=== PATIENT | female | born 1945 | race Caucasian/White ===

== ENCOUNTER 2017-12-08 17:22 | Emergency (ER) | payer MEDICARE, MEDICAID, SELFPAY ==
[2017-12-08 17:27] VITALS: BP 165/88; PULSE 98; RESP 20; TEMP 36.6; O2SAT 95; BMI 42.5
--- NOTE | 2017-12-08 18:08 | US_ITS ---
STUDY: VENOUS DOPPLER ULTRASOUND - RIGHT LOWER EXTREMITY REASON FOR EXAM: Female, 72 years old. Posterior calf pain TECHNIQUE: Ultrasound evaluation of the deep vein system to include ma-scale imaging and compression was performed. Ma-scale imaging and Doppler sonographic evaluation, including duplex spectral analysis and qualitative color flow sonography, was performed. COMPARISON: None. FINDINGS: Common Femoral Vein: Normal compression, spontaneity and augmentation. Normal color Doppler. Common Femoral Vein/Greater Saphenous Junction: Normal compression Deep Femoral Vein: Normal compression, spontaneity and augmentation. Normal color Doppler. Femoral Proximal: Normal compression. Normal color Doppler. Femoral Middle: Normal compression, spontaneity and augmentation. Normal color Doppler. Femoral Distal: Normal compression, spontaneity and augmentation. Normal color Doppler. Popliteal Vein: Normal compression, spontaneity and augmentation. Normal color Doppler. Posterior Tibial Vein: Normal compression. Peroneal Vein: Normal compression. US/Venous Duplex Imag/Limited/Uni IMPRESSION: There is no demonstrated deep venous thrombosis. Electronically Signed: aMry Samayoa MD at 18:47 EDT Tel , Service support ,
--- NOTE | 2017-12-08 19:55 | ED.VISSUMM ---
- ER Visit Summary Date of Service: 12/08/17 Chief Complaint: Leg pain right History of Present Illness: The patient is a 72 F with right leg pain on the right. No DVT risk factors. No chest pain or shortness of breath Physical Examination: Pain over the IT band region and posterior knee. Test Results: [] Emergency Department Course and Treatment: DVT study was ordered per protocol prior to me seeing the patient this was negative patient will be discharged with reassurance Disposition: Discharged stable condition Impression: IT band pain This note was generated with [employer] dictation software. It may contain incorrect words, spelling, and punctuation that were not noted in review of the chart prior to signing ED Disposition - Plan for ED Patient: Disposition: Home or Assisted Living Chief Complaint: Lower Extremity Injury Referrals: Maricruz Ace MD [Primary Care Provider] - 2 Days Additional Instructions: Follow-up with your doctor for physical therapy
--- NOTE | 2017-12-08 19:58 | ED.DCSUM_ITS ---
- ER Visit Summary Date of Service: 12/08/17 Chief Complaint: Leg pain right History of Present Illness: The patient is a 72 F with right leg pain on the right. No DVT risk factors. No chest pain or shortness of breath Physical Examination: Pain over the IT band region and posterior knee. Test Results: [] Emergency Department Course and Treatment: DVT study was ordered per protocol prior to me seeing the patient this was negative patient will be discharged with reassurance Disposition: Discharged stable condition Impression: IT band pain This note was generated with [employer] dictation software. It may contain incorrect words, spelling, and punctuation that were not noted in review of the chart prior to signing ED Disposition - Plan for ED Patient: Disposition: Home or Assisted Living Chief Complaint: Lower Extremity Injury Referrals: Maricruz Ace MD [Primary Care Provider] - 2 Days Additional Instructions: Follow-up with your doctor for physical therapy
== END 2017-12-08 20:02 | disposition home or self-care (01) ==
PROVIDERS: Emergency Provider Emergency Medicine; Family Provider Internal Medicine; PCP Internal Medicine
DX: M79.1 Myalgia (principal); Z72.0 Tobacco use; M79.7 Fibromyalgia
CPT/HCPCS: 93971; 99282

== ENCOUNTER 2018-07-24 21:54 | Emergency (ER) | payer MEDICARE, MEDICAID, SELFPAY ==
[2018-07-24 21:55] VITALS: BP 156/67; PULSE 107; RESP 18; TEMP 36.8; O2SAT 96; BMI 35.4
--- NOTE | 2018-07-24 22:17 | RAD_ITS ---
HISTORY: INCREASED SWELLING RT KNEE, BUMP BEHIND KNEE COMPARISON: None FINDINGS: # of images incl. paperwork: 4 XR Knee Complete 4 Views or More: Right. SOFT TISSUES: Unremarkable. No radiopaque foreign body. BONES: No acute fracture or subluxation. No sclerotic or destructive changes observed. JOINTS: Very mild for age degenerative changes. No apparent joint effusion. RAD/Knee 4 or More Views IMPRESSION: Mild for age degenerative changes. No acute fracture or dislocation. at 0024 Reported and signed by: Raleigh Guerrero MD Electronically Signed: Raleigh Guerrero, at 0:22 EST Tel , Service support ,
[2018-07-24 22:53] LABS: International Normalized Ratio 1.1; Prothrombin Time (Protime)PT. 13.9 SECONDS (11.7-14.9)
[2018-07-24 22:59] LABS: Anion Gap 9 (5-15); BUN 26 mg/dL (7-18); BUN/Creat Ratio 23.2 RATIO (10-20); Calcium,Total 9.1 mg/dL (8.5-10.1); Chloride 105 mmol/L (98-107); Creatinine, Serum 1.12 mg/dL (0.55-1.02); EST Glomerular Filtration Rate 51 mL/min (>60); Est Glom Filt Rate - Afr Amer 62 mL/min (>60); Estimated Creatinine Clearance 38.11 ml/min; Glucose 148 mg/dL (74-106); Potassium 3.9 mmol/L (3.5-5.1); Sodium Level 140 mmol/L (136-145)
[2018-07-24 23:05] LABS: D-Dimer Quantitative (DVT/PE) 2.34 FEU/ug/m (0.27-0.49)
--- NOTE | 2018-07-24 23:05 | ED.RN ---
DR WARD NOTIFIED OF DDIMER RESULTS
--- NOTE | 2018-07-24 23:07 | ED.VISSUMM ---
- ER Visit Summary Date of Service: 07/24/18 Chief Complaint: Right leg pain and swelling History of Present Illness: The patient is a 72 F who presents with right leg pain and swelling. She states she noticed a knot behind her right knee yesterday. She later developed pain extending down the calf and up into the distal thigh. She is able to ambulate. She complains of some paresthesias in her toes. No fall trauma or injury. No recent travel surgery or hospitalization. No history of DVT or pulmonary embolism. She also complains of right lower back pain for greater than a month which she is uncertain if it is related. No abdominal pain. She denies fevers chest pain shortness of breath. Physical Examination: Afebrile heart rate 107 vitals otherwise unremarkable Heart regular rhythm Lungs are clear to auscultation Abdomen soft nontender nondistended Patient has reproducible right paraspinal lumbar tenderness There is a fullness with some fluctuance behind the right knee suggestive of Chu's cyst Patient has bilateral lower extremity edema although this is worse on the right there is some mild erythema of the lower leg but it is not hot to the touch there is no lymphangitic streaking it does not appear cellulitic Easily palpable symmetric dorsalis pedis pulses with brisk capillary refill Normal sensation to light touch Test Results: D-dimer 2.34. INR normal at 1.1. BUN of 26 with a creatinine of 1.12. CBC notable for hemoglobin 9.0, hematocrit 30.1. Knee x-ray shows mild degenerative changes for age no acute fracture or dislocation. Emergency Department Course and Treatment: My clinical suspicion is that this is a ruptured Chu's cyst. However d-dimer did return elevated. Venous duplex is not available at this time. Patient was therefore empirically treated with a dose of subcutaneous Lovenox. She will return tomorrow for venous duplex. She understands to return for new or worsening symptoms. She is instructed on signs and symptoms to monitor for and was discharged home. Treatment Plan: [] Disposition: Discharge Impression: Right leg pain This note was generated with [employer] dictation software. It may contain incorrect words, spelling, and punctuation that were not noted in review of the chart prior to signing ED Disposition - Plan for ED Patient: Referrals: Maricruz Ace MD [Primary Care Provider] -
[2018-07-24 23:21] LABS: Absolute Lymphocyte Count 2.64 X10^3/ul (0.83-4.51); Basophil# 0.03 X10^3/uL; Basophil% 0.3 % (0-1); Eosinophil# 0.19 X10^3/uL; Eosinophils% 1.7 % (0-5); Hematocrit 30.1 % (37-47); Lymphocyte # 2.64 X10^3/ul (4.0); Mean Corp Hgb Conc 29.9 g/gl (32-36); Mean Corpuscular Hgb 22.1 pg (27.0-32.0); Mean Platelet Vol. 9.1 fl (6.2-12.0); Monocyte# 1.12 X10^3/uL; Monocyte% 10.2 % (0-10); Neutrophil # 6.99 X10^3/uL (2.7-7.7); Neutrophil % 63.6 % (47-70); Platelet Count 320 K/mm3 (150-450); RBC Distribution Width CV 18.8 % (11.6-14.6); RBC Distribution Width SD 50.4 fl (35.1-43.9); Red Blood Count 4.07 M/mm3 (4.2-5.4)
[2018-07-24 23:22] LABS: Differential Indicated SCAN CRITERIA MET; POSITIVE COUNT NO; POSITIVE DIFFERENTIAL NO; POSITIVE MORPHOLOGY YES
[2018-07-24 23:42] LABS: Anisocytosis 1+
[2018-07-24 23:43] LABS: Hypochromasia 3+; Microcytosis 3+; Schistocytes RARE
[2018-07-24 23:56] VITALS: PULSE 88; RESP 16; O2SAT 97
[2018-07-25] MEDS: Enoxaparin 100 MG/ML Syringe 90 MG SC (00:14)
--- NOTE | 2018-07-25 00:31 | ED.DEP ---
ED Disposition - Plan for ED Patient: Instructions: ED Cyst Chu Referrals: Maricruz Ace MD [Primary Care Provider] -
[2018-07-25 01:00] VITALS: RESP 18
[2018-07-25 01:07] VITALS: BP 121/61; PULSE 91; RESP 18; O2SAT 96
== END 2018-07-25 01:13 | disposition home or self-care (01) ==
LOC: ED 22:42
PROVIDERS: Emergency Provider Emergency Medicine; Family Provider Internal Medicine; PCP Internal Medicine
DX: M79.604 Pain in right leg (principal); R60.0 Localized edema; M54.9 Dorsalgia, unspecified; I10 Essential (primary) hypertension; I48.91 Unspecified atrial fibrillation; Z72.0 Tobacco use
CPT/HCPCS: 36415; 73564; 80048; 85025; 85379; 85610; 96372; 99282

== ENCOUNTER → 2018-07-27 13:18 | Outpatient (CLI) | payer MEDICARE, MEDICAID, SELFPAY ==
[2018-07-24 21:55] VITALS: BMI 35.4
--- NOTE | 2018-07-27 13:23 | VDLE_ITS ---
Reason For Study: RLE Pain RIGHT LEFT GSV is normal. CFV is compressible, spontaneous, phasic, CFV is compressible, spontaneous, phasic, competent, and demonstrates normal competent and demonstrates normal augmentation. augmentation. Acute deep vein thrombosis is noted in the right femoral vein. Acute deep vein thrombosis is noted in the right popliteal vein. RT PerV is compressible. Acute deep vein thrombosis is noted in the right posterior tibial vein. Acute deep vein thrombosis is noted in the right gastroc vein. Procedure Exam performed in department. A preliminary report was called and/or faxed to [facility]. Interpretation Summary Acute deep vein thrombosis is noted in the right femoral vein. Acute deep vein thrombosis is noted in the right popliteal vein. Acute deep vein thrombosis is noted in the right posterior tibial vein. Acute deep vein thrombosis is noted in the right gastrocnemius vein. The right common femoral vein and peroneal vein are patent and compressible. The right greater saphenous vein appears patent and compressible segmentally. Ordering Physician: Palmer Smith Referring Physician: Maricruz Ace Performed By: Mary Anne Fang RVT and Student
== END ==
PROVIDERS: Family Provider Internal Medicine; PCP Internal Medicine; Referring Provider Emergency Medicine; Visit Provider Emergency Medicine
DX: M79.604 Pain in right leg (principal); M79.89 Other specified soft tissue disorders
CPT/HCPCS: 93971

== ENCOUNTER → 2018-10-13 09:44 | Outpatient (CLI) | payer MEDICARE, MEDICAID, SELFPAY ==
[2018-10-13] VITALS (7 sets, daily range): BP systolic 129–154; BP diastolic 58–78; PULSE 65–91; RESP 16–18; TEMP 36.2–37.2; O2SAT 96–99; BMI 40.2
[2018-10-13] MEDS: DiphenhydrAMINE 25 MG Capsule 50 MG PO (10:12)
== END ==
LOC: MEDOUTP 09:44
PROVIDERS: Family Provider Internal Medicine; PCP Internal Medicine; Referring Provider Internal Medicine; Visit Provider Internal Medicine
DX: D64.9 Anemia, unspecified (principal)
CPT/HCPCS: 36430; 86850; 86900; 86920; 86922; J7040; P9016; A4216

== ENCOUNTER 2018-10-15 10:19 | Day surgery (SDC) | payer MEDICARE, SELFPAY ==
[2018-10-13 10:04] VITALS: BMI 40.2
[2018-10-15 10:49] VITALS: BP 143/73; PULSE 79; RESP 18; TEMP 37.1; O2SAT 94; BMI 40.5
--- NOTE | 2018-10-15 11:30 | EGD_PTH ---
PATIENT: BRIANNA DYSON LOC: [facility] U#:[id number] AGE/SX: 72/F ROOM: RE10/15/[address]: Dr. Sarah Webb MD : 1945 BED: DIS: 10/15/2018 SPEC #: [id number] RECD: 10/15/18 12:27 STATUS: MERNA RENaomi #: [id number] DOMI: 10/15/18 11:[address]: Sarah Webb DEPT: SURGICAL PATHOLOGY RECD BY: Yovanny Judge ENTERED: 10/15/18 13:32 SP TYPE: EGD BIOPSY OTHR DR: Dr. Maricruz Ace MD Tissues: Gastric mucous membrane Procedures: PAS Fungus (control) Special Stain Group I Surgery Specimen Level IV HEADER OPERATION[place] [place] DIAGNOSIS: Iron deficiency anemia TISSUE SUBMITTED: Antral biopsy for histo and H. pylori MICROSCOPIC DIAGNOSIS Antral biopsy: Mild gastritis. See microscopic description and comment. SJ:angie 10/18/18 COMMENT A few fragments of squamous epithelium mixed with fungal organisms (yeast and pseudohyphae) consistent with Abril species are also noted and these may represent contaminant from the mouth. The results of immunohistochemistry for Helicobacter pylori will be reported separately ([id number]). Correlation with clinical, endoscopic findings and appropriate follow up are necessary. MICROSCOPIC DESCRIPTION Slides are reviewed. The specimen shows fragments of gastric mucosa with chronic inflammatory cell infiltrates in the lamina propria consisting of lymphocytes and plasma cells, consistent with mild chronic gastritis. GROSS DESCRIPTION Received in fixative is one container labeled with the patient's name and designated antral biopsy. The specimen consists of two irregular fragments of light de leon soft tissue that in aggregate measure 0.4 x 0.3 x 0.1 cm. The specimen is totally submitted in one cassette. / ANNETTE:angie 10/15/18 TC:3 CPT: 19655, 30069
--- NOTE | 2018-10-15 11:30 | IMM_PTH ---
PATIENT: BRIANNA DYSON LOC: [facility] U#:[id number] AGE/SX: 72/F ROOM: RE10/15/[address]: Dr. Sarah Webb MD : 1945 BED: DIS: 10/15/2018 SPEC #: [id number] RECD: 10/15/18 14:59 STATUS: MERNA REQ #: [id number] DOMI: 10/15/18 11:[address]: Sarah Webb DEPT: IMMUNOHISTOCHEMISTRY RECD BY: Brittney Mcgraw ENTERED: 10/15/18 15:00 SP TYPE: IMMUNO OTHR DR: Dr. Maricruz Ace MD Tissues: Stomach, NOS Procedures: H Pylori (initial) PHYSICIAN & INSTITUTION [place] [id number] SPECIMEN INFORMATION: Tissue Source: Antral biopsy Clinical Info: Iron deficiency anemia Specimen Number: [id number] CPT code: 39639 METHODOLOGY: Deparaffinized sections of prefer/formalin-fixed tissue or PAP/DQ stained slides are incubated with monoclonal/polyclonal antibodies/oligonucleotide probes. Localization is made via biotin free immunoperoxidase method. Appropriate controls are performed and reacted as expected. Results on target cell population are indicated in the following table: RESULTS: ANTIBODY / CLONE RESULT H Pylori (polyclonal) negative These tests were developed and their performance characteristics determined by [facility]. They may not have been cleared or approved by the [place]. Food and Drug Administration. The FDA has determined that such clearance or approval is not necessary. INTERPRETATION: Antral biopsy: Negative for Helicobacter pylori organisms. SJ:angie 10/18/18
--- NOTE | 2018-10-15 11:44 | HP.PCM_ITS ---
History and Physical Date of Admission: 10/15/18 HISTORY AND PHYSICAL ? Lala Davila 1945 ? REFERRING PHYSICIAN: Maricruz Ace MD ? CHIEF COMPLAINT: Consult ? HPI: The patient is a 72 year old female referred for endoscopy. Lala notes iron deficiency on recent labs, was referred to gastroenterology and scheduled for appointment in October but rescheduled to be seen earlier with General Surgery. Patient notes progressive fatigue and weakness over the last couple of months. Notes she has had so little energy that she stayed home [place] and did not get together with her family. States she barely had enough energy to come to appointment today. ? Patient notes a few months ago she was having issues with chronic watery diarrh ea and that she had two weeks of visible blood with bowel movements associated with this. was seen by Dr. Haney and treated for spastic colon, records not currently available. Notes was briefly on medication for this which she has since stopped taking. was told bleeding was likely related to internal hemorrhoids. She states the stools normalized and she notes no further blood in stools. Denies black tarry stools or abdominal pain. Denies family history of colon cancer. ? The patient NOTES chronic generalized mid-abdominal pain that varies in severity, denies particular aggravating or alleviating factors. She is a current everyday smoker, approximately 1/2 pack per day. ? Lala has undergone prior upper and lower endoscopy in [address] Mclaughlin with findings of gastritis, esophagitis, angioectasia without bleeding in the cecum, benign colon hyperplastic polyp. Patient notes some recall from those procedures and would like to make she is out this time. Patient was recently evaluated by her PCP for her complaints including fatigue. She had the following laboratory studies performed which demonstrated iron deficiency anemia and heme positive stool. ? ? Component Latest Ref Rng & Units 09/24/2018 WBC 3.70 - 11.00 k/uL 8.17 RBC 3.90 - 5.20 m/uL 3.67 (L) Hemoglobin 11.5 - 15.5 g/dL 7.7 (L) Hematocrit 36.0 - 46.0 % 27.1 (L) MCV 80.0 - 100.0 fL 73.8 (L) MCH 26.0 - 34.0 pG 21.0 (L) MCHC 30.5 - 36.0 g/dL 28.4 (L) RDW-CV 11.5 - 15.0 % 19.2 (H) Platelet Count 150 - 400 k/uL 476 (H) MPV 9.0 - 12.7 fL 10.2 Neut% % 55.6 Abs Neut (ANC) 1.45 - 7.50 k/uL 4.55 Lymph% % 31.7 Abs Lymph 1.00 - 4.00 k/uL 2.59 Barren% % 10.8 Abs Barren <0.87 k/uL 0.88 (H) Eosin% % 1.5 Abs Eosin <0.46 k/uL 0.12 Baso% % 0.4 Abs Baso <0.11 k/uL 0.03 Nucleated Reds 0 /100 WBC 0.2 (H) Absolute nRBC <0.01 k/uL 0.02 (H) Diff Type ? Auto Diff ? Component Latest Ref Rng & Units 09/24/2018 Iron 41 - 186 ug/dL 12 (L) TIBC 232 - 386 ug/dL 432 (H) Transferrin Saturation 15 - 57 % 3 (L) ? Component Latest Ref Rng & Units 09/27/2018 Occult Blood, Stool Negative Positive (A) ? ? Patient's past medical history is significant for a recently diagnosed DVT (July 2018) for which she is being anticoagulated with Xarelto, aprtic stenosis, fibromyalgia, chronic pain, hyperlipidemia, pulmonary hypertension, diaphragmatic hernia, obstructive sleep apnea, osteoporosis. Patient follows with Dr. Ace for her chronic medical conditions as well as with Dr. Zuniga in cardiology, recent office visit notes reviewed. She has had a recent echocardiogram which showed mild aortic stenosis, and recent normal stress test, ? ? PAST?MEDICAL?HISTORY PAST MEDICAL HISTORY Diagnosis Date ? Arrhythmia ? ? Benign neoplasm of colon ? ? colon polyp ? Calculus of gallbladder with other cholecystitis, without mention of obstruction 12/09/2007 ? Depressive disorder, not elsewhere classified ? ? Diaphragmatic hernia without mention of obstruction or gangrene ? ? Diverticulosis of colon (without mention of hemorrhage) ? ? Esophageal reflux ? ? Esophagitis ? ? Myalgia and myositis, unspecified ? ? Obesity, unspecified ? ? Obstructive sleep apnea ? ? Osteoporosis, unspecified ? ? Other and unspecified hyperlipidemia ? ? Other malaise and fatigue ? ? Other nerve root and plexus disorders ? ? Restless leg syndrome ? ? Sleep disturbances ? ? narcolepsy ? Tuberculin test reaction ? ? neg chest x-ray ? Unspecified hemorrhoids without mention of complication ? ? Unspecified hypothyroidism ? ? Urinary incontinence ? ? Seeing Dr. Chung ? Vitamin D deficiency ? ? ? PAST?SURGICAL?HISTORY PAST SURGICAL HISTORY Procedure Laterality Date ? APPENDECTOMY ? ? ? COLONOS W/REM POLYP SNARE ? 10/03/2016 ? Hyperplastic polyp - 10 year ? COLONOSCOP W/ OR W/O BRSH SPEC ? 04/16 ? Colonoscopy w/ bx. ? COLONOSCOP W/ OR W/O BRSH SPEC ? 11/05/2012 ? Colonoscopy ? EGD ? 04/16 ? EGD W/O BRSH SPECIMEN W/BX ? 10/03/2016 ? Gastritis ? EGD W/O OR W/BRUSH/WASH ? 11/05/2012 ? EGD ? LAP CHOLECYSTECT/CHOLANGIOGRAPHY ? 01/03/08 ? PAST SURGICAL HISTORY OF ? 03/15/2010 ? ventral hernia repair Dr. Deluna ? PAST SURGICAL HISTORY OF ? 03/05/11 ? Rt nipple exploration with biopsy ? REPAIR INCIS HERNIA W MESH ? 03-15-10 ? REPAIR INCISIONAL HERNIA,REDUCIBLE ? 03-15-10 ? RESECT SMALL INTEST,SINGL RESEC/ANAS ? 1980 ? Resection, partial sm bowel tumor ? STRESS TEST,COMPLETE_*FL ? 08/2000 ? TOTAL ABDOM HYSTERECTOMY ? 1978 ? Hysterectomy, [facility]EDITH ? ? ? CURRENT?MEDICATIONS ? Current Outpatient Medications: cyanocobalamin (VITAMIN B-12) 1,000 mcg/mL soln Inject 1 mL intramuscularly once every month. 1 DOSE MONTHLY oxyCODONE-acetaminophen (PERCOCET) 5-325 mg tablet Take 1 tablet by mouth every 8 hours as needed for up to 30 days. FOR PAIN.Earliest Fill Date: 09/24/18 albuterol HFA (PROVENTIL HFA, VENTOLIN HFA) 90 mcg/actuation inhaler Inhale 2 Puffs as instructed every 4 hours as needed. rivaroxaban (XARELTO) 15 mg tablet Take 1 tablet by mouth twice daily. For 21 days that to be followed by xarelto 20 mgs daily tiZANidine (ZANAFLEX) 4 mg tablet Take 2 tablets by mouth daily at bedtime. pantoprazole DR (PROTONIX) 40 mg tablet take 1 tablet daily 1/2 hour before breakfast on an empty stomach rOPINIRole (REQUIP) 0.5 mg tablet TAKE 2 TABLETS AT BEDTIME or as directed FLUoxetine (PROZAC) 20 mg capsule Take 1 capsule by mouth once daily. triamterene-hydrochlorothiazide 37.5-25 mg per capsule TAKE 1 CAPSULE DAILY furosemide (LASIX) 40 mg tablet Take 1 tablet by mouth once daily. (Patient taking differently: Take 40 mg by mouth as needed.) albuterol 2.5 mg /3 mL (0.083 %) nebulizer solution Use 3 mL via nebulizer as directed for 1 day. ADMINISTER 1UNIT DOSE NOW. cholecalciferol, Vitamin D3, (VITAMIN D3) 50,000 unit cap capsule take 1 capsule twice a week for vitamin d deficiency levothyroxine (LEVOXYL) 175 mcg tablet Take 1 tablet by mouth once daily. Take on empty stomach. For thyroid. peg 3350-Electrolytes (GOLYTELY) 236-22.74-6.74 -5.86 gram suspension Take 4,000 mL by mouth one time only for 1 dose. rivaroxaban (XARELTO) 20 mg tablet Take 1 tablet by mouth daily with dinner. To cont with this once the first 21 days. (Patient not taking: Reported on 10/11/2018 ) oxybutynin XL (DITROPAN XL) 5 mg 24 hr tablet Take 1 tablet by mouth once daily. (Patient not taking: Reported on 10/11/2018 ) Betamethasone Dipropionate 0.05 % lotion Apply 1 application to affected area twice daily. (Patient not taking: Reported on 10/11/2018 ) ? Current Facility-Administered Medications: cyanocobalamin 1,000 mcg injection 1,000 mcg INTRAMUSCULAR q 1 MONTH ? ? ALLERGIES: Adhesive Tape (Rosins); Fosamax Plus D [Alendronate-Vitamin D3]; Ivp Dye [Iodine]; Nsaids (Non-Steroidal Anti-Inflammatory Drug) ? PERSONAL HISTORY: SOCIAL?HISTORY Social History Socioeconomic History Marital status: Single Spouse name: Not on file Number of children: 2 Years of education: Not on file Highest education level: Not on file Social Needs Financial resource strain: Not on file Food insecurity - worry: Not on file Food insecurity - inability: Not on file Transportation needs - medical: Not on file Transportation needs - non-medical: Not on file Occupational History Not on file Tobacco Use Smoking status: Current Every Day Smoker Packs/day: 0.50 Years: 40.00 Pack years: 20 Types: Cigarettes Smokeless tobacco: Never Used Tobacco comment: electronic cig Substance and Sexual Activity Alcohol use: No Drug use: No Sexual activity: Not on file Other Topics Concerns: Not on file Social History Narrative Not on file ? FAMILY HISTORY: FAMILY?HISTORY FAMILY HISTORY Problem Relation Age of Onset ? Cancer Mother ? ? throat/lung/stomach ? Heart Father ? ? other (lymphoma) Brother ? ? ? REVIEW OF SYMPTOMS: The review of systems data was entered by the nurse and reviewed by me ? Nursing Notes: Nathaniel Cleveland 10/11/2018 4:02 PM Signed REVIEW OF SYSTEMS: General: The patient NOTES fatigue, denies weight loss, denies weight gain, NOTES feeling hot, and denies feelings of cold. Eyes: The patient denies glaucoma, denies eye injury/surgery, wears glasses or contacts. Ear/Nose/Throat: The patient denies allergies, denies hayfever, NOTES ear infections, and denies bloody noses. Cardiovascular: The patient denies chest pain, denies heart disease, NOTES high blood pressure,denies cardiac stent, denies prior heart attack, NOTES irregular heart beat, denies high cholesterol, denies poor circulation, denies heart failure, other cardiac issues, denies claudication, NOTES cold feet, denies peripheral arterial stent. Respiratory: The patient denies tuberculosis, NOTES pneumonia, NOTES frequent cough, denies pulmonary embolism, NOTES shortness of breath, and denies coughing up blood. Gastrointestinal: The patient denies difficulty swallowing, NOTES acid reflux, denies ulcers, denies vomiting, denies jaundice/hepatitis, NOTES gallbladder problems, denies black or tarry stools, NOTES hemorrhoids, NOTES bleeding from rectum, NOTES diverticulitis, NOTES constipation, NOTES diarrhea, denies loss of stool control, and NOTES hernias. Kidney/Bladder: The patient denies kidney stones, denies urine infections, and denies bloody urine. Skin: The patient denies a history of skin cancer, denies bleeding/changing moles, and NOTES a history of skin rash. Neurologic: The patient denies a history of epilepsy/convulsions, denies headaches, denies head/spinal injuries, and denies stroke/TIA. Psychiatric: The patient denies psychiatric medications, NOTES depression, and denies voices, denies substance abuse. Endocrine: The patient NOTES thyroid disorders, denies diabetes, and denies hormonal problems. Hematologic: The patient denies a history of bruising, denies bleeding, and NOTES anemia, NOTES blood clots. Infections: The patient NOTES a history of measles and mumps, denies rheumatic fever, and denies sexually transmitted diseases. Musculoskeletal: The patient NOTES back pain/injury, NOTES back problems, denies sciatica, denies knee/foot trouble, NOTES arthritis, or denies gout. ? ? When was patient's last Mammogram screening? 03-16-18 ? Last Colonoscopy: 2016 ? Nathaniel Cleveland I have confirmed and edited as necessary, the PFSH and ROS obtained by others. ? PHYSICAL EXAMINATION: ? General: The patient is 72 year old female, appears tired and pale but in no acute distress. The patient is oriented to time, place, and person. ? VITALS: Blood pressure 150/68, pulse 94, temperature 37.4 ?C (99.3 ?F), temperature source Temporal Artery, height 158.8 cm (5' 2.5), weight 102.9 kg (226 lb 12.8 oz), SpO2 98 %. Body mass index is 40.82 kg/m?. ? HEENT: Normal cephalic, ataumatic, pupils are equally round, sclera are anicteric, mucous membranes are moist, oropharynx is clear. Neck has no masses, asymmetry or lymphadenopathy. ? Respiratory: Clear to auscultation and percussion. Normal respiratory excursion and pattern. ? Cardiac: Examination is regular rate and rhythm. Normal S1/S2 ? Abdominal exam: Soft, nontender, with no palpable masses. No hepatosplenomegaly. No palpable hernias. ? Extremities: no clubbing, cyanosis or edema. No adenopathy. ? LABORATORY VALUES: As Noted ? RADIOLOGIC STUDIES: As Noted ? ? Assessment IMPRESSION: iron deficiency anemia, fatigue and weakness, aortic stenosis. Recommend expedited upper and lower endoscopy to evaluate for GI bleeding source and recommend blood transfusion prior to endoscopy ? PLAN: I have reviewed my findings with the surgeon. Will plan for upper and lower endoscopy. We discussed the risks and benefits of the planned endoscopy. I have informed the patient that complications can occur including failure to complete the endoscopy and perforation. The patient had the opportunity to ask questions concerning the planned endoscopy. My staff has also explained the procedure to the patient in understandable terms and has given the patient printed material concerning the procedure. The patient freely consents to surgery. ? I plan to use Golytely bowel preparation. Reviewed importance of good hydration. ? Case reviewed with surgeon Dr. Mclaughlin, as well as with Dr. Zuniga in cardiology. We recommend that patient receive blood transfusion prior to endoscopy due to significant anemia with symptoms of fatigue and weakness, in addition to her history of aortic stenosis. This recommendation was relayed to patient's PCP Dr. Ace. ? We will plan for Monitored Anesthetic Care. due to cardiac history as well as anxiety and recall from prior colonoscopy performed under moderate sedation ? ? Diagnoses: (D50.9) Iron deficiency anemia, unspecified iron deficiency anemia type (primary encounter diagnosis) (Z79.01) On continuous oral anticoagulation (I35.2) Aortic valve stenosis with insufficiency, etiology of cardiac valve disease unspecified (I82.4Y1) Acute deep vein thrombosis (DVT) of proximal end of right lower extremity (HCC) (R53.1) Weakness (R53.81, R53.83) Malaise and fatigue ? ? Katie De Luna PA-C
[2018-10-15 12:15] VITALS: BP 143/71; BP 143/73; PULSE 75; RESP 18; TEMP 36.1; O2SAT 97
--- NOTE | 2018-10-15 12:18 | OP.ENDO_ITS ---
10/15/2018 Maricruz Ace [address] [id number] Re : Upper GI endoscopy procedure for Lala Davila Dear Dr. Ace This procedure was performed on Monday, October 15, 2018. My impressions and recommendations are as follows: Impressions : - Normal first portion of the duodenum and second portion of the duodenum. - Normal stomach. Biopsied. - Small hiatal hernia. Recommendations : - Discharge patient to home (ambulatory). - Resume previous diet. - Continue present medications. - Await pathology results. - My office will telephone with pathology results in 1-2 weeks My findings are described in the full procedure note, which is enclosed. If I can be of further assistance, please feel free to contact me at Doctor phone number(s): , Work: . Sincerely, MD Sarah Zarate MD 10/15/2018 12:17:52 PM This report has been signed electronically.
[2018-10-15 12:20] VITALS: BP 143/73; BP 149/81; PULSE 73; RESP 18; O2SAT 96
--- NOTE | 2018-10-15 12:21 | OP.ENDO_ITS ---
10/15/2018 Maricruz Ace [address] [id number] Re : Colonoscopy procedure for Lala Davila Dear Dr. Ace This procedure was performed on Monday, October 15, 2018. My impressions and recommendations are as follows: Impressions : - Non-bleeding internal hemorrhoids. - No specimens collected. Recommendations : - Repeat colonoscopy in 10 years for screening purposes. - Return to primary care physician PRN. - Continue present medications. My findings are described in the full procedure note, which is enclosed. If I can be of further assistance, please feel free to contact me at Doctor phone number(s): , Work: . Sincerely, MD Sarah Zarate MD 10/15/2018 12:20:54 PM This report has been signed electronically.
[2018-10-15 12:25] VITALS: BP 143/73; BP 149/80; PULSE 75; RESP 18; O2SAT 97
[2018-10-15 12:30] VITALS: BP 143/73; BP 149/76; PULSE 71; RESP 18; TEMP 36.4; O2SAT 97
[2018-10-15 12:34] VITALS: BP 143/73
== END 2018-10-15 13:11 | disposition home or self-care (01) ==
LOC: EN 10:20 → AC 10:23
PROVIDERS: Family Provider Internal Medicine; PCP Internal Medicine; Referring Provider Internal Medicine; Visit Provider Surgery
PROC: 0DJD8ZZ Inspection of Lower Intestinal Tract, Via Natural or Artificial Opening Endoscopic (ICD-10-PCS; CPT 45378; principal; 2018-10-15 11:25)
DX: K29.70 Gastritis, unspecified, without bleeding (principal); D50.9 Iron deficiency anemia, unspecified; I35.0 Nonrheumatic aortic (valve) stenosis; K44.9 Diaphragmatic hernia without obstruction or gangrene; K64.8 Other hemorrhoids; K62.5 Hemorrhage of anus and rectum; K21.9 Gastro-esophageal reflux disease without esophagitis; Z86.718 Personal history of other venous thrombosis and embolism; I48.91 Unspecified atrial fibrillation; I10 Essential (primary) hypertension; F17.200 Nicotine dependence, unspecified, uncomplicated
CPT/HCPCS: 43239; 45378; 88305; 88312; 88342; J7120

== ENCOUNTER → 2019-12-26 11:02 | Outpatient (CLI) | payer MEDICARE, MEDICAID, SELFPAY ==
[2019-12-26 12:07] LABS: Amphetamine Urine VISTA NEGATIVE (<1000 ng/mL); Barbiturate Urine VISTA NEGATIVE (< 200 ng/mL); Benzodiazepine Urine VISTA NEGATIVE (< 200 ng/mL); Cocaine Urine VISTA NEGATIVE (< 300 ng/mL); Ecstacy Urine VISTA NEGATIVE (< 500 ng/mL); Methadone Urine VISTA NEGATIVE (< 300 ng/mL); PCP Urine VISTA NEGATIVE (< 25 ng/mL); THC Urine VISTA NEGATIVE (< 50 ng/mL); Vista UDS pH Range 7
== END ==
PROVIDERS: PCP Internal Medicine; Referring Provider Anesthesiology Pain Medicine; Visit Provider Anesthesiology Pain Medicine
DX: F11.20 Opioid dependence, uncomplicated (principal)
CPT/HCPCS: 80307

== ENCOUNTER → 2020-01-03 17:04 | Outpatient (CLI) | payer MEDICARE, MEDICAID, SELFPAY ==
--- NOTE | 2020-01-03 17:30 | MRI_ITS ---
STUDY: MRI LUMBAR SPINE WITHOUT CONTRAST REASON FOR EXAM: Female, 74 years old. LBP, LEFT hip and leg pain x years TECHNIQUE: Standardized fat and water weighted pulse sequences were obtained in the sagittal and axial planes. COMPARISON: None FINDINGS: T12-L1: Normal endplates. Normal disc height, hydration and morphology. Normal bilateral facet joints. Normal central canal and bilateral lateral recesses. Normal bilateral intervertebral neural foramina. Normal lumbar lordosis. There is no substantial scoliosis. Normal conus medullaris that terminates at the L1 level. L1-2: Bulging annulus and bilateral facet hypertrophy without compressive sequelae. L2-3: Bulging annulus and broad central disc protrusion with bilateral facet hypertrophy and facet joint effusions. Mild central canal and right foraminal stenoses. L3-4: Bulging annulus and central annular fissure with bilateral facet and ligamentum flavum hypertrophy. Moderate right and mild left foraminal stenoses. L4-5: Disc space narrowing and desiccation with discogenic endplate changes and anterior osteophytes. Bulging annulus and broad central disc protrusion with bilateral facet and ligamentum flavum hypertrophy. Mild central canal and left lateral recess stenoses. Moderate right and mild left foraminal stenoses. L5-S1: Bulging annulus and bilateral facet hypertrophy with moderate to severe bilateral foraminal stenoses. Normal visualized sacral ala. Normal visualized paraspinous soft tissue structures. MRI/Spine Lumbar (Routine) IMPRESSION: Multilevel degenerative disease as described. Moderate to severe bilateral foraminal stenoses at the L5-S1 level. Electronically Signed: Claus Le MD at 20:22 EDT Tel , Service support ,
== END ==
PROVIDERS: PCP Internal Medicine; Referring Provider Anesthesiology Pain Medicine; Visit Provider Anesthesiology Pain Medicine
DX: M54.9 Dorsalgia, unspecified (principal); M79.606 Pain in leg, unspecified
CPT/HCPCS: 72148

== ENCOUNTER 2020-08-21 16:53 | Emergency (ER) | payer MEDICARE, MEDICAID, SELFPAY ==
[2020-08-21 16:54] VITALS: BP 184/75; PULSE 87; RESP 19; TEMP 37.2; O2SAT 97; BMI 44.7
--- NOTE | 2020-08-21 16:58 | CT_ITS ---
STUDY: CT CHEST WITHOUT CONTRAST REASON FOR EXAM: Female, 74 years old. Trauma -- Rib injury Suspect multiple rib fracture RADIATION DOSAGE (If Supplied By Facility): CTDIvol = ( 18.63 ) mGy, DLP = ( 735.70 ) mGycm TECHNIQUE: Transaxial imaging was performed without the administration of intravenous contrast material. Multiplanar coronal and sagittal images were reformatted. Individualized dose optimization techniques were used for this CT. COMPARISON: None. FINDINGS: There is no focal infiltrate. There are granulomatous calcifications. There is no demonstrated pleural abnormality. There are calcifications of the coronary arteries. Normal mediastinum. There are calcified hilar lymph nodes. Normal unenhanced pulmonary arteries. There is atherosclerotic calcification of the aortic arch with tortuosity and elongation of the aortic arch and descending thoracic aorta. There are multi-level degenerative changes of the thoracic spine. There are healed left rib fractures. There is a small hiatal hernia. CT/Chest without Contrast IMPRESSION: No acute fracture. Healed rib fractures. No focal infiltrate. No pneumothorax. Electronically Signed: Florentino Gomez MD at 18:01 EST , Service support ,
--- NOTE | 2020-08-21 17:02 | ED.VIS.GEN ---
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 She notes injury to the right shoulder, right ribs, right hip, and some soreness to her right elbow. She also notes that her neck and the right trapezius region is sore to move. She denied hitting her head. She denies any cough or shortness of breath. No abdominal pain. She was able to ambulate after the fall. Patient states that she believes she is just sore but wished to be checked out. Past Medical History - Allergies and Home Meds Allergies/Adverse Reactions: Allergies Iodinated Contrast Media [CONTRASTS] Allergy (Verified 10/15/18 10:47) Anaphylaxis NSAIDS (Non-Steroidal Anti-Inflamma Adverse Reaction (Verified 10/15/18 10:47) Upset Stomach TAPE Adverse Reaction (Uncoded 10/15/18 10:47) Rash Primary Care Physician: Maricruz Ace MD [Primary Care Provider] - Surgical History: noncontributory Smoking Status: Current every day smoker Drugs: None Review of Systems General: Denies: Chills, Fever, Sweats Eyes: Denies: Visual changes - bilaterally, Diplopia ENT: Denies: Rhinorrhea, Sore throat Cardiovascular: Reports: Chest pain. Denies: Palpitations Respiratory: Denies: Dyspnea, Cough, Dyspnea on exertion Gastrointestinal: Denies: Abdominal pain, Nausea, Vomiting, Diarrhea, Melena, Hematochezia Genitourinary: Denies: Dysuria, Hematuria, Frequency Musculoskeletal: Reports: Neck pain, Extremity Pain. Denies: Back pain Skin: Denies: Rash, Wounds Neurological: Denies: Headache, Weakness, Numbness Physical Exam Vital Signs/Narrative: Vital Signs Temp Pulse Resp BP Pulse Ox 08/21/20 16:54 99 F 87 19 H 184/75 H 97 Inital Vital Signs reviewed: Yes General: Well nourished, Well developed, Obese, No Acute Distress Head: Normocephalic, Atraumatic Eyes: Perrl, EOMI ENT: Moist mucous membranes, No rhinorrhea Neck: Supple, Nontender Cardiovascular: Regular rate, Regular rhythm, No murmurs Respiratory: No distress, CTA bilaterally, Chest tenderness - Tender palpation along the right middle and lower mid axillary ribs Abdomen: Soft, Nontender, Nondistended, Normal bowel sounds Back: Nontender, Normal Inspection Extremities: No edema, Tenderness - Tender to palpation over the right shoulder diffusely with no obvious deformity. Tender palpation right elbow. Tender to palpation right hip negative logroll. no shortening Skin: Normal color, No rash Neurological: Alert, Oriented x3, Cranial nerves II-XII grossly intact, Normal Strength, Normal Sensation Psychological: Normal affect, Normal Mood ED Disposition - Plan for ED Patient: Disposition: Home or Assisted Living Diagnosis: Contusion of right shoulder, Contusion of right hip, Cervical muscle strain, Chest wall contusion Instructions: ED Contusion, Upper Extremity, ED Chest Wall Contusion Referrals: Maricruz Ace MD [Primary Care Provider] - As Needed
--- NOTE | 2020-08-21 17:30 | RAD_ITS ---
STUDY: X-RAY - RIGHT ELBOW REASON FOR EXAM: Female, 74 years old. Pain. Fall. TECHNIQUE: 3 view(s) of the elbow. COMPARISON: None. FINDINGS: There is demineralization of the visualized humerus, radius and ulna. There is medial and lateral epicondylar spurring. Normal radiocapitellar and ulnotrochlear articulations. The soft tissue structures are unremarkable. There is no demonstrated fracture. RAD/Elbow min 3 Views IMPRESSION: Diffuse demineralization of the osseous structures. Electronically Signed: Florentino Gomez MD at 18:23 EST , Service support ,
--- NOTE | 2020-08-21 17:30 | RAD_ITS ---
STUDY: X-RAY - RIGHT SHOULDER REASON FOR EXAM: Female, 74 years old. Pain. Fall TECHNIQUE: 4 view(s) of the shoulder. COMPARISON: None. FINDINGS: There is mild degenerative arthrosis of the glenohumeral articulation. There is degenerative arthrosis of the acromioclavicular joint without inferior osseous spur formation. Normal acromion. There is demineralization of the humerus and visualized osseous structures. There is periarticular soft tissue calcification consistent with a calcific tendinitis. There is no demonstrated fracture. Normal visualized pulmonary apex. RAD/Shoulder min 2 Views IMPRESSION: Degenerative change with calcific tendinopathy. Electronically Signed: Florentino Gomez MD at 18:48 EST , Service support ,
--- NOTE | 2020-08-21 17:30 | RAD_ITS ---
STUDY: X-RAY - PELVIS AND RIGHT HIP REASON FOR EXAM: Female, 74 years old. Fall. Pain TECHNIQUE: 3 views of the pelvis and hip. COMPARISON: None. FINDINGS: There is a normal bowel gas pattern. There are multiple calcified phleboliths. There is diffuse demineralization of the osseous structures. There is degenerative change of the lower lumbar spine. Normal bilateral iliac wings, sacroiliac joints and visualized sacrum. Normal bilateral superior and inferior pubic rami. Normal pubic symphysis. Normal bilateral ischial tuberosities. Normal visualized femoral head. Normal acetabulum. Normal hip joint. There is enthesopathic spurring of the greater trochanter. There is no acute fracture. RAD/HIP, UNI W/ Pelvis 2-3 Views IMPRESSION: No acute fracture. Electronically Signed: Florentino Gomez MD at 18:47 EST , Service support ,
[2020-08-21 18:57] VITALS: BP 132/62; PULSE 69; RESP 16; O2SAT 98
== END 2020-08-21 19:24 | disposition home or self-care (01) ==
PROVIDERS: Emergency Provider Emergency Medicine; PCP Internal Medicine
DX: S16.1XXA Strain of muscle, fascia and tendon at neck level, initial encounter (principal); S40.011A Contusion of right shoulder, initial encounter; S70.01XA Contusion of right hip, initial encounter; S20.219A Contusion of unspecified front wall of thorax, initial encounter; F17.210 Nicotine dependence, cigarettes, uncomplicated; W17.89XA Other fall from one level to another, initial encounter
CPT/HCPCS: 71250; 73030; 73080; 73502; 99284

== ENCOUNTER → 2020-10-02 16:25 | Outpatient (CLI) | payer MEDICARE, MEDICAID, SELFPAY ==
[2020-10-02 17:37] LABS: Amphetamine Urine VISTA NEGATIVE (<1000 ng/mL); Barbiturate Urine VISTA NEGATIVE (< 200 ng/mL); Benzodiazepine Urine VISTA NEGATIVE (< 200 ng/mL); Cocaine Urine VISTA NEGATIVE (< 300 ng/mL); Ecstacy Urine VISTA NEGATIVE (< 500 ng/mL); Methadone Urine VISTA NEGATIVE (< 300 ng/mL); PCP Urine VISTA NEGATIVE (< 25 ng/mL); THC Urine VISTA NEGATIVE (< 50 ng/mL); Vista UDS pH Range 5
== END ==
PROVIDERS: PCP Internal Medicine; Referring Provider Anesthesiology Pain Medicine; Visit Provider Anesthesiology Pain Medicine
DX: F11.20 Opioid dependence, uncomplicated (principal)
CPT/HCPCS: 80307

== ENCOUNTER → 2021-05-16 16:42 | Outpatient (CLI) | payer MEDICARE, MEDICAID, SELFPAY ==
--- NOTE | 2021-05-16 16:50 | RAD_ITS ---
STUDY: X-RAY - THORACIC SPINE REASON FOR EXAM: Female, 75 years old. Other intervertebral disc degeneration, thoracic region, back pain TECHNIQUE: 3 view(s) of the thoracic spine were obtained. COMPARISON: None. FINDINGS: Normal kyphosis of the thoracic spine. There is no substantial scoliosis. There is demineralization of the thoracic spine with endplate spondylosis. There is multilevel disc space narrowing of the thoracic spine. Atherosclerosis of the thoracic aorta. RAD/Thoracic Spine 3 Views IMPRESSION: Multilevel degenerative changes. No compression fracture. Electronically Signed: Isidro Riggins MD (Brooks) at 15:21 EST , Service support ,
== END ==
PROVIDERS: PCP Internal Medicine; Referring Provider Anesthesiology Pain Medicine; Visit Provider Anesthesiology Pain Medicine
DX: M51.34 Other intervertebral disc degeneration, thoracic region (principal)
CPT/HCPCS: 72072

== ENCOUNTER → 2021-06-13 16:39 | Outpatient (CLI) | payer MEDICARE, MEDICAID, SELFPAY ==
[2021-06-13 17:25] LABS: Amphetamine Urine VISTA NEGATIVE (<1000 ng/mL); Barbiturate Urine VISTA NEGATIVE (< 200 ng/mL); Benzodiazepine Urine VISTA NEGATIVE (< 200 ng/mL); Cocaine Urine VISTA NEGATIVE (< 300 ng/mL); Ecstacy Urine VISTA NEGATIVE (< 500 ng/mL); Methadone Urine VISTA NEGATIVE (< 300 ng/mL); PCP Urine VISTA NEGATIVE (< 25 ng/mL); THC Urine VISTA NEGATIVE (< 50 ng/mL); Vista UDS pH Range 5
== END ==
PROVIDERS: PCP Internal Medicine; Visit Provider Anesthesiology Pain Medicine
DX: F11.20 Opioid dependence, uncomplicated (principal)
CPT/HCPCS: 80307

== ENCOUNTER 2021-11-14 16:08 | Emergency (ER) | payer MEDICARE, MEDICAID, SELFPAY ==
[2021-11-14] VITALS (9 sets, daily range): BP systolic 89–164; BP diastolic 45–96; PULSE 66–86; RESP 16–18; TEMP 35.8–36.9; O2SAT 95–99; BMI 41.1
--- NOTE | 2021-11-14 16:41 | EDS_ITS ---
HPI History of Present Illness Chief Complaint: Abn Labs Informant: patient Narrative Narrative: Patient sent into the ED after obtaining preop labs today up at [facility]. She was called back stating her hemoglobin was 7 and was told go emergency department for blood. She had plans for upcoming aortic valve repair. No history of coronary stents or CABG. History of anemia currently on iron supplements. She is followed by Dr. Rodgers hematology. Occasional weakness lightheaded symptoms. No exertional chest pains or tightness. She attribute it the symptoms to her aortic valve. She received iron infusions 4 months ago. She received blood transfusions last year x2. Denies any rectal bleeding. Patient denies any abdominal pain. Prior similar symptoms: Yes [facility] Medical History (Updated 11/14/21 @ 20:[address] Warren Chou DO) Fibromyalgia Hypertension Hypothyroidism Kidney disease Osteoporosis Home Medications fluoxetine 20 mg PO DAILY 03/26/13 [History Last Taken Unknown] levothyroxine 125 mcg PO DAILY 03/26/13 [History Last Taken 10/15/18 07:00] oxycodone-acetaminophen 1 tab PO BID PRN PRN 03/26/13 [History Last Taken Unknown] pantoprazole 40 mg PO DAILY 07/24/18 [History Last Taken 10/15/18 07:00] ropinirole [Requip] 1 mg PO QHS 07/24/18 [History Last Taken Unknown] tizanidine [Zanaflex] 8 mg PO QHS 07/24/18 [History Last Taken Unknown] triamterene-hydrochlorothiazid [Maxzide 37.5 mg-25 mg Tablet] 1 tab PO DAILY 07/24/18 [History Last Taken Unknown] ergocalciferol (vitamin D2) [Vitamin D] 50,000 unit PO Q7D 10/14/18 [History Last Taken Unknown] rivaroxaban [Xarelto] 20 mg PO DAILY 10/14/18 [History Last Taken Unknown] Allergy/AdvReac Type Severity Reaction Status Date / Time Iodinated Contrast Media Allergy Anaphylaxis Verified 11/14/21 16:10 [CONTRASTS] NSAIDS (Non-Steroidal AdvReac Upset Verified 11/14/21 16:10 Anti-Inflamma Stomach TAPE AdvReac Rash Uncoded 11/14/21 16:10 Social History Smoking Status: Current every day smoker tobacco type: cigarettes ROS ROS ED Constitutional Constitutional ED: Denies chills, fever(s) or sweats Eyes Eyes: Denies change in vision ENT ENT ED: Denies dysphagia or sore throat Cardiovascular Cardiovascular: Denies chest pain, leg edema, palpitations or racing heartbeat Respiratory/Chest Respiratory/Chest: Denies cough, dyspnea or dyspnea on exertion Gastrointestinal Gastrointestinal: Denies abdominal pain, diarrhea, nausea or vomiting Genitourinary Genitourinary ED: Denies dysuria, hematuria or urinary frequency Musculoskeletal Musculoskeletal: Denies back pain, extremity pain or neck pain Integumentary Denies rash or wounds Neurologic Neurologic: Reports weakness; Denies headache(s) or paresthesias EXAM Physical Exam Const Vital Signs: 11/14/21 16:10 11/14/21 16:51 11/14/21 18:50 Temperature 97.8 F Temperature Source Temporal Pulse Rate 86 81 Respiratory Rate 18 16 Respiratory Effort Normal Non-Labored Respiratory Pattern Normal Blood Pressure 164/61 H 135/60 H Blood Pressure Mean 95 85 Blood Pressure Source Blood Pressure Position Blood Pressure Location Pulse Ox 99 96 Oxygen Delivery Method Room Air Room Air 11/14/21 19:24 11/14/21 19:39 11/14/21 20:03 Temperature 98.5 F 97.9 F 96.5 F L Temperature Source Temporal Temporal Temporal Pulse Rate 77 68 77 Respiratory Rate 18 18 17 Respiratory Effort Respiratory Pattern Blood Pressure 125/45 H 113/49 L 115/96 H Blood Pressure Mean 71 70 102 Blood Pressure Source Monitor Monitor Monitor Blood Pressure Position Semi-Fowlers Semi-Fowlers Semi-Fowlers Blood Pressure Location Left Arm Right Arm Right Arm Pulse Ox 97 98 99 Oxygen Delivery Method Room Air Room Air Room Air 11/14/21 20:32 11/14/21 20:39 11/14/21 21:36 Temperature 97.5 F L 97.8 F 96.9 F L Temperature Source Temporal Temporal Temporal Pulse Rate 72 70 68 Respiratory Rate 17 16 17 Respiratory Effort Respiratory Pattern Blood Pressure 89/68 L 128/52 H 120/57 L Blood Pressure Mean 75 77 78 Blood Pressure Source Monitor Monitor Monitor Blood Pressure Position Semi-Fowlers Semi-Fowlers Semi-Fowlers Blood Pressure Location Right Arm Right Arm Right Arm Pulse Ox 95 97 98 Oxygen Delivery Method Room Air Room Air Room Air 11/14/21 21:56 Temperature Temperature Source Pulse Rate 66 Respiratory Rate 17 Respiratory Effort Respiratory Pattern Blood Pressure 121/54 H Blood Pressure Mean Blood Pressure Source Blood Pressure Position Blood Pressure Location Pulse Ox 98 Oxygen Delivery Method Positive well nourished and well developed General Appearance ED: well developed and NAD HEENT Reports moist mucous membranes normocephalic and atraumatic Eyes PERRL, EOMs intact bilaterally and conjunctivae normal Eyes Narrative: Slight pallor of conjunctiva. General Eye ED: Yes normal appearance of both eyes Neck no lymphadenopathy and supple General: Negative for tenderness Chest Wall Chest: Negative for tenderness Resp normal respiratory effort and normal air movement Effort and Inspection: symmetric chest movement; Negative for respiratory distress Cardio regular rate and regular rhythm Peripheral Pulses: pulses 2+ throughout GI normal to inspection, nondistended, normoactive bowel sounds and non-tender GI Narrative: Declines rectal exam. Palpation: Negative for guarding or rebound tenderness present Back/Spine no CVA tenderness and no thoracic nor lumbar tenderness Extremity normal to inspection General Extremety ED: Negative for edema or tenderness General Extremity: Negative for edema Neuro oriented x3 and no sensory deficits noted Sensorium / Orientation: awake and alert Skin no rashes or lesions noted and no wounds Skin Narrative: No skin pallor. MDM MDM MDM Narrative Medical decision making narrative: Patient declining a rectal exam for further evaluation with her anemia. She states this was done in the past has been negative. No abdominal pain. History of anemia. Recheck labs hemoglobin 7.2. Reported lightheaded symptoms. She states will need blood transfusion in order to have her aortic valve repair gotten the plans. She is able to walk around s he is nontoxic vital stable. Consented for blood to be given 1 unit of blood and discharged home with outpatient follow-up. Lab Data Attestation: I reviewed the patient's lab results. Labs: Laboratory Results - last 24 hr 11/14/21 11/14/21 11/14/21 16:42 16:42 16:42 WBC 8.2 RBC 2.31 L Hgb 7.2 L Hct 23.5 L MCV 101.7 H MCH 31.2 MCHC 30.6 L RDW Std Deviation 56.8 H RDW Coeff of Loren 15.9 H Plt Count 404 MPV 9.3 Immature Gran % (Auto) 0.700 Neut % (Auto) 64.1 Lymph % (Auto) 22.0 [place] % (Auto) 9.3 Eos % (Auto) 3.5 Baso % (Auto) 0.4 Absolute Neuts (auto) 5.3 Absolute Lymphs (auto) 1.81 Nucleated RBC % 0.4 PT 17.1 H INR 1.4 APTT 28.3 Sodium 138 Potassium 4.0 Chloride 107 Carbon Dioxide 24.0 Anion Gap 7 BUN 34 H Creatinine 1.36 H Estim Creat Clear Calc 28.27 Est GFR (MDRD) Af Amer 49 L Est GFR (MDRD) Non-Af 40 L BUN/Creatinine Ratio 25.0 H Glucose 109 H Calcium 9.2 Blood Type Antibody Screen Crossmatch 11/14/21 11/14/21 16:42 16:42 WBC RBC Hgb Hct MCV MCH MCHC RDW Std Deviation RDW Coeff of Loren Plt Count MPV Immature Gran % (Auto) Neut % (Auto) Lymph % (Auto) [place] % (Auto) Eos % (Auto) Baso % (Auto) Absolute Neuts (auto) Absolute Lymphs (auto) Nucleated RBC % PT INR APTT Sodium Potassium Chloride Carbon Dioxide Anion Gap BUN Creatinine Estim Creat Clear Calc Est GFR (MDRD) Af Amer Est GFR (MDRD) Non-Af BUN/Creatinine Ratio Glucose Calcium Blood Type A POSITIVE Antibody Screen NEGATIVE Crossmatch See Detail Discharge Plan Triage Chief Complaint: Abn Labs ED Provider: Warren Chou Dx/Rx/DC Orders Clinical Impression: Anemia, Blood transfusion during current hospitalisation Instructions: Anemia Prescriptions: No Action oxycodone-acetaminophen 1 TABLET tablet 1 tab PO BID PRN PRN (Reason: Pain) RF: 0 levothyroxine 125 MCG tablet 125 mcg PO DAILY RF: 0 fluoxetine 20 MG capsule 20 mg PO DAILY RF: 0 pantoprazole 40 MG tablet 40 mg PO DAILY RF: 0 ropinirole [Requip] 0.5 MG tablet 1 mg PO QHS RF: 0 triamterene-hydrochlorothiazid [Maxzide-25mg] 1 EACH tablet 1 tab PO DAILY RF: 0 tizanidine [Zanaflex] 4 MG capsule 8 mg PO QHS RF: 0 ergocalciferol (vitamin D2) [Vitamin D2] 50,000 UNIT capsule 50,000 unit PO Q7D RF: 0 rivaroxaban [Xarelto] 20 MG tablet 20 mg PO DAILY RF: 0 Primary Care Provider: Maricruz Ace Referrals: Maricruz Ace MD [Primary Care Provider] - Activity Restrictions/Additional Instructions: Hemoglobin 7.2. Status post 1 unit of red blood cells. Follow-up with your doctors for planned surgery as an outpatient. Disposition Disposition: Home, Self Care Discharge Date/Time: 11/14/21 22:00
[2021-11-14 17:12] LABS: Absolute Lymphocyte Count 1.81 X10^3/uL (0.83-4.51); Absolute Neutrophil Count 5.3 X10^3/uL (2.0-7.7); Basophil# 0.03 X10^3/uL; Basophil% 0.4 % (0-1); Eosinophil# 0.29 X10^3/uL; Eosinophils% 3.5 % (0-5); Hematocrit 23.5 % (37-47); Hemoglobin 7.2 g/dL (12.0-15.0); Lymphocyte # 1.81 X10^3/ul (0.83-4.51); Mean Corp Hgb Conc 30.6 g/dL (32-36); Mean Corpuscular Hgb 31.2 pg (27.0-32.0); Mean Corpuscular Volume 101.7 fL (81-99); Mean Platelet Vol. 9.3 fl (6.2-12.0); Monocyte# 0.77 X10^3/uL; Monocyte% 9.3 % (0-10); NRBC Flagged by Analyzer 0.4 % (0-5); Neutrophil # 5.28 X10^3/uL (2.7-7.7); Neutrophil % 64.1 % (47-70); Platelet Count 404 K/mm3 (150-450); RBC Distribution Width CV 15.9 % (11.6-14.6); RBC Distribution Width SD 56.8 fl (35.1-43.9); Red Blood Count 2.31 M/mm3 (4.2-5.4); White Blood Count 8.2 K/mm3 (4.4-11.0)
[2021-11-14 17:22] LABS: Anion Gap 7 (5-15); BUN 34 mg/dL (7-18); Calcium,Total 9.2 mg/dL (8.5-10.1); Chloride 107 mmol/L (98-107); Creatinine, Serum 1.36 mg/dL (0.55-1.02); EST Glomerular Filtration Rate 40 mL/min (>60); Est Glom Filt Rate - Afr Amer 49 mL/min (>60); Estimated Creatinine Clearance 28.27 ml/min; Glucose 109 mg/dL (74-106); Sodium Level 138 mmol/L (136-145)
[2021-11-14 18:10] LABS: International Normalized Ratio 1.4; Partial Thromboplast Time 28.3 Seconds (24.1-36.2); Prothrombin Time (Protime)PT. 17.1 SECONDS (11.7-14.9)
== END 2021-11-14 22:00 | disposition home or self-care (01) ==
PROVIDERS: Emergency Provider Emergency Medicine; PCP Internal Medicine; Visit Provider Emergency Medicine
DX: D64.9 Anemia, unspecified (principal); I10 Essential (primary) hypertension; F17.210 Nicotine dependence, cigarettes, uncomplicated; M79.7 Fibromyalgia; E03.9 Hypothyroidism, unspecified; Z79.899 Other long term (current) drug therapy; Z79.890 Hormone replacement therapy; Z79.01 Long term (current) use of anticoagulants
CPT/HCPCS: 36430; 80048; 85025; 85610; 85730; 86850; 86900; 86901; 86920; 99283; J7030; P9016; A4216

== ENCOUNTER → 2022-02-11 | Outpatient (CLI) | payer MEDICARE, MEDICAID, SELFPAY | END | disposition home or self-care (01) | LOC: MEDOUTP 17:11 | PROVIDERS: PCP Internal Medicine; Visit Provider Internal Medicine Hematology & Oncology | DX: N18.30 Chronic kidney disease, stage 3 unspecified (principal); D63.1 Anemia in chronic kidney disease | CPT/HCPCS: 86850; 86900; 86901; 86920; 86922 ==

== ENCOUNTER → 2022-02-12 | Outpatient (CLI) | payer MEDICARE, MEDICAID, SELFPAY ==
[2022-02-12 08:50] VITALS: BP 134/55; PULSE 80; RESP 16; TEMP 35.7; O2SAT 98; BMI 39.9
[2022-02-12] MEDS: 0.9% NaCl Peripheral Flush Adult/Peds IV ×2 (09:01→13:31)
[2022-02-12 09:36] VITALS: BP 132/44; PULSE 84; TEMP 36.6; O2SAT 98
[2022-02-12 10:37] VITALS: BP 124/53; PULSE 68; RESP 16; TEMP 36; O2SAT 98
[2022-02-12 11:28] VITALS: BP 126/52; PULSE 72; RESP 16; TEMP 36; O2SAT 98
[2022-02-12] MEDS: Furosemide 20 MG/2 ML VIAL IV (11:33)
[2022-02-12 12:05] VITALS: BP 137/52; PULSE 78; TEMP 36.5; O2SAT 98
[2022-02-12 13:15] VITALS: BP 122/56; PULSE 72; RESP 16; TEMP 35.6; O2SAT 98
== END | disposition home or self-care (01) ==
LOC: MEDOUTP 08:41
PROVIDERS: PCP Internal Medicine; Referring Provider Internal Medicine Hematology & Oncology; Visit Provider Internal Medicine Hematology & Oncology
DX: N18.30 Chronic kidney disease, stage 3 unspecified (principal); D63.1 Anemia in chronic kidney disease
CPT/HCPCS: 36430; 86850; 86900; 86901; 86920; 86922; J7040; P9016; A4216; J1940

== ENCOUNTER 2022-07-19 11:56 | Emergency (ER) | payer MEDICARE, MEDICAID, SELFPAY ==
[2022-07-19 11:58] VITALS: BP 142/88; PULSE 68; RESP 14; TEMP 36.1; O2SAT 100; BMI 40.2
--- NOTE | 2022-07-19 12:17 | EKG12_ITS ---
Test Reason : SOB/RECENT VALVE REPLACEMENT Blood Pressure : / mmHG Vent. Rate : 072 BPM Atrial Rate : 072 BPM P-R Int : 150 ms QRS Dur : 092 ms QT Int : 386 ms P-R-T Axes : 059 -41 026 degrees QTc Int : 422 ms Normal sinus rhythm Left axis deviation Minimal voltage criteria for LVH, may be normal variant ( R in aVL ) Abnormal ECG Confirmed by JUN PRINCE, BETTIE ([id number]), rewrite editor MARY SCHULZ ([id number]) on 07/21/2022 11:16:17 AM Referred By: Confirmed By:BETTIE BARAHONA MD
--- NOTE | 2022-07-19 12:17 | RAD_ITS ---
HISTORY: pain, swelling, injury. TECHNIQUE: XR Foot Min 3 Views. COMPARISON: None. FINDINGS: BONES : No acute fracture identified. Mineralization unremarkable. Small degenerative osteophytes noted. Mild calcaneal enthesopathy. JOINTS: No dislocation. Joint spaces maintained. SOFT TISSUES: Soft tissue swelling of the ankle and foot. RAD/Foot min 3 Views IMPRESSION: No acute fracture or dislocation identified in the left foot. Electronically Signed: Nancy Suazo MD at 12:52 EST ,
--- NOTE | 2022-07-19 12:17 | RAD_ITS ---
HISTORY: pain, swelling. TECHNIQUE: XR Ankle Min 3 Views. COMPARISON: None. FINDINGS: BONES : Small fragment lateral to the medial talus. Mineralization unremarkable. Mild calcaneal enthesopathy. JOINTS: No dislocation. Joint spaces maintained. SOFT TISSUES: Moderate soft tissue swelling and joint effusion. RAD/Ankle min 3 Views IMPRESSION: Possible small avulsion fracture fragment medial to the talus. Left ankle soft tissue swelling and joint effusion. Electronically Signed: Nancy Suazo MD at 12:51 EST ,
--- NOTE | 2022-07-19 13:22 | ED.VIS.LOWEX ---
HPI History of Present Illness Chief Complaint: Lower Extremity Injury Narrative Narrative: 76-year-old female past medical history of aortic valve replacement, states that she lost her balance yesterday while she was at home, and injured her left ankle and foot. While she fell, she may have lightly struck her head but denies any loss of consciousness. She currently does not take any blood thinners because they took her off of them for her surgery. Her chief complaint is that she has had a left ankle pain and left foot pain and swelling. She denies other injuries currently. She was told that yesterday, because she lost her balance and fell that she needed an EKG. However, she denies any chest pain or shortness of breath currently in the emergency department. She may have been having shortness of breath yesterday, but was told by her cardiology team at the [facility] that she needed an EKG, but that was yesterday. [facility] Medical History Fibromyalgia Hypertension Hypothyroidism Kidney disease Osteoporosis Home Medications fluoxetine 20 mg capsule 20 mg PO DAILY 03/26/13 [History Last Taken Unknown] levothyroxine 125 mcg tablet 125 mcg PO DAILY 03/26/13 [History Last Taken 10/15/18 07:00] oxycodone-acetaminophen 5 mg-325 mg tablet 1 tab PO BID PRN PRN Pain 03/26/13 [History Last Taken Unknown] pantoprazole 40 mg tablet,delayed release 40 mg PO DAILY 07/24/18 [History Last Taken 10/15/18 07:00] ropinirole 0.5 mg tablet (Requip) 1 mg PO QHS 07/24/18 [History Last Taken Unknown] tizanidine 4 mg capsule (Zanaflex) 8 mg PO QHS 07/24/18 [History Last Taken Unknown] triamterene 37.5 mg-hydrochlorothiazide 25 mg tablet (Maxzide-25mg) 1 tab PO DAILY 07/24/18 [History Last Taken Unknown] ergocalciferol (vitamin D2) 1,250 mcg (50,000 unit) capsule (Vitamin D2) 50,000 unit PO Q7D 10/14/18 [History Last Taken Unknown] rivaroxaban 20 mg tablet (Xarelto) 20 mg PO DAILY 10/14/18 [History Last Taken Unknown] aspirin 81 mg chewable tablet 81 mg PO DAILY 02/12/22 [History Last Taken Unknown] atorvastatin 40 mg tablet 40 mg PO DAILY 02/12/22 [History Last Taken Unknown] carvedilol 6.25 mg tablet 6.25 mg PO BID 02/12/22 [History Last Taken Unknown] folic acid 1 mg tablet 1 mg PO DAILY 02/12/22 [History Last Taken Unknown] psyllium 1 packet PO DAILY 02/12/22 [History Last Taken Unknown] spironolactone 50 mg tablet (Aldactone) 50 mg PO DAILY 02/12/22 [History Last Taken Unknown] Allergy/AdvReac Type Severity Reaction Status Date / Time Iodinated Contrast Media Allergy Anaphylaxis Verified 07/19/22 11:57 [CONTRASTS] adhesive tape AdvReac Rash Verified 07/19/22 11:57 NSAIDS (Non-Steroidal AdvReac Upset Verified 07/19/22 11:57 Anti-Inflamma Stomach Social History Smoking Status: Former smoker ROS ROS ED ROS Narrative Constitutional: No fever, no chills. HEENT: No sore throat. No neck pain. No loss of vision. No rhinorrhea. Cardiovascular: No chest pain. No palpitations. No pedal edema. Respiratory: No cough, yesterday had shortness of breath. Abdominal: No abdominal pain. No nausea. No vomiting. Genitourinary: No dysuria. No hematuria. Musculoskeletal: No myalgias. Left foot pain and swelling along with left ankle pain. Neurologic: No headaches. No dizziness. No lightheadedness. Skin: No rash. No change in color. Psychiatric: No depression. No anxiety. EXAM Physical Exam Narrative Exam Narrative: Afebrile. Vital signs noted. HEENT: Normocephalic. Atraumatic. PERRL, EOMI. Neck soft and supple. No point tenderness or step off. Cardiovascular: Regular rate and rhythm. No rubs, or gallops appreciated. Respiratory: No tachypnea. Lungs clear to auscultation bilaterally. Gastrointestinal: Abdomen soft, nontender, with normoactive bowel sounds. No rebound or guarding. Neurological: Awake. Alert. Nonfocal, nonlateralizing. Skin: No rash. Normal color. No pallor. Musculoskeletal: Positive left foot swelling without ecchymosis. Positive dorsalis pedis pulse. Good capillary refill. Diffuse tenderness to palpation left ankle. No tenderness to palpation proximal fibula. Able to flex and extend left knee. Const Vital Signs: 07/19/22 11:58 Temperature 97 F L Temperature Source Temporal Pulse Rate 68 Respiratory Rate 14 Blood Pressure 142/88 H Blood Pressure Mean 106 Pulse Ox 100 Oxygen Delivery Method Room Air MDM MDM MDM Narrative Medical decision making narrative: Patient requested an EKG because of her recent history of aortic valve replacement. I obtained an EKG and interpreted by myself. It demonstrates normal sinus rhythm at 72 bpm without ectopy or acute ST changes. No STEMI. More so regarding her left ankle and her left foot, x-rays were obtained and interpreted by myself. On my interpretation there is left ankle soft tissue swelling and joint effusion. Left foot x-ray shows no evidence of acute fracture on my interpretation. However, in review of the radiologist interpretation of the left ankle/radiology report there is a possible small avulsion fracture fragment medial to the talus. I discussed the patient with Dr. Mckee with podiatry who states that this small avulsion fracture can be treated with a walking boot and follow-up. She will continue ice and elevation at home and [id number] analgesics. She can be weightbearing and she states that she has a cane and a walker that she can use for ambulation assistance. At this point in time, I feel she be discharged safely home with follow-up. Return instructions to the emergency department were reviewed. Disposition is discharged home in stable condition. Radiography Diagnostic Testing: Clinical Impression(s) from Imaging Studies Ankle X-Ray 07/19/22 12:17 IMPRESSION: Possible small avulsion fracture fragment medial to the talus. Left ankle soft tissue swelling and joint effusion. Electronically Signed: Nancy Suazo MD at 12:51 EST , Foot X-Ray 07/19/22 12:17 IMPRESSION: No acute fracture or dislocation identified in the left foot. Electronically Signed: Nancy Suazo MD at 12:52 EST , Discharge Plan Triage Chief Complaint: Lower Extremity Injury ED Provider: Vladimir Nolen Dx/Rx/DC Orders Clinical Impression: Avulsion fracture of talus, History of aortic valve replacement Instructions: ED Fracture, Foot Prescriptions: No Action oxycodone-acetaminophen 1 TABLET tablet 1 tab PO BID PRN PRN (Reason: Pain) levothyroxine 125 MCG tablet 125 mcg PO DAILY fluoxetine 20 MG capsule 20 mg PO DAILY pantoprazole 40 MG tablet 40 mg PO DAILY ropinirole [Requip] 0.5 MG tablet 1 mg PO QHS triamterene-hydrochlorothiazid [Maxzide-25mg] 1 EACH tablet 1 tab PO DAILY tizanidine [Zanaflex] 4 MG capsule 8 mg PO QHS ergocalciferol (vitamin D2) [Vitamin D2] 50,000 UNIT capsule 50,000 unit PO Q7D Label Comments: TAKES TWICE A WEEK Xarelto 20 MG tablet 20 mg PO DAILY atorvastatin 40 mg tablet 40 mg PO DAILY Label Comments: Take 1 tablet by mouth once daily. carvedilol 6.25 mg tablet 6.25 mg PO BID Label Comments: TAKE 1 TABLET BY MOUTH TWICE DAILY Metamucil Packet 1 packet PO DAILY Rx Instructions: mix into at least 8 oz of water or juice before administering aspirin [Baby Aspirin] 81 mg Tablet,Chewable 81 mg PO DAILY folic acid 1 mg tablet 1 mg PO DAILY Label Comments: TAKE 1 TABLET BY MOUTH EVERY DAY spironolactone [Aldactone] 50 mg tablet 50 mg PO DAILY Label Comments: Take 1 tablet by mouth once daily. Primary Care Provider: Maricruz Ace Referrals: Maricruz Ace MD [Primary Care Provider] - Dewayne Mckee DPM [Med Staff - Active Staff] - 3-5 Days Activity Restrictions/Additional Instructions: Wear your boot while walking. You may put weight on your left foot, but please use a cane or walker for assistance. Continue elevation of your left foot when possible. Follow-up with Dr. Mckee with podiatry this coming week. Call the office on Thursday for an appointment. Disposition Disposition: Home, Self Care
[2022-07-19 13:33] VITALS: RESP 18
== END 2022-07-19 14:24 | disposition home or self-care (01) ==
PROVIDERS: Emergency Provider Emergency Medicine; PCP Internal Medicine; Visit Provider Emergency Medicine
DX: S92.152A Displaced avulsion fracture (chip fracture) of left talus, initial encounter for closed fracture (principal); I10 Essential (primary) hypertension; Z87.891 Personal history of nicotine dependence; Z95.2 Presence of prosthetic heart valve; E03.9 Hypothyroidism, unspecified; W19.XXXA Unspecified fall, initial encounter
CPT/HCPCS: 73610; 73630; 93005; 99283

== ENCOUNTER → 2022-07-22 | Outpatient (CLI) | payer MEDICARE, MEDICAID, SELFPAY ==
[2022-07-22] VITALS (7 sets, daily range): BP systolic 102–143; BP diastolic 37–59; PULSE 60–79; RESP 16–18; TEMP 36.7–37; O2SAT 97–99; BMI 40.2
[2022-07-22] MEDS: 0.9% NaCl Peripheral Flush Adult/Peds IV ×2 (09:10→14:09)
== END | disposition home or self-care (01) ==
PROVIDERS: PCP Internal Medicine; Referring Provider Internal Medicine Hematology & Oncology; Visit Provider Internal Medicine Hematology & Oncology
DX: N18.32 Chronic kidney disease, stage 3b (principal); D63.1 Anemia in chronic kidney disease
CPT/HCPCS: 36430; 86850; 86900; 86901; 86920; 86922; J7040; P9016; A4216

== ENCOUNTER → 2022-07-30 | Outpatient (CLI) | payer MEDICARE, MEDICAID, SELFPAY ==
[2022-07-30 14:01] LABS: Amphetamine Urine VISTA NEGATIVE (<1000 ng/mL); Barbiturate Urine VISTA NEGATIVE (< 200 ng/mL); Benzodiazepine Urine VISTA NEGATIVE (< 200 ng/mL); Cocaine Urine VISTA NEGATIVE (< 300 ng/mL); Ecstacy Urine VISTA POSITIVE (< 500 ng/mL); Methadone Urine VISTA NEGATIVE (< 300 ng/mL); PCP Urine VISTA NEGATIVE (< 25 ng/mL); THC Urine VISTA NEGATIVE (< 50 ng/mL); Vista UDS pH Range 5
== END | disposition home or self-care (01) ==
PROVIDERS: PCP Internal Medicine; Referring Provider Anesthesiology Pain Medicine; Visit Provider Anesthesiology Pain Medicine
DX: F11.20 Opioid dependence, uncomplicated (principal)
CPT/HCPCS: 80307

== ENCOUNTER → 2022-10-01 | Outpatient (CLI) | payer MEDICARE, MEDICAID, SELFPAY ==
--- NOTE | 2022-10-01 12:58 | PCM.CR.HP2 ---
CR - History & Physical - General Arrival date:: 10/01/22 Arrival time:: 12:58 Date of Referral:: 09/09/22 Date of CR Evaluation:: 10/01/22 Referring Physician: Dr. Melly Landaverde Primary Diagnosis: S/P TAVR - History of Present Cardiac Event Onset Date: Enter Onset Date of cardiac illnesses in Comment field below Heart valve replacement or repair:: Yes - 07/14/22 - Sleep Disorder Evaluation Hx of Sleep Apnea: Yes Do you snore loudly (louder than talking or can be heard through closed doors)?: Yes Do you often feel tired/ fatigued/ sleepy during daytime?: No Has anyone observed you stop breathing during sleep?: No History of Hypertension (for STOP score): Yes STOP Results: Positive - Medications Home Medications: Ambulatory Orders Medication Instructions Recorded fluoxetine 20 mg capsule 20 mg PO DAILY 03/26/13 levothyroxine 125 mcg tablet 125 mcg PO DAILY 03/26/13 oxycodone-acetaminophen 5 mg-325 1 tab PO BID PRN PRN Pain 03/26/13 mg tablet pantoprazole 40 mg tablet,delayed 40 mg PO DAILY 07/24/18 release ropinirole 0.5 mg tablet (Requip) 1 mg PO QHS 07/24/18 tizanidine 4 mg capsule (Zanaflex) 8 mg PO QHS 07/24/18 triamterene 37.5 1 tab PO DAILY 07/24/18 mg-hydrochlorothiazide 25 mg tablet (Maxzide-25mg) ergocalciferol (vitamin D2) 1,250 50,000 unit PO Q7D 10/14/18 mcg (50,000 unit) capsule (Vitamin D2) rivaroxaban 20 mg tablet (Xarelto) 20 mg PO DAILY 10/14/18 aspirin 81 mg chewable tablet 81 mg PO DAILY 02/12/22 atorvastatin 40 mg tablet 40 mg PO DAILY 02/12/22 carvedilol 6.25 mg tablet 6.25 mg PO BID 02/12/22 folic acid 1 mg tablet 1 mg PO DAILY 02/12/22 psyllium 1 packet PO DAILY 02/12/22 spironolactone 50 mg tablet 50 mg PO DAILY 02/12/22 (Aldactone) albuterol 90 mcg 10/01/22 - Allergies Allergies/Adverse Reactions: Allergies Iodinated Contrast Media [CONTRASTS] Allergy (Verified 07/19/22 11:57) Anaphylaxis adhesive tape Adverse Reaction (Verified 07/19/22 11:57) Rash NSAIDS (Non-Steroidal Anti-Inflamma Adverse Reaction (Verified 07/19/22 11:57) Upset Stomach Advanced Directives - Advanced Directives Power of Industrial Education Teacher: Yes Living Will: Yes Advance Directives Information Provided: Yes Advance Directives on File: No DNR Order?:: No - MOLST See MOLST form: No Past Medical History - Covid-19 Screening 65 years or older:: Yes Has a serious heart condition:: Yes Immunocompromised:: Yes Has chronic kidney disease undergoing dialysis:: Yes - Past Medical Illness Medical History: Past Medical History (Last Updated 10/01/22 @ 13:07 by CHINMAY Guzmán, RVT) COPD (chronic obstructive pulmonary disease) J44.9 Fibromyalgia M79.7 Hypertension I10 Hypothyroidism E03.9 Kidney disease N28.9 Osteoporosis M81.0 - Past Surgical History Surgical History: appendectomy, cholecystectomy, - - hernia repair Social History - Smoking History Smoking Status: Former smoker Years Smokin Packs Smoked per Day: 1 - stopped 6 months ago Hx Tobacco Use: Yes Hx Smoking Exposure: Yes - Alcohol Use Alcohol Usage: No - Substance Abuse Hx Substance Use: No - Occupation Occupation (List type of work in comments):: Retired - Hobbies, Recreation, Social Activities Hobbies: Other - cards, gardening, family Recreational Activities: I can hardly do any recreational activities Social Environment - Status Marital Status: - Current Living Arrangements Living Environment:: Alone - Children How many children do you have?: 2 Do any of your children live nearby?: Yes - Safety Do you feel safe in your surroundings?: Yes - Assistance Do you need any assistance at home?: pt has an aid that helps her Review of Systems - Review of Systems Hints: Right click = Denies (Slash). Left click = Reports ([place]) Review of Present Symptoms: Reports: Shortness of Breath with Exertion, Angina, Fatigue, Heart Arrhythmia/Irregularities, Appetite - Normal. Denies: Shortness of Breath at Rest, PVD, Operative Discomfort, Wound Healing, Dizziness/Lightheadedness, Appetite - Special Diet, Sleep - Normal, Sexual Changes - Pain Is Patient Pain Free?: No Pain Location: back, upper extremity, lower extremity Pain Level: 12/22 Risk Factor Assessment - Vital Signs Pulse Ox: 99 Blood Pressure: 104/64 - Pulse Pulse Rate: 71 - Hypertension How long have you been treated?: 5 years - Obesity Height: 5 ft 2 in Weight:: 102.512 kg Weight in Pounds: 226.0 lbs Body Mass Index (BMI): 41.3 Nutritional Referral for Obesity: Yes - Physical Inactivity Physical Inactivity: None - Risk Stratification Risk Guidelines: Moderate Risk: Risk Factor for Diabetes, Risk Factor for Depression, Highest Risk: Risk Factor for Smoking, Risk Factor for Dyslipidemia, Risk Factor for Obesity, Risk Factor for Hypertension, Risk Factor for Sedentary Lifestyle Motivation - Motivation to Participate On a scale of 1 to 10, how prepared are you to commit to attending program?: 10 What do you see as barriers to successfully being able to complete the program?: back What do you see as the benefits of succesfully completing the program? In other words, what do you hope to get out of participating in the program?: stamina, more energy, weight loss Are there issues you are dealing with that will interfere with completing the program?: no Do you have a spouse or signficant other, family or friends who will help support you to complete the program?: yes
[2022-10-01 13:54] VITALS: BP 104/64; PULSE 71; O2SAT 99; BMI 41.3
--- NOTE | 2022-10-01 13:56 | CR.ITP_ITS ---
Diagnosis - General Information Admitting Diagnosis: S/P TAVR Personal Learning Style:: Audio/Visual, Demonstration Gave educational material for:: Treating Heart Disease, Emotions & Heart Disease, Stress Management & Relaxation, Sleep Disorders & Heart Disease, How The Heart Works, What it means to have Heart Disease, How Coronary Artery Disease is Diagnosed, Heart Procedures, What Heart Medications Do, Risk Factors & Modifications, Living an Active Life, Nutrition - Education/Goals Cardiac Rehabilitation Goals: 1. Maintain the individual as the primary focus of care. 2. To improve the patient's quality of life. 3. Identification of cardiac risk factors and provide cardiac risk factor management. 4. Enhance the psychosocial status of the patient. 5. Reconditioning enough to allow the patient to resume customary activities. 6. Control symptoms of cardiac disease Personal Goals: Initial Assessment: Improve energy level, Participate in home exercise program, Improve muscle strength and endurance, Improve diet and eating habits (eat healthier), Control risk factors (learn risk factor modification) Scale for measuring improvement of personal goals: Enter appropriate number in Comments. 2 = Unchanged. 3 = Slightly Better. 4 = Moderate Improvement. 5 = Met my Goal - Diagnosis & Disease Process Outcomes/Goals: Pt IDs own risk factors & lifestyle modifications by Session 10, Verbalizes symptoms of angina & response by session 3., Pt independently manages, Other Additional Outcomes/Goals: Plan/Interventions: Assist Pt to ID & engage in lifestyle modification to reduce CVD risk, Instruct on individual risk factors, Review symptoms of angina & emergency actions, Review secondary diagnosis & identify educational needs., Other see comment 30 day Reassessments:: Not Met 30 day Reassessments:: Not Met 30 day Reassessments:: Not Met 30 day Reassessments:: Not Met Final Reassessments:: Not Met - Safety Referral to Physical Therapy: No Referral to [facility] Case Management: No Fall Risk Assessed:: Yes Assistive Devices:: Walker, Wheelchair - no treadmill Exercise - Initial Assessment - Visit Date of Eval: 10/01/22 - initial eval Mets: Pre-: >3 METS for 30 minutes by discharge, >5 METS for 30 minutes by discharge, >7 METS for 30 minutes by discharge, Unable to meet goal due to: (see comment below) - Physician Prescribed Exercise Modalities: Airdyne, NuStep, SciFit Frequency: 3x/week for 12 weeks [36 sessions] Intensity: 60-80% of age predicted maximum heart rate reserve Current METSs:: 3 Resting Blood Pressure: 104/64 EKG Type: NSR - Outcomes & Goals Goals:: Verbalizes understanding of THR, RPE & goal METS by session 6, Documents in home exercise log/reports 30 min aerobic 5 day/wk by DC, Demonstrates accurate pulse taking by DC, Other additional outcome/goals: see below - Intervention & Plan Exercise Program Goals: Instruct on personal THR & RPE, Instruct on MET level & personal MET goal, Show patient to take own pulse /validate performance until accurate, Instruct on home exercise, Other additional plan/int - Physical Activity Home Exercise Physical Activity - Home Exercise: Safe Exercise, Warm-up, Self-monitoring, Cool-Down, Home Exercise > 30 min Daily, Sitting Time <3 hours/daily - Outcomes & Goals Outcomes/Goals: Demonstrates correct Warm-up/exercise Cool-Down (S3) if = 2.5 METs, Verbalizes symptoms of exercise intolerance by Session 3 (S3), Demonstrate safe equipment use (S3) & follows exercise prescrition (6), Other: See below - Intervention & Plan Plan/Intervention: Instruct warm-up & cool-down if exercising at > 2 METs, Instruct on symptoms of exercise intolerance & actions to take, Instruct & monitor on saf, Assess intial functional capacity & safety risk, Other See below Nutrition - Initial Assessment - Program Goals Nutrition Program Goals: LDL <100 optimal. 100 - 129 Near optimal. 130 - 159 Borderline High. 160 - 189 High. Total Cholesterol <200 desirable. 200 - 239 Borderline High. >/= 240 High. HDL < 40 Low >/=60 High. Triglycerides <150 desirable. <199 optimal. VlDL 5 - 40. HgbA1C <7%. BMI <25 Patient has diagnosis of Hyperlipidemia (ICD E78)?: Yes - Visit Date of Assessment:: 10/01/22 - initial eval - Cholesterol/Lipids (Other Core Measures) Determine presence & major risk factors that modify LDL goal: Cigarette smoking, Hypertension or hypertensive medication, Low HDL cholesterol <40 mg/dL*, Family history of premature CHD in Male < 55 years: female <65 yearsFa, Age men > 45 years; women >/= 55 years Outcomes/Goals: Pt IDs own risk factors & lifestyle modifications by Session 10, Verbalizes symptoms of angina & response by session 3., Pt independently manages, Other Additional Outcomes/Goals: Intervention/Plan: Advocate for lipid panel cholesterol medication if applicable, Instruct on personal lipid levels & lipid goals/NCEP guidelines, Instruct on cholesterol, Other additional plan/int Referral to dietitian:: Yes - Diabetes (Other Core Measures) Diabetes Type: Not Applicable - Weight Mgt (Other Care) Height: 5 ft 2 in Weight:: 102.512 kg BMI: 41.3 Diagnosis Overweight/Obesity BMI> 30% ICD-10 E66: Yes Diagnosis High BMI/Morbid Obesity BMI> 35% ICD-10 Z68: Yes Outcomes/Goals: Pt sets, maintains & shows weight loss goal & trend during rehab, Other additional outcomes/goals Intervention/Plan: Instruct on ideal BMI & set weight loss goal w/patient, Assist pt to ID & incorporate diet changes for weight loss by S9, Refer to Structured Weight Loss program as appropriate, Encourage goal of using 250- 300dcal per session for weight loss, Other additional plan/interventions - Healthy Eating Habits Will attend diet classes:: Yes Outcomes/Goals:: Consume diet rich in vegs,fruits,whole grain/high fiber,fish,lean meat, Limit sat/trans fats,cholesterol & added salts & sugars, Other additional outcome/goals: Intervention/Plan:: Assess current eating habits, Other Additional plan/interventions - Education Gave educational materials for:: Signs & symptoms of hypoglycemia, Signs & symptoms of hyperglycemia, Relate diabetes to coronary artery disease, Healthy eating Nutrition - 30-Day Assessment Nutrition - 60-Day Assessment Nutrition - 90-Day Assessment Nutrition - Final Assessment Core - Initial Assessment - Visit Date of Eval: 10/01/22 - initial eval - Medication Compliance Preventative Medication(s):: Aspirin, Statin/lipid, Eliquis H/O mental health issues: depression, anxiety, or addiction?: No Doesn?t believe in the benefits of treatment?: No Believes medications are unnecessary or harmful?: No Has a concern about medication side effects?: No Expresses concern over the cost of medications?: No Outcomes/Goals: Verbalizes medications,desired effect & common side effects @ DC, Pt self-reports following medication regimen, Keeps card in wallet w/medications listed by DC, Other additional outcome/goals: Interventions/plans: Instruct on medication effects & side effects, Review medication list w/patient every two weeks, Instruct importance of taking meds as ordered & assist problem solving, Other additional - Tobacco Use Tobacco Use: Non-smoker - stopped 6 months ago Do you use smokeless tobacco?: No Outcomes/Goals: Smoking cessation achieved or maintained by discharge, Identify aids/strategies for achieving smoking cessation by session 6, Other additional outcome/goals Interventions/plan: Instruct on effects of smoking & provide smoking cessation resource, Assist pt to set quit date & provide encouragement, Assist pt to develop strategies to achieve/maintain quit date, Assist pt w/nicotine replacement & medication for cessation success, Other additional plan/interventions - Hypertension Hypertension Diagnosis:: Hypertension ICD-10 I10 Resting Blood Pressure:: 104/64 [employer] Hypertension Guidelines: [place] [employer] Hypertension Guidelines. Normal BP Less than 120/80. Elevated BP 120/80. Hypertension Stage 1: BP 130-139/80-89. Hypertesnion Stage 2: BP 140 or higher/90 or higher. Hypertension Crisis: BP higher than 180/120 Outcomes/Goals: Able to verbalize/achieve optimal blood pressure <130/80, Incorporates diet changes & exercise for blood pressure control by DC, Other additional outcomes/goals Interventions/plan: Instruct on optimal blood pressure, hypertension & medications, Instruct on effects of sodium, alcohol, stress, exercise &hypertension, Other additional plan/interventions Core - 30-Day Assessment Core - 60-Day Assessment Core - 90 Day Assessment Core - Final Assessment Psychosocial - Initial Assess - VIsit Date of Eval: 10/01/22 - initial eval History of previous Mental disease:: No - Outcomes/Goals: See list Psychosocial Outcomes/Goals:: ID's personal stressors & 2 strategies to manage stress by discharge, Other Additional outcome/goals: - Intervention/Plan: See List Interventions/Plan:: Assess stressors,coping strategies & signs of derpression on admission, Instruct/assist pt to develop coping & personal stress Mgt strategies, Refer to Behavioral Health if appropriate, Refer to Physician if appropriate, Instruct patient to recognize signs & symptoms of depression, Instruct patient to recog, Other additional plan/intervention Psychosocial - 30-Day Assess Psychosocial - 60-Day Assess Psychosocial - 90-Day Assess Psychosocial - Final Assessmen Patient Health Questionnaire Initial Assessment 1. Little interest or pleasure in doing things: Several days 2. Feeling down, depressed, or hopeless: Not at all 3. Trouble falling or staying asleep, or sleeping too much: More than half the days 4. Feeling tired or having little energy: Nearly every day 5. Poor appetite or overeating: More than half the days 6. Feeling bad about yourself -- or that you are a failure or have let yourself or your family down: Several days 7. Trouble concentrating on things, such as reading the newspaper or watching television: Several days 8. Moving or speaking so slowly that other people could have noticed. Or the opposite - being so fidgety or restless that you have been moving around a lot more than usual: More than half the days 9. Thoughts that you would be better off , or of hurting yourself in some way: Not at all How difficult have these problems made it for you to do your work, take care of things at home, or get along with other people?: Somewhat difficult Total Score: 12 ANISH-Q SV Test - Statements CAD is a disease of the arteries in the heart: False Examples of risk factors for heart disease: True Angina is chest pain or discomfort: True The benefits of resistance training include: True Eating more meat and dairy products: I Don't Know Anti-platelet medications such as aspirin are important: I Don't Know The only effective way to manage stress: False An exercise warm-up slowly increases heart rate: I Don't Know Prepared, processed foods usually have high sodium: True Depression is common after a heart attack: True The statin medications lower cholesterol: True To control blood pressure, lower the amount of sodium: True If someone gets chest discomfort during walking: False Transfats are partially hydrogenated vegetable oils: True Sleep apnea that is not treated increases the risk: False To control cholesterol, one should become a vegetarian: False Someone knows if he/she is exercising at the right level: True Diabetes cannot be prevented with exercise & health eating: True Stress is a large risk for heart attack: True A diet that can help lower blood pressure is rich in: True - Total Score Total Correct Responses: 16 Self-Efficacy Initial Assessment We would like to know how confident you are in doing certain activities. Please select your confidence level for:: Select your confidence level for the follow ing using the scale 1-10 where 1 is not at all confident and 10 is totally confident. Your score is the average of all 6 responses. Fatigue: How confident are you that you can keep the fatigue caused by your disease from interfering with the things you want to do? Select Number: 1 Physical Discomfort or Pain: How confident are you that you can keep the physical discomfort or pain of your disease from interfering with the things you want to do? Select Number: 1 Emotional Distress: How confident are you that you can keep the emotional distress caused by your disease from interfering with the things you want to do? Select Number: 1 Other Symptoms or Health Problems: How confident are you that you can keep other symptoms or health problems from interfering with the things you want to do? Select Number: 1 Different Tasks and Activities: How confident are you that you can do the different tasks and activities needed to manage your health condition so as to reduce your need to see a doctor? Select Number: 5 Medication: How confident are you that you can do things other than just taking medication to reduce how much your illness affects your everyday life? Select Number: 2 Total Score:: 1 Nutrition Survey - Nutrition Survey Initial Have you lost >10 lbs over the past 2 months without trying?: No Are you following a special diet at home for diabetes, low fat, or low salt?: No Are you interested in meeting with a dietitian for help understanding your diet?: Yes Do you eat less than 3 meals a day?: Yes Do you eat fatty meats (serrano, sausage, ribs, etc), fried foods, desserts, large amounts of salad dressings, margarine, butter, or cheese most days?: Yes Do you have food allergies? [Enter types in comment field]: No Do you eat in restaurants more than 3 times a week?: No Do you season food with salt, seasoning salt, or garlic salt?: Yes Do you used canned, boxed, frozen meals, or soups, seasoning packets?: No Total Score:: 4
[2022-10-01 14:07] VITALS: BP 104/64; BMI 41.3
== END | disposition home or self-care (01) ==
PROVIDERS: PCP Internal Medicine
DX: I35.1 Nonrheumatic aortic (valve) insufficiency (principal); I20.9 Angina pectoris, unspecified; R06.83 Snoring; I10 Essential (primary) hypertension; R06.02 Shortness of breath; R53.83 Other fatigue; I49.9 Cardiac arrhythmia, unspecified; M54.9 Dorsalgia, unspecified

== ENCOUNTER 2022-10-08 15:45 | Outpatient (RCR) | payer MEDICARE, MEDICAID, SELFPAY ==
[2022-10-01 14:07] VITALS: BMI 41.3
== END 2022-10-12 23:59 ==
LOC: CR 15:45
PROVIDERS: PCP Internal Medicine
DX: Z95.2 Presence of prosthetic heart valve (principal)
CPT/HCPCS: 93798

== ENCOUNTER 2022-10-13 12:08 | Outpatient (RCR) | payer MEDICARE, MEDICAID, SELFPAY ==
[2022-10-01 14:07] VITALS: BMI 41.3
--- NOTE | 2022-10-31 08:17 | PCM.CR.ITP ---
Diagnosis Exercise - 30-day Assessment - Visit Date of Eval: 10/31/22 Session #:: 3 Comments:: Lala has not been to rehab since 10/13/22 due to knee pain. - Physician Prescribed Exercise Modalities: NuStep, SciFit Frequency: 3x/week for 12 weeks [36 sessions] Intensity: 60-80% of age predicted maximum heart rate reserve Current METSs:: 3 Target Heart Rate:: 94-109 Current RPE:: 11-13 Maximum Excercise HR:: 84 Resting Blood Pressure: 146/82 Maximum Exercise Blood Pressure: 152/80 EKG Type: NSR with inverted Twave and occas PAC and PVC - Outcomes & Goals Goals:: Verbalizes understanding of THR, RPE & goal METS by session 6, Documents in home exercise log/reports 30 min aerobic 5 day/wk by DC, Demonstrates accurate pulse taking by DC, Other additional outcome/goals: see below - Intervention & Plan Exercise Program Goals: Instruct on personal THR & RPE, Instruct on MET level & personal MET goal, Show patient to take own pulse /validate performance until accurate, Instruct on home exercise, Other additional plan/int - 30-day Reassessments 30 day Reassessments:: Progressing - pulse taking demonstrated - Physical Activity Home Exercise Physical Activity - Home Exercise: Safe Exercise, Warm-up, Self-monitoring, Cool-Down, Home Exercise > 30 min Daily, Sitting Time <3 hours/daily - Outcomes & Goals Outcomes/Goals: Demonstrates correct Warm-up/exercise Cool-Down (S3) if = 2.5 METs, Verbalizes symptoms of exercise intolerance by Session 3 (S3), Demonstrate safe equipment use (S3) & follows exercise prescrition (6), Other: See below - Intervention & Plan Plan/Intervention: Instruct warm-up & cool-down if exercising at > 2 METs, Instruct on symptoms of exercise intolerance & actions to take, Instruct & monitor on saf, Assess intial functional capacity & safety risk, Other See below - 30-day Reassessments 30 day Reassessments:: Progressing - cool down encouraged Nutrition - Initial Assessment Nutrition - 30-Day Assessment - Program Goals Nutrition Program Goals: LDL <100 optimal. 100 - 129 Near optimal. 130 - 159 Borderline High. 160 - 189 High. Total Cholesterol <200 desirable. 200 - 239 Borderline High. >/= 240 High. HDL < 40 Low >/=60 High. Triglycerides <150 desirable. <199 optimal. VlDL 5 - 40. HgbA1C <7%. BMI <25 Patient has diagnosis of Hyperlipidemia (ICD E78)?: Yes - Visit Date of Assessment:: 10/31/22 Session #:: 3 - Cholesterol/Lipids (Other Core Measures) Determine presence & major risk factors that modify LDL goal: Cigarette smoking, Hypertension or hypertensive medication, Low HDL cholesterol <40 mg/dL*, Family history of premature CHD in Male < 55 years: female <65 yearsFa, Age men > 45 years; women >/= 55 years Outcomes/Goals: Pt IDs own risk factors & lifestyle modifications by Session 10, Verbalizes symptoms of angina & response by session 3., Pt independently manages, Other Additional Outcomes/Goals: Intervention/Plan: Advocate for lipid panel cholesterol medication if applicable, Instruct on personal lipid levels & lipid goals/NCEP guidelines, Instruct on cholesterol, Other additional plan/int Referral to dietitian:: No - pt has met with embedded software engineer 30-day Reassessments:: Progressing - risk factors reviewed - Diabetes (Other Core Measures) Diabetes Type: Not Applicable - Weight Mgt (Other Care) Height: 5 ft 2 in Weight:: 102.512 kg BMI: 41.3 Diagnosis Overweight/Obesity BMI> 30% ICD-10 E66: Yes Diagnosis High BMI/Morbid Obesity BMI> 35% ICD-10 Z68: Yes Outcomes/Goals: Pt sets, maintains & shows weight loss goal & trend during rehab, Other additional outcomes/goals Intervention/Plan: Instruct on ideal BMI & set weight loss goal w/patient, Assist pt to ID & incorporate diet changes for weight loss by S9, Refer to Structured Weight Loss program as appropriate, Encourage goal of using 250-300dcal per session for weight loss, Other additional plan/interventions 30 day Reassessments:: Progressing - pt has met with embedded software engineer - Healthy Eating Habits Will attend diet classes:: Yes Outcomes/Goals:: Consume diet rich in vegs,fruits,whole grain/high fiber,fish,lean meat, Limit sat/trans fats,cholesterol & added salts & sugars, Other additional outcome/goals: Intervention/Plan:: Assess current eating habits, Other Additional plan/interventions 30-day Reassessments:: Progressing - pt has met with embedded software engineer - Education Gave educational materials for:: Signs & symptoms of hypoglycemia, Signs & symptoms of hyperglycemia, Relate diabetes to coronary artery disease, Healthy eating Nutrition - 60-Day Assessment Nutrition - 90-Day Assessment Nutrition - Final Assessment Core - Initial Assessment Core - 30-Day Assessment - Visit Date of Eval: 10/31/22 Session #:: 3 - Medication Compliance Preventative Medication(s):: Aspirin, Statin/lipid, Eliquis H/O mental health issues: depression, anxiety, or addiction?: No Doesn?t believe in the benefits of treatment?: No Believes medications are unnecessary or harmful?: No Has a concern about medication side effects?: No Expresses concern over the cost of medications?: No Outcomes/Goals: Verbalizes medications,desired effect & common side effects @ DC, Pt self-reports following medication regimen, Keeps card in wallet w/medications listed by DC, Other additional outcome/goals: Interventions/plans: Instruct on medication effects & side effects, Review medication list w/patient every two weeks, Instruct importance of taking meds as ordered & assist problem solving, Other additional 30-day Reassessments:: Progressing - meds reviewed with pt - Tobacco Use Tobacco Use: Non-smoker - pt stopped smoking 6 months ago Do you use smokeless tobacco?: No 30-day Reassessments:: Met - pt stopped smoking - Hypertension Hypertension Diagnosis:: Hypertension ICD-10 I10 Resting Blood Pressure:: 146/82 [place] [employer] Hypertension Guidelines: [place] [employer] Hypertension Guidelines. Normal BP Less than 120/80. Elevated BP 120/80. Hypertension Stage 1: BP 130-139/80-89. Hypertesnion Stage 2: BP 140 or higher/90 or higher. Hypertension Crisis: BP higher than 180/120 Peak Exercise Blood Pressure:: 152/80 Outcomes/Goals: Able to verbalize/achieve optimal blood pressure <130/80, Incorporates diet changes & exercise for blood pressure control by DC, Other additional outcomes/goals Interventions/plan: Instruct on optimal blood pressure, hypertension & medications, Instruct on effects of sodium, alcohol, stress, exercise &hypertension, Other additional plan/interventions 30 day Reassessments:: Progressing - pt encouraged to take meds - Tobacco Cessation Referral Smoking Cessation Referral:: No Individual Education/Counseling:: No Education Schedule Given:: Yes Core - 60-Day Assessment Core - 90 Day Assessment Core - Final Assessment Psychosocial - Initial Assess Psychosocial - 30-Day Assess - VIsit Date of Eval: 10/31/22 Session #:: 3 History of previous Mental disease:: No - Outcomes/Goals: See list Psychosocial Outcomes/Goals:: ID's personal stressors & 2 strategies to manage stress by discharge, Other Additional outcome/goals: - Intervention/Plan: See List Interventions/Plan:: Assess stressors,coping strategies & signs of derpression on admission, Instruct/assist pt to develop coping & personal stress Mgt strategies, Refer to Behavioral Health if appropriate, Refer to Physician if appropriate, Instruct patient to recognize signs & symptoms of depression, Instruct patient to recog, Other additional plan/intervention Psychosocial - 60-Day Assess Psychosocial - 90-Day Assess Psychosocial - Final Assessmen Patient Health Questionnaire 30-Day Re-eval Assessment 1. Little interest or pleasure in doing things: Several days 2. Feeling down, depressed, or hopeless: Not at all 3. Trouble falling or staying asleep, or sleeping too much: More than half the days 4. Feeling tired or having little energy: Nearly every day 5. Poor appetite or overeating: More than half the days 6. Feeling bad about yourself -- or that you are a failure or have let yourself or your family down: Several days 7. Trouble concentrating on things, such as reading the newspaper or watching television: Several days 8. Moving or speaking so slowly that other people could have noticed. Or the opposite - being so fidgety or restless that you have been moving around a lot more than usual: More than half the days 9. Thoughts that you would be better off , or of hurting yourself in some way: Not at all How difficult have these problems made it for you to do your work, take care of things at home, or get along with other people?: Somewhat difficult Total Score: 12 Self-Efficacy 30-Day Re-eval Assessment We would like to know how confident you are in doing certain activities. Please select your confidence level for:: Select your confidence level for the following using the scale 1-10 where 1 is not at all confident and 10 is totally confident. Your score is the average of all 6 responses. Fatigue: How confident are you that you can keep the fatigue caused by your disease from interfering with the things you want to do? Select Number: 1 Physical Discomfort or Pain: How confident are you that you can keep the physical discomfort or pain of your disease from interfering with the things you want to do? Select Number: 1 Emotional Distress: How confident are you that you can keep the emotional distress caused by your disease from interfering with the things you want to do? Select Number: 1 Other Symptoms or Health Problems: How confident are you that you can keep other symptoms or health problems from interfering with the things you want to do? Select Number: 1 Different Tasks and Activities: How confident are you that you can do the different tasks and activities needed to manage your health condition so as to reduce your need to see a doctor? Select Number: 5 Medication: How confident are you that you can do things other than just taking medication to reduce how much your illness affects your everyday life? Select Number: 2 Total Score:: 1 Nutrition Survey
[2022-10-31 08:32] VITALS: BP 146/82; BP 152/80; BMI 41.3
== END 2022-11-12 23:59 ==
LOC: CR 12:08
PROVIDERS: PCP Internal Medicine
DX: Z95.2 Presence of prosthetic heart valve (principal)
CPT/HCPCS: 93798; 97802

== ENCOUNTER 2022-11-13 10:27 | Outpatient (CLI) | payer MEDICARE, MEDICAID, SELFPAY ==
[2022-11-13 10:48] VITALS: BP 160/72; PULSE 80; RESP 16; TEMP 36; O2SAT 97; BMI 38.4
[2022-11-13 11:17] VITALS: BP 131/67; PULSE 60; RESP 16; TEMP 36.8; O2SAT 94
[2022-11-13 12:20] VITALS: BP 140/61; PULSE 54; RESP 16; TEMP 35.4; O2SAT 97
[2022-11-13] MEDS: 0.9% NaCl Peripheral Flush Adult/Peds IV ×2 (12:35→14:58)
[2022-11-13 13:21] VITALS: BP 131/59; PULSE 67; RESP 16; TEMP 36.9; O2SAT 97
[2022-11-13 14:21] VITALS: BP 137/64; PULSE 63; RESP 16; O2SAT 96
== END 2022-11-13 10:28 | disposition home or self-care (01) ==
LOC: MEDOUTP 10:28
PROVIDERS: PCP Internal Medicine; Referring Provider Internal Medicine Hematology & Oncology; Visit Provider Internal Medicine Hematology & Oncology
DX: Z51.89 Encounter for other specified aftercare (principal); N18.32 Chronic kidney disease, stage 3b; D63.1 Anemia in chronic kidney disease
CPT/HCPCS: 36430; 86850; 86900; 86901; 86920; 86922; J7040; P9016; A4216

== ENCOUNTER 2022-11-14 07:19 | Outpatient (RCR) | payer MEDICARE, MEDICAID, SELFPAY ==
[2022-11-13 00:40] VITALS: BP 146/82; BP 152/80
== END 2022-12-12 23:59 ==
LOC: CR 07:19
PROVIDERS: PCP Internal Medicine
DX: Z95.2 Presence of prosthetic heart valve (principal)
CPT/HCPCS: 93798

== ENCOUNTER 2022-11-14 19:18 | Emergency (ER) | payer MEDICARE, MEDICAID, SELFPAY ==
[2022-11-14 19:19] VITALS: BP 173/86; PULSE 81; RESP 19; TEMP 36.6; O2SAT 100
--- NOTE | 2022-11-14 20:43 | EX.ED.DYSGE1 ---
HPI History of Present Illness Chief Complaint: Lower Extremity Injury [facility] Medical History COPD (chronic obstructive pulmonary disease) Fibromyalgia Hypertension Hypothyroidism Kidney disease Osteoporosis Home Medications fluoxetine 20 mg capsule 20 mg PO DAILY 03/26/13 [History Last Taken Unknown] levothyroxine 125 mcg tablet 125 mcg PO DAILY 03/26/13 [History Last Taken 10/15/18 07:00] oxycodone-acetaminophen 5 mg-325 mg tablet 1 tab PO BID PRN PRN Pain 03/26/13 [History Last Taken Unknown] pantoprazole 40 mg tablet,delayed release 40 mg PO DAILY 07/24/18 [History Last Taken 10/15/18 07:00] ropinirole 0.5 mg tablet (Requip) 1 mg PO QHS 07/24/18 [History Last Taken Unknown] tizanidine 4 mg capsule (Zanaflex) 8 mg PO QHS 07/24/18 [History Last Taken Unknown] triamterene 37.5 mg-hydrochlorothiazide 25 mg tablet (Maxzide-25mg) 1 tab PO DAILY 07/24/18 [History Last Taken Unknown] ergocalciferol (vitamin D2) 1,250 mcg (50,000 unit) capsule (Vitamin D2) 50,000 unit PO Q7D 10/14/18 [History Last Taken Unknown] rivaroxaban 20 mg tablet (Xarelto) 20 mg PO DAILY 10/14/18 [History Last Taken Unknown] aspirin 81 mg chewable tablet 81 mg PO DAILY 02/12/22 [History Last Taken Unknown] atorvastatin 40 mg tablet 40 mg PO DAILY 02/12/22 [History Last Taken Unknown] carvedilol 6.25 mg tablet 6.25 mg PO BID 02/12/22 [History Last Taken Unknown] folic acid 1 mg tablet 1 mg PO DAILY 02/12/22 [History Last Taken Unknown] psyllium 1 packet PO DAILY 02/12/22 [History Last Taken Unknown] spironolactone 50 mg tablet (Aldactone) 50 mg PO DAILY 02/12/22 [History Last Taken Unknown] albuterol 90 mcg OTHER DAILY PRN PRN Shortness Of Breath 10/01/22 [History Last Taken Unknown] hydromorphone 4 mg tablet (Dilaudid) 4 mg PO Q6H PRN pain 3 days #12 tabs 06/02/23 [Rx Last Taken Unknown] Allergy/AdvReac Type Severity Reaction Status Date / Time Iodinated Contrast Media Allergy Anaphylaxis Verified 11/14/22 19:22 [CONTRASTS] adhesive tape AdvReac Rash Verified 11/14/22 19:22 NSAIDS (Non-Steroidal AdvReac Upset Verified 11/14/22 19:22 Anti-Inflamma Stomach Social History Smoking Status: Former smoker EXAM Physical Exam Const Vital Signs: 11/14/22 19:19 11/14/22 21:37 Temperature 97.8 F Temperature Source Temporal Pulse Rate 81 81 Respiratory Rate 19 H 19 H Blood Pressure 173/86 H 173/86 H Blood Pressure Mean 115 Pulse Ox 100 100 Oxygen Delivery Method Room Air MDM MDM MDM Narrative Medical decision making narrative: HISTORY OF PRESENT ILLNESS: 77-year-old female here with knee pain. The patient states she had no falls. She notes 3 weeks of left anterior leg pain. She did not denies any knee twisting. Denies any fever. States has been compliant with Xarelto. Patient denies active cancer, being bedridden for greater than 3 days, denies unilateral leg swelling, denies any varicose veins, denies any calf tenderness, denies any edema. Denies major surgery within 12 weeks, recent paralysis. Denies any numbness or weakness or discoloration of the leg. REVIEW OF SYSTEMS: Pertinent positives: Leg pain Pertinent negatives: Numbness, weakness, discoloration PHYSICAL EXAM: Nursing triage notes reviewed, Vital signs reviewed Constitutional: please see mdm HENT: MMM Eyes: Pupils equal round and reactive to light, Extraocular muscles intact Neck: No stridor, no JVD, full neck ROM Lungs: Clear to auscultation, No wheezing or rales. No increased work of breathing, no conversational dyspnea, no accessory muscle use, no nasal flaring. No respiratory distress noted Heart: Regular rate and rhythm, No murmurs, No rubs and No gallops, 2+ distal pulses (radial, femoral, posterior tibial) in all extremities Abdomen: Soft, there is no tenderness, rigidity, rebound or guarding, no obvious peritoneal signs, no palpable pulsatile abdominal masses, no auscultated abdominal bruit : No CVAT Extremities: No edema, intact quadricep tendon complex, full range of motion in passive flexion extension, intact ligamentous structures. Compartments are soft. Neuro: Intact sensation L1-S1 dermatomal distributions. Intact 5/5 strength in hip flexion (T12-L3). Knee extension (L2-L4). Ankle dorsiflexion (L4-L5). Ankle plantar flexion (S1). Great toe extension (L5). 2+ patellar and Achilles DTRs. Skin: No rash or lesions noted MEDICAL DECISION MAKING: Chief Complaint: Knee pain External records reviewed: No recent advanced imaging of the left knee Factors affecting care:Hyperlipidemia, hypertension, COPD, prior myalgia Social determinants of health: Former smoker History obtained from others: none Consults: none ALL IMAGES HAVE BEEN PERSONALLY REVIEWED AND INTERPRETED BY MYSELF. MDM Narrative: I considered the following differential diagnosis: Tibial plateau fracture, arterial occlusion septic arthritis, DVT, contusion, exacerbation of underlying fibromyalgia X-ray shows no evidence of tibial plateau fracture. Have a low suspicion for DVT given lack of risk factors and the fact the patient is on Xarelto and compliant. Good pulses in involved extremity. I have a low suspicion for arterial occlusion. She had full knee range of motion with no obvious joint effusion, fever or pain on proportion to exam to suggest septic arthritis. No evidence of quadriceps tendon rupture. No clear etiology to be ascertained. There is no imaging or clinical evidence for limb-threatening etiology at this time. I suspect it is an exacerbation of underlying fibromyalgia. We will give oral pain medicine for home-going Total critical care time today provided was at least 0 minutes. This excludes separately billable procedures. There was a high probability of clinically significant/life threatening deterioration in the patient's condition which required my urgent intervention. Shared decision making: I will have a discussion with the patient and or visitors regarding risk/benefits of further testing or admission. They will be made aware of of the risk/benefits inherent in this decision they will be given the opportunity to voice understanding. Radiography Diagnostic Testing: Clinical Impression(s) from Imaging Studies Tibia/Fibula X-Ray 11/14/22 21:05 IMPRESSION: Soft tissue swelling without underlying osseous or articular abnormality. Electronically Signed: Tomasz Simmons DO at 21:24 EDT Reading Location ID and State: [address] [place] [address] Tel [phone], Service support , X-ray reviewed person by myself shows no evidence of acute fracture dislocation. Discharge Plan Triage Chief Complaint: Lower Extremity Injury ED Provider: Gigi Crisostomo Dx/Rx/DC Orders Clinical Impression: Acute leg pain Instructions: ED Contusion Lower Extr Ch Prescriptions: New hydromorphone [Dilaudid] 4 mg tablet 4 mg PO Q6H PRN (Reason: pain) 3 Days Qty: 12 0RF No Action oxycodone-acetaminophen 1 TABLET tablet 1 tab PO BID PRN PRN (Reason: Pain) levothyroxine 125 MCG tablet 125 mcg PO DAILY fluoxetine 20 MG capsule 20 mg PO DAILY pantoprazole 40 MG tablet 40 mg PO DAILY ropinirole [Requip] 0.5 MG tablet 1 mg PO QHS triamterene-hydrochlorothiazid [Maxzide-25mg] 1 EACH tablet 1 tab PO DAILY tizanidine [Zanaflex] 4 MG capsule 8 mg PO QHS ergocalciferol (vitamin D2) [Vitamin D2] 50,000 UNIT capsule 50,000 unit PO Q7D Label Comments: TAKES TWICE A WEEK Xarelto 20 MG tablet 20 mg PO DAILY atorvastatin 40 mg tablet 40 mg PO DAILY Label Comments: Take 1 tablet by mouth once daily. carvedilol 6.25 mg tablet 6.25 mg PO BID Label Comments: TAKE 1 TABLET BY MOUTH TWICE DAILY Metamucil Packet 1 packet PO DAILY Rx Instructions: mix into at least 8 oz of water or juice before administering aspirin [Baby Aspirin] 81 mg Tablet,Chewable 81 mg PO DAILY folic acid 1 mg tablet 1 mg PO DAILY Label Comments: TAKE 1 TABLET BY MOUTH EVERY DAY spironolactone [Aldactone] 50 mg tablet 50 mg PO DAILY Label Comments: Take 1 tablet by mouth once daily. albuterol 90 mcg 90 mcg OTHER DAILY PRN PRN (Reason: Shortness Of Breath) Primary Care Provider: Maricruz Ace Referrals: Maricruz Ace MD [Primary Care Provider] - Activity Restrictions/Additional Instructions: Thank you for trusting us with your care today! Please take Tylenol (2 pills, 650 mg), ibuprofen (2 pills, 400 mg) every 6 hours as needed for pain and fever control. If this does not control your pain please take oral Dilaudid every 6 hours as prescribed. Please return to the emergency department if your symptoms change or worsen. Specifically if develop discoloration of your left lower extremity, numbness, tingling, fever, if you are unable to take medicine by mouth Please follow with your primary care physician for further outpatient evaluation and management. Disposition Disposition: Home, Self Care Discharge Date/Time: 11/14/22 22:07
--- NOTE | 2022-11-14 21:05 | RAD_ITS ---
STUDY: X-RAY - LEFT TIBIA AND FIBULA REASON FOR EXAM: Female, 77 years old. Pain in the left lower leg. Swelling of the left foot. TECHNIQUE: AP and lateral view(s) of the tibia and fibula were obtained. COMPARISON: None. FINDINGS: Normal visualized tibia. Normal visualized fibula. The knee and ankle are intact. There is no visualized fracture, dislocation or destructive osseous pathology Mild edema of the soft tissues of the calf and lower leg. RAD/Tibia & Fibula 2 Views IMPRESSION: Soft tissue swelling without underlying osseous or articular abnormality. Electronically Signed: Tomasz Simmons DO at 21:24 EDT ,
[2022-11-14 21:13] VITALS: BMI 43.2
[2022-11-14] MEDS: Ketorolac 30 MG/ML Syringe IM (21:15)
[2022-11-14] MEDS: oxyCODONE 5 MG Tablet 10 MG PO (21:15)
[2022-11-14] MEDS: Acetaminophen 325 MG Tablet 1000 MG PO (21:22)
[2022-11-14 21:37] VITALS: BP 173/86; PULSE 81; RESP 19; O2SAT 100
== END 2022-11-14 22:07 | disposition home or self-care (01) ==
PROVIDERS: Emergency Provider Emergency Medicine; PCP Internal Medicine; Visit Provider Emergency Medicine
DX: M79.605 Pain in left leg (principal); J44.9 Chronic obstructive pulmonary disease, unspecified; E78.5 Hyperlipidemia, unspecified; I10 Essential (primary) hypertension; Z87.891 Personal history of nicotine dependence; E03.9 Hypothyroidism, unspecified; Z79.899 Other long term (current) drug therapy; Z79.01 Long term (current) use of anticoagulants; Z79.82 Long term (current) use of aspirin
CPT/HCPCS: 73590; 96372; 99285

== ENCOUNTER 2023-07-09 23:45 | Emergency (ER) | payer MEDICARE, MEDICAID, SELFPAY ==
[2023-07-09 23:45] VITALS: BP 175/77; PULSE 72; RESP 18; TEMP 36.2; O2SAT 98; BMI 37.8
--- NOTE | 2023-07-10 | RAD_ITS ---
EXAM: XR Clavicle Unilateral INDICATION: Female, 77 years old. Posttraumatic right shoulder pain TECHNIQUE: AP and lateral views COMPARISON: None FINDINGS: DEVICES: Right internal jugular portacatheter in place. BONES: No acute fracture. No lytic or blastic lesion. Multilevel degenerative change of the spine. Visualized right upper ribs are normal. JOINTS: Joints are in normal alignment. There is moderate degenerative change of the acromioclavicular joint. There is mild degenerative change of the glenohumeral joint. There is calcific deposition at the rotator cuff insertion.. SOFT TISSUES: No soft tissue abnormality. Visualized right upper lung is normal. There is consultation the aortic arch. RAD/Clavicle IMPRESSION: No acute abnormality of the right clavicle Electronically Signed: Jordan Vences MD at 0:26 EST ,
--- NOTE | 2023-07-10 | RAD_ITS ---
EXAM: XR Forearm 2 Views INDICATION: Female, 77 years old. Posttraumatic forearm pain TECHNIQUE: AP and lateral views COMPARISON: None FINDINGS: BONES: There is a comminuted, impacted fracture deformity of the distal radial metaphysis with intra-articular extension into the radial scaphoid joint. There is mild dorsal angulation of the distal fracture fragment.. No lytic or blastic lesion. Mild enthesopathic change off the lateral left condyle JOINTS: Joints are in normal alignment. There is mild degenerative change of the first carpometacarpal, triscaphe the radial scaphoid joints. Mild degenerative change of the ulnotrochlear joint and radiocapitellar joints.. SOFT TISSUES: No soft tissue abnormality. RAD/Forearm 2 Views IMPRESSION: Comminuted, impacted, intra-articular fracture deformity of the distal radial metaphysis Electronically Signed: Jordan Vences MD at 0:24 EST ,
--- NOTE | 2023-07-10 00:06 | EDS_ITS ---
HPI HPI - Fall History of Present Illness Chief Complaint: Fall Informant: patient Narrative Narrative: 77-year-old female slipped while walking in her kitchen tonight, falling to her right side injuring her right forearm and she has some pain up in her shoulder area. She denies pain or injury anywhere else. She did not hit her head or her back. She has no rib cage or chest discomfort or trouble breathing. She has been able to move her legs and walk without any pain or difficulty in her hips. No prodromal symptoms. [facility] Medical History Anemia in stage 3b chronic kidney disease Anxiety and depression Arrhythmia Avulsion fracture of [place] Chest pain Chronic diastolic CHF (congestive heart failure) Chronic fatigue COPD (chronic obstructive pulmonary disease) Coronary artery disease involving [place] coronary artery of [place] heart without angina pectoris Depressive disorder Diverticulosis of colon (without mention of hemorrhage) DVT (deep venous thrombosis) Dyspnea, unspecified Esophageal reflux Essential hypertension Fibromyalgia Hypertensive kidney disease with chronic kidney disease stage III Hypothyroidism Kidney disease LBBB (left bundle branch block) Nonrheumatic aortic (valve) stenosis Obesity Obstructive sleep apnea Osteoporosis Palpitations Pulmonary hypertension Restless leg syndrome Stage 3b chronic kidney disease Home Medications fluoxetine 20 mg capsule 20 mg PO DAILY 03/26/13 [History Last Taken Unknown] pantoprazole 40 mg tablet,delayed release 40 mg PO DAILY 07/24/18 [History Last Taken 10/15/18 07:00] ropinirole 0.5 mg tablet (Requip) 1 mg PO QHS 07/24/18 [History Last Taken Unknown] tizanidine 4 mg capsule (Zanaflex) 8 mg PO QHS 07/24/18 [History Last Taken Unknown] carvedilol 6.25 mg tablet 6.25 mg PO BID 02/12/22 [History Last Taken Unknown] folic acid 1 mg tablet 1 mg PO DAILY 02/12/22 [History Last Taken Unknown] spironolactone 50 mg tablet (Aldactone) 50 mg PO DAILY 02/12/22 [History Last Taken Unknown] albuterol sulfate 90 mcg/actuation aerosol inhaler 2 puff inhalation Q4H PRN shortness of breath or wheezing 12/19/22 [History Last Taken Unknown] aspirin 81 mg tablet,delayed release 81 mg PO DAILY 12/19/22 [History Last Taken Unknown] calcium carbonate 600 mg-vitamin D3 12.5 mcg (500 unit) capsule 1 cap PO DAILY 12/19/22 [History Last Taken Unknown] cyanocobalamin (vitamin B-12) 1,000 mcg/mL injection kit 1,000 mcg IM QMONTH 12/19/22 [History Last Taken Unknown] ferrous sulfate 325 mg (65 mg iron) tablet 325 mg PO DAILY 12/19/22 [History Last Taken Unknown] fluticasone propionate 50 mcg/actuation nasal spray,suspension 1 spray intranasal DAILY 12/19/22 [History Last Taken Unknown] oxycodone-acetaminophen 5 mg-325 mg tablet 1 tab PO Q8H PRN Pain 12/19/22 [History Last Taken Unknown] rivaroxaban 10 mg tablet (Xarelto) 10 mg PO DAILY 12/19/22 [History Last Taken Unknown] tiotropium 2.5 mcg-olodaterol 2.5 mcg/actuation mist for inhalation (Stiolto Respimat) 2 puff inhalation DAILY 12/19/22 [History Last Taken Unknown] amlodipine 2.5 mg tablet 2.5 mg PO DAILY 07/10/23 [History Last Taken Unknown] levothyroxine 200 mcg tablet 200 mcg PO .COMPLEX 07/10/23 [History Last Taken Unknown] tizanidine 4 mg tablet 4 mg PO QHS 07/10/23 [History Last Taken Unknown] Allergy/AdvReac Type Severity Reaction Status Date / Time Iodinated Contrast Media Allergy Anaphylaxis Verified 12/24/22 10:56 [CONTRASTS] alendronate sodium AdvReac Intermediate Other Verified 12/24/22 10:56 [From Fosamax Plus D] cholecalciferol (vitamin D3) AdvReac Intermediate Other Verified 12/24/22 10:56 [From Fosamax Plus D] adhesive tape AdvReac Rash Verified 12/24/22 10:56 NSAIDS (Non-Steroidal AdvReac Upset Verified 12/24/22 10:56 Anti-Inflamma Stomach Family History Mother Heart disease Cancer throat/lung/stomach Father Heart disease Sister Asthma Brother Lymphoma Grandfather Colon cancer Aunt Colon cancer Uncle Colon cancer Surgical History History of lumpectomy of right breast History of resection of small bowel Hx laparoscopic cholecystectomy Hx of appendectomy Hx of total hysterectomy with removal of both tubes and ovaries Hx of ventral hernia repair S/P TAVR (transcatheter aortic valve replacement) (~07/14/22) Social History Smoking Status: Former smoker Electronic Cigarette Use: with nicotine alcohol intake: never substance use type: does not use caffeine: Yes Type: coffee Number of servings: 5 ROS ROS ED Constitutional Constitutional ED: Denies chills or fever(s) Musculoskeletal Musculoskeletal: Reports extremity pain; Denies neck pain Integumentary Denies Abrasions, rash or wounds Neurologic Neurologic: Denies paresthesias or weakness EXAM Physical Exam Const Vital Signs: 07/09/23 23:45 07/10/23 00:07 Temperature 97.2 F L Temperature Source Temporal Pulse Rate 72 Respiratory Rate 18 Respiratory Effort Normal Respiratory Depth Normal Respiratory Pattern Normal Blood Pressure 175/77 H Blood Pressure Mean 109 Pulse Ox 98 Oxygen Delivery Method Room Air Positive well nourished, well developed and obese General Appearance ED: well developed and NAD Nutritional Appearance: obese Neck full ROM and supple Back/Spine normal ROM and normal to inspection Extremity Extremity Narrative: Limited range of motion of the elbow and the wrist on the right due to pain. There are some mild tenderness in the proximal radius and ulna but not necessarily at the elbow proper, there is some bruising and ecchymosis in the mid forearm at the ulnar aspect, she has tenderness here and all the way to the wrist, including the distal radius. Limited pronation and supination due to pain at the wrist and the elbow. Full range of motion of the shoulder without difficulty except she does have pain and tenderness right mid clavicle but no tenderness at the acromion or proximal humerus. No deformities anywhere. The other 3 extremities move without any difficulty or limitation. Neuro oriented x3, no focal motor deficits, no sensory deficits noted and gait normal Sensorium / Orientation: alert Psych mental status grossly normal and thought process normal Skin no wounds Rashes: no rashes MDM MDM MDM Narrative Medical decision making narrative: Obtain 2 view screening x-ray of the right forearm given the diffuse nature of her pain and tenderness, it shows on my interpretation fracture at the distal radius, therefore three-view x-ray series of the wrist dedicated was obtained, confirming in impacted mildly dorsally angulated distal radius fracture. 2 view x-ray series of the right clavicle shows no acute fracture on my interpretation. Patient was splinted see the procedure note, she feels comfortable going home with this and following up with orthopedics she is offered pain medication as well. Radiography Diagnostic Testing: Clinical Impression(s) from Imaging Studies Clavicle X-Ray 07/10/23 00:00 IMPRESSION: No acute abnormality of the right clavicle Electronically Signed: Jordan Vences MD at 0:26 EST , Forearm X-Ray 07/10/23 00:00 IMPRESSION: Comminuted, impacted, intra-articular fracture deformity of the distal radial metaphysis Electronically Signed: Jordan Vences MD at 0:24 EST , Wrist X-Ray 07/10/23 00:07 IMPRESSION: Comminuted, impacted, intra-articular fracture deformity of the distal radial metaphysis Electronically Signed: Jordan Vences MD at 0:25 EST , Procedures Upper Extremity Splints Upper Extremity Splint: Orthoglass (AP short arm, NVID after placement) Splint Fabrication: Fabricated Location: Right Discharge Plan Triage Chief Complaint: Fall ED Provider: Florentino Shannon Dx/Rx/DC Orders Clinical Impression: Fall from slipping on wet surface, Closed fracture of right distal radius Instructions: Distal Radius Fx, ED Splint Care, Fiberglass Prescriptions: No Action Xarelto 10 mg tablet 10 mg PO DAILY Patient Comments: TAKE 1 TABLET BY MOUTH ONCE DAILY Stiolto Respimat 2.5-2.5 mcg/actuation mist 2 puff inhalation DAILY Patient Comments: Inhale 2 (TWO) Puffs BY MOUTH once daily. fluticasone propionate 50 mcg/actuation spray,suspension 1 spray intranasal DAILY Patient Comments: Use 1 Bend in each nostril once daily. albuterol sulfate 90 mcg/actuation HFA aerosol inhaler 2 puff inhalation Q4H PRN (Reason: shortness of breath or wheezing) Patient Comments: Inhale 2 Puffs as instructed every 4 hours as needed. cyanocobalamin (vitamin B-12) 1,000 mcg/mL kit 1,000 mcg IM QMONTH aspirin 81 mg tablet,delayed release (DR/EC) 81 mg PO DAILY calcium carbonate-vitamin D3 600 mg-12.5 mcg (500 unit) capsule 1 cap PO DAILY ferrous sulfate 325 mg (65 mg iron) tablet 325 mg PO DAILY fluoxetine 20 MG capsule 20 mg PO DAILY oxycodone-acetaminophen 5-325 mg tablet 1 tab PO Q8H PRN (Reason: Pain) pantoprazole 40 MG tablet 40 mg PO DAILY ropinirole [Requip] 0.5 MG tablet 1 mg PO QHS tizanidine [Zanaflex] 4 MG capsule 8 mg PO QHS carvedilol 6.25 mg tablet 6.25 mg PO BID Patient Comments: TAKE 1 TABLET BY MOUTH TWICE DAILY folic acid 1 mg tablet 1 mg PO DAILY Patient Comments: TAKE 1 TABLET BY MOUTH EVERY DAY spironolactone [Aldactone] 50 mg tablet 50 mg PO DAILY Patient Comments: Take 1 tablet by mouth once daily. amlodipine 2.5 mg tablet 2.5 mg PO DAILY Patient Comments: Take 1 tablet by mouth once daily. tizanidine 4 mg tablet 4 mg PO QHS Patient Comments: TAKE 2 TABLETS BY MOUTH EVERY NIGHT AT BEDTIME levothyroxine 200 mcg tablet 200 mcg PO .COMPLEX Patient Comments: Take 1 tablet by mouth once daily. Except on Thursday take 1 and a half tablet. Rx Instructions: 200 mcg orally; Take 1 tablet by mouth once daily. Except on Thursday take 1 and a half tablet. Primary Care Provider: Maricruz Ace Referrals: Maricruz Ace MD [Primary Care Provider] - Jorge Shaw MD [Med Staff - Active Staff] - As soon as possible (call for appt) Disposition Disposition: Home, Self Care
--- NOTE | 2023-07-10 00:07 | RAD_ITS ---
EXAM: XR Wrist Min 3 Views INDICATION: Female, 77 years old. Posttraumatic wrist pain TECHNIQUE: AP and lateral views COMPARISON: None FINDINGS: BONES: There is a comminuted, impacted fracture deformity of the distal radial metaphysis with intra-articular extension into the radial scaphoid joint and the distal radial ulnar joint. There is mild dorsal angulation of the distal fracture fragment.. No lytic or blastic lesion. Mild enthesopathic change off the lateral left condyle JOINTS: Joints are in normal alignment. There is mild degenerative change of the first carpometacarpal, triscaphe the radial scaphoid joints. Mild degenerative change of the ulnotrochlear joint and radiocapitellar joints.. SOFT TISSUES: Soft tissue swelling surrounds the wrist. RAD/Wrist min 3 Views IMPRESSION: Comminuted, impacted, intra-articular fracture deformity of the distal radial metaphysis Electronically Signed: Jordan Vences MD at 0:25 EST ,
[2023-07-10] MEDS: HYDROcodone Bitartrate/Apap 5/325 Tablet PO (00:43)
== END 2023-07-10 00:47 | disposition home or self-care (01) ==
PROVIDERS: Emergency Provider Emergency Medicine; PCP Internal Medicine; Visit Provider Emergency Medicine
DX: S52.571A Other intraarticular fracture of lower end of right radius, initial encounter for closed fracture (principal); J44.9 Chronic obstructive pulmonary disease, unspecified; I13.0 Hypertensive heart and chronic kidney disease with heart failure and stage 1 through stage 4 chronic kidney disease, or unspecified chronic kidney disease; I50.32 Chronic diastolic (congestive) heart failure; N18.32 Chronic kidney disease, stage 3b; Z87.891 Personal history of nicotine dependence; W01.0XXA Fall on same level from slipping, tripping and stumbling without subsequent striking against object, initial encounter; E03.9 Hypothyroidism, unspecified; G47.33 Obstructive sleep apnea (adult) (pediatric); K21.9 Gastro-esophageal reflux disease without esophagitis; I25.10 Atherosclerotic heart disease of native coronary artery without angina pectoris
CPT/HCPCS: 29126; 73000; 73090; 73110; 99283

== ENCOUNTER 2023-07-28 07:58 | Outpatient (CLI) | payer MEDICARE, MEDICAID, SELFPAY ==
[2023-07-28 08:23] VITALS: BP 138/81; PULSE 84; RESP 16; TEMP 37.2; O2SAT 96; BMI 36.6
[2023-07-28 08:47] VITALS: BP 131/62; PULSE 74; RESP 16; TEMP 36.8; O2SAT 95
[2023-07-28 09:47] VITALS: BP 155/67; PULSE 77; RESP 18; TEMP 37.1; O2SAT 96
[2023-07-28 11:02] VITALS: BP 146/69; PULSE 66; RESP 16; TEMP 36.8; O2SAT 96
[2023-07-28 12:02] VITALS: BP 148/69; PULSE 73; RESP 16; TEMP 36.7; O2SAT 94
[2023-07-28 12:49] VITALS: BP 130/63; PULSE 73; RESP 16; TEMP 37; O2SAT 95
== END 2023-07-28 07:59 | disposition home or self-care (01) ==
LOC: MEDOUTP 08:00
PROVIDERS: PCP Internal Medicine; Referring Provider Internal Medicine Hematology & Oncology; Visit Provider Internal Medicine Hematology & Oncology
DX: N18.32 Chronic kidney disease, stage 3b (principal); D63.1 Anemia in chronic kidney disease
CPT/HCPCS: 36430; 86850; 86900; 86901; 86920; 86922; J7040; P9016; A4216

== ENCOUNTER 2023-09-15 10:35 | Outpatient (CLI) | payer MEDICARE, MEDICAID, SELFPAY ==
[2023-09-15 12:06] VITALS: BP 131/56; PULSE 66; RESP 16; TEMP 36.7; O2SAT 96; BMI 36.6
[2023-09-15 12:28] VITALS: BP 135/57; PULSE 59; RESP 16; TEMP 36.9; O2SAT 95
[2023-09-15 13:28] VITALS: BP 135/65; PULSE 68; RESP 16; TEMP 36.5
[2023-09-15 14:05] VITALS: BP 134/65; PULSE 69; RESP 16; TEMP 36.8; O2SAT 97
== END 2023-09-15 10:36 | disposition home or self-care (01) ==
PROVIDERS: PCP Internal Medicine; Referring Provider Internal Medicine Hematology & Oncology; Visit Provider Internal Medicine Hematology & Oncology
DX: K92.2 Gastrointestinal hemorrhage, unspecified (principal); D63.8 Anemia in other chronic diseases classified elsewhere
CPT/HCPCS: 36430; 86850; 86900; 86901; 86920; 86922; J7040; P9016; A4216

== ENCOUNTER → 2023-09-29 | Outpatient (CLI) | payer MEDICARE, MEDICAID, SELFPAY ==
--- NOTE | 2023-09-29 11:13 | NEURO ---
NCS and/or EMG Patient Report Ordering Doctor: Jorge Shaw DATE OF SERVICE: 09/29/23 Clinical Summary: 77 year old female with symptoms of pain and numbness in the lateral digits of the right hand. Nerve Conduction Studies Summary: The right median-D2 SNAP was absent. The right median-rubio amplitude was reduced. The right ulnar-D5 SNAP distal latency was mildly prolonged. The right median-APB CMAP amplitude was reduced at the wrist and absent at the elbow. Needle Examination Summary: Needle examination demonstrated increased insertional activity and spontaneous activity (positive sharp waves and fibrillation potentials) in the right abductor pollicis brevis muscle. No motor units were observed in the right abductor pollicis brevis muscle. Impression: There is electrodiagnostic evidence of the following - 1) Severe, right median mononeuropathy at the wrist, with motor axonal loss and active denervation. Multi Select Codes Neurology Neurology Interp Codes: 89448-38 Musc test done w/n test comp (interp) (1) and 59190-50 Nrv cndj test 7-8 studies (interp)
== END | disposition home or self-care (01) ==
LOC: PSN 09:48
PROVIDERS: PCP Internal Medicine; Referring Provider Orthopaedic Surgery Sports Medicine; Visit Provider Orthopaedic Surgery Sports Medicine
DX: G56.01 Carpal tunnel syndrome, right upper limb (principal)
CPT/HCPCS: 95886; 95910

== ENCOUNTER → 2023-10-05 | Outpatient (CLI) | payer MEDICARE, MEDICAID, SELFPAY ==
--- NOTE | 2023-10-05 14:00 | MRI_ITS ---
EXAM: MR LEFT LOWER EXTREMITY WITHOUT INTRAVENOUS CONTRAST, KNEE CLINICAL INDICATION: PAIN, INSTABILITY TECHNIQUE: Multiplanar and multisequence MR images of the left knee without intravenous contrast. COMPARISON: No relevant prior studies available. FINDINGS: BONES/JOINTS: Subchondral marrow signal alteration/cystic change at the mid aspect of the medial tibial plateau reflects overlying high-grade to full-thickness chondral loss. No other concerning marrow signal alterations. Small subchondral cysts at the median ridge of the patella and lateral patellar facet likely reflect overlying full-thickness chondral loss/fissuring. Similarly subchondral cysts reflecting overlying chondral loss are seen at the anterior aspect of the medial femoral condyle. Findings related to moderate degenerative changes at the medial femorotibial compartment include joint space narrowing/chondral loss and peripheral margin osteophytes. EXTENSOR MECHANISM: Unremarkable. MEDIAL MENISCUS: Longitudinal oblique of the posterior horn of the medial meniscus with tear contacting the inferior meniscal surface. There is somewhat attenuated appearance of the posterior root ligament, concerning for a partial-thickness tear of at least low to moderate grade. There is potentially related peripheral extrusion of the body segment and the medial meniscus by 4 mm. LATERAL MENISCUS: Unremarkable. MEDIAL CAPSULE/SUPPORTING STRUCTURES: There is bulging of the midportion of the MCL, although the fibers of this ligament appear to be intact. LATERAL CAPSULE/SUPPORTING STRUCTURES: Unremarkable. Lateral collateral ligamentous complex, inclusive of the popliteal tendon, are intact. ANTERIOR CRUCIATE LIGAMENT: Unremarkable. Intact. POSTERIOR CRUCIATE LIGAMENT: Unremarkable. Intact. MUSCLES: Unremarkable. CARTILAGE: : Subchondral marrow signal alteration/cystic change at the mid aspect of the medial tibial plateau reflects overlying high-grade to full-thickness chondral loss. No other concerning marrow signal alterations. Small subchondral cysts at the median ridge of the patella and lateral patellar facet likely reflect overlying full-thickness chondral loss/fissuring. Similarly subchondral cysts reflecting overlying chondral loss are seen at the anterior aspect of the medial femoral condyle. FLUID: Unremarkable. No joint effusion. MRI/Lower Ext Joint Only (Routine) IMPRESSION: 1. Longitudinal oblique of the posterior horn of the medial meniscus with tear contacting the inferior meniscal surface. There is somewhat attenuated appearance of the posterior root ligament, concerning for a partial-thickness tear of at least low to moderate grade. 2. Subchondral marrow signal alteration/cystic change at the mid aspect of the medial tibial plateau reflects overlying high-grade to full-thickness chondral loss. 3. Subchondral marrow signal alteration/cystic change reflects overlying high-grade to full-thickness chondral loss. Electronically Signed: Satish Santamaria MD at 19:09 EDT ,
== END | disposition home or self-care (01) ==
LOC: MRI 13:00
PROVIDERS: PCP Internal Medicine
DX: S83.242A Other tear of medial meniscus, current injury, left knee, initial encounter (principal)
CPT/HCPCS: 73721

== ENCOUNTER 2023-11-04 05:49 | Day surgery (SDC) | payer MEDICARE, MEDICAID, SELFPAY ==
[2023-11-04 06:39] VITALS: BP 115/55; PULSE 69; RESP 16; TEMP 36.9; O2SAT 94; BMI 37.8
[2023-11-04] MEDS: Lactated Ringers 1,000 ML 15 ML IV (06:50)
--- NOTE | 2023-11-04 07:08 | PCM.HP.STD ---
HPI - General HPI Narrative BRIANNA DYSON, is a 77 F who presents for right endoscopic carpal tunnel release. no change to h and p. right wrist marked, confirmed by patient. rab and post op course and FU discussed. no further questions or concerns. will proceed. MR#: [id number] Acct: [id number] Name: BRIANNA DYSON Rep #: [id number] : 1945 Provider: Dr. Jorge Shaw MD Age/Sex: 77/F Location: [facility] [place] Status: Signed Intake Vital Signs 09/15/2411:06 Height 5 ft 2 in Intake Visit Reasons: RIGHT RADIUS Accompanied by: Self Is patient in pain?: Yes Pain scale (1-10): 5 Allergies Iodinated Contrast Media [CONTRASTS] Allergy (Verified 10/06/23 14:55) Anaphylaxisalendronate sodium [From Fosamax Plus D] Adverse Reaction (Intermediate, Verified 10/06/23 14:55) Othercholecalciferol (vitamin D3) [From Fosamax Plus D] Adverse Reaction (Intermediate, Verified 10/06/23 14:55) Otheradhesive tape Adverse Reaction (Verified 10/06/23 14:55) RashNSAIDS (Non-Steroidal Anti-Inflamma Adverse Reaction (Verified 10/06/23 14:55) Upset Stomach Medications pantoprazole 40 mg tablet,delayed release 40 mg PO DAILY 07/24/18 [History Confirmed 10/06/23] ropinirole 0.5 mg tablet (Requip) 1 mg PO QHS 07/24/18 [History Confirmed 10/06/23] carvedilol 6.25 mg tablet 6.25 mg PO BID 02/12/22 [History Confirmed 10/06/23] folic acid 1 mg tablet 1 mg PO DAILY 02/12/22 [History Confirmed 10/06/23] spironolactone 50 mg tablet (Aldactone) 50 mg PO DAILY 02/12/22 [History Confirmed 10/06/23] albuterol sulfate 90 mcg/actuation aerosol inhaler 2 puff inhalation Q4H PRN shortness of breath or wheezing 12/19/22 [History Confirmed 10/06/23] calcium carbonate 600 mg-vitamin D3 12.5 mcg (500 unit) capsule 1 cap PO DAILY 12/19/22 [History Confirmed 10/06/23] cyanocobalamin (vitamin B-12) 1,000 mcg/mL injection kit 1,000 mcg IM QMONTH 12/19/22 [History Confirmed 10/06/23] ferrous sulfate 325 mg (65 mg iron) tablet 325 mg PO DAILY 12/19/22 [History Confirmed 10/06/23] fluticasone propionate 50 mcg/actuation nasal spray,suspension 1 spray intranasal DAILY 12/19/22 [History Confirmed 10/06/23] oxycodone-acetaminophen 5 mg-325 mg tablet 1 tab PO Q8H PRN Pain 12/19/22 [History Confirmed 10/06/23] tiotropium 2.5 mcg-olodaterol 2.5 mcg/actuation mist for inhalation (Stiolto Respimat) 2 puff inhalation DAILY 12/19/22 [History Confirmed 10/06/23] levothyroxine 200 mcg tablet 200 mcg PO .COMPLEX 07/10/23 [History Confirmed 10/06/23] tizanidine 4 mg tablet 4 mg PO QHS 07/10/23 [History Confirmed 10/06/23] PFSH Medical History Anemia in stage 3b chronic kidney disease Anxiety and depression Arrhythmia Avulsion fracture of talus Chest pain Chronic diastolic CHF (congestive heart failure) Chronic fatigue COPD (chronic obstructive pulmonary disease) Coronary artery disease involving [place] coronary artery of [place] heart without angina pectoris Depressive disorder Diverticulosis of colon (without mention of hemorrhage) DVT (deep venous thrombosis) Dyspnea, unspecified Esophageal reflux Essential hypertension Fibromyalgia Hypertensive kidney disease with chronic kidney disease stage III Hypothyroidism Kidney disease LBBB (left bundle branch block) Nonrheumatic aortic (valve) stenosis Obesity Obstructive sleep apnea Osteoporosis Palpitations Pulmonary hypertension Restless leg syndrome Right carpal tunnel syndrome Stage 3b chronic kidney disease Trigger finger, right middle finger Surgical History History of lumpectomy of right breast History of resection of small bowel History of surgical removal of meniscus of knee Hx laparoscopic cholecystectomy Hx of appendectomy Hx of total hysterectomy with removal of both tubes and ovaries Hx of ventral hernia repair S/P TAVR (transcatheter aortic valve replacement) (~07/14/22) Family History Mother Heart disease Cancer throat/lung/stomachFather Heart diseaseSister AsthmaBrother LymphomaGrandfather Colon cancerAunt Colon cancerUncle Colon cancer Social History Smoking Status: Former smoker Electronic Cigarette Use: with nicotine alcohol intake: never substance use type: does not use caffeine: Yes Type: coffee Number of servings: 5 HPI RIGHT RADIUS Details: This documentation accurately reflects the service provided and the decisions made by me, Dr. Jorge Shaw MD 10/06/23 1863. Part of today?s visit was documented by [ ], acting as scribe. BRIANNA DYSON is a 77 year old F here today for FU NCS for right side carpal tunnel symptoms. Still having quite a bit of symptoms in the thumb index and middle finger. Seems to be getting worse over time. Ortho Exam General General: Yes no acute distress Neurologic: Yes alert and Yes oriented x3 Psychologic: Yes reasonable and appropriate Right Wrist/Hand Skin/Wound: Yes CDI, No Swelling, No Ecchymosis, Yes nail intact and Yes capillary refill normal A1 tracie trigger: Yes (middle) Right Wrist: Yes Tinel's and Phalen's; No TTP Fracture site Motor: EPL: 5, FDP-2: 5, 1st Dorsal Interosseous: 5 and APB: 5 Sensation: Radial: I, Ulnar: I and Median: D Left Wrist/Hand Skin/Wound: No Swelling and No Ecchymosis Supplemental Info [facility] Pulmonary Services/Neurology [address] [place] [address] MR#: [id number] Acct: [id number] Name: BRIANNA DYSON Rep #: [id number] : 1945 77 From: Darius Cole MD Referring Dr: Jorge Shaw MD Status: REG CLI Location: PSN Date: 09/29/23 Sex: F C NCS and/or EMG Patient Report Ordering Doctor: Jorge Shaw DATE OF SERVICE: 09/29/23 Clinical Summary: 77 year old female with symptoms of pain and numbness in the lateral digits of the right hand. Nerve Conduction Studies Summary: The right median-D2 SNAP was absent. The right median-rubio amplitude was reduced. The right ulnar-D5 SNAP distal latency was mildly prolonged. The right median-APB CMAP amplitude was reduced at the wrist and absent at the elbow. Needle Examination Summary: Needle examination demonstrated increased insertional activity and spontaneous activity (positive sharp waves and fibrillation potentials) in the right abductor pollicis brevis muscle. No motor units were observed in the right abductor pollicis brevis muscle. Impression: There is electrodiagnostic evidence of the following - 1) Severe, right median mononeuropathy at the wrist, with motor axonal loss and active denervation. Multi Select Codes Neurology Neurology Interp Codes: 59690-72 Musc test done w/n test comp (interp) (1) and 80249-03 Nrv cndj test 7-8 studies (interp) Coding Level of Care Code Off vis,est,level 3 Diagnoses Right carpal tunnel syndrome G56.01 Assessment and Plan Assessment and Plan (1) Right carpal tunnel syndrome: Status: Acute Plan: 77 yr F with severe right median neuropathy / CTS. patient discussed diagnosis prognosis different treatment options available to the patient including but not limited to rest ice anti-inflammatories active modifications nighttime splinting or bracing as well as cortisone injections and open versus endoscopic surgery. Discussed the risks with each of these. This certainly with severe problem this is more unpredictable or less likely to recover after surgery but I think this is the patient's best chance to have a meaningful recovery associated with this problem and to prevent further problems with the median nerve. They understand wish to go ahead with a right endoscopic carpal tunnel release. Patient does use a vape device they quit smoking about a year ago but that still will increase her surgical risks. Pros and cons risks and benefits were discussed with the patient including but not limited to infection, pain, stiffness, bleeding, damage to surrounding structures, neurovascular injury, recurrence or retear, failure or wear of hardware or fixation, instability, fracture, deep vein thrombosis and pulmonary embolism, anesthetic risks, , patient dissatisfaction, need for further surgery and other risks. Patient understood and wished to proceed with surgery, and signed the informed consent documentation. [facility] Medical History (Updated 10/29/23 @ 12:18 by Renetta Bell) Wears dentures Walker as ambulation aid Arthritis Bladder disease Fatty liver Easy bruising Back pain History of hiatal hernia Gastric reflux Former smoker CPAP (continuous positive airway pressure) dependence COPD (chronic obstructive pulmonary disease) Shortness of breath on exertion Leg cramps History of pain when walking History of edema History of echocardiogram Cardiology follow-up encounter History of CHF (congestive heart failure) Trigger finger, right middle finger Right carpal tunnel syndrome LBBB (left bundle branch block) Pulmonary hypertension Chronic fatigue Coronary artery disease involving [place] coronary artery of [place] heart without angina pectoris Chronic diastolic CHF (congestive heart failure) Stage 3b chronic kidney disease Restless leg syndrome Essential hypertension Obesity DVT (deep venous thrombosis) Diverticulosis of colon (without mention of hemorrhage) Arrhythmia Nonrheumatic aortic (valve) stenosis Anemia in stage 3b chronic kidney disease Avulsion fracture of talus Fibromyalgia Hypothyroidism Osteoporosis Home Medications ?Medication ?Instructions ?Recorded ?Last Taken ?Type pantoprazole 40 mg tablet,delayed 40 mg PO DAILY 07/24/18 11/03/23 History release ropinirole 0.5 mg tablet (Requip) 1 mg PO QHS 07/24/18 11/03/23 History carvedilol 6.25 mg tablet 6.25 mg PO BID 02/12/22 11/04/23 History folic acid 1 mg tablet 1 mg PO DAILY 02/12/22 11/03/23 History spironolactone 50 mg tablet 50 mg PO DAILY 02/12/22 11/04/23 History (Aldactone) albuterol sulfate 90 mcg/actuation 2 puff inhalation Q4H PRN 12/19/22 11/04/23 History aerosol inhaler shortness of breath or wheezing calcium carbonate 600 mg-vitamin 1 cap PO DAILY 12/19/22 11/03/23 History D3 12.5 mcg (500 unit) capsule cyanocobalamin (vitamin B-12) 1,000 mcg IM QMONTH 12/19/22 Unknown History 1,000 mcg/mL injection kit ferrous sulfate 325 mg (65 mg 325 mg PO DAILY 12/19/22 11/03/23 History iron) tablet fluticasone propionate 50 1 spray intranasal DAILY 12/19/22 Unknown History mcg/actuation nasal spray,suspension oxycodone-acetaminophen 5 mg-325 1 tab PO TID Pain 12/19/22 11/03/23 History mg tablet tiotropium 2.5 mcg-olodaterol 2.5 2 puff inhalation DAILY 12/19/22 11/03/23 History mcg/actuation mist for inhalation (Stiolto Respimat) levothyroxine 200 mcg tablet 200 mcg PO MOTUWETHFRSA 07/10/23 11/03/23 History tizanidine 4 mg tablet 8 mg PO QHS 07/10/23 11/03/23 History amlodipine 2.5 mg tablet 2.5 mg PO DAILY 10/29/23 11/04/23 History fluticasone fur. 100 mcg-umeclid 1 ea inhalation DAILY 10/29/23 11/03/23 History 62.5 mcg-vilant 25 mcg inhalat.powder (Trelegy Ellipta) gabapentin 100 mg capsule 100 mg PO QHS 10/29/23 11/02/23 History levothyroxine 200 mcg capsule 300 mcg PO ADAMES 10/29/23 11/01/23 History Allergy/AdvReac Type Severity Reaction Status Date / Time Iodinated Contrast Media Allergy Anaphylaxis Verified 10/29/23 11:55 (CONTRASTS) alendronate sodium (From AdvReac Intermediate Other Verified 10/29/23 11:55 Fosamax Plus D) cholecalciferol (vitamin D3) AdvReac Intermediate Other Verified 10/29/23 11:55 (From Fosamax Plus D) adhesive tape AdvReac Rash Verified 10/29/23 11:55 NSAIDS (Non-Steroidal AdvReac Upset Verified 10/29/23 11:55 Anti-Inflamma Stomach Family History Mother Heart disease Cancer throat/lung/stomach Father Heart disease Sister Asthma Brother Lymphoma Grandfather Colon cancer Aunt Colon cancer Uncle Colon cancer Surgical History (Updated 10/29/23 @ 12:18 by Renetta Bell) History of cardiac catheterization History of esophagogastroduodenoscopy (EGD) History of surgical removal of meniscus of knee S/P TAVR (transcatheter aortic valve replacement) (~07/14/22) Hx of total hysterectomy with removal of both tubes and ovaries Hx of ventral hernia repair Hx laparoscopic cholecystectomy History of resection of small bowel History of lumpectomy of right breast Hx of appendectomy Social History Smoking Status: Former smoker Electronic Cigarette Use: with nicotine alcohol intake: never substance use type: does not use caffeine: Yes Type: coffee Number of servings: 5 Vital Signs Vital Signs Vital Signs: 11/04/23 06:39 11/04/23 06:42 Temperature 98.4 F Temperature Source Temporal Pulse Rate 69 Respiratory Rate 16 Respiratory Pattern Normal Blood Pressure 115/55 L Blood Pressure Mean 75 Blood Pressure Source Monitor Blood Pressure Position Semi-Fowlers Blood Pressure Location Right Arm Pulse Ox 94 Oxygen Delivery Method Room Air Weight Weight: 197 lb 1.492 oz Body Mass Index (BMI) 37.8
[2023-11-04] MEDS: Cefazolin 2 GM in 0.9% Normal Saline (100mL Bag) 100 ML IV (07:23)
[2023-11-04] MEDS: Bupivacaine 0.25% 30 ML Vial (07:39)
--- NOTE | 2023-11-04 07:56 | PCM.OPRPT ---
Problems Associated Problem List Diagnoses (1) Right carpal tunnel syndrome: Report of Operation Date of Procedure: 11/04/23 Pre-Operative Diagnosis: right carpal tunnel syndrome Post-Operative Diagnosis: same Surgery/Procedure Performed:: right endoscopic carpal tunnel syndrome Surgeon: Jorge Shaw Type of Anesthesia: Local MAC and Local Anesthesiologist: Fidencio Espitia Estimated Blood Loss (mL): 5 Description of Procedure: Patient was brought to the operating room theater.? The patient was administered 2g iv ancef prior to the start of the procedure.? Placed supine on the operating room table.? Anesthesia induced.? SCDs on the legs.? Tourniquet applied to right upper operative extremity, appropriately padded. Arm table used. Operative extremity prepped and draped in the usual sterile fashion with chlorhexidine-based prep solution allowing over 3 minutes drying time prior to draping.? Preoperative timeout performed to confirm the site patient and the surgery. I used the [facility] endoscopic carpal tunnel kit / technique. 3 cc 0.25% bupivicaine at incision site. ? Tourniquet up at 250mmg. I made a transverse 2 cm incision in line with the? transverse wrist crease.? This was in line with the fourth digit.? I carried the dissection down through skin and subcutaneous tissue achieved meticulous hemostasis. Just ulnar to palmaris tendon.? I incised the antebrachial fascia.? I passed sequential dilators into the carpal tunnel along the radial border of the Guyon's canal aiming for the fourth digit with the hand in extension. I used a synovial elevator to identify the transverse fibers of the transverse carpal tunnel ligament.? Passed the scope into the carpal tunnel. Once I had identified the full proximal and distal extent of the ligament I fully released the ligament under direct visualization by deploying the blade and slowly withdrawing the scope made sequential passes until I no longer felt tension as well as the entire extent of the ligament was released under direct visualization.? Sounded the tunnel with chavez tenotomy scissors, complete release, no bands. Pictures taken and saved before and after release. Slight proximal release of fascia. Tourniquet let down. Wound thoroughly irrigated.?Meticulous hemostasis achieved.? Incisions closed with 3-0 ethilon for the skin.?Skin was cleaned and dried. adaptic and 4x4 gauze and emma wrap. Patient woken up,? transferred off the operating room table and taken to postanesthetic care unit in stable condition. All sponge needle instrument counts were correct no complications.? Plan for the patient to be discharged home according to day surgery criteria when they are comfortable. Follow-up in the office in 2 days time. Gentle ROM hand and elbow no heavy lifting. cpt 71558 Complications none Admit VTE Documentation VTE Present on Admission: No VTE Mechan Device Prophylaxis: SCD's VTE Pharm Prophylaxis ordered?: No Reason prophylaxis not ordered:: Treatment Not Indicated Procedures Musculoskeletal [id number]-29xxx: Other Procedure See Report
[2023-11-04 07:58] VITALS: BP 115/55; BP 117/54; PULSE 66; RESP 16; TEMP 36.2; O2SAT 94
--- NOTE | 2023-11-04 07:58 | DCINST_ITS ---
Discharge Instructions Diet Discharge Diet: No restrictions Activity Discharge Activity: Return to Normal Activity Ice area for (Minutes): 10 Lifting Restrictions: no heavy gripping or lifting Keep extremity elevated above heart level: Operative Extremity Dressing / Incision Call your doctor if your incision/area has: Continuous Slow Oozing, Sudden Incre ased Bleeding, Increased Pain/ Swelling, Increased Redness, Foul Smelling Discharge and Swelling at the incision site Remove Dressing in: leave in place till F/U Cleanse incision/area with: Do not get Incision Wet Follow Up Care Please Follow Up With: Jorge Shaw MD When: 2 days Test Results: Test results from this visit will be discussed in further detail at your follow- up appointment, if applicable. Discharge Plan Admission Attending Provider: Jorge Shaw Primary Care Provider: Maricruz Ace Instructions Print Language: Surinamese Discharge Orders/Prescriptions Prescriptions: No Action Stiolto Respimat 2.5-2.5 mcg/actuation mist 2 puff inhalation DAILY Patient Comments: Inhale 2 (TWO) Puffs BY MOUTH once daily. fluticasone propionate 50 mcg/actuation spray,suspension 1 spray intranasal DAILY Patient Comments: Use 1 [place] in each nostril once daily. albuterol sulfate 90 mcg/actuation HFA aerosol inhaler 2 puff inhalation Q4H PRN (Reason: shortness of breath or wheezing) Patient Comments: Inhale 2 Puffs as instructed every 4 hours as needed. cyanocobalamin (vitamin B-12) 1,000 mcg/mL kit 1,000 mcg IM QMONTH calcium carbonate-vitamin D3 600 mg-12.5 mcg (500 unit) capsule 1 cap PO DAILY ferrous sulfate 325 mg (65 mg iron) tablet 325 mg PO DAILY oxycodone-acetaminophen 5-325 mg tablet 1 tab PO TID pantoprazole 40 MG tablet 40 mg PO DAILY ropinirole [Requip] 0.5 MG tablet 1 mg PO QHS carvedilol 6.25 mg tablet 6.25 mg PO BID Patient Comments: TAKE 1 TABLET BY MOUTH TWICE DAILY folic acid 1 mg tablet 1 mg PO DAILY Patient Comments: TAKE 1 TABLET BY MOUTH EVERY DAY spironolactone [Aldactone] 50 mg tablet 50 mg PO DAILY Patient Comments: Take 1 tablet by mouth once daily. tizanidine 4 mg tablet 8 mg PO QHS Patient Comments: TAKE 2 TABLETS BY MOUTH EVERY NIGHT AT BEDTIME levothyroxine 200 mcg tablet 200 mcg PO MOTUWETHFRSA Patient Comments: Take 1 tablet by mouth once daily. Except on Thursday take 1 and a half tablet. Rx Instructions: 200 mcg orally; Take 1 tablet by mouth once daily. Except on Thursday take 1 and a half tablet. levothyroxine 200 mcg capsule 300 mcg PO ADAMES amlodipine 2.5 mg tablet 2.5 mg PO DAILY Trelegy Ellipta 100-62.5-25 mcg blister with device 1 ea inhalation DAILY gabapentin 100 mg capsule 100 mg PO QHS Referrals / Follow Up: Maricruz Ace MD [Primary Care Provider] - Jorge Shaw MD [Med Staff - Active Staff] - Disposition Disposition (needs filled in before D/C Order can be placed): Home, Self Care
[2023-11-04 08:00] VITALS: BP 110/63; BP 115/55; PULSE 62; RESP 16; O2SAT 93
[2023-11-04 08:05] VITALS: BP 103/52; BP 115/55; PULSE 62; RESP 16; O2SAT 94
[2023-11-04 08:10] VITALS: BP 106/52; BP 115/55; PULSE 93; RESP 16; TEMP 36.7; O2SAT 93
[2023-11-04] MEDS: Oxycodone/Apap 5/325 Tablet PO (08:28)
[2023-11-04] MEDS: 0.9 % NaCl (Sterile) Posiflush 10 mL IV (08:44)
[2023-11-04 08:55] VITALS: BP 115/55
== END 2023-11-04 09:00 | disposition home or self-care (01) ==
LOC: SDC 05:51 → AC 05:51
PROVIDERS: PCP Internal Medicine; Referring Provider Orthopaedic Surgery Sports Medicine; Visit Provider Orthopaedic Surgery Sports Medicine
PROC: (CPT 29848; principal; 2023-11-04 07:15)
DX: G56.01 Carpal tunnel syndrome, right upper limb (principal); I13.0 Hypertensive heart and chronic kidney disease with heart failure and stage 1 through stage 4 chronic kidney disease, or unspecified chronic kidney disease; I50.32 Chronic diastolic (congestive) heart failure; J44.9 Chronic obstructive pulmonary disease, unspecified; N18.32 Chronic kidney disease, stage 3b; Z87.891 Personal history of nicotine dependence; I35.0 Nonrheumatic aortic (valve) stenosis; I25.10 Atherosclerotic heart disease of native coronary artery without angina pectoris; Z86.718 Personal history of other venous thrombosis and embolism; E03.9 Hypothyroidism, unspecified; M79.7 Fibromyalgia; Z95.2 Presence of prosthetic heart valve; D63.1 Anemia in chronic kidney disease; Z90.49 Acquired absence of other specified parts of digestive tract; Z87.19 Personal history of other diseases of the digestive system; Z90.79 Acquired absence of other genital organ(s)
CPT/HCPCS: 29848; 01810; J7120; A4216; J2405

== ENCOUNTER → 2023-12-23 | Outpatient (CLI) | payer MEDICARE, MEDICAID, SELFPAY ==
[2023-11-04 10:45] VITALS: BMI 41.3
--- NOTE | 2023-12-23 13:24 | ECHOD_ITS ---
Reason For Study: VALVE REPLACEMENT Procedure This was a 2D Doppler, Color Flow transthoracic echocardiogram. The study was technically difficult. Exam performed in department. Left Ventricle Normal LV size. Mild concentric left ventricular hypertrophy. The left ventricular ejection fraction is 65 %. Normal diastology for age. Right Ventricle Normal right ventricle. Atria The left atrium is mildly enlarged. Normal right atrium. Mitral Valve Mild mitral annular calcification. Focal calcification of papillary muscle. Trivial mitral valve insufficiency. Tricuspid Valve Trivial tricuspid valve insufficiency. Unable to estimate RV systolic pressure due to insufficient tricuspid regurgitant envelope. Aortic Valve Bioprosthetic aortic valve appears to be functioning normally. Mean peak gradient 13 mmHg. Pulmonic Valve The pulmonic valve is not well visualized. Great Vessels Normal sized aortic root. Pericardium/Pleural No pericardial effusion. MMode/2D Measurements & Calculations LVIDd: 4.5 cm IVSd: 1.3 cm LVOT diam: 1.7 cm LVIDs: 3.1 cm LVPWd: 1.2 cm LVOT area: 2.2 cm2 RVDd: 3.8 cm FS: 31.6 % Ao root diam: 2.5 cm LAV(MOD-bp): 39.4 ml LVAd ap4: 19.3 cm2 LAV(MOD-bp) Indexed: 21.3 ml/m2 LVLd ap4: 7.1 cm LAV(MOD-sp2): 46.3 ml EDV(MOD-sp4): 42.6 ml LAV(MOD-sp4): 32.9 ml EDV(sp4-el): 44.1 ml LVAs ap4: 8.5 cm2 LVLs ap4: 5.4 cm ESV(MOD-sp4): 11.6 ml ESV(sp4-el): 11.4 ml EF(MOD-sp4): 72.8 % EF(sp4-el): 74.3 % LVAd ap2: 20.1 cm2 SV(MOD-sp4): 31.0 ml SV(MOD-sp2): 35.4 ml LVLd ap2: 7.0 cm EDV(MOD-sp2): 47.0 ml EDV(sp2-el): 49.1 ml LVAs ap2: 8.3 cm2 LVLs ap2: 4.8 cm ESV(MOD-sp2): 11.6 ml ESV(sp2-el): 12.0 ml EF(MOD-sp2): 75.3 % SV(sp4-el): 32.8 ml LA dimension(2D): 4.2 cm LA A4 area: 14.9 cm2 RA A4 area: 9.0 cm2 TAPSE: 1.7 cm Time Measurements MV dec time: 0.21 sec Doppler Measurements & Calculations MV E max lazaro: 111.9 cm/sec Lat Peak E' Lazaro: 12.2 cm/sec Med Peak E' Lazaro: 8.6 cm/sec MV A max lazaro: 133.5 cm/sec E/E' lat: 9.2 E/E' med: 13.0 MV E/A: 0.84 Ao V2 max: 236.7 cm/sec LV V1 max: 180.9 cm/sec MV dec slope: 535.8 cm/sec2 Ao max P.4 mmHg LV V1 max P.1 mmHg Ao V2 mean: 174.1 cm/sec LV V1 mean P.1 mmHg Ao mean P.3 mmHg LV V1 mean: 137.5 cm/sec Ao V2 VTI: 46.0 cm LV V1 VTI: 35.3 cm AV (velocity ratio): 0.77 NISH(I,D): 1.7 cm2 NISH(V,D): 1.7 cm2 SV(LVOT): 76.8 ml PA V2 max: 133.4 cm/sec PA max PG (full): 4.0 mmHg ECHO/Echo Complete Interpretation Summary Mild concentric left ventricular hypertrophy. The left ventricular ejection fraction is 65 %. The left atrium is mildly enlarged. Mild mitral annular calcification. Focal calcification of papillary muscle. Bioprosthetic aortic valve appears to be functioning normally. Mean peak gradie nt 13 mmHg. Ordering Physician: Lauren Morales Referring Physician: Lauren Morales Performed By: Debi Martinez RDCS
== END | disposition home or self-care (01) ==
LOC: CVS 13:19
PROVIDERS: PCP Internal Medicine; Referring Provider Nurse Practitioner Gerontology; Visit Provider Nurse Practitioner Gerontology
DX: Z95.2 Presence of prosthetic heart valve (principal)
CPT/HCPCS: 93306

== ENCOUNTER → 2024-02-10 | Outpatient (CLI) | payer MEDICARE, MEDICAID, SELFPAY ==
[2023-11-04 10:45] VITALS: BMI 41.3
--- NOTE | 2024-02-10 13:35 | RAD_ITS ---
STUDY: X-RAY - CERVICAL SPINE REASON FOR EXAM: Female, 78 years old. Radiating neck pain TECHNIQUE: 3 view(s) of the cervical spine were obtained. COMPARISON: None FINDINGS: Normal anterior atlantoaxial articulation. Normal odontoid process. There is straightening of the normal cervical lordosis, likely positional or due to pain. There is diffuse demineralization of the cervical spine. There is multi-level degenerative disc disease with multilevel disc space narrowing. The soft tissue structures are unremarkable. RAD/Cerv Spine 2 or 3 Views IMPRESSION: Age consistent degenerative changes, no acute findings Electronically Signed: Liam Romano MD at 13:47 EDT ,
== END | disposition home or self-care (01) ==
PROVIDERS: PCP Internal Medicine; Referring Provider Anesthesiology Pain Medicine; Visit Provider Anesthesiology Pain Medicine
DX: M54.12 Radiculopathy, cervical region (principal)
CPT/HCPCS: 72040

== ENCOUNTER 2024-02-19 03:37 | Observation (INO) | payer MEDICARE, MEDICAID, SELFPAY ==
[2023-11-04 10:45] VITALS: BMI 41.3
[2024-02-19] VITALS (17 sets, daily range): BP systolic 90–157; BP diastolic 36–87; PULSE 51–82; RESP 14–18; TEMP 36.2–37.1; O2SAT 84–98; BMI 38.5; BMI 36.5
--- NOTE | 2024-02-19 03:52 | CT_ITS ---
STUDY: CT CERVICAL SPINE WITHOUT CONTRAST REASON FOR EXAM: Female, 78 years old patient with cervical radiculopathy RADIATION DOSAGE (If Supplied By Facility): CTDIvol = ( 29.52 ) mGy, DLP = ( 573.13 ) mGycm TECHNIQUE: High resolution transaxial imaging was performed without contrast material. Sagittal and coronal images were reconstructed. Individualized dose optimization techniques were used for this CT. COMPARISON: Prior comparison studies are not available for review at this time. FINDINGS: Normal craniovertebral junction. There are degenerative changes of the anterior atlantoaxial articulation. Normal odontoid process. Normal cervical lordosis. Normal vertebral bodies and posterior osseous elements. C2-3: Normal endplates. Normal disc height and morphology. Normal central canal and intervertebral neuroforamina. C3-4: Normal endplates. Normal disc height and morphology. Normal central canal and intervertebral neuroforamina. C4-5: Normal endplates. Normal disc height and morphology. Normal central canal and intervertebral neuroforamina. C5-6: Normal endplates. Normal disc height and morphology. Normal central canal and intervertebral neuroforamina. C6-7: Normal endplates. Normal disc height and morphology. Normal central canal and intervertebral neuroforamina. C7-T1: Normal endplates. Normal disc height and morphology. Normal central canal and intervertebral neuroforamina. Normal visualized soft tissue structures. There is moderate atherosclerotic calcification of the carotid bulbs. CT/Spine Cervical without Contras IMPRESSION: No CT evidence of acute compression or displaced fracture. Electronically Signed: Uma Cleveland MD at 5:23 EDT ,
[2024-02-19] MEDS: HYDROmorphone 1 MG/ML Syringe IV ×2 (04:12→05:50)
[2024-02-19] MEDS: Ondansetron 4 MG/2 ML Vial IV (04:12)
[2024-02-19] MEDS: DiphenhydrAMINE 50 MG/ML Syringe 25 MG IV (04:13)
[2024-02-19] MEDS: dexAMETHasone 4 MG/ML Vial IV (04:13)
[2024-02-19] MEDS: diazePAM 5 MG Tablet PO (05:50)
[2024-02-19] MEDS: Orphenadrine 60 MG/2 ML Ampul IV (05:50)
--- NOTE | 2024-02-19 05:54 | EX.ED.UPPERE ---
HPI History of Present Illness Chief Complaint: Upper Extremity Injury Informant: patient and EMS Narrative Narrative: Patient is a 78-year-old female with past medical history of hypertension fibromyalgia and hypothyroidism. She is in pain management and takes Percocet 3 times a day as well as gabapentin. She recently had arthroscopic surgery on her knee roughly 3 weeks ago. She states that since that time she has been having increasing pain in her neck that radiates into both arms. She denies any fevers or chills or trauma. She denies any difficulty breathing or swallowing. She states that despite taking her chronic pain medication there is no improvement to her neck pain/arm pain. She states this evening the pain was so severe that she could not get up out of bed and therefore the worsening symptoms called EMS and she was brought in for evaluation [facility] Medical History Wears dentures Walker as ambulation aid Arthritis Bladder disease Fatty liver Easy bruising Back pain History of hiatal hernia Gastric reflux Former smoker CPAP (continuous positive airway pressure) dependence COPD (chronic obstructive pulmonary disease) Shortness of breath on exertion Leg cramps History of pain when walking History of edema History of echocardiogram Cardiology follow-up encounter History of CHF (congestive heart failure) Trigger finger, right middle finger Right carpal tunnel syndrome LBBB (left bundle branch block) Pulmonary hypertension Chronic fatigue Coronary artery disease involving [place] coronary artery of [place] heart without angina pectoris Chronic diastolic CHF (congestive heart failure) Stage 3b chronic kidney disease Restless leg syndrome Essential hypertension Obesity DVT (deep venous thrombosis) Diverticulosis of colon (without mention of hemorrhage) Arrhythmia Nonrheumatic aortic (valve) stenosis Anemia in stage 3b chronic kidney disease Avulsion fracture of talus Fibromyalgia Hypothyroidism Osteoporosis Home Medications ?Medication ?Instructions ?Recorded ?Last Taken ?Type pantoprazole 40 mg tablet,delayed 40 mg PO DAILY 07/24/18 11/03/23 History release ropinirole 0.5 mg tablet (Requip) 1 mg PO QHS 07/24/18 11/03/23 History carvedilol 6.25 mg tablet 6.25 mg PO BID 02/12/22 11/04/23 History folic acid 1 mg tablet 1 mg PO DAILY 02/12/22 11/03/23 History spironolactone 50 mg tablet 50 mg PO DAILY 02/12/22 11/04/23 History (Aldactone) albuterol sulfate 90 mcg/actuation 2 puff inhalation Q4H PRN 12/19/22 11/04/23 History aerosol inhaler shortness of breath or wheezing calcium carbonate 600 mg-vitamin 1 cap PO DAILY 12/19/22 11/03/23 History D3 12.5 mcg (500 unit) capsule cyanocobalamin (vitamin B-12) 1,000 mcg IM QMONTH 12/19/22 Unknown History 1,000 mcg/mL injection kit ferrous sulfate 325 mg (65 mg 325 mg PO DAILY 12/19/22 11/03/23 History iron) tablet fluticasone propionate 50 1 spray intranasal DAILY 12/19/22 Unknown History mcg/actuation nasal spray,suspension oxycodone-acetaminophen 5 mg-325 1 tab PO TID Pain 12/19/22 11/03/23 History mg tablet tiotropium 2.5 mcg-olodaterol 2.5 2 puff inhalation DAILY 12/19/22 11/03/23 History mcg/actuation mist for inhalation (Stiolto Respimat) levothyroxine 200 mcg tablet 200 mcg PO MOTUWETHFRSA 07/10/23 11/03/23 History tizanidine 4 mg tablet 8 mg PO QHS 07/10/23 11/03/23 History amlodipine 2.5 mg tablet 2.5 mg PO DAILY 10/29/23 11/04/23 History fluticasone fur. 100 mcg-umeclid 1 ea inhalation DAILY 10/29/23 11/03/23 History 62.5 mcg-vilant 25 mcg inhalat.powder (Trelegy Ellipta) gabapentin 100 mg capsule 100 mg PO QHS 10/29/23 11/02/23 History levothyroxine 200 mcg capsule 300 mcg PO ADAMES 10/29/23 11/01/23 History Allergy/AdvReac Type Severity Reaction Status Date / Time Iodinated Contrast Media Allergy Anaphylaxis Verified 02/19/24 03:42 (CONTRASTS) alendronate sodium (From AdvReac Intermediate Other Verified 02/19/24 03:42 Fosamax Plus D) cholecalciferol (vitamin D3) AdvReac Intermediate Other Verified 02/19/24 03:42 (From Fosamax Plus D) adhesive tape AdvReac Rash Verified 02/19/24 03:42 NSAIDS (Non-Steroidal AdvReac Upset Verified 02/19/24 03:42 Anti-Inflamma Stomach Family History Mother Heart disease Cancer throat/lung/stomach Father Heart disease Sister Asthma Brother Lymphoma Grandfather Colon cancer Aunt Colon cancer Uncle Colon cancer Surgical History History of cardiac catheterization History of esophagogastroduodenoscopy (EGD) History of surgical removal of meniscus of knee S/P TAVR (transcatheter aortic valve replacement) (~07/14/22) Hx of total hysterectomy with removal of both tubes and ovaries Hx of ventral hernia repair Hx laparoscopic cholecystectomy History of resection of small bowel History of lumpectomy of right breast Hx of appendectomy Social History Smoking Status: Former smoker Electronic Cigarette Use: with nicotine alcohol intake: never substance use type: does not use caffeine: Yes Type: coffee Number of servings: 5 ROS ROS ED Constitutional Constitutional ED: Denies chills or fever(s) Eyes Eyes: Denies blurry vision or change in vision ENT ENT ED: Denies sore throat Cardiovascular Cardiovascular: Denies chest pain Respiratory/Chest Respiratory/Chest: Denies cough or dyspnea Gastrointestinal Gastrointestinal: Denies abdominal pain, diarrhea, nausea or vomiting Genitourinary Genitourinary ED: Denies dysuria Musculoskeletal Musculoskeletal: Reports neck pain Integumentary Denies rash Neurologic Neurologic: Reports weakness; Denies headache(s) or paresthesias Hematologic/Lymphatic Hematologic/Lymphatic: Denies easy bleeding or easy bruising EXAM Physical Exam Const Vital Signs: 02/19/24 03:38 02/19/24 05:37 Temperature 98.7 F Temperature Source Oral Pulse Rate 82 66 Respiratory Rate 16 18 Blood Pressure 157/87 H 121/55 H Blood Pressure Mean 110 77 Pulse Ox 95 92 Oxygen Delivery Method Room Air Room Air Positive well nourished, well developed and obese General Appearance ED: well developed Nutritional Appearance: obese HEENT HEENT Narrative: Normocephalic atraumatic No tongue or lip swelling no oral lesions no airway edema or compromise No secondary findings in the posterior pharynx to suggest infection Eyes PERRL and EOMs intact bilaterally Eyes Narrative: No scleral icterus noted Neck Neck Narrative: No obvious bony deformity or step-off of the cervical spine There is diffuse pain with palpation of the neck No crepitance palpated Resp normal respiratory effort and clear to auscultation bilaterally Cardio regular rate and regular rhythm Cardio Narrative: Heart is regular rate and rhythm Radial and carotid pulses are equal and symmetric GI non-tender, non-distended and no masses Auscultation: hypoactive bowel sounds Palpation: soft Extremity normal to inspection Extremity Narrative: Bilateral upper extremities are neurovascularly intact; AIN/PIN are intact and normal. Active range of motion is decreased secondary to pain. There is no obvious bony deformity or joint effusion. No asymmetric edema. Compartments are soft and compressible going against compartment syndrome. Neuro oriented x3, CN's II-XII intact bilaterally and no sensory deficits noted Sensorium / Orientation: alert Sensory Exam: No sensory level loss detected Motor Exam: general weakness Psych mental status grossly normal Mood & Affect: anxious and tearful Skin no rashes or lesions noted Lesions: no lesions Rashes: no rashes MDM MDM MDM Narrative Medical decision making narrative: Patient arrived to the ER hypertensive but otherwise with stable vital. She reported increasing pain from her neck into the bilateral arms with no trauma. Differential diagnosis is for cervical radiculopathy versus fibromyalgia versus compression fracture versus metastatic mass. The patient is neurovascularly intact indicating no compression of nervous or vascular flow. Compartments are soft and compressible going against compartment syndrome. There is no asymmetric edema to suggest upper extremity DVT. No overlying soft tissue changes to suggest a secondary infection. As patient reported the pain was bilaterally there was concern this is from a spinal stenosis or pinched nerve within the neck. Secondary to this a CT scan was obtained which revealed no acute findings. Despite the fact she takes Percocet and gabapentin at home her pain has been intractable. Therefore she was treated with IV Dilaudid Decadron Benadryl and Zofran. This only improved her pain slightly so another dose of Dilaudid with Norflex and oral Valium was given. Her blood pressure has improved with treatment of the pain and she remains neurovascularly intact. However at this time because of the persistent pain there is concern that patient does have a nerve impingement that is not being displayed on the CT scan. Therefore as the patient is unable to care for herself secondary to her intractable pain despite taking opioids and neuromodulators at home the hospitalist was contacted. The patient will be admitted for continued pain control and potential MRI to further assess the cause of her recurrent neck pain. Of note the patient does state that if she has to go to the senior living in order to have his activities of daily living performed then she is willing to do that if needed. History & Record Review Discussion w/independent historian: EMS personnel and Patient Radiography Diagnostic Testing: Clinical Impression(s) from Imaging Studies Cervical Spine CT 02/19/24 03:52 IMPRESSION: No CT evidence of acute compression or displaced fracture. Electronically Signed: Uma Cleveland MD at 5:23 EDT , Discharge Plan Dx/Rx/DC Orders Clinical Impression: Essential hypertension, Fibromyalgia, Intractable pain, Hypothyroidism Disposition Disposition: Acute Care [facility]
--- NOTE | 2024-02-19 05:59 | HP.PCM.HOS_ITS ---
HPI - General General Date of Admission: 02/19/24 Date of Service: 02/19/24 Chief Complaint: Intractable neck pain, BL UE radiculopathy. HPI Narrative The patient is a 78 y/o F w/ PMHx: Obesity, TANA on CPAP, Chronic COPD, Former tobacco use, GERD, HFpEF, HTN, HLD, CKD stage IIIb, Hx VTE (DVT), Chronic anemia/AOCD, Hypothyroidism, Fibromyalgia, Chronic back pain, Valvular Heart Disease s/p TAVR, Nonobstructive CAD who presents to the [facility] ED on 02/19/24 with history of bilateral upper extremity radiculopathy with recent rescheduled MRI because of ongoing symptoms however she has been more debilitated and is having difficulty even getting out of bed because of her recent knee surgery 3 weeks prior to current presentation prompting eventual ED evaluation be cautious. She denies any neurological deficits otherwise. She notes pain primarily upper extremity discomfort with movement. Upon ED arrival she rates her discomfort as 8 out of 10 in severity with discomfort to bilateral upper extremities as well as her neck but also includes recent knee following recent surgical intervention. Following pain medication she notes that her pain is improved currently 8 out of 10 in severity upon evaluation. Workup in the ED include T98.7, heart rate 82, BP 157/87, respiratory rate 16, 95% room air, CT lumbar spine without contrast with no evidence of any acute compression or displaced fracture. In the ED patient ministered Norflex 60 mg IV x 1, Zofran 4 mg IV x 1, Dilaudid 1 mg IV x 2, Benadryl 25 mg IV x 1, Valium 5 mg p.o. x 1, Decadron 4 mg IV x 1. [facility] Medical History Wears dentures Walker as ambulation aid Arthritis Bladder disease Fatty liver Easy bruising Back pain History of hiatal hernia Gastric reflux Former smoker CPAP (continuous positive airway pressure) dependence COPD (chronic obstructive pulmonary disease) Shortness of breath on exertion Leg cramps History of pain when walking History of edema History of echocardiogram Cardiology follow-up encounter History of CHF (congestive heart failure) Trigger finger, right middle finger Right carpal tunnel syndrome LBBB (left bundle branch block) Pulmonary hypertension Chronic fatigue Coronary artery disease involving [place] coronary artery of [place] heart without angina pectoris Chronic diastolic CHF (congestive heart failure) Stage 3b chronic kidney disease Restless leg syndrome Essential hypertension Obesity DVT (deep venous thrombosis) Diverticulosis of colon (without mention of hemorrhage) Arrhythmia Nonrheumatic aortic (valve) stenosis Anemia in stage 3b chronic kidney disease Avulsion fracture of [place] Fibromyalgia Hypothyroidism Osteoporosis Home Medications ?Medication ?Instructions ?Recorded ?Last Taken ?Type pantoprazole 40 mg tablet,delayed 40 mg PO DAILY 07/24/18 11/03/23 History release ropinirole 0.5 mg tablet (Requip) 1 mg PO QHS 07/24/18 11/03/23 History carvedilol 6.25 mg tablet 6.25 mg PO BID 02/12/22 11/04/23 History folic acid 1 mg tablet 1 mg PO DAILY 02/12/22 11/03/23 History spironolactone 50 mg tablet 50 mg PO DAILY 02/12/22 11/04/23 History (Aldactone) albuterol sulfate 90 mcg/actuation 2 puff inhalation Q4H PRN 12/19/22 11/04/23 History aerosol inhaler shortness of breath or wheezing calcium carbonate 600 mg-vitamin 1 cap PO DAILY 12/19/22 11/03/23 History D3 12.5 mcg (500 unit) capsule cyanocobalamin (vitamin B-12) 1,000 mcg IM QMONTH 12/19/22 Unknown History 1,000 mcg/mL injection kit ferrous sulfate 325 mg (65 mg 325 mg PO DAILY 12/19/22 11/03/23 History iron) tablet fluticasone propionate 50 1 spray intranasal DAILY 12/19/22 Unknown History mcg/actuation nasal spray,suspension oxycodone-acetaminophen 5 mg-325 1 tab PO TID Pain 12/19/22 11/03/23 History mg tablet tiotropium 2.5 mcg-olodaterol 2.5 2 puff inhalation DAILY 12/19/22 11/03/23 History mcg/actuation mist for inhalation (Stiolto Respimat) levothyroxine 200 mcg tablet 200 mcg PO MOTUWETHFRSA 07/10/23 11/03/23 History tizanidine 4 mg tablet 8 mg PO QHS 07/10/23 11/03/23 History amlodipine 2.5 mg tablet 2.5 mg PO DAILY 10/29/23 11/04/23 History fluticasone fur. 100 mcg-umeclid 1 ea inhalation DAILY 10/29/23 11/03/23 History 62.5 mcg-vilant 25 mcg inhalat.powder (Trelegy Ellipta) gabapentin 100 mg capsule 100 mg PO QHS 10/29/23 11/02/23 History levothyroxine 200 mcg capsule 300 mcg PO ADAMES 10/29/23 11/01/23 History Allergy/AdvReac Type Severity Reaction Status Date / Time Iodinated Contrast Media Allergy Anaphylaxis Verified 02/19/24 03:42 (CONTRASTS) alendronate sodium (From AdvReac Intermediate Other Verified 02/19/24 03:42 Fosamax Plus D) cholecalciferol (vitamin D3) AdvReac Intermediate Other Verified 02/19/24 03:42 (From Fosamax Plus D) adhesive tape AdvReac Rash Verified 02/19/24 03:42 NSAIDS (Non-Steroidal AdvReac Upset Verified 02/19/24 03:42 Anti-Inflamma Stomach Family History Mother Heart disease Cancer throat/lung/stomach Father Heart disease Sister Asthma Brother Lymphoma Grandfather Colon cancer Aunt Colon cancer Uncle Colon cancer Surgical History History of cardiac catheterization History of esophagogastroduodenoscopy (EGD) History of surgical removal of meniscus of knee S/P TAVR (transcatheter aortic valve replacement) (~07/14/22) Hx of total hysterectomy with removal of both tubes and ovaries Hx of ventral hernia repair Hx laparoscopic cholecystectomy History of resection of small bowel History of lumpectomy of right breast Hx of appendectomy Social History Smoking Status: Former smoker Electronic Cigarette Use: with nicotine alcohol intake: never substance use type: does not use caffeine: Yes Type: coffee Number of servings: 5 ROS ROS Narrative Admission Review of Systems: CONSTITUTIONAL: No weight loss, fever, chills, + weakness or fatigue. HEENT: Eyes: No visual loss, blurred vision, double vision or yellow sclerae. Ears, Nose, Throat: No hearing loss, sneezing, congestion, runny nose or sore throat. SKIN: No rash or itching, lesions, wounds. CARDIOVASCULAR: + Chronic distal edema. No chest pain, chest pressure or chest discomfort, palpitations, orthopnea, syncopal events. RESPIRATORY: No shortness of breath, cough or sputum, wheezing, hemoptysis. GASTROINTESTINAL: No anorexia, nausea, vomiting or diarrhea, abdominal pain, melena, BRBPR. GENITOURINARY: No dysuria, frequency, urgency or retention. NEUROLOGICAL: + Neck discomfort with bilateral upper extremity paresthesias. No headache, dizziness, syncope, paralysis, ataxia, numbness or tingling in the extremities, focal weakness, change in bowel or bladder control, seizure. MUSCULOSKELETAL: + muscle, back pain, joint pain or stiffness. HEMATOLOGIC: + Chronic anemia, easy bleeding/bruising LYMPHATICS: No enlarged nodes. No history of splenectomy. PSYCHIATRIC: No history of depression or anxiety. ENDOCRINOLOGIC: No reports of sweating, cold or heat intolerance. No polyuria or polydipsia. ALLERGIES: + History of allergic rhinitis, history of anaphylaxis. Vital Signs Vital Signs Vital Signs: 02/19/24 03:38 02/19/24 05:37 Temperature 98.7 F Temperature Source Oral Pulse Rate 82 66 Respiratory Rate 16 18 Blood Pressure 157/87 H 121/55 H Blood Pressure Mean 110 77 Pulse Ox 95 92 Oxygen Delivery Method Room Air Room Air Weight Weight: 200 lb 6.403 oz Body Mass Index (BMI) 38.5 Physical Exam Narrative Physical Examination: General: Awake, alert, oriented x 3 and cooperative, laying in the ED bed, notes pain is slowly improving but still present despite recent significant regimen in the ED. Skin: Normal color, normal turgor, no icterus, no cyanosis except occasional stage ecchymoses, abrasion. HEENT: AT/NC, EOMI, PERRLA, MMM, no carotid bruits or JVD noted. Lungs: Mildly diminished, greater bases, appropriate effort, no rales, ronchi or wheezing. Heart: Regular rate and rhythm; no gallop, rub audible, + SM. Abdomen: Soft, obese, NTTP, ND, distant normal BS, no appreciated HSM. Extremities: No cyanosis, no clubbing, mild peripheral ankle not markedly pitting edema. Neurological: Patient awake, alert, oriented as noted, cognitive function intact; pupils equally reactive to light and accommodation, cranial nerves gross normal, moving all 4 extremities although pain elicited with upper extremity movement, sensation upper extremities intact, no specific focal deficits but difficult evaluation is limited by pain, strength accordingly severely globally decreased. Psychiatric: Affect appears fatigued, uncomfortable no acute evidence of depressive or anxiety feelings. Results Imaging Radiology Impression Cervical Spine CT 02/19/24 03:52 IMPRESSION: No CT evidence of acute compression or displaced fracture. Electronically Signed: Uma Cleveland MD at 5:23 EDT Reading Location ID and State: [facility] / [place] , Service support , Assessment & Plan Assessment/Plan (1) Intractable pain: PLAN: Plan The patient is a 78 y/o F w/ PMHx: Obesity, TANA on CPAP, Chronic COPD, Former tobacco use, GERD, HFpEF, HTN, HLD, CKD stage IIIb, Hx VTE (DVT), Chronic anemia/AOCD, Hypothyroidism, Fibromyalgia, Chronic back pain, Valvular Heart Disease s/p TAVR, Nonobstructive CAD who presents to the [facility] ED on 02/19/24 with history of bilateral upper extremity radiculopathy with recent rescheduled MRI because of ongoing symptoms however she has been more debilitated and is having difficulty even getting out of bed because of her recent knee surgery 3 weeks prior to current presentation prompting eventual ED evaluation be cautious. #1. Acute Intractable Neck Pain with associated upper extremity bilateral radiculopathy: Will admit to [facility], maintain on fall precautions, frequent positioning, initiate topical pain compound, continue home q HS scheduled tizanidine with PRN also, po/IV narcotic pain regimen, increase patient gabapentin regimen, anti-emetics, bowel regimen. Given patient already administered steroids in the ED will continue with Medrol Dosepak. CPK requested. ESR and CRP requested. Will obtain MRI of the cervical and thoracic spine. Will consult PT and OT for evaluation as well as Case management for discharge planning. #2. Recent knee surgery: s/p recent L knee arthroscopic partial medial meniscectomy, ~ 3 weeks prior to current presentation, will continue routine local arthroscopic insertion sites incision care, maintain on fall precaution, PT/OT/CM consulted for discharge planning. #3. Valvular heart disease: 12/23/2023 echocardiogram with mild concentric LVH, LVEF 65%, mildly enlarged LA, mild mitral annular calcification, bioprosthetic AVR functioning normally with a mean peak gradient 13 mmHg. #4. Chronic anemia/iron deficiency anemia/anemia of chronic disease: Admission CBC requested, most recent hemoglobin noted remotely 11/14/21 hemoglobin 7.2 at that time with MCV 101.7, unclear baseline given remoteness of labs, will trend CBC following this. #5. HFpEF: Most recent echocardiogram as noted with mild concentric LVH, LVEF 65%, will continue home aspirin, Coreg as well as spironolactone regimen, not on KAYLYN inhibitor/ARB nor statin therapy. #6. Hypertension: Continue home regimen including Coreg, spironolactone, PRN hydralazine. #7. Hyperlipidemia: Not on statin therapy, defer to outpatient. #8. Chronic Kidney Disease Stage III B: Admission BUN/Cr have been requested, previous remote baseline renal function noted 1.36 with GFR 40 at that time, given remoteness of labs unclear exact staging currently, will continue to trend CMP following. #9. Chronic COPD: Will temporarily hold home inhaler in the interim transition to ATC budesonide therapy, PRN albuterol, HOB, IS parameters. 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 Restless leg syndrome: We will continue patient on Requip regimen. #12. Hypothyroidism: We will continue patient on levothyroxine regimen. #13. GERD: Continue patient on PPI. #14. Obesity: Weight loss and lifestyle changes encouraged. #15. History of VTE: Patient with previous history DVT, not chronic anticoagulation per current list, SCDs ordered as noted, add chemoprophylaxis if no operative intervention intention. #16. Former tobacco use: Encourage continued tobacco cessation. #17. TANA: CPAP nightly. #18. DVT prophylaxis: Lovenox. #19. CODE status: Patient CARY is her daughter and living will if she believes in place. Discussed CODE status at length including difference between FULL code, DNR-CCA and DNR-CC status. Following discussions about the differences in these status, requested Full Code status. Advanced Care Planning Face to Face Time: 16 minutes. Charges/Coding Visit Charges Inpatient E&M: 78085 Init Hosp L2 Procedures Hospitalists Procedures: 68941 Advncd Care Plan 30 Min
--- NOTE | 2024-02-19 06:46 | NURSING ---
MED SURG INTRACTABLE NECK PAIN OBS WHITE
[2024-02-19 06:54] LABS: Erythrocyte Sedimentation Rate 74 mm/hr (0-30)
--- NOTE | 2024-02-19 07:22 | MRI_ITS ---
STUDY: MRI THORACIC SPINE WITHOUT CONTRAST REASON FOR EXAM: Female, 78 years old. Pain, radiculopathy, paresthesias TECHNIQUE: Standardized fat and water weighted pulse sequences were obtained in the sagittal and axial planes. COMPARISON: Thoracic spine radiograph May 16, 2021. FINDINGS: Normal kyphosis of the thoracic spine. There is no substantial scoliosis. T1-2, T2-3, T3-4, T4-5, T5-6, T6-7, T7-8, T8-9, T9-10, T11-12: Normal endplates. Normal disc hydration, heights and morphology of the corresponding intervertebral discs. Normal central canal and intervertebral neural foramina at the corresponding levels. Moderate left paracentral disc marginal osteophyte impinging/deforming the ventral cord and causing moderate narrowing of the neural foramen on the left side and possible nerve root impingement at T10-11. Normal visualized thoracic cord. Normal conus medullaris that terminates at the lumbar level. The soft tissue structures are unremarkable. MRI/Spine Thoracic (Routine) IMPRESSION: Moderate disc marginal osteophyte at T10-11 on the left Electronically Signed: Gerber Spangler MD at 18:06 EDT ,
--- NOTE | 2024-02-19 07:22 | MRI_ITS ---
STUDY: MRI CERVICAL SPINE WITHOUT CONTRAST REASON FOR EXAM: Female, 78 years old. Pain, radiculopathy, paresthesias TECHNIQUE: Standardized fat and water weighted pulse sequences were obtained in the sagittal and axial planes. COMPARISON: CT cervical spine February 19, 2024. FINDINGS: Normal foramen magnum and brainstem-cervical cord junction. Normal craniovertebral junction. Normal anterior atlantoaxial articulation. Normal odontoid process. Normal cervical lordosis. Normal vertebral bodies and posterior osseous elements. C2-3: Normal endplates. Normal disc height, signal and morphology. Normal central canal and intervertebral neural foramina. C3-4: Moderate left paracentral disc marginal osteophyte deforming the left ventral cord. Moderate narrowing of the neural foramina bilaterally. C4-5: Normal endplates. Normal disc height, signal and morphology. Normal central canal and narrowed bilateral intervertebral neural foramina. C5-6: Normal endplates. Normal disc height, signal and morphology. Normal central canal and moderate narrowing left intervertebral neural foramina. C6-7: Moderate left paracentral disc marginal osteophyte impinging the ventral cord. Moderate narrowing of the neural foramina bilaterally. C7-T1: Normal endplates. Normal disc height, signal and morphology. Normal central canal and intervertebral neural foramina. Normal cervical cord. Normal visualized soft tissue structures. MRI/Spine Cervical (Routine) IMPRESSION: Disc marginal osteophytes as noted above especially at C3-4 with cord deformity. Electronically Signed: Gerber Spangler MD at 17:00 EDT ,
[2024-02-19] MEDS: 0.9% Normal Saline (1000mL) 1,000 ML 100 ML IV (07:37)
[2024-02-19] MEDS: Gabapentin 100 MG Capsule PO ×3 (07:41→22:56)
[2024-02-19] MEDS: Acetaminophen 325 MG Tablet 650 MG PO ×3 (07:41→17:15)
[2024-02-19] MEDS: Ferrous Sulfate 325 MG Tablet PO (07:42)
[2024-02-19 07:54] LABS: CPK Total, Creatine Kinase 90 U/L (26-192)
[2024-02-19 08:41] LABS: Basophil# 0.01 X10^3/uL; Basophil% 0.2 % (0-1); Eosinophil# 0.01 X10^3/uL; Eosinophils% 0.2 % (0-5); Hematocrit 33.3 % (37-47); Hemoglobin 10.5 g/dL (12.0-15.0); Lymphocyte % 13.5 % (19-41); Mean Corp Hgb Conc 31.5 g/dL (32-36); Mean Corpuscular Hgb 30.2 pg (27.0-32.0); Mean Corpuscular Volume 95.7 fL (81-99); Mean Platelet Vol. 9.4 fl (6.2-12.0); Monocyte# 0.13 X10^3/uL; Monocyte% 2.2 % (0-10); NRBC Flagged by Analyzer 0 % (0-5); Neutrophil # 4.96 X10^3/uL (2.7-7.7); Neutrophil % 83.6 % (47-70); Platelet Count 325 K/mm3 (150-450); RBC Distribution Width CV 13.4 % (11.6-14.6); RBC Distribution Width SD 47.3 fl (35.1-43.9); Red Blood Count 3.48 M/mm3 (4.2-5.4); White Blood Count 5.9 K/mm3 (4.4-11.0)
[2024-02-19 09:13] LABS: ALB/GLOB Ratio 0.6 RATIO (0.9-2.4); AST(SGOT) 24 U/L (15-37); Alanine Aminotransfer ALT/SGPT 22 U/L (13-56); Albumin, Serum 2.8 g/dL (3.2-5.0); Alkaline Phosphatase 174 U/L (45-117); Anion Gap 7 (5-15); BUN 15 mg/dL (7-18); BUN/Creat Ratio 15.9 RATIO (10-20); Chloride 106 mmol/L (98-107); Creatinine, Serum 0.94 mg/dL (0.55-1.02); EST Glomerular Filtration Rate 61 mL/min (>60); Est Glom Filt Rate - Afr Amer 74 mL/min (>60); Estimated Creatinine Clearance 50.42 ml/min; Globulin 4.5 g/dL (2.2-4.2); Glucose 156 mg/dL (74-106); Potassium 4.4 mmol/L (3.5-5.1); Protein, Total 7.3 g/dL (6.4-8.2); Sodium Level 136 mmol/L (136-145)
[2024-02-19] MEDS: MethylPREDNISolone DosePak 4 MG BOX PO ×4 (09:40→22:59)
[2024-02-19] MEDS: Spironolactone 50 MG Tablet PO (09:41)
[2024-02-19] MEDS: Arthritis Pain Compound 60 CLICK TUBE TOPICAL ×2 (09:41→22:58)
[2024-02-19] MEDS: Pantoprazole Sodium 40 MG Tablet PO (09:42)
[2024-02-19] MEDS: Carvedilol 6.25 MG Tablet PO ×2 (09:42→22:57)
[2024-02-19] MEDS: Folic Acid 1 MG Tablet PO (09:42)
[2024-02-19] MEDS: HYDROmorphone 0.5 MG/0.5 ML SYRINGE IV ×2 (09:43→14:06)
--- NOTE | 2024-02-19 10:14 | PCM.HOSP.N ---
Hospitalist Note Patient was admitted with bilateral upper extremity pain right more than left. She has neck pain to but right upper extremity pain is much bothering. She has ongoing pain for for some time even before her left knee arthroscopic surgery which was done about 3 weeks ago. Left knee arthroscopic surgery was encouraged to clear by Dr. Francisco. She had the right knee arthroscopic surgery about 18-1/[address] C-spine shows no evidence of acute compression or displaced fracture. Patient denies any color change on movement of upper extremity, no prior history of vascular disease or ischemia. No nail changes. Does not have a history of peripheral arterial disease or major aortic branches. History of DVT but not on current anticoagulation probably completed later. Labs reviewed. H&H 10.5/33.3%. Platelet count 325,000. ESR and CRP elevated. CPK 90. Alkaline phosphatase elevated probably bony origin. MRI is pending On Medrol Dosepak. Tizanidine and oxycodone, and Mirapex. Laboratory Results 02/19/24 06:44: ESR 74 H, Total Creatine Kinase 90, C-React Prot Ext Range 70.30 H 02/19/24 08:30: WBC 5.9, RBC 3.48 L, Hgb 10.5 L, Hct 33.3 L, MCV 95.7, MCH 30.2, MCHC 31.5 L, RDW Std Deviation 47.3 H, RDW Coeff of Loren 13.4, Plt Count 325, MPV 9.4, Immature Gran % (Auto) 0.300, Neut % (Auto) 83.6 H, Lymph % (Auto) 13.5 L, [place] % (Auto) 2.2, Eos % (Auto) 0.2, Baso % (Auto) 0.2, Absolute Neuts (auto) 5.0, Absolute Lymphs (auto) 0.80 L, Nucleated RBC % 0, Sodium 136, Potassium 4.4, Chloride 106, Carbon Dioxide 23.0, Anion Gap 7, BUN 15, Creatinine 0.94, Estim Creat Clear Calc 50.42, Est GFR (MDRD) Af Amer 74, Est GFR (MDRD) Non-Af 61, BUN/Creatinine Ratio 15.9, Glucose 156 H, Calcium 10.0, Total Bilirubin 0.40, AST 24, ALT 22, Alkaline Phosphatase 174 H, Total Protein 7.3, Albumin 2.8 L, Globulin 4.5 H, Albumin/Globulin Ratio 0.6 L Clinical Impression(s) from Imaging Studies Cervical Spine CT 02/19/24 03:52 IMPRESSION: No CT evidence of acute compression or displaced fracture.
[2024-02-19] MEDS: Menthol/Lanolin/Calamine/Znox 113 GM Tube 1 APPLIC TOPICAL ×3 (10:41→22:58)
[2024-02-19] MEDS: Enoxaparin 40 MG/0.4 ML Syringe SC (10:42)
--- NOTE | 2024-02-19 12:00 | CASEMGMT ---
ANDIE CM into pt room, pt lying in bed in no distress. Pt states she lives in a single story home with no steps to enter. Pt reports prior to this hospitalization she was I in ADLs. Pt drives short distances. Pt has a rollator, cane, CHC and shower chair at home. She has a [employer] twice a week that assists with shopping and laundry. Pt goal is to go home. She hopes to get this issue fixed. Pt to have MRI this date. CM to follow for dc plan.
[2024-02-19] MEDS: tiZANidine HCl 2 MG Tablet PO (12:07)
[2024-02-19] MEDS: oxyCODONE 5 MG Tablet PO ×4 (12:08→22:57)
[2024-02-19] MEDS: LORazepam 2 MG/ML Syringe IV (14:06)
--- NOTE | 2024-02-19 16:47 | CASEMGMT ---
ANDIE PAUL NOTE: Intro role of CM to patient and DENTON form explained re: Observation status for treatment of intractable pain.? Explained hospitalization will be paid per?her insurance policy for Outpatient billing?and condition will continue to be evaluated for Inpt necessity. Also let pt know that [facility] sends paper in the billing packet with their phone number if questions arise. Pt verbalizes understanding and does not have further questions. ?Form signed, copy made and placed in chart, and original given to pt. Zaira MARVIN RN CM
[2024-02-19] MEDS: tiZANidine HCl 2 MG Tablet 8 MG PO (22:57)
[2024-02-19] MEDS: Pramipexole Di-HCl 0.5 MG Tablet PO (22:57)
--- NOTE | 2024-02-20 02:48 | CPS ---
patient refuses pap
[2024-02-20 05:10] VITALS: BP 122/65; PULSE 51; RESP 16; TEMP 36.4; O2SAT 95
[2024-02-20] MEDS: Gabapentin 100 MG Capsule PO ×3 (05:11→21:10)
[2024-02-20] MEDS: oxyCODONE 5 MG Tablet PO ×3 (05:12→21:10)
[2024-02-20] MEDS: Levothyroxine 100 MCG Tablet 200 MCG PO (05:12)
[2024-02-20 07:27] LABS: Absolute Lymphocyte Count 0.92 X10^3/uL (0.83-4.51); Absolute Neutrophil Count 5.4 X10^3/uL (2.0-7.7); Basophil# 0.01 X10^3/uL; Basophil% 0.1 % (0-1); Hematocrit 30.2 % (37-47); Hemoglobin 9.6 g/dL (12.0-15.0); Lymphocyte # 0.92 X10^3/ul (0.83-4.51); Lymphocyte % 13.4 % (19-41); Mean Corp Hgb Conc 31.8 g/dL (32-36); Mean Corpuscular Hgb 30.2 pg (27.0-32.0); Monocyte# 0.49 X10^3/uL; Monocyte% 7.1 % (0-10); NRBC Flagged by Analyzer 0 % (0-5); Neutrophil # 5.44 X10^3/uL (2.7-7.7); Platelet Count 309 K/mm3 (150-450); RBC Distribution Width CV 13.3 % (11.6-14.6); RBC Distribution Width SD 47.1 fl (35.1-43.9); Red Blood Count 3.18 M/mm3 (4.2-5.4); White Blood Count 6.9 K/mm3 (4.4-11.0)
[2024-02-20 07:51] LABS: ALB/GLOB Ratio 0.7 RATIO (0.9-2.4); AST(SGOT) 15 U/L (15-37); Alanine Aminotransfer ALT/SGPT 21 U/L (13-56); Albumin, Serum 2.7 g/dL (3.2-5.0); Alkaline Phosphatase 144 U/L (45-117); Anion Gap 5 (5-15); BUN 26 mg/dL (7-18); BUN/Creat Ratio 23.9 RATIO (10-20); Calcium,Total 9.8 mg/dL (8.5-10.1); Chloride 108 mmol/L (98-107); Creatinine, Serum 1.09 mg/dL (0.55-1.02); EST Glomerular Filtration Rate 52 mL/min (>60); Est Glom Filt Rate - Afr Amer 63 mL/min (>60); Estimated Creatinine Clearance 43.48 ml/min; Glucose 177 mg/dL (74-106); Potassium 4.5 mmol/L (3.5-5.1); Protein, Total 6.7 g/dL (6.4-8.2); Sodium Level 138 mmol/L (136-145)
[2024-02-20 07:54] VITALS: BP 132/64; PULSE 95; RESP 18; TEMP 36.3; O2SAT 96
[2024-02-20 08:51] VITALS: O2SAT 94
[2024-02-20] MEDS: Ferrous Sulfate 325 MG Tablet PO (09:16)
[2024-02-20] MEDS: Pantoprazole Sodium 40 MG Tablet PO (09:16)
[2024-02-20] MEDS: Folic Acid 1 MG Tablet PO (09:16)
[2024-02-20] MEDS: Spironolactone 50 MG Tablet PO (09:16)
[2024-02-20] MEDS: Carvedilol 6.25 MG Tablet PO ×2 (09:17→21:10)
[2024-02-20] MEDS: MethylPREDNISolone DosePak 4 MG BOX PO ×4 (09:17→21:11)
[2024-02-20] MEDS: Arthritis Pain Compound 60 CLICK TUBE TOPICAL ×2 (09:18→21:12)
[2024-02-20] MEDS: Enoxaparin 40 MG/0.4 ML Syringe SC (09:21)
--- NOTE | 2024-02-20 11:43 | PCM.PN.HOSP ---
Reason for Visit Reason for Visit: Diagnoses Pain, unspecified (02/19/24) Objective Data Objective Data Vital Signs: Vital Signs Temp Pulse Resp BP Pulse Ox O2 Del Method O2 Flow Rate 97.4 F L 95 18 132/64 H 94 Room Air 2 02/20/24 07:54 02/20/24 07:54 02/20/24 07:54 02/20/24 07:54 02/20/24 08:51 02/20/24 08:51 02/19/24 15:45 Oxygen Flow Rate (L/min) 2 Oxygen Delivery Method Room Air Weight: 193 lb 1.999 oz Body Mass Index (BMI) 36.5 Intake & Output: Intake and Output for Last 24 Hours 02/18/24 02/19/24 02/20/24 23:59 23:59 23:59 Intake Total 1273.33 / 1473.33 400 / 400 Balance 1273.33 / 1473.33 400 / 400 Lab / Micro Data 02/20/24 07:00 02/20/24 07:00 Labs: Laboratory Results - last 24 hr 02/20/24 07:00: WBC 6.9, RBC 3.18 L, Hgb 9.6 L, Hct 30.2 L, MCV 95.0, MCH 30.2, MCHC 31.8 L, RDW Std Deviation 47.1 H, RDW Coeff of Loren 13.3, Plt Count 309, MPV 10.0, Immature Gran % (Auto) 0.400, Neut % (Auto) 79.0 H, Lymph % (Auto) 13.4 L, [place] % (Auto) 7.1, Eos % (Auto) 0.0, Baso % (Auto) 0.1, Absolute Neuts (auto) 5.4, Absolute Lymphs (auto) 0.92, Nucleated RBC % 0 Sodium 138, Potassium 4.5, Chloride 108 H, Carbon Dioxide 25.0, Anion Gap 5, BUN 26 H, Creatinine 1.09 H, Estim Creat Clear Calc 43.48, Est GFR (MDRD) Af Amer 63, Est GFR (MDRD) Non-Af 52 L, BUN/Creatinine Ratio 23.9 H, Glucose 177 H, Calcium 9.8, Total Bilirubin 0.20, AST 15, ALT 21, Alkaline Phosphatase 144 H, Total Protein 6.7, Albumin 2.7 L, Globulin 4.0, Albumin/Globulin Ratio 0.7 L Radiography Diagnostic Testing: Radiology Impression Cervical Spine MRI 02/19/24 07:22 IMPRESSION: Disc marginal osteophytes as noted above especially at C3-4 with cord deformity. Electronically Signed: Gerber Spangler MD at 17:00 EDT Reading Location ID and State: [address] [place] [address] Tel , Service support , Thoracic Spine MRI 02/19/24 07:22 IMPRESSION: Moderate disc marginal osteophyte at T10-11 on the left Electronically Signed: Gerber Spangler MD at 18:06 EDT Reading Location ID and State: [facility] / [place] Tel , Service support , Physical Exam Narrative Seen and examined. Her pain is better especially the right arm. She is more relieved. She has also numbness on the left median 2 fingers side. She can move her arm but is still not as strong probably due to pain. Denies lumbar or lower thoracic pain. Physical exam General: Alert, Oriented x3, Cooperative HEENT: Atraumatic, PERRLA, EOMI, Normocephalic Oral: Oral mucosa moist. No Gingival or Mucosal Lesions/ Ulcerations Neck: Supple, No JVD, Negative Carotid Bruits Chest wall/Lungs: Air entry diminished in bilateral lung bases. No crepitation/rhonchi Cardiovascular: Regular rate, Regular Rhythm, Normal S1, Normal S2, No M/G/R Abdomen: Bowel Sounds Present, Soft, Non Tender, Non-Distended : No dysuria. No renal angle tenderness. No suprapubic tenderness. Extremities: No edema, Capillary Refill Less than 3 Seconds Skin: No rashes, No breakdown Spine: No point tenderness over C-spine. Mild cervical paraspinal muscle tenderness Musculoskeletal: Muscle strength 4/5 of right and left upper extremity, could not be evaluated precisely because of pain. No obvious atrophy of muscles Neurological: Cranial nerves II-XII grossly intact, DTR 2+/4. Numbness/tingling on the left medial 2 fingers Psych/Mental Status: Normal Affect, Appropriate. Assessment & Plan Assessment/Plan (1) Intractable pain: PLAN: Plan Patient was admitted with bilateral upper extremity pain right more than left. Chronic pain for for some time even before her left knee arthroscopic surgery which was done about 3 weeks ago. Left knee arthroscopic surgery was encouraged to clear by Dr. Francisco, [facility]. She had the right knee arthroscopic surgery about 18-1/2 months ago. 1. Cervical neuropathy mainly at C3-C4: Patient had CT C-spine which was normal evidence of acute compression or displaced fracture. MRI C-spine was done and reported moderate left paracentral disc marginal osteophyte deforming the left ventral cord with moderate narrowing of neural foramina bilaterally. Thoracic spine MRI shows moderate disc marginal osteophyte at T10-11 on the left impinging the ventral cord with moderate left foraminal narrowing. Orthopedic surgeon Dr. Joel Hernandez consulted and discussed with him. His opinion was to consult pain management and patient already follows Dr. Schneider and therefore discussed with him. He said he will do pain injection on Thursday and if patient is stays inpatient then hold Lovenox on Thursday. If she gets discharged earlier than she can come directly on Thursday morning for pain injection as an outpatient. Patient on Medrol Dosepak. Patient denies any color change on movement of upper extremity, no prior history of vascular disease or ischemia. No nail changes. Does not have a history of peripheral arterial disease or major aortic branches. 2. Recent left knee arthroscopic partial medial meniscectomy about 3 weeks ago: PT and OT ordered. 3. Chronic anemia/iron deficiency anemia/anemia of chronic disease: H&H 10.5/33.3%. In the past, 11/14/21 hemoglobin 7.2 at that time with MCV 101.7. Monitor CBC. B12 and folic acid ordered. #5. Chronic HFpEF: Most recent echocardiogram as noted with mild concentric LVH, LVEF 65%, will continue home aspirin, Coreg as well as spironolactone regimen, not on KAYLYN inhibitor/ARB nor statin therapy. #6. Hypertension: Continue home regimen including Coreg, spironolactone #7. Hyperlipidemia: Not on statin therapy,. Lipid profile ordered. #8. Chronic Kidney Disease Stage III B: BUNs/creatinine 15/0.94 and increased to 26/1.09, estimated creatinine clearance 43 mL/min. In November 2021 1.36 with GFR 40 at that time. IV fluid Ringer lactate started #9. COPD: No acute issues. Bronchodilator as needed 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 Restless leg syndrome: continue patient on Requip regimen. #12. Hypothyroidism: continue patient on levothyroxine regimen. #13. GERD: Continue patient on PPI. #14. Obesity: Weight loss and lifestyle changes encouraged. #15. DVT prophylaxis: Lovenox. History of DVT but not on current anticoagulation probably completed later. #16. TANA: CPAP nightly. DVT prophylaxis on Lovenox 40 mill subcu daily. Hold on Thursday morning if she stays till then for procedure on Thursday. Clinical Impression(s) from Imaging Studies Cervical Spine CT 02/19/24 03:52 IMPRESSION: No CT evidence of acute compression or displaced fracture. Cervical Spine MRI 02/19/24 07:22 IMPRESSION: Disc marginal osteophytes as noted above especially at C3-4 with cord deformity. Electronically Signed: Gerber Spangler MD at 17:00 EDT , Thoracic Spine MRI 02/19/24 07:22 IMPRESSION: Moderate disc marginal osteophyte at T10-11 on the left Electronically Signed: Gerber Spangler MD at 18:06 EDT , #1. Acute Intractable Neck Pain with associated upper extremity bilateral radiculopathy: Will admit to [facility], maintain on fall precautions, frequent positioning, initiate topical pain compound, continue home q HS scheduled tizanidine with PRN also, po/IV narcotic pain regimen, increase patient gabapentin regimen, anti-emetics, bowel regimen. Given patient already administered steroids in the ED will continue with Medrol Dosepak. CPK requested. ESR and CRP requested. Will obtain MRI of the cervical and thoracic spine. Will consult PT and OT for evaluation as well as Case management for discharge planning. #2. Recent knee surgery: s/p recent L knee arthroscopic partial medial meniscectomy, ~ 3 weeks prior to current presentation, will continue routine local arthroscopic insertion sites incision care, maintain on fall precaution, PT/OT/CM consulted for discharge planning. #3. Valvular heart disease: 12/23/2023 echocardiogram with mild concentric LVH, LVEF 65%, mildly enlarged LA, mild mitral annular calcification, bioprosthetic AVR functioning normally with a mean peak gradient 13 mmHg. #4. Chronic anemia/iron deficiency anemia/anemia of chronic disease: Admission CBC requested, most recent hemoglobin noted remotely 11/14/21 hemoglobin 7.2 at that time with MCV 101.7, unclear baseline given remoteness of labs, will trend CBC following this. #5. HFpEF: Most recent echocardiogram as noted with mild concentric LVH, LVEF 65%, will continue home aspirin, Coreg as well as spironolactone regimen, not on KAYLYN inhibitor/ARB nor statin therapy. #6. Hypertension: Continue home regimen including Coreg, spironolactone, PRN hydralazine. #7. Hyperlipidemia: Not on statin therapy, defer to outpatient. #8. Chronic Kidney Disease Stage III B: Admission BUN/Cr have been requested, previous remote baseline renal function noted 1.36 with GFR 40 at that time, given remoteness of labs unclear exact staging currently, will continue to trend CMP following. #9. Chronic COPD: Will temporarily hold home inhaler in the interim transition to ATC budesonide therapy, PRN albuterol, HOB, IS parameters. 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 Restless leg syndrome: We will continue patient on Requip regimen. #12. Hypothyroidism: We will continue patient on levothyroxine regimen. #13. GERD: Continue patient on PPI. #14. Obesity: Weight loss and lifestyle changes encouraged. #15. History of VTE: Patient with previous history DVT, not chronic anticoagulation per current list, SCDs ordered as noted, add chemoprophylaxis if no operative intervention intention. #16. Former tobacco use: Encourage continued tobacco cessation. #17. TANA: CPAP nightly. #18. DVT prophylaxis: Lovenox. #19. CODE status: Patient HCPOA is her daughter and living will if she believes in place. Discussed CODE status at length including difference between FULL code, DNR-CCA and DNR-CC status. Following discussions about the differences in these status, requested Full Code status. Advanced Care Planning Face to Face Time: 16 minutes. Charges/Coding Visit Charges Inpatient E&M: 60299 Subs Hosp L2
[2024-02-20] MEDS: Lactated Ringers 1,000 ML 75 ML IV (12:17)
[2024-02-20 14:22] VITALS: BP 122/50; PULSE 52; RESP 16; TEMP 36.4; O2SAT 96
--- NOTE | 2024-02-20 16:07 | CASEMGMT ---
Social Work Pt may be ready for discharge tomorrow. SW spoke w/pt about discharge plan, pt does feel that as long as her pain is under control she will be able to return home at discharge. She states she does have aides a couple of days per week through [employer] who help her, Joselomaggiejp Diogo is her rn case mgr. Pt is open to home health care. Pt declined a list of [facility] agencies, she does not have a preference for a home health care provider. MONICA let CM know about that pt would like home health care. MONICA also left a message for Akhil at [facility], letting her know pt is here and likely going home tomorrow. No further needs anticipated at this time. LUIGI Baldwin
[2024-02-20 21:09] VITALS: BP 153/65; PULSE 60; RESP 16; TEMP 36.6; O2SAT 95
[2024-02-20] MEDS: Pramipexole Di-HCl 0.5 MG Tablet PO (21:10)
[2024-02-20] MEDS: tiZANidine HCl 2 MG Tablet 8 MG PO (21:10)
[2024-02-20 21:16] VITALS: PULSE 59
[2024-02-21] MEDS: Lactated Ringers 1,000 ML 75 ML IV (00:49)
[2024-02-21 03:32] VITALS: BP 113/63; PULSE 49; RESP 16; TEMP 36.6; O2SAT 94
[2024-02-21 04:51] VITALS: BMI 37.5
[2024-02-21] MEDS: Gabapentin 100 MG Capsule PO ×3 (05:02→21:56)
[2024-02-21] MEDS: Levothyroxine 100 MCG Tablet 300 MCG PO (05:03)
[2024-02-21] MEDS: oxyCODONE 5 MG Tablet PO ×3 (05:03→21:56)
[2024-02-21 07:26] LABS: Absolute Lymphocyte Count 0.86 X10^3/uL (0.83-4.51); Absolute Neutrophil Count 5.9 X10^3/uL (2.0-7.7); Hemoglobin 9.6 g/dL (12.0-15.0); Lymphocyte # 0.86 X10^3/ul (0.83-4.51); Lymphocyte % 11.9 % (19-41); Mean Corpuscular Hgb 30.2 pg (27.0-32.0); Mean Corpuscular Volume 97.5 fL (81-99); Mean Platelet Vol. 10.1 fl (6.2-12.0); Monocyte# 0.43 X10^3/uL; Monocyte% 5.9 % (0-10); NRBC Flagged by Analyzer 0 % (0-5); Neutrophil # 5.89 X10^3/uL (2.7-7.7); Neutrophil % 81.5 % (47-70); Platelet Count 347 K/mm3 (150-450); RBC Distribution Width CV 13.7 % (11.6-14.6); RBC Distribution Width SD 49.1 fl (35.1-43.9); Red Blood Count 3.18 M/mm3 (4.2-5.4); White Blood Count 7.2 K/mm3 (4.4-11.0)
[2024-02-21 07:57] VITALS: BP 135/62; PULSE 57; RESP 18; TEMP 36.4; O2SAT 96
[2024-02-21 08:02] VITALS: O2SAT 93
[2024-02-21] MEDS: Senna/Docusate Sodium 1 Tablet 2 TABLET PO (08:11)
[2024-02-21] MEDS: Carvedilol 6.25 MG Tablet PO ×2 (08:12→21:59)
[2024-02-21] MEDS: Pantoprazole Sodium 40 MG Tablet PO (08:12)
[2024-02-21] MEDS: Folic Acid 1 MG Tablet PO (08:12)
[2024-02-21] MEDS: Ferrous Sulfate 325 MG Tablet PO (08:13)
[2024-02-21] MEDS: Enoxaparin 40 MG/0.4 ML Syringe SC (08:14)
[2024-02-21] MEDS: Spironolactone 50 MG Tablet PO (08:14)
[2024-02-21] MEDS: MethylPREDNISolone DosePak 4 MG BOX PO ×4 (08:15→21:59)
[2024-02-21] MEDS: Arthritis Pain Compound 60 CLICK TUBE TOPICAL ×2 (08:16→22:00)
[2024-02-21 08:47] LABS: ALB/GLOB Ratio 0.6 RATIO (0.9-2.4); AST(SGOT) 16 U/L (15-37); Alanine Aminotransfer ALT/SGPT 20 U/L (13-56); Albumin, Serum 2.6 g/dL (3.2-5.0); Alkaline Phosphatase 140 U/L (45-117); Anion Gap 4 (5-15); BUN 23 mg/dL (7-18); BUN/Creat Ratio 25.1 RATIO (10-20); Calcium,Total 9.6 mg/dL (8.5-10.1); Chloride 107 mmol/L (98-107); Cholesterol 171 mg/dL (200); Creatinine, Serum 0.92 mg/dL (0.55-1.02); EST Glomerular Filtration Rate 63 mL/min (>60); Est Glom Filt Rate - Afr Amer 77 mL/min (>60); Estimated Creatinine Clearance 52.39 ml/min; Globulin 4.1 g/dL (2.2-4.2); Glucose 173 mg/dL (74-106); High Density Lipoprotein 62 mg/dL; Potassium 4.6 mmol/L (3.5-5.1); Protein, Total 6.7 g/dL (6.4-8.2); Sodium Level 138 mmol/L (136-145); Triglycerides 80 mg/dL; Very Low Density Lipoprotein 16 mg/dL (5-40)
--- NOTE | 2024-02-21 13:51 | PCM.PN.HOSP ---
Reason for Visit Reason for Visit: Diagnoses Pain, unspecified (02/19/24) Objective Data Objective Data Vital Signs: Vital Signs Temp Pulse Resp BP Pulse Ox O2 Del Method O2 Flow Rate 97.5 F L 57 L 18 135/62 H 93 Room Air 2 02/21/24 07:57 02/21/24 07:57 02/21/24 07:57 02/21/24 07:57 02/21/24 08:02 02/21/24 08:02 02/19/24 15:45 Oxygen Flow Rate (L/min) 2 Oxygen Delivery Method Room Air Weight: 199 lb 1.239 oz Body Mass Index (BMI) 37.5 Intake & Output: Intake and Output for Last 24 Hours 02/19/24 02/20/24 02/21/24 23:59 23:59 23:59 Intake Total 1273.33 / 1473.33 800 / 1100 1440 / 1440 Balance 1273.33 / 1473.33 800 / 1100 1440 / 1440 Lab / Micro Data 02/21/24 06:45 02/21/24 06:45 Labs: Laboratory Results - last 24 hr 02/21/24 06:45: WBC 7.2, RBC 3.18 L, Hgb 9.6 L, Hct 31.0 L, MCV 97.5, MCH 30.2, MCHC 31.0 L, RDW Std Deviation 49.1 H, RDW Coeff of Loren 13.7, Plt Count 347, MPV 10.1, Immature Gran % (Auto) 0.700, Neut % (Auto) 81.5 H, Lymph % (Auto) 11.9 L, [place] % (Auto) 5.9, Eos % (Auto) 0.0, Baso % (Auto) 0.0, Absolute Neuts (auto) 5.9, Absolute Lymphs (auto) 0.86, Nucleated RBC % 0, Sodium 138, Potassium 4.6, Chloride 107, Carbon Dioxide 27.0, Anion Gap 4 L, BUN 23 H, Creatinine 0.92, Estim Creat Clear Calc 52.39, Est GFR (MDRD) Af Amer 77, Est GFR (MDRD) Non-Af 63, BUN/Creatinine Ratio 25.1 H, Glucose 173 H, Calcium 9.6, Total Bilirubin 0.20, AST 16, ALT 20, Alkaline Phosphatase 140 H, Total Protein 6.7, Albumin 2.6 L, Globulin 4.1, Albumin/Globulin Ratio 0.6 L, Triglycerides 80, Cholesterol 171, LDL Cholesterol 93, VLDL Cholesterol 16, HDL Cholesterol 62, Folate 26.50 Physical Exam Narrative Seen and examined. Patient still complain of shooting/radiating pain over right arm mainly on lateral aspect of right lower extremity. She wants to stay in in the hospital till Thursday to get cervical neck injection on Thursday. Physical exam General: Alert, Oriented x3, Cooperative HEENT: Atraumatic, PERRLA, EOMI, Normocephalic Oral: Oral mucosa moist. No Gingival or Mucosal Lesions/ Ulcerations Neck: Supple, No JVD, Negative Carotid Bruits Chest wall/Lungs: Air entry diminished in bilateral lung bases. No crepitation/rhonchi Cardiovascular: Regular rate, Regular Rhythm, Normal S1, Normal S2, No M/G/R Abdomen: Bowel Sounds Present, Soft, Non Tender, Non-Distended : No dysuria. No renal angle tenderness. No suprapubic tenderness. Extremities: No edema, Capillary Refill Less than 3 Seconds Skin: No rashes, No breakdown Spine: No point tenderness over C-spine. Mild cervical paraspinal muscle tenderness Musculoskeletal: Muscle strength 4+/5 of right and left upper extremity, mainly because of pain. No obvious atrophy of muscles Neurological: Cranial nerves II-XII grossly intact, DTR 2+/4. Numbness/tingling on the left medial 2 fingers Psych/Mental Status: Flat affect. Assessment & Plan Assessment/Plan (1) Intractable pain: PLAN: Plan Patient was admitted with bilateral upper extremity pain right more than left. Chronic pain for for some time even before her left knee arthroscopic surgery which was done about 3 weeks ago. Left knee arthroscopic surgery was encouraged to clear by Dr. Francisco, [facility]. She had the right knee arthroscopic surgery about 18-1/2 months ago. 1. Cervical neuropathy mainly at C3-C4: Patient had CT C-spine which was normal evidence of acute compression or displaced fracture. MRI C-spine was done and reported moderate left paracentral disc marginal osteophyte deforming the left ventral cord with moderate narrowing of neural foramina bilaterally. Thoracic spine MRI shows moderate disc marginal osteophyte at T10-11 on the left impinging the ventral cord with moderate left foraminal narrowing. Orthopedic surgeon Dr. Joel Hernandez consulted and discussed with him. His opinion was to consult pain management and patient already follows Dr. Schneider and therefore discussed with him. He said he will do pain injection on Thursday and if patient is stays inpatient then hold Lovenox on Thursday. If she gets discharged earlier than she can come directly on Thursday for pain injection as an outpatient. Patient on Medrol Dosepak. Patient denies any color change on movement of upper extremity, no prior history of vascular disease or ischemia. No nail changes. Does not have a history of peripheral arterial disease or major aortic branches. 02/20: Patient wants to stay inpatient as she is still painful with radiating pain on the right upper extremity. She is concerned that it will get worse if she goes home. Dr. Walter was updated that she will restain patient to get cervical neck injection on Thursday. Last Lovenox dose on Thursday morning. 2. Recent left knee arthroscopic partial medial meniscectomy about 3 weeks ago: PT and OT ordered. 3. Chronic anemia/iron deficiency anemia/anemia of chronic disease: H&H 10.5/33.3%. In the past, 11/14/21 hemoglobin 7.2 at that time with MCV 101.7. Monitor CBC. B12 and folic acid ordered. #5. Chronic HFpEF: Most recent echocardiogram as noted with mild concentric LVH, LVEF 65%, will continue home aspirin, Coreg as well as spironolactone regimen, not on KAYLYN inhibitor/ARB nor statin therapy. #6. Hypertension: Continue home regimen including Coreg, spironolactone #7. Hyperlipidemia: Not on statin therapy,. Lipid profile ordered. #8. Chronic Kidney Disease Stage III B: BUNs/creatinine 15/0.94 and increased to 26/1.09, estimated creatinine clearance 43 mL/min. In November 2021 1.36 with GFR 40 at that time. IV fluid Ringer lactate started #9. COPD: No acute issues. Bronchodilator as needed 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 Restless leg syndrome: continue patient on Requip regimen. #12. Hypothyroidism: continue patient on levothyroxine regimen. #13. GERD: Continue patient on PPI. #14. Obesity: Weight loss and lifestyle changes encouraged. #15. DVT prophylaxis: Lovenox. History of DVT but not on current anticoagulation probably completed later. #16. TANA: CPAP nightly. DVT prophylaxis on Lovenox 40 mill subcu daily. Hold on Thursday morning if she stays till then for procedure on Thursday. Clinical Impression(s) from Imaging Studies Cervical Spine CT 02/19/24 03:52 IMPRESSION: No CT evidence of acute compression or displaced fracture. Cervical Spine MRI 02/19/24 07:22 IMPRESSION: Disc marginal osteophytes as noted above especially at C3-4 with cord deformity. Electronically Signed: Gerber Spangler MD at 17:00 EDT , Thoracic Spine MRI 02/19/24 07:22 IMPRESSION: Moderate disc marginal osteophyte at T10-11 on the left Electronically Signed: Gerber Spangler MD at 18:06 EDT , #1. Acute Intractable Neck Pain with associated upper extremity bilateral radiculopathy: Will admit to [facility], maintain on fall precautions, frequent positioning, initiate topical pain compound, continue home q HS scheduled tizanidine with PRN also, po/IV narcotic pain regimen, increase patient gabapentin regimen, anti-emetics, bowel regimen. Given patient already administered steroids in the ED will continue with Medrol Dosepak. CPK requested. ESR and CRP requested. Will obtain MRI of the cervical and thoracic spine. Will consult PT and OT for evaluation as well as Case management for discharge planning. #2. Recent knee surgery: s/p recent L knee arthroscopic partial medial meniscectomy, ~ 3 weeks prior to current presentation, will continue routine local arthroscopic insertion sites incision care, maintain on fall precaution, PT/OT/CM consulted for discharge planning. #3. Valvular heart disease: 12/23/2023 echocardiogram with mild concentric LVH, LVEF 65%, mildly enlarged LA, mild mitral annular calcification, bioprosthetic AVR functioning normally with a mean peak gradient 13 mmHg. #4. Chronic anemia/iron deficiency anemia/anemia of chronic disease: Admission CBC requested, most recent hemoglobin noted remotely 11/14/21 hemoglobin 7.2 at that time with MCV 101.7, unclear baseline given remoteness of labs, will trend CBC following this. #5. HFpEF: Most recent echocardiogram as noted with mild concentric LVH, LVEF 65%, will continue home aspirin, Coreg as well as spironolactone regimen, not on KAYLYN inhibitor/ARB nor statin therapy. #6. Hypertension: Continue home regimen including Coreg, spironolactone, PRN hydralazine. #7. Hyperlipidemia: Not on statin therapy, defer to outpatient. #8. Chronic Kidney Disease Stage III B: Admission BUN/Cr have been requested, previous remote baseline renal function noted 1.36 with GFR 40 at that time, given remoteness of labs unclear exact staging currently, will continue to trend CMP following. #9. Chronic COPD: Will temporarily hold home inhaler in the interim transition to ATC budesonide therapy, PRN albuterol, HOB, IS parameters. 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 Restless leg syndrome: We will continue patient on Requip regimen. #12. Hypothyroidism: We will continue patient on levothyroxine regimen. #13. GERD: Continue patient on PPI. #14. Obesity: Weight loss and lifestyle changes encouraged. #15. History of VTE: Patient with previous history DVT, not chronic anticoagulation per current list, SCDs ordered as noted, add chemoprophylaxis if no operative intervention intention. #16. Former tobacco use: Encourage continued tobacco cessation. #17. TANA: CPAP nightly. #18. DVT prophylaxis: Lovenox. #19. CODE status: Patient CARY is her daughter and living will if she believes in place. Discussed CODE status at length including difference between FULL code, DNR-CCA and DNR-CC status. Following discussions about the differences in these status, requested Full Code status. Advanced Care Planning Face to Face Time: 16 minutes. Charges/Coding Visit Charges Inpatient E&M: 48889 Subs Hosp L2
[2024-02-21 15:36] VITALS: BP 124/79; PULSE 64; RESP 18; TEMP 36.6; O2SAT 96
[2024-02-21 17:10] LABS: Bacteria 0 SEEN /hpf (None Seen); Mucous, Urine 0 SEEN /hpf (<or=2+); Red Blood Cells-Urine 0 SEEN /hpf (0-5); Squamous Epithelial Cells - UA 0 SEEN /hpf (5-10); White Blood Cells 0 SEEN /hpf (0-5)
[2024-02-21 17:29] LABS: Color, Urine Yellow (Yellow); Glucose, Dipstick Normal (Normal); Ketone-Dipstick Negative (Negative); Leukocyte Esterase-Dipstick Negative /ul (Negative); Nitrite-Dipstick Negative (Negative); Occult Blood-Urine Negative /ul (Negative); Protein-Dipstick Negative (Negative); Urine Bilirubin Dipstick Negative (Negative); Urine Clarity Clear (Clear); Urine Urobilinogen Normal (Normal); Urine pH 6.5 (5.0 - 8.0)
[2024-02-21 21:46] VITALS: BP 155/56; PULSE 62; RESP 15; TEMP 36.7; O2SAT 94
[2024-02-21] MEDS: tiZANidine HCl 2 MG Tablet 8 MG PO (21:57)
[2024-02-21] MEDS: Pramipexole Di-HCl 0.5 MG Tablet PO (21:59)
[2024-02-22] VITALS (7 sets, daily range): BP systolic 141–159; BP diastolic 62–73; PULSE 57–70; RESP 15–18; TEMP 36.4–36.8; O2SAT 92–95; BMI 36.9
[2024-02-22] MEDS: Levothyroxine 100 MCG Tablet 200 MCG PO (06:10)
[2024-02-22] MEDS: oxyCODONE 5 MG Tablet PO ×4 (06:10→22:53)
[2024-02-22] MEDS: Gabapentin 100 MG Capsule PO ×3 (06:10→20:03)
[2024-02-22 07:05] LABS: Absolute Lymphocyte Count 1.35 X10^3/uL (0.83-4.51); Absolute Neutrophil Count 4.9 X10^3/uL (2.0-7.7); Basophil# 0.01 X10^3/uL; Basophil% 0.1 % (0-1); Hematocrit 30.9 % (37-47); Hemoglobin 9.5 g/dL (12.0-15.0); Lymphocyte # 1.35 X10^3/ul (0.83-4.51); Lymphocyte % 19.3 % (19-41); Mean Corp Hgb Conc 30.7 g/dL (32-36); Mean Corpuscular Hgb 29.7 pg (27.0-32.0); Mean Corpuscular Volume 96.6 fL (81-99); Mean Platelet Vol. 9.7 fl (6.2-12.0); Monocyte# 0.65 X10^3/uL; Monocyte% 9.3 % (0-10); NRBC Flagged by Analyzer 0 % (0-5); Neutrophil # 4.92 X10^3/uL (2.7-7.7); Neutrophil % 70.3 % (47-70); Platelet Count 353 K/mm3 (150-450); RBC Distribution Width CV 13.7 % (11.6-14.6); RBC Distribution Width SD 48.5 fl (35.1-43.9)
[2024-02-22 07:40] LABS: Anion Gap 8 (5-15); BUN 20 mg/dL (7-18); Calcium,Total 9.5 mg/dL (8.5-10.1); Chloride 108 mmol/L (98-107); Creatinine, Serum 0.84 mg/dL (0.55-1.02); EST Glomerular Filtration Rate 70 mL/min (>60); Est Glom Filt Rate - Afr Amer 85 mL/min (>60); Estimated Creatinine Clearance 56.81 ml/min; Glucose 108 mg/dL (74-106); Potassium 4.2 mmol/L (3.5-5.1); Sodium Level 143 mmol/L (136-145)
--- NOTE | 2024-02-22 07:46 | CONS.ORTHO ---
HPI Consult Data Date of Consult: 02/22/24 HPI Narrative HPI Narrative: The patient is a 78-year-old female with complaints of axial neck pain with pain and paresthesias radiating to the bilateral upper extremities which has been worsening over the past few months. Onset was insidious. She denies any history of neck surgeries. She does see Dr. Schneider for pain management and has had injections in the back but denies any history of neck injections. She describes minimal neck pain at this time. She is lying in bed resting comfortably. She states her symptoms have improved somewhat since admission. She describes mostly pain paresthesias in the bilateral lateral upper arms, dorsal forearms, and fingers of the hands, right greater than left. She does have a history of right carpal tunnel syndrome and has had a right carpal tunnel decompression but did not get any relief with this surgery. She denies any other acute numbness tingling weakness or changes in bowel or bladder function [facility] Medical History Wears dentures Walker as ambulation aid Arthritis Bladder disease Fatty liver Easy bruising Back pain History of hiatal hernia Gastric reflux Former smoker CPAP (continuous positive airway pressure) dependence COPD (chronic obstructive pulmonary disease) Shortness of breath on exertion Leg cramps History of pain when walking History of edema History of echocardiogram Cardiology follow-up encounter History of CHF (congestive heart failure) Trigger finger, right middle finger Right carpal tunnel syndrome LBBB (left bundle branch block) Pulmonary hypertension Chronic fatigue Coronary artery disease involving [place] coronary artery of [place] heart without angina pectoris Chronic diastolic CHF (congestive heart failure) Stage 3b chronic kidney disease Restless leg syndrome Essential hypertension Obesity DVT (deep venous thrombosis) Diverticulosis of colon (without mention of hemorrhage) Arrhythmia Nonrheumatic aortic (valve) stenosis Anemia in stage 3b chronic kidney disease Avulsion fracture of talus Fibromyalgia Hypothyroidism Osteoporosis Home Medications ?Medication ?Instructions ?Recorded ?Last Taken ?Type pantoprazole 40 mg tablet,delayed 40 mg PO DAILY stomach 07/24/18 11/03/23 History release ropinirole 0.5 mg tablet (Requip) 1 mg PO QHS restless legs 07/24/18 11/03/23 History carvedilol 6.25 mg tablet 6.25 mg PO BID heart 02/12/22 11/04/23 History folic acid 1 mg tablet 1 mg PO DAILY 02/12/22 11/03/23 History spironolactone 50 mg tablet 50 mg PO DAILY water pill 02/12/22 11/04/23 History (Aldactone) albuterol sulfate 90 mcg/actuation 2 puff inhalation Q4H PRN 12/19/22 11/04/23 History aerosol inhaler shortness of breath or wheezing calcium carbonate 600 mg-vitamin 1 cap PO DAILY supplement 12/19/22 11/03/23 History D3 12.5 mcg (500 unit) capsule cyanocobalamin (vitamin B-12) 1,000 mcg IM QMONTH supplement 12/19/22 Unknown History 1,000 mcg/mL injection kit ferrous sulfate 325 mg (65 mg 325 mg PO DAILY iron 12/19/22 11/03/23 History iron) tablet fluticasone propionate 50 1 spray intranasal DAILY allergies 12/19/22 Unknown History mcg/actuation nasal spray,suspension oxycodone-acetaminophen 5 mg-325 1 tab PO TID Pain 12/19/22 11/03/23 History mg tablet tiotropium 2.5 mcg-olodaterol 2.5 2 puff inhalation DAILY 12/19/22 11/03/23 History mcg/actuation mist for inhalation (Stiolto Respimat) levothyroxine 200 mcg tablet 200 mcg PO MOTUWETHFRSA 07/10/23 11/03/23 History tizanidine 4 mg tablet 8 mg PO QHS muscle spasm 07/10/23 11/03/23 History amlodipine 2.5 mg tablet 2.5 mg PO DAILY 10/29/23 11/04/23 History fluticasone fur. 100 mcg-umeclid 1 ea inhalation DAILY breathing 10/29/23 11/03/23 History 62.5 mcg-vilant 25 mcg inhalat.powder (Trelegy Ellipta) gabapentin 100 mg capsule 100 mg PO QHS pain 10/29/23 11/02/23 History levothyroxine 200 mcg capsule 300 mcg PO ADAMES thyroid 10/29/23 11/01/23 History Allergy/AdvReac Type Severity Reaction Status Date / Time Iodinated Contrast Media Allergy Anaphylaxis Verified 02/19/24 03:42 (CONTRASTS) alendronate sodium (From AdvReac Intermediate Other Verified 02/19/24 03:42 Fosamax Plus D) cholecalciferol (vitamin D3) AdvReac Intermediate Other Verified 02/19/24 03:42 (From Fosamax Plus D) adhesive tape AdvReac Rash Verified 02/19/24 03:42 NSAIDS (Non-Steroidal AdvReac Upset Verified 02/19/24 03:42 Anti-Inflamma Stomach Family History Mother Heart disease Cancer throat/lung/stomach Father Heart disease Sister Asthma Brother Lymphoma Grandfather Colon cancer Aunt Colon cancer Uncle Colon cancer Surgical History History of cardiac catheterization History of esophagogastroduodenoscopy (EGD) History of surgical removal of meniscus of knee S/P TAVR (transcatheter aortic valve replacement) (~07/14/22) Hx of total hysterectomy with removal of both tubes and ovaries Hx of ventral hernia repair Hx laparoscopic cholecystectomy History of resection of small bowel History of lumpectomy of right breast Hx of appendectomy Social History Smoking Status: Former smoker Electronic Cigarette Use: with nicotine alcohol intake: never substance use type: does not use caffeine: Yes Type: coffee Number of servings: 5 Vital Signs Vital Signs Vital Signs: 02/21/24 07:57 02/21/24 08:02 02/21/24 10:58 Temperature 97.5 F L Temperature Source Temporal Pulse Rate 57 L Pulse Strength Normal (2+) Respiratory Rate 18 Respiratory Effort Respiratory Depth Respiratory Pattern Blood Pressure 135/62 H Blood Pressure Mean 86 Blood Pressure Source Monitor Blood Pressure Position Semi-Fowlers Blood Pressure Location Left Forearm Pulse Ox 96 93 Oxygen Delivery Method Room Air Room Air 02/21/24 15:36 02/21/24 21:00 02/21/24 21:46 Temperature 97.9 F 98.0 F Temperature Source Temporal Oral Pulse Rate 64 62 Pulse Strength Respiratory Rate 18 15 Respiratory Effort Normal Non-Labored Respiratory Depth Normal Respiratory Pattern Normal Blood Pressure 124/79 H 155/56 H Blood Pressure Mean 94 89 Blood Pressure Source Monitor Monitor Blood Pressure Position Semi-Fowlers Semi-Fowlers Blood Pressure Location Left Arm Left Forearm Pulse Ox 96 94 Oxygen Delivery Method Room Air Room Air Room Air 02/21/24 22:00 02/22/24 03:00 02/22/24 04:00 Temperature 97.5 F L Temperature Source Temporal Pulse Rate 57 L Pulse Strength Normal (2+) Respiratory Rate 15 Respiratory Effort Normal Non-Labored Respiratory Depth Normal Respiratory Pattern Normal Blood Pressure 141/63 H Blood Pressure Mean 89 Blood Pressure Source Monitor Blood Pressure Position Semi-Fowlers Blood Pressure Location Left Forearm Pulse Ox 95 Oxygen Delivery Method Room Air Room Air Weight Weight: 195 lb 8.8 oz Body Mass Index (BMI) 36.9 Physical Exam Const alert, oriented x3 and no apparent distress General Appearance: cooperative, comfortable and well kempt Neck full ROM General: normal visual inspection Resp normal respiratory effort and normal air movement Effort and Inspection: able to speak in complete sentences Cardio regular rate, regular rhythm and peripheral pulses 2+ throughout GI soft to palpation, non-tender and non-distended Back/Spine no CVA tenderness Cervical Spine: cervical ROM normal Thoracic Spine / Upper Back: normal to inspection Lumbar Spine / Lower Back: normal to inspection Extremity normal to inspection, full ROM, normal capillary refill, no clubbing, cyanosis or edema and no calf tenderness Extremity Narrative: 4+ out of 5 strength in bilateral shoulders. Positive impingement sign and bilateral shoulder Neuro oriented x3, CN's II-XII intact bilaterally, moves all extremities, no focal motor deficits, no sensory deficits noted and deep tendon reflexes 2+ bilaterally Neuro Narrative: Strength is 5- out of 5 throughout the bilateral upper extremities. 5 out of 5 in the bilateral lower extremities. No upper motor neuron signs Motor Exam: muscle tone normal throughout Lab / Micro Data 02/22/24 06:49 02/22/24 06:49 Labs: Laboratory Results - last 24 hr 02/21/24 06:45: Sodium 138, Potassium 4.6, Chloride 107, Carbon Dioxide 27.0, Anion Gap 4 L, BUN 23 H, Creatinine 0.92, Estim Creat Clear Calc 52.39, Est GFR (MDRD) Af Amer 77, Est GFR (MDRD) Non-Af 63, BUN/Creatinine Ratio 25.1 H, Glucose 173 H, Calcium 9.6, Total Bilirubin 0.20, AST 16, ALT 20, Alkaline Phosphatase 140 H, Total Protein 6.7, Albumin 2.6 L, Globulin 4.1, Albumin/Globulin Ratio 0.6 L, Triglycerides 80, Cholesterol 171, LDL Cholesterol 93, VLDL Cholesterol 16, HDL Cholesterol 62, Folate 26.50 02/21/24 17:00: Urine Color Yellow, Urine Clarity Clear, Urine pH 6.5, Ur Specific Garvin 1.010, Urine Protein Negative, Urine Glucose (UA) Normal, Urine Ketones Negative, Urine Occult Blood Negative, Urine Nitrite Negative, Urine Bilirubin Negative, Urine Urobilinogen Normal, Ur Leukocyte Esterase Negative, Urine RBC 0 SEEN, Urine WBC 0 SEEN, Ur Squamous Epith Cells 0 SEEN, Urine Bacteria 0 SEEN, Urine Mucus 0 SEEN 02/22/24 06:49: WBC 7.0, RBC 3.20 L, Hgb 9.5 L, Hct 30.9 L, MCV 96.6, MCH 29.7, MCHC 30.7 L, RDW Std Deviation 48.5 H, RDW Coeff of Loren 13.7, Plt Count 353, MPV 9.7, Immature Gran % (Auto) 1.000 H, Neut % (Auto) 70.3 H, Lymph % (Auto) 19.3, [place] % (Auto) 9.3, Eos % (Auto) 0.0, Baso % (Auto) 0.1, Absolute Neuts (auto) 4.9, Absolute Lymphs (auto) 1.35, Nucleated RBC % 0, Sodium 143, Potassium 4.2, Chloride 108 H, Carbon Dioxide 27.0, Anion Gap 8, BUN 20 H, Creatinine 0.84, Estim Creat Clear Calc 56.81, Est GFR (MDRD) Af Amer 85, Est GFR (MDRD) Non-Af 70, BUN/Creatinine Ratio 24.0 H, Glucose 108 H, Calcium 9.5 Assessment & Plan Assessment/Plan (1) Cervical spondylosis: PLAN: I had a lengthy discussion with the patient. I reviewed her imaging with her. Cervical MRI dated 02/19/2024 shows degenerative changes at multiple levels of the cervical spine with associated stenosis as well as a left paracentral disc herniation at C6-7 which I feel is contributing to her complaints. She is scheduled to have a cervical epidural steroid injection. In the meantime I recommend pain control and mobilization as tolerated. The patient to follow-up with me in clinic after discharge for reevaluation. She understands and agrees with the treatment plan (2) Cervical radiculopathy:
[2024-02-22 08:24] LABS: Vitamin B12 1869 pg/mL (211-911)
--- NOTE | 2024-02-22 08:33 | EKG12_ITS ---
Test Reason : CP Blood Pressure : / mmHG Vent. Rate : 055 BPM Atrial Rate : 055 BPM P-R Int : 142 ms QRS Dur : 084 ms QT Int : 418 ms P-R-T Axes : 046 -41 004 degrees QTc Int : 399 ms Sinus bradycardia Left axis deviation Inferior infarct , age undetermined Abnormal ECG When compared with ECG of 19-JUL-2022 12:30, No significant change was found Confirmed by JUN PRINCE, BETTIE ([id number]), editor sound MARY SCHULZ ([id number]) on 02/22/2024 12:51:50 PM Referred By: SRIDHAR Confirmed By:BETTIE BARAHONA MD
--- NOTE | 2024-02-22 09:12 | PCM.PN.HOSP ---
Reason for Visit Reason for Visit: Diagnoses Spondylosis without myelopathy or radiculopathy, cervical region (02/19/24) Radiculopathy, cervical region (02/19/24) Pain, unspecified (02/19/24) Subjective Subjective Had chest pain today. Objective Data Objective Data Vital Signs: Vital Signs Temp Pulse Resp BP Pulse Ox O2 Del Method O2 Flow Rate 36.8 C 57 L 18 159/62 H 93 Room Air 2 02/22/24 08:40 02/22/24 08:40 02/22/24 08:40 02/22/24 08:40 02/22/24 08:40 02/22/24 08:40 02/19/24 15:45 Oxygen Flow Rate (L/min) 2 Oxygen Delivery Method Room Air Weight: 88.7 kg Body Mass Index (BMI) 36.9 Intake & Output: Intake and Output for Last 24 Hours 02/20/24 02/21/24 02/22/24 23:59 23:59 23:59 Intake Total 800 / 1100 2840 / 2990 150 / 150 Balance 800 / 1100 2840 / 2990 150 / 150 Lab / Micro Data 02/22/24 06:49 02/22/24 06:49 Labs: Laboratory Results - last 24 hr 02/21/24 06:45: Vitamin B12 1869 H 02/21/24 17:00: Urine Color Yellow, Urine Clarity Clear, Urine pH 6.5, Ur Specific [place] 1.010, Urine Protein Negative, Urine Glucose (UA) Normal, Urine Ketones Negative, Urine Occult Blood Negative, Urine Nitrite Negative, Urine Bilirubin Negative, Urine Urobilinogen Normal, Ur Leukocyte Esterase Negative, Urine RBC 0 SEEN, Urine WBC 0 SEEN, Ur Squamous Epith Cells 0 SEEN, Urine Bacteria 0 SEEN, Urine Mucus 0 SEEN 02/22/24 06:49: WBC 7.0, RBC 3.20 L, Hgb 9.5 L, Hct 30.9 L, MCV 96.6, MCH 29.7, MCHC 30.7 L, RDW Std Deviation 48.5 H, RDW Coeff of Loren 13.7, Plt Count 353, MPV 9.7, Immature Gran % (Auto) 1.000 H, Neut % (Auto) 70.3 H, Lymph % (Auto) 19.3, [place] % (Auto) 9.3, Eos % (Auto) 0.0, Baso % (Auto) 0.1, Absolute Neuts (auto) 4.9, Absolute Lymphs (auto) 1.35, Nucleated RBC % 0, Sodium 143, Potassium 4.2, Chloride 108 H, Carbon Dioxide 27.0, Anion Gap 8, BUN 20 H, Creatinine 0.84, Estim Creat Clear Calc 56.81, Est GFR (MDRD) Af Amer 85, Est GFR (MDRD) Non-Af 70, BUN/Creatinine Ratio 24.0 H, Glucose 108 H, Calcium 9.5 Physical Exam Const alert and no apparent distress HEENT head/scalp atraumatic and moist oral mucous membranes Resp normal respiratory effort, no retractions, no use of accessory muscles and clear to auscultation bilaterally Cardio regular rate, regular rhythm, S1 normal heart sound and S2 normal heart sound Cardio Narrative: reproducible anterior chest wall tenderness. GI normal to inspection, nondistended, normoactive bowel sounds, soft to palpation, non-tender and non-distended Neuro Sensorium / Orientation: awake and alert Psych affect normal Assessment & Plan Assessment/Plan (1) Intractable pain: PLAN: Plan Cervical radiculopathy CT of cervical spine shows marginal osteophytes notably above the level of C3-4 with cord deformity. And more notably impingement of the ventral cord at C6-7. Seen by spine surgery who recommends conservative management with epidural injection. Patient to be seen by pain management and tentative plan for injection on the . Chest pain Secondary to likely costochondritis. It is reproducible. EKG performed and showed sinus bradycardia. Troponin series are negative Patient had heart cath on at [facility] October 28, 2021: Patient was noted to have mild diffuse disease. Negative workup. No additional cardiac workup necessary. Chronic conditions Recent left knee arthroscopic partial medial meniscectomy about 3 weeks ago: PT and OT ordered. Chronic anemia/iron deficiency anemia/anemia of chronic disease: H&H 10.5/33.3%. In the past, 11/14/21 hemoglobin 7.2 at that time with MCV 101.7. Monitor CBC. B12 and folic acid ordered. Chronic HFpEF: Most recent echocardiogram as noted with mild concentric LVH, LVEF 65%, will continue home aspirin, Coreg as well as spironolactone regimen, not on KAYLYN inhibitor/ARB nor statin therapy. Hypertension: Continue home regimen including Coreg, spironolactone Hyperlipidemia: Not on statin therapy,. Lipid profile ordered. Chronic Kidney Disease Stage III B: BUNs/creatinine 15/0.94 and increased to 26/1.09, estimated creatinine clearance 43 mL/min. In November 2021 1.36 with GFR 40 at that time. IV fluid Ringer lactate started COPD: No acute issues. Bronchodilator as needed CAD, nonobstructive: Most recent cardiac catheterization per cardiology note 11/25/2023 with mild nonobstructive CAD Restless leg syndrome: continue patient on Requip regimen. Hypothyroidism: continue patient on levothyroxine regimen. GERD: Continue patient on PPI. Obesity class II: Complicates care and recovery TANA: On CPAP. VTE prophylaxis: Enoxaparin. Charges/Coding Visit Charges Inpatient E&M: 80203 Subs Hosp L2
[2024-02-22 09:27] LABS: Troponin-I HS 9 pg/mL (3.0-54.0)
[2024-02-22] MEDS: Ondansetron 4 MG/2 ML Vial IV (09:34)
[2024-02-22] MEDS: 0.9% Saline Lock 10 ML Syringe IV (09:34)
[2024-02-22] MEDS: MethylPREDNISolone DosePak 4 MG BOX PO ×3 (10:28→20:05)
[2024-02-22] MEDS: Polyethylene Glycol 3350 17 GM PACKET PO (10:28)
[2024-02-22] MEDS: Arthritis Pain Compound 60 CLICK TUBE TOPICAL ×2 (10:28→20:03)
[2024-02-22] MEDS: Carvedilol 6.25 MG Tablet PO ×2 (10:29→20:05)
[2024-02-22] MEDS: Ferrous Sulfate 325 MG Tablet PO (10:29)
[2024-02-22] MEDS: Folic Acid 1 MG Tablet PO (10:29)
[2024-02-22] MEDS: tiZANidine HCl 2 MG Tablet PO (10:29)
[2024-02-22] MEDS: Pantoprazole Sodium 40 MG Tablet PO (10:29)
[2024-02-22] MEDS: Acetaminophen 325 MG Tablet 650 MG PO ×2 (10:29→14:46)
[2024-02-22] MEDS: Spironolactone 50 MG Tablet PO (10:30)
[2024-02-22 10:57] LABS: Troponin-I HS 10 pg/mL (3.0-54.0)
--- NOTE | 2024-02-22 13:08 | CASEMGMT ---
TC to [facility] director case management and left vm updated on dc plan. .
[2024-02-22 15:11] LABS: Troponin-I HS 9 pg/mL (3.0-54.0)
[2024-02-22] MEDS: Pramipexole Di-HCl 0.5 MG Tablet PO (20:05)
[2024-02-22] MEDS: tiZANidine HCl 2 MG Tablet 8 MG PO (22:53)
[2024-02-23] VITALS (11 sets, daily range): BP systolic 133–160; BP diastolic 67–79; PULSE 54–70; RESP 14–18; TEMP 36.3–37.1; O2SAT 93–97; BMI 36.7
[2024-02-23] MEDS: Gabapentin 100 MG Capsule PO (05:13)
[2024-02-23] MEDS: oxyCODONE 5 MG Tablet PO ×2 (05:13→13:27)
[2024-02-23] MEDS: Levothyroxine 100 MCG Tablet 200 MCG PO (05:13)
--- NOTE | 2024-02-23 08:25 | PN.HOSP_ITS ---
Reason for Visit Reason for Visit: Diagnoses Spondylosis without myelopathy or radiculopathy, cervical region (02/19/24) Radiculopathy, cervical region (02/19/24) Pain, unspecified (02/19/24) Subjective Subjective Right arm pain improved post injection. Objective Data Objective Data Vital Signs: Vital Signs Temp Pulse Resp BP Pulse Ox O2 Del Method O2 Flow Rate 36.7 C 54 L 18 153/76 H 94 Room Air 2 02/23/24 08:11 02/23/24 08:11 02/23/24 08:11 02/23/24 08:11 02/23/24 08:11 02/23/24 08:11 02/19/24 15:45 Oxygen Flow Rate (L/min) 2 Oxygen Delivery Method Room Air Weight: 88.224 kg Body Mass Index (BMI) 36.7 Intake & Output: Intake and Output for Last 24 Hours 02/21/24 02/22/24 02/23/24 23:59 23:59 23:59 Intake Total 2840 / 2990 150 / 150 0 / 0 Balance 2840 / 2990 150 / 150 0 / 0 Lab / Micro Data 02/22/24 06:49 02/22/24 06:49 Labs: Laboratory Results - last 24 hr 02/22/24 08:47: Troponin I High Sens 9 02/22/24 10:28: Troponin I High Sens 10 02/22/24 14:36: Troponin I High Sens 9 Physical Exam Const alert and no apparent distress HEENT head/scalp atraumatic and moist oral mucous membranes Resp normal respiratory effort, no retractions, no use of accessory muscles and clear to auscultation bilaterally Cardio regular rate, regular rhythm, S1 normal heart sound and S2 normal heart sound GI normal to inspection, nondistended, normoactive bowel sounds, soft to palpation, non-tender and non-distended Neuro Sensorium / Orientation: awake and alert Assessment & Plan Assessment/Plan (1) Intractable pain: PLAN: Plan Cervical radiculopathy * CT of cervical spine shows marginal osteophytes notably above the level of C3- 4 with cord deformity. And more notably impingement of the ventral cord at C6-7. * Seen by spine surgery who recommends conservative management with epidural injection. * Patient underwent epidural injection on the . Chest pain * Secondary to likely costochondritis. It is reproducible. EKG performed and showed sinus bradycardia. Troponin series are negative * Patient had heart cath on at [facility] October 28, 2021: Patient was noted to have mild diffuse disease. * Negative workup. No additional cardiac workup necessary. Chronic conditions * Recent left knee arthroscopic partial medial meniscectomy about 3 weeks ago: PT and OT ordered. * Chronic anemia/iron deficiency anemia/anemia of chronic disease: H&H 10.5/33.3%. In the past, 11/14/21 hemoglobin 7.2 at that time with MCV 101.7. Monitor CBC. B12 and folic acid ordered. * Chronic HFpEF: Most recent echocardiogram as noted with mild concentric LVH, LVEF 65%, will continue home aspirin, Coreg as well as spironolactone regimen, not on KAYLYN inhibitor/ARB nor statin therapy. * Hypertension: Continue home regimen including Coreg, spironolactone * Hyperlipidemia: Not on statin therapy,. Lipid profile ordered. * Chronic Kidney Disease Stage III B: BUNs/creatinine 15/0.94 and increased to 26/1.09, estimated creatinine clearance 43 mL/min. In November 2021 1.36 with GFR 40 at that time. IV fluid Ringer lactate started * COPD: No acute issues. Bronchodilator as needed * CAD, nonobstructive: Most recent cardiac catheterization per cardiology note 11/25/2023 with mild nonobstructive CAD * Restless leg syndrome: continue patient on Requip regimen. * Hypothyroidism: continue patient on levothyroxine regimen. * GERD: Continue patient on PPI. * Obesity class II: Complicates care and recovery * TANA: On CPAP. VTE prophylaxis: Enoxaparin. MS home with [facility] with [facility].
--- NOTE | 2024-02-23 08:41 | PRE.ANES_ITS ---
ASA Classification* ASA Classification ASA Classification: 3 Assessment & Plan Anesthesia* Anesthesia Assessment Anesthesia Assessment: Discussed sedation and/or anesthesia options, risks, benefits, and alternatives with patient/parents/legal guardian/POA. Questions invited. The patient/parents/legal guardian/POA seems to understand and agrees to proceed with anesthesia plan. Reviewed the physical assessment, medical history, allergy history and patient home medications list prior to surgery/procedure/anesthetic and documented any changes. Performed airway and anesthesia risk assessments. Anesthesia Type Anesthesia Type: MAC (see written pre anesthesia record for full assessment) Anesthesia Focused Assessment* Temperature: 98.1 F Pulse Rate: 54 Blood Pressure: 153/76 Respiratory Rate: 18 Pulse Ox: 94 Airway Assessment Mouth opens: >3 cm Mallampati Score: II Focused Labs Anesthesia Preop lab: CBC WBC 7.0 K/mm3 (4.4-11.0) 02/22/24 06:49 RBC 3.20 M/mm3 (4.2-5.4) L 02/22/24 06:49 Hgb 9.5 g/dL (12.0-15.0) L 02/22/24 06:49 Hct 30.9 % (37-47) L 02/22/24 06:49 Plt Count 353 K/mm3 (150-450) 02/22/24 06:49 CHEMISTRY Potassium 4.2 mmol/L (3.5-5.1) 02/22/24 06:49 Sodium 143 mmol/L (136-145) 02/22/24 06:49 BUN 20 mg/dL (7-18) H 02/22/24 06:49 Creatinine 0.84 mg/dL (0.55-1.02) 02/22/24 06:49 Glucose 108 mg/dL (74-106) H 02/22/24 06:49 TSH 4.56 uIU/mL (0.358-3.74) H 08/29/16 19:00 COAG PT 17.1 SECONDS (11.7-14.9) H 11/14/21 16:42 Pre-Assessment Diagnosis/Proposed Procedure Planned Operative Procedure(s): cx bruce Anesthesia History 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 When Was Last Pacemaker Check QUESTION #4 FULL TEXT: You/Your Family Experience fever (hyperthermia) with Anesthesia Last Oral Intake Last Oral intake: Last Oral Intake NPO since 12:00 02/23/24 08:11 Meds taken in AM with sips of No 02/23/24 08:11 water? 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 Has anyone observed you stop breathing during sleep? STOP Results Positive 02/19/24 07:29 QUESTION #5 FULL TEXT : Do you snore loudly (louder than talking or can be heard through closed doors)? 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 Specify any problems Hx of Preganancy in last 3 No 02/19/24 07:29 Months Nurse Filling Out Transfusion DREDICK 02/19/24 07:29 & Questions: Date: 02/19/24 02/19/24 07:29 Time: 07:30 02/19/24 07:29 Patient unable to answer at this time (ie. confused, unrespo /Reproduction History /Reproductive History - last remodeler repairer: /Reproductive Hx- last remodeler repairer Hx Now No 02/22/24 22:53 Gestational Age (in weeks): EDC: Hx Hx Para Hx Section SAB No 02/22/24 22:53 Active Medications Active Medications: Current Medications Generic Name Dose Route Start Last Admin Trade Name Freq PRN Reason Stop Dose Admin Acetaminophen 650 mg 02/19/24 07:22 02/22/24 14:46 Acetaminophen 325 Mg Tablet PO 650 mg Q4H PRN PRN Administration Fever, pain 1-10 Albuterol Sulfate 2.5 mg 02/19/24 07:22 Albuterol 2.5 Mg/3 Ml Vial.Neb. INHALATION Q2H PRN PRN Dyspnea, wheezing Calamine/Phenol 1 applic 02/19/24 10:00 02/22/24 20:04 Menthol/Lanolin/Calamine/Znox 113 Gm Tube TOPICAL Not Given 4X/DAY [facility] Protocol Carvedilol 6.25 mg 02/19/24 10:00 02/22/24 20:05 Carvedilol 6.25 Mg Tablet PO 6.25 mg BID RUBEN Administration Protocol Compound Med 0 click 02/19/24 07:22 02/22/24 20:03 Arthritis Pain Compound 60 Click Tube TOPICAL 1 click BID RUBEN Administration Protocol Ferrous Sulfate 325 mg 02/19/24 08:00 02/22/24 10:29 Ferrous Sulfate 325 Mg Tablet PO 325 mg DAILYCM RUBEN Administration Fluticasone Propionate 1 spray 02/19/24 10:00 02/22/24 10:30 Fluticasone 0.05% 1 Bertram Nasal.Sry NASAL Not Given DAILY RUBEN Folic Acid 1 mg 02/19/24 10:00 02/22/24 10:29 Folic Acid 1 Mg Tablet PO 1 mg DAILYCM RUBEN Administration Gabapentin 100 mg 02/19/24 07:22 02/23/24 05:13 Gabapentin 100 Mg Capsule PO 100 mg TID RUBEN Administration Hydralazine HCl 10 mg 02/19/24 07:22 Hydralazine 20 Mg/Ml Vial IV Q4H PRN PRN SBP > 160 Protocol Hydromorphone HCl 0.5 mg 02/19/24 07:22 02/19/24 14:06 Hydromorphone 0.5 Mg/0.5 Ml Syringe IV 0.5 mg Q3H PRN PRN Administration Pain Score 6-10 Levothyroxine Sodium 300 mcg 02/21/24 06:00 02/21/24 05:03 Levothyroxine 100 Mcg Tablet PO 300 mcg Smart@0600 RUBEN Administration Levothyroxine Sodium 200 mcg 02/20/24 06:00 02/23/24 05:13 Levothyroxine 100 Mcg Tablet PO 200 mcg [id number]@0600 RUBEN Administration Lorazepam 0.5 - 1 mg 02/19/24 07:22 02/19/24 14:06 Lorazepam 2 Mg/Ml Syringe IV 0.5 mg PRN PRN Administration Anxiety with MRI Melatonin 3 mg 02/19/24 07:22 Melatonin 3 Mg Tablet PO QHS PRN PRN INSOMNIA Methylprednisolone 4 mg 02/19/24 08:00 02/22/24 20:05 Methylprednisolone Dosepak 4 Mg Box PO 02/24/24 08:59 4 mg 0800,2200 RUBEN Administration Taper Ondansetron HCl 4 mg 02/19/24 07:22 02/22/24 09:34 Ondansetron 4 Mg/2 Ml Vial IV 4 mg Q8H PRN PRN Administration NAUSEA/VOMITING Oxycodone HCl 5 mg 02/19/24 14:00 02/23/24 05:13 Oxycodone 5 Mg Tablet PO 5 mg TID RUBEN Administration Oxycodone HCl 5 mg 02/19/24 07:22 02/22/24 17:36 Oxycodone 5 Mg Tablet PO 5 mg Q4H PRN PRN Administration Pain Score 4-10 Pantoprazole Sodium 40 mg 02/19/24 10:00 02/22/24 10:29 Pantoprazole Sodium 40 Mg Tablet PO 40 mg DAILY RUBEN Administration Polyethylene Glycol 17 gm 02/22/24 14:00 02/22/24 10:28 Polyethylene Glycol 3350 17 Gm Packet PO 17 gm DAILY RUBEN Administration Pramipexole Dihydrochloride 0.5 mg 02/19/24 22:00 02/22/24 20:05 Pramipexole Di-Hcl 0.5 Mg Tablet PO 0.5 mg QHS RUBEN Administration Senna/Docusate Sodium 2 tablet 02/19/24 07:22 02/21/24 08:11 Senna/Docusate Sodium 1 Tablet PO 2 tablet BID PRN PRN Administration Constipation Sodium Chloride 10 - 40 ml 02/19/24 07:23 0.9 % Nacl (Sterile) Posiflush 10 Ml IV UD PRN Port access or dressing change Sodium Chloride 10 - 40 ml 02/19/24 07:23 02/22/24 09:34 0.9% Saline Lock 10 Ml Syringe IV 10 ml UD PRN Administration Midline Flush Sodium Chloride 10 - 40 ml 02/19/24 07:23 0.9% Saline Lock 10 Ml Syringe IV UD PRN SALINE FLUSH Spironolactone 50 mg 02/19/24 10:00 02/22/24 10:30 Spironolactone 50 Mg Tablet PO 50 mg DAILY RUBEN Administration Protocol Tizanidine HCl 8 mg 02/19/24 22:00 02/22/24 22:53 Tizanidine Hcl 2 Mg Tablet PO 8 mg QHS RUBEN Administration Tizanidine HCl 2 mg 02/19/24 07:22 02/22/24 10:29 Tizanidine Hcl 2 Mg Tablet PO 2 mg Q8H PRN PRN Administration muscle spasms/strain [facility] Medical History Wears dentures Walker as ambulation aid Arthritis Bladder disease Fatty liver Easy bruising Back pain History of hiatal hernia Gastric reflux Former smoker CPAP (continuous positive airway pressure) dependence COPD (chronic obstructive pulmonary disease) Shortness of breath on exertion Leg cramps History of pain when walking History of edema History of echocardiogram Cardiology follow-up encounter History of CHF (congestive heart failure) Trigger finger, right middle finger Right carpal tunnel syndrome LBBB (left bundle branch block) Pulmonary hypertension Chronic fatigue Coronary artery disease involving [place] coronary artery of [place] heart without angina pectoris Chronic diastolic CHF (congestive heart failure) Stage 3b chronic kidney disease Restless leg syndrome Essential hypertension Obesity DVT (deep venous thrombosis) Diverticulosis of colon (without mention of hemorrhage) Arrhythmia Nonrheumatic aortic (valve) stenosis Anemia in stage 3b chronic kidney disease Avulsion fracture of talus Fibromyalgia Hypothyroidism Osteoporosis Home Medications ?Medication ?Instructions ?Recorded ?Last Taken ?Type pantoprazole 40 mg tablet,delayed 40 mg PO DAILY stomach 07/24/18 11/03/23 History release ropinirole 0.5 mg tablet (Requip) 1 mg PO QHS restless legs 07/24/18 11/03/23 History carvedilol 6.25 mg tablet 6.25 mg PO BID heart 02/12/22 11/04/23 History folic acid 1 mg tablet 1 mg PO DAILY 02/12/22 11/03/23 History spironolactone 50 mg tablet 50 mg PO DAILY water pill 02/12/22 11/04/23 History (Aldactone) albuterol sulfate 90 mcg/actuation 2 puff inhalation Q4H PRN 12/19/22 11/04/23 History aerosol inhaler shortness of breath or wheezing calcium carbonate 600 mg-vitamin 1 cap PO DAILY supplement 12/19/22 11/03/23 History D3 12.5 mcg (500 unit) capsule cyanocobalamin (vitamin B-12) 1,000 mcg IM QMONTH supplement 12/19/22 Unknown History 1,000 mcg/mL injection kit ferrous sulfate 325 mg (65 mg 325 mg PO DAILY iron 12/19/22 11/03/23 History iron) tablet fluticasone propionate 50 1 spray intranasal DAILY allergies 12/19/22 Unknown History mcg/actuation nasal spray,suspension oxycodone-acetaminophen 5 mg-325 1 tab PO TID Pain 12/19/22 11/03/23 History mg tablet tiotropium 2.5 mcg-olodaterol 2.5 2 puff inhalation DAILY 12/19/22 11/03/23 History mcg/actuation mist for inhalation (Stiolto Respimat) levothyroxine 200 mcg tablet 200 mcg PO MOTUWETHFRSA 07/10/23 11/03/23 History tizanidine 4 mg tablet 8 mg PO QHS muscle spasm 07/10/23 11/03/23 History amlodipine 2.5 mg tablet 2.5 mg PO DAILY 10/29/23 11/04/23 History fluticasone fur. 100 mcg-umeclid 1 ea inhalation DAILY breathing 10/29/23 11/03/23 History 62.5 mcg-vilant 25 mcg inhalat.powder (Trelegy Ellipta) gabapentin 100 mg capsule 100 mg PO QHS pain 10/29/23 11/02/23 History levothyroxine 200 mcg capsule 300 mcg PO SMART thyroid 10/29/23 11/01/23 History Allergy/AdvReac Type Severity Reaction Status Date / Time Iodinated Contrast Media Allergy Anaphylaxis Verified 02/19/24 03:42 (CONTRASTS) alendronate sodium (From AdvReac Intermediate Other Verified 02/19/24 03:42 Fosamax Plus D) cholecalciferol (vitamin D3) AdvReac Intermediate Other Verified 02/19/24 03:42 (From Fosamax Plus D) adhesive tape AdvReac Rash Verified 02/19/24 03:42 NSAIDS (Non-Steroidal AdvReac Upset Verified 02/19/24 03:42 Anti-Inflamma Stomach Family History Mother Heart disease Cancer throat/lung/stomach Father Heart disease Sister Asthma Brother Lymphoma Grandfather Colon cancer Aunt Colon cancer Uncle Colon cancer Surgical History History of cardiac catheterization History of esophagogastroduodenoscopy (EGD) History of surgical removal of meniscus of knee S/P TAVR (transcatheter aortic valve replacement) (~07/14/22) Hx of total hysterectomy with removal of both tubes and ovaries Hx of ventral hernia repair Hx laparoscopic cholecystectomy History of resection of small bowel History of lumpectomy of right breast Hx of appendectomy Social History Smoking Status: Former smoker Electronic Cigarette Use: with nicotine alcohol intake: never substance use type: does not use caffeine: Yes Type: coffee Number of servings: 5 Review of Systems (Anesthesia) ROS Narrative System reviewed and no additional complaints, except as documented.
[2024-02-23] MEDS: Lactated Ringers 1,000 ML 15 ML IV (08:45)
--- NOTE | 2024-02-23 08:51 | CASEMGMT ---
Addendum entered by Shahnaz Zuniga 02/23/24 15:45: DC summary sent to [facility] via [facility] at this time. Addendum entered by Shahnaz Zuniga 02/23/24 14:49: RN BEVERLY into pt room, pt is aware of accepting agency and agrees to have them come to her home. Pt denies any further homegoing needs at this time. Plan for dc today. Addendum entered by Shahnaz Zuniga 02/23/24 13:21: Pt was accepted for HHC from [facility]. Pt was declined for services by [facility] and [facility]. Addendum entered by Shahnaz Zuniga 02/23/24 10:37: [facility] declined pt. [facility] and [facility] at this time. Original Note: Received vm from pt insurance BEVERLY Carmona. She stated that she did not see past HHC for pt but states pt uses [facility] often.[facility] to [facility] via [facility] at this time. Requested DC undertaker assistant to send.
--- NOTE | 2024-02-23 09:27 | CASEMGMT ---
Addendum entered by Danitza Hewitt 02/23/24 09:39: [facility] declined referral. Dnaitza Hewitt DC Planning Asst. Original Note: Discharge Planning HH [facility]. Danitza Hewitt DC Planning Asst.
--- NOTE | 2024-02-23 09:49 | RAD_ITS ---
STUDY: X-RAY - CERVICAL SPINE REASON FOR EXAM: Female, 78 years old. C6-7 EPIDURAL BLOCK, 4 seconds, 0.79 -- mgy 1 spot TECHNIQUE: 1 view(s) of the cervical spine were obtained. COMPARISON: X-ray of the cervical spine dated February 10, 2024 FINDINGS: A single frontal fluoroscopic view of the cervical spine was acquired which shows a spinal needle at the C6-C7 interlaminar space, advanced into the right epidural space with contrast seen outlining the epidural space and some of the vertebral neuroforamina and surrounding nerve roots. RAD/Spine 1 View Any Level IMPRESSION: 1. Radiologic interpretation of the C6-7 EPIDURAL BLOCK performed by on-site physician ( Alexia Schneider MD) Electronically Signed: Shaquille Simms MD at 16:00 EDT ,
[2024-02-23] MEDS: 0.9% Normal Saline (Pres. free 10 ML Vial (09:50)
[2024-02-23] MEDS: Triamcinolone Acetonide 40 MG/ML Vial (09:50)
[2024-02-23] MEDS: Lidocaine 0.5% (50 ml) 50 ML Vial (09:50)
--- NOTE | 2024-02-23 10:08 | PCM.POST.ANE ---
Anesthesia: Postop Eval I Current Vital Signs Temperature: 97.4 F Pulse Rate: 60 Blood Pressure: 150/67 Respiratory Rate: 16 Pulse Ox: 97 Oxygen Delivery Method: Room Air Assessment Airway patent: Yes Spontaneous unlabored respirations: Yes Mental status: Awake and Calm nausea: No Vomiting: No Anesthesia Complication: No Fluid Hydration Crystalloid volume administer (ml): 300 Total IV fluid infused: 300 Progress Note Anesthesia document: Postop Eval 1 completed: Yes
--- NOTE | 2024-02-23 12:14 | PCM.POSTANE2 ---
Anesthesia Postop Eval I Sum Postop Eval Completion status Anesthesia document: Postop Eval 1 completed: Yes Anesthesia Postop Eval I Summary Anesthesia Postop Eval I Summary: Anesthesia Postop Eval I: Assessment Summary Airway patent Yes 02/23/24 10:08 [email or web address] Spontaneous unlabored Yes 02/23/24 10:08 [email or web address] respirations Mental status Awake,Calm 02/23/24 10:08 [email or web address] nausea No 02/23/24 10:08 [email or web address] Vomiting No 02/23/24 10:08 [email or web address] Anesthesia Postop Eval I: Fluid Summary Crystalloid volume administer 300 02/23/24 10:08 [email or web address] (ml) Colloids volume administered ( ml) Blood Product volume administered (ml) Total IV fluid infused 300 02/23/24 10:08 [email or web address] Anesthesia Postop Eval I: Summary Notes Anesthesia Complication No 02/23/24 10:08 [email or web address] Anesthesia Complication Comment: Post-operative progress note Anesthesia: Postop Eval II Evaluation Mental status: Awake and Calm Pain Level: 1 nausea: No Vomiting: No Complications Anesthesia Complication: No
[2024-02-23] MEDS: Folic Acid 1 MG Tablet PO (13:08)
[2024-02-23] MEDS: MethylPREDNISolone DosePak 4 MG BOX PO (13:25)
[2024-02-23] MEDS: Ferrous Sulfate 325 MG Tablet PO (13:25)
[2024-02-23] MEDS: Spironolactone 50 MG Tablet PO (13:26)
[2024-02-23] MEDS: Pantoprazole Sodium 40 MG Tablet PO (13:28)
[2024-02-23] MEDS: Polyethylene Glycol 3350 17 GM PACKET PO (13:28)
[2024-02-23] MEDS: Carvedilol 6.25 MG Tablet PO (13:29)
--- NOTE | 2024-02-23 15:21 | DS.PCM_ITS ---
Providers Date of Admission: 02/19/24 Primary Care Physician: Dr. Maricruz Ace MD Consultations 02/20/24 07:52 Consult: Orthopedics Routine Consulting Provider: Joel Hernandez Reason for Consult: radiating R>L arm pain, cervial C3-4 ADN [id number] EMERGENT Consult: No Notified: Yes Date Notified: 02/20/24 Time Notified: 11:26 Method of Notification: Verbal 02/20/24 11:42 Consult: Pain Management Routine Consulting Provider: Alexia Schneider Reason for Consult: cervial neuropathy EMERGENT Consult: No Notified: Yes Date Notified: 02/20/24 Time Notified: 11:42 Method of Notification: Verbal Reason For Visit: intractable neck pain w/radiculopathy Diagnosis Discharge Diagnosis (1) Intractable pain: Status: Acute Code(s): R52 - Pain, unspecified Plan Cervical radiculopathy * CT of cervical spine shows marginal osteophytes notably above the level of C3- 4 with cord deformity. And more notably impingement of the ventral cord at C6-7. * Seen by spine surgery who recommends conservative management with epidural injection. * Patient underwent epidural injection on the . * complete Medrol taper. Chest pain * Secondary to likely costochondritis. It is reproducible. EKG performed and showed sinus bradycardia. Troponin series are negative * Patient had heart cath on at F October 28, 2021: Patient was noted to have mild diffuse disease. * Negative workup. No additional cardiac workup necessary. Chronic conditions * Recent left knee arthroscopic partial medial meniscectomy about 3 weeks ago: PT and OT ordered. * Chronic anemia/iron deficiency anemia/anemia of chronic disease: H&H 10.5/33.3%. In the past, 11/14/21 hemoglobin 7.2 at that time with MCV 101.7. Monitor CBC. B12 and folic acid ordered. * Chronic HFpEF: Most recent echocardiogram as noted with mild concentric LVH, LVEF 65%, will continue home aspirin, Coreg as well as spironolactone regimen, not on KAYLYN inhibitor/ARB nor statin therapy. * Hypertension: Continue home regimen including Coreg, spironolactone * Hyperlipidemia: Not on statin therapy,. Lipid profile ordered. * Chronic Kidney Disease Stage III B: BUNs/creatinine 15/0.94 and increased to 26/1.09, estimated creatinine clearance 43 mL/min. In November 2021 1.36 with GFR 40 at that time. IV fluid Ringer lactate started * COPD: No acute issues. Bronchodilator as needed * CAD, nonobstructive: Most recent cardiac catheterization per cardiology note 11/25/2023 with mild nonobstructive CAD * Restless leg syndrome: continue patient on Requip regimen. * Hypothyroidism: continue patient on levothyroxine regimen. * GERD: Continue patient on PPI. * Obesity class II: Complicates care and recovery * TANA: On CPAP. VTE prophylaxis: Enoxaparin. [place] home with [facility] with [facility]. Medications at Discharge Home Medications pantoprazole 40 mg tablet,delayed release 40 mg PO DAILY stomach 07/24/18 ropinirole 0.5 mg tablet (Requip) 1 mg PO QHS restless legs 07/24/18 carvedilol 6.25 mg tablet 6.25 mg PO BID heart 02/12/22 folic acid 1 mg tablet 1 mg PO DAILY 02/12/22 spironolactone 50 mg tablet (Aldactone) 50 mg PO DAILY water pill 02/12/22 albuterol sulfate 90 mcg/actuation aerosol inhaler 2 puff inhalation Q4H PRN shortness of breath or wheezing 12/19/22 calcium carbonate 600 mg-vitamin D3 12.5 mcg (500 unit) capsule 1 cap PO DAILY supplement 12/19/22 cyanocobalamin (vitamin B-12) 1,000 mcg/mL injection kit 1,000 mcg IM QMONTH supplement 12/19/22 ferrous sulfate 325 mg (65 mg iron) tablet 325 mg PO DAILY iron 12/19/22 fluticasone propionate 50 mcg/actuation nasal spray,suspension 1 spray intranasal DAILY allergies 12/19/22 oxycodone-acetaminophen 5 mg-325 mg tablet 1 tab PO TID Pain 12/19/22 tiotropium 2.5 mcg-olodaterol 2.5 mcg/actuation mist for inhalation (Stiolto Respimat) 2 puff inhalation DAILY 12/19/22 levothyroxine 200 mcg tablet 200 mcg PO MOTUWETHFRSA 07/10/23 tizanidine 4 mg tablet 8 mg PO QHS muscle spasm 07/10/23 amlodipine 2.5 mg tablet 2.5 mg PO DAILY 10/29/23 fluticasone fur. 100 mcg-umeclid 62.5 mcg-vilant 25 mcg inhalat.powder (Trelegy Ellipta) 1 ea inhalation DAILY breathing 10/29/23 gabapentin 100 mg capsule 100 mg PO QHS pain 10/29/23 levothyroxine 200 mcg capsule 300 mcg PO ADAMES thyroid 10/29/23 acetaminophen 325 mg tablet 1,000 mg (3.0769 x 325 mg) PO Q8H PRN PRN Fever, pain 1-1010 #0 tabs 02/23/24 methylprednisolone 4 mg tablet 4 mg PO 0800,2200 2 days #4 tabs 02/23/24 Hospital Course Operations None Procedures None Weight / BMI Weight Weight: 88.224 kg Body Mass Index (BMI) 36.7 ABG / Lab / Microbiology Data 02/22/24 06:49 02/22/24 06:49 D/C Instructions Discharge Diet: No restrictions Meaningful Use Info Meaningful Use Meaningful Use Diagnoses (Choose all that apply): None applicable Ischemic Stroke Statin Dosing Therapy Reference: STATIN DOSE THERAPY REFERENCE: * Patients > 75 years receive moderate or high dose statin therapy. * Patients 75 years or YOUNGER should receive HIGH intensity statin dose unless contraindicated. You will be required to document reason for non-treatment if statin daily dose does not meet guidelines. HIGH DOSE STATIN THERAPY DAILY Atorvastatin > than or = to 40 mg Rosuvastatin > than or = to 20 mg Amlodipine + Atorvastatin > than or = to 2.5/40 mg Ezetimibe + Simvastatin 10/80 mg Simvastatin 80mg Discharge Plan Admission Admit Date/Time: 02/19/24 06:01 Primary Reason for Your Visit: cervical radiculopathy Attending Provider: Roman Jarquin Primary Care Provider: Maricruz Ace Consulting Providers: Tiarra Estrada; Joel Hernandez; Alexia Schneider; Tyler Gallagher Discharge Orders/Prescriptions Prescriptions: New acetaminophen 325 mg Tablet 1,000 mg PO Q8H PRN PRN (Reason: Fever, pain 1-10/10) Qty: 0 0RF methylprednisolone 4 mg tablet 4 mg PO 0800,2200 Qty: 4 0RF Continued Stiolto Respimat 2.5-2.5 mcg/actuation mist 2 puff inhalation DAILY Patient Comments: Inhale 2 (TWO) Puffs BY MOUTH once daily. fluticasone propionate 50 mcg/actuation spray,suspension 1 spray intranasal DAILY Patient Comments: Use 1 [place] in each nostril once daily. albuterol sulfate 90 mcg/actuation HFA aerosol inhaler 2 puff inhalation Q4H PRN (Reason: shortness of breath or wheezing) Patient Comments: Inhale 2 Puffs as instructed every 4 hours as needed. cyanocobalamin (vitamin B-12) 1,000 mcg/mL kit 1,000 mcg IM QMONTH calcium carbonate-vitamin D3 600 mg-12.5 mcg (500 unit) capsule 1 cap PO DAILY ferrous sulfate 325 mg (65 mg iron) tablet 325 mg PO DAILY oxycodone-acetaminophen 5-325 mg tablet 1 tab PO TID pantoprazole 40 MG tablet 40 mg PO DAILY ropinirole [Requip] 0.5 MG tablet 1 mg PO QHS carvedilol 6.25 mg tablet 6.25 mg PO BID Patient Comments: TAKE 1 TABLET BY MOUTH TWICE DAILY folic acid 1 mg tablet 1 mg PO DAILY Patient Comments: TAKE 1 TABLET BY MOUTH EVERY DAY spironolactone [Aldactone] 50 mg tablet 50 mg PO DAILY Patient Comments: Take 1 tablet by mouth once daily. tizanidine 4 mg tablet 8 mg PO QHS Patient Comments: TAKE 2 TABLETS BY MOUTH EVERY NIGHT AT BEDTIME levothyroxine 200 mcg tablet 200 mcg PO MOTUWETHFRSA Patient Comments: Take 1 tablet by mouth once daily. Except on Thursday take 1 and a half tablet. Rx Instructions: 200 mcg orally; Take 1 tablet by mouth once daily. Except on Thursday take 1 and a half tablet. levothyroxine 200 mcg capsule 300 mcg PO ADAMES amlodipine 2.5 mg tablet 2.5 mg PO DAILY Trelegy Ellipta 100-62.5-25 mcg blister with device 1 ea inhalation DAILY gabapentin 100 mg capsule 100 mg PO QHS Referrals / Follow Up: Alexia Schneider MD [Med Staff - Active Staff] - Within 2 Weeks Maricruz Ace MD [Primary Care Provider] - Within 2 Weeks Disposition Disposition (needs filled in before D/C Order can be placed): Home Health Service Charges/Coding Visit Charges Inpatient E&M: 86241 Disch Hosp
--- NOTE | 2024-02-23 16:01 | CASEMGMT ---
Social Work- called [facility] and left a message that pt is d/c today with [facility] PT, OT, and nursing. WALKER Tristan
== END 2024-02-23 19:32 | disposition home health service (06) ==
LOC: ED 06:28 → MS3 06:51
PROVIDERS: Anesthesiology Pain Medicine; Internal Medicine; Admitting Provider Family Medicine; Emergency Provider Emergency Medicine; PCP Internal Medicine
PROC: 3E0S3BZ Introduction of Anesthetic Agent into Epidural Space, Percutaneous Approach (ICD-10-PCS; CPT 62320; principal; 2024-02-23 09:25)
DX: M47.22 Other spondylosis with radiculopathy, cervical region (principal); M06.9 Rheumatoid arthritis, unspecified; I13.0 Hypertensive heart and chronic kidney disease with heart failure and stage 1 through stage 4 chronic kidney disease, or unspecified chronic kidney disease; I50.32 Chronic diastolic (congestive) heart failure; J44.9 Chronic obstructive pulmonary disease, unspecified; N18.32 Chronic kidney disease, stage 3b; M25.551 Pain in right hip; E03.9 Hypothyroidism, unspecified; E78.5 Hyperlipidemia, unspecified; Z79.51 Long term (current) use of inhaled steroids; Z87.891 Personal history of nicotine dependence; D63.1 Anemia in chronic kidney disease; Z86.718 Personal history of other venous thrombosis and embolism; I25.10 Atherosclerotic heart disease of native coronary artery without angina pectoris; Z79.890 Hormone replacement therapy; K21.9 Gastro-esophageal reflux disease without esophagitis; Z79.891 Long term (current) use of opiate analgesic; Z95.2 Presence of prosthetic heart valve; M79.7 Fibromyalgia; Z79.899 Other long term (current) drug therapy; I45.10 Unspecified right bundle-branch block; E87.6 Hypokalemia; M25.552 Pain in left hip; M25.511 Pain in right shoulder; R30.0 Dysuria; M17.0 Bilateral primary osteoarthritis of knee; R53.1 Weakness; E66.9 Obesity, unspecified; Z68.36 Body mass index [BMI] 36.0-36.9, adult
CPT/HCPCS: 62321; 36415; 36591; 64490; 72020; 72125; 72141; 72146; 80048; 80053; 80061; 81001; 82550; 82607; 82746; 84484; 85025; 85652; 86140; 93005; 94668; 96361; 96372; 96374; 96375; 96376; 97110; 97162; 97166; 97530; 97535; 99221; 99285; J7030; J7120; A4216; G0378; J2405; J3490

== ENCOUNTER 2024-03-02 13:21 | Inpatient (IN) | payer MEDICARE, MEDICAID, SELFPAY ==
[2023-11-04 10:45] VITALS: BMI 41.3
[2024-03-02 13:22] VITALS: BP 152/84; PULSE 95; RESP 16; TEMP 36.6; O2SAT 96
--- NOTE | 2024-03-02 15:00 | RAD_ITS ---
STUDY: X-RAY - PELVIS AND RIGHT HIP REASON FOR EXAM: Female, 78 years old. Right hip pain TECHNIQUE: 3 views of the pelvis and hip. COMPARISON: None. FINDINGS: There is a non-specific bowel gas pattern. There are multiple calcified phleboliths. Normal bilateral iliac wings, sacroiliac joints and visualized sacrum. Normal bilateral superior and inferior pubic rami. Normal pubic symphysis. Normal bilateral ischial tuberosities. Normal visualized femoral head. Normal acetabulum. There is mild articular joint space narrowing of the hip. RAD/HIP, UNI W/ Pelvis 2-3 Views IMPRESSION: Mild degree of joint space narrowing. No fracture is seen. Electronically Signed: Patricio Lozoya MD at 15:27 EDT ,
--- NOTE | 2024-03-02 15:00 | RAD_ITS ---
STUDY: X-RAY - RIGHT KNEE REASON FOR EXAM: Female, 78 years old. Pain TECHNIQUE: 2 view(s) of the knee. COMPARISON: None. FINDINGS: Normal visualized distal femur. Normal visualized proximal tibia and fibula. Normal proximal tibiofibular articulation. There is mild degenerative arthrosis of the medial femorotibial compartment. Normal lateral femorotibial compartment. There is moderate degenerative arthrosis of the patellofemoral articulation. The soft tissue structures are unremarkable. RAD/Knee 1 or 2 Views IMPRESSION: Degenerative arthrosis. Electronically Signed: Patricio Lozoya MD at 15:29 EDT ,
--- NOTE | 2024-03-02 15:00 | RAD_ITS ---
STUDY: X-RAY - LEFT KNEE REASON FOR EXAM: Female, 78 years old. PAIN TECHNIQUE: 2 view(s) of the knee. COMPARISON: None. FINDINGS: Normal visualized distal femur. Normal visualized proximal tibia and fibula. Normal proximal tibiofibular articulation. There is moderate degenerative arthrosis of the medial femorotibial compartment with moderate joint space narrowing. Normal lateral femorotibial compartment. Normal patellofemoral articulation. Small joint effusion. RAD/Knee 1 or 2 Views IMPRESSION: Degenerative arthrosis. Small joint effusion. Electronically Signed: Patricio Lozoya MD at 15:29 EDT ,
--- NOTE | 2024-03-02 15:00 | RAD_ITS ---
STUDY: X-RAY - RIGHT SHOULDER REASON FOR EXAM: Female, 78 years old. Pain TECHNIQUE: 2 view(s) of the shoulder. COMPARISON: Comparison is made with prior study dated August 21, 2020. FINDINGS: There is moderate degenerative arthrosis of the glenohumeral articulation. Normal acromioclavicular joint. Normal acromion. Normal humeral head and visualized proximal humerus. There is periarticular soft tissue calcification consistent with a calcific tendinitis. Normal visualized pulmonary apex. A right-sided portacatheter is seen. RAD/Shoulder min 2 Views IMPRESSION: Calcific tendinitis. Degenerative changes. Electronically Signed: Patricio Lozoya MD at 15:30 EDT ,
--- NOTE | 2024-03-02 15:03 | EDS_ITS ---
HPI History of Present Illness Chief Complaint: Lower Extremity Injury Narrative Narrative: Patient is a 78-year-old female past medical history of hypothyroidism, fibromyalgia, COPD, pulmonary hypertension who presents to the emergency department with chief complaint of right hip pain, bilateral knee pain and right shoulder pain. Patient states that she did not have any injuries to the area but states that she had increasing pain and states that when she went got up this morning to the bathroom she has significant difficulty getting off the toilet. States that the home health aide had to help her. She states that the pain was significant prompting her to come here for further evaluation management. [facility] Medical History Hypothyroidism Fibromyalgia Wears dentures Walker as ambulation aid Arthritis Bladder disease Fatty liver Easy bruising Back pain History of hiatal hernia Gastric reflux Former smoker CPAP (continuous positive airway pressure) dependence COPD (chronic obstructive pulmonary disease) Shortness of breath on exertion Leg cramps History of pain when walking History of edema History of echocardiogram Cardiology follow-up encounter History of CHF (congestive heart failure) Trigger finger, right middle finger Right carpal tunnel syndrome LBBB (left bundle branch block) Pulmonary hypertension Chronic fatigue Coronary artery disease involving [place] coronary artery of [place] heart without angina pectoris Chronic diastolic CHF (congestive heart failure) Stage 3b chronic kidney disease Restless leg syndrome Essential hypertension Obesity DVT (deep venous thrombosis) Diverticulosis of colon (without mention of hemorrhage) Arrhythmia Nonrheumatic aortic (valve) stenosis Anemia in stage 3b chronic kidney disease Avulsion fracture of [place]us Fibromyalgia Hypothyroidism Osteoporosis Home Medications ?Medication ?Instructions ?Recorded ?Last Taken ?Type pantoprazole 40 mg tablet,delayed 40 mg PO DAILY stomach 07/24/18 11/03/23 History release ropinirole 0.5 mg tablet (Requip) 1 mg PO QHS restless legs 07/24/18 11/03/23 History carvedilol 6.25 mg tablet 6.25 mg PO BID heart 02/12/22 11/04/23 History folic acid 1 mg tablet 1 mg PO DAILY 02/12/22 11/03/23 History spironolactone 50 mg tablet 50 mg PO DAILY water pill 02/12/22 11/04/23 History (Aldactone) albuterol sulfate 90 mcg/actuation 2 puff inhalation Q4H PRN 12/19/22 11/04/23 History aerosol inhaler shortness of breath or wheezing calcium 600 mg (as 1 cap PO DAILY supplement 12/19/22 11/03/23 History carbonate)-vitamin D3 12.5 mcg (500 unit) capsule cyanocobalamin (vitamin B-12) 1,000 mcg IM QMONTH supplement 12/19/22 Unknown History 1,000 mcg/mL injection kit ferrous sulfate 325 mg (65 mg 325 mg PO DAILY iron 12/19/22 11/03/23 History iron) tablet fluticasone propionate 50 1 spray intranasal DAILY allergies 12/19/22 Unknown History mcg/actuation nasal spray,suspension oxycodone-acetaminophen 5 mg-325 1 tab PO TID Pain 12/19/22 11/03/23 History mg tablet tiotropium 2.5 mcg-olodaterol 2.5 2 puff inhalation DAILY 12/19/22 11/03/23 History mcg/actuation mist for inhalation (Stiolto Respimat) levothyroxine 200 mcg tablet 200 mcg PO MOTUWETHFRSA 07/10/23 11/03/23 History tizanidine 4 mg tablet 8 mg PO QHS muscle spasm 07/10/23 11/03/23 History amlodipine 2.5 mg tablet 2.5 mg PO DAILY 10/29/23 11/04/23 History fluticasone fur. 100 mcg-umeclid 1 ea inhalation DAILY breathing 10/29/23 11/03/23 History 62.5 mcg-vilant 25 mcg inhalat.powder (Trelegy Ellipta) gabapentin 100 mg capsule 100 mg PO QHS pain 10/29/23 11/02/23 History levothyroxine 200 mcg capsule 300 mcg PO ADAMES thyroid 10/29/23 11/01/23 History acetaminophen 325 mg tablet 1,000 mg (3.0769 x 325 mg) PO Q8H 02/23/24 Unknown Rx PRN PRN Fever, pain 1-03/24 #0 tabs methylprednisolone 4 mg tablet 4 mg PO 0800,2200 2 days #4 tabs 02/23/24 Unknown Rx Allergy/AdvReac Type Severity Reaction Status Date / Time Iodinated Contrast Media Allergy Anaphylaxis Verified 03/02/24 13:23 (CONTRASTS) alendronate sodium (From AdvReac Intermediate Other Verified 03/02/24 13:23 Fosamax Plus D) cholecalciferol (vitamin D3) AdvReac Intermediate Other Verified 03/02/24 13:23 (From Fosamax Plus D) adhesive tape AdvReac Rash Verified 03/02/24 13:23 NSAIDS (Non-Steroidal AdvReac Upset Verified 03/02/24 13:23 Anti-Inflamma Stomach Family History Mother Heart disease Cancer throat/lung/stomach Father Heart disease Sister Asthma Brother Lymphoma Grandfather Colon cancer Aunt Colon cancer Uncle Colon cancer Surgical History History of cardiac catheterization History of esophagogastroduodenoscopy (EGD) History of surgical removal of meniscus of knee S/P TAVR (transcatheter aortic valve replacement) (~07/14/22) Hx of total hysterectomy with removal of both tubes and ovaries Hx of ventral hernia repair Hx laparoscopic cholecystectomy History of resection of small bowel History of lumpectomy of right breast Hx of appendectomy Social History Smoking Status: Former smoker Electronic Cigarette Use: with nicotine alcohol intake: never substance use type: does not use caffeine: Yes Type: coffee Number of servings: 5 ROS ROS ED ROS Narrative Constitutional: Denies fevers, chills, headaches, lightheadedness, dizziness Cardiovascular: Denies chest pain or palpitations Respiratory: Denies coughing wheezing shortness of breath Abdomen: Denies abdominal pain nausea vomit diarrhea : Denies any urinary symptoms Neurological: Denies any numbness, tingling complains of generalized weakness Musculoskeletal: Complains of right hip pain, bilateral knee pain and right shoulder pain as noted above Skin: Denies rashes or lesions EXAM Physical Exam Narrative Exam Narrative: General: Patient lying in bed rest comfortably did not appear to be in acute distress Head: Atraumatic, normocephalic Eyes: PERRL bilaterally, EOMI bilateral, no conjunctival injection noted Neck: Soft and supple, trachea midline Cardiovascular: Regular rate and rhythm no murmurs gallops rubs noted Respiratory: Clear to auscultation bilaterally no rales rhonchi or wheezes noted Abdomen: Soft, nondistended, no tenderness palpation, bowel sounds present x 4 Musculoskeletal: Patient has pain with attempted logroll in her right hip tenderness to palpation over bilateral knees and pain with attempted range of motion of her right shoulder Extremities: +4/5 strength noted in the bilateral upper and lower extremities, no pedal edema no exam, DP pulses +2/4 in the bilateral lower extremities Neurological: Patient following commands knew that she was at [facility] year is 2023 Skin: Warm, dry, intact Const Vital Signs: 03/02/24 13:22 03/02/24 14:11 03/02/24 15:21 Temperature 98 F Temperature Source Temporal Pulse Rate 95 81 Respiratory Rate 16 16 Respiratory Effort Normal Respiratory Pattern Normal Blood Pressure 152/84 H 144/72 H Blood Pressure Mean 106 96 Pulse Ox 96 98 Oxygen Delivery Method Room Air MDM MDM MDM Narrative Medical decision making narrative: Patient is a 78-year-old female who presented to the emergency department with chief complaint of right hip pain, bilateral knee pain and right shoulder pain after no injuries noted. Patient will have workup performed here on the differential diagnose includes but not limited to pathologic hip fracture, right shoulder fracture. Once workup is obtained reviewed she will be reevaluated. Patient's x-ray of her right shoulder reviewed and showed calcific tendinitis degenerative changes. Patient's x-ray of her knee showed degenerative arthrosis small joint effusion. Patient's x-ray of her right knee showed degenerative arthritis, pelvis and hip x-ray showed mild degree of joint space narrowing no fracture seen. Reevaluation the patient she states that she cannot get up she still has significant pain in her right hip and feels that she cannot go home safely. She does feel that she may require placement for rehab. Patient case will be discussed with hospitalist. Blood work was added on as well as CT abdomen pelvis without IV contrast to ensure there is no hip fracture. Patient CBC with significant leukocytosis of 15,000, hemoglobin 10.7, platelet count normal at 231. Patient sodium normal 141, potassium was low at 3.2 indicating hypokalemia she was given 40 mill equivalents of potassium suppleme ntation here in the emergency department, creatinine normal at 0.91. Patient's urinalysis pending. Patient's CT abdomen pelvis reviewed and showed postoperative changes status post cholecystectomy and hysterectomy. Minor diverticular changes of the colon without evidence of acute diverticulitis. No evidence for small bowel obstruction or other acute abnormality. At this point time did discuss case with Dr. Wagoner who accept patient for admission. Patient was notified with all question concerns answered. There is no identifiable source infection at this point time therefore no indication for antibiotics. Lab Data Labs: Laboratory Results - last 24 hr 03/02/24 16:02 WBC 15.0 H RBC 3.48 L Hgb 10.7 L Hct 32.8 L MCV 94.3 MCH 30.7 MCHC 32.6 RDW Std Deviation 50.7 H RDW Coeff of Loren 14.8 H Plt Count 231 MPV 9.6 Immature Gran % (Auto) 0.700 Neut % (Auto) 74.6 H Lymph % (Auto) 12.2 L Curry % (Auto) 11.5 H Eos % (Auto) 0.8 Baso % (Auto) 0.2 Absolute Neuts (auto) 11.2 H Absolute Lymphs (auto) 1.82 Nucleated RBC % 0 Differential Comment SCANNED Diff Path Review October foll Sodium 141 Potassium 3.2 L Chloride 114 H Carbon Dioxide 21.0 Anion Gap 6 BUN 22 H Creatinine 0.91 Est GFR (MDRD) Af Amer 77 Est GFR (MDRD) Non-Af 64 BUN/Creatinine Ratio 24.3 H Glucose 113 H Calcium 7.5 L Total Bilirubin 0.60 AST 19 ALT 27 Alkaline Phosphatase 97 Total Protein 5.3 L Albumin 2.3 L Globulin 3.0 Albumin/Globulin Ratio 0.8 L Radiography Diagnostic Testing: Clinical Impression(s) from Imaging Studies Hip/Pelvis X-Ray 03/02/24 15:00 IMPRESSION: Mild degree of joint space narrowing. No fracture is seen. Electronically Signed: Patricio Lozoya MD at 15:27 EDT , Knee X-Ray 03/02/24 15:00 IMPRESSION: Degenerative arthrosis. Electronically Signed: Patricio Lozoya MD at 15:29 EDT , Knee X-Ray 03/02/24 15:00 IMPRESSION: Degenerative arthrosis. Small joint effusion. Electronically Signed: Patricio Lozoya MD at 15:29 EDT , Shoulder X-Ray 03/02/24 15:00 IMPRESSION: Calcific tendinitis. Degenerative changes. Electronically Signed: Patricio Lozoya MD at 15:30 EDT , Abdomen/Pelvis CT 03/02/24 15:37 IMPRESSION: Postop changes status post cholecystectomy and hysterectomy. Minor diverticular changes of the colon without evidence for acute diverticulitis No evidence for small bowel obstruction or other acute abnormality Electronically Signed: Joel Guerrero MD at 16:56 EDT , Discharge Plan Triage Chief Complaint: Lower Extremity Injury Other Complaint: Weakness ED Provider: Asher Vale Dx/Rx/DC Orders Clinical Impression: Generalized weakness, Hip pain, right, Acute hypokalemia Prescriptions: No Action Stiolto Respimat 2.5-2.5 mcg/actuation mist 2 puff inhalation DAILY Patient Comments: Inhale 2 (TWO) Puffs BY MOUTH once daily. fluticasone propionate 50 mcg/actuation spray,suspension 1 spray intranasal DAILY Patient Comments: Use 1 [place] in each nostril once daily. albuterol sulfate 90 mcg/actuation HFA aerosol inhaler 2 puff inhalation Q4H PRN (Reason: shortness of breath or wheezing) Patient Comments: Inhale 2 Puffs as instructed every 4 hours as needed. cyanocobalamin (vitamin B-12) 1,000 mcg/mL kit 1,000 mcg IM QMONTH calcium carbonate-vitamin D3 600 mg-12.5 mcg (500 unit) capsule 1 cap PO DAILY ferrous sulfate 325 mg (65 mg iron) tablet 325 mg PO DAILY oxycodone-acetaminophen 5-325 mg tablet 1 tab PO TID pantoprazole 40 MG tablet 40 mg PO DAILY ropinirole [Requip] 0.5 MG tablet 1 mg PO QHS carvedilol 6.25 mg tablet 6.25 mg PO BID Patient Comments: TAKE 1 TABLET BY MOUTH TWICE DAILY folic acid 1 mg tablet 1 mg PO DAILY Patient Comments: TAKE 1 TABLET BY MOUTH EVERY DAY spironolactone [Aldactone] 50 mg tablet 50 mg PO DAILY Patient Comments: Take 1 tablet by mouth once daily. tizanidine 4 mg tablet 8 mg PO QHS Patient Comments: TAKE 2 TABLETS BY MOUTH EVERY NIGHT AT BEDTIME levothyroxine 200 mcg tablet 200 mcg PO MOTUWETHFR Patient Comments: Take 1 tablet by mouth once daily. Except on Thursday take 1 and a half tablet. Rx Instructions: 200 mcg orally; Take 1 tablet by mouth once daily. Except on Thursday take 1 and a half tablet. levothyroxine 200 mcg capsule 300 mcg PO ADAMES amlodipine 2.5 mg tablet 2.5 mg PO DAILY Trelegy Ellipta 100-62.5-25 mcg blister with device 1 ea inhalation DAILY gabapentin 100 mg capsule 100 mg PO QHS acetaminophen 325 mg Tablet 1,000 mg PO Q8H PRN PRN (Reason: Fever, pain 1-03/24) Qty: 0 0RF methylprednisolone 4 mg tablet 4 mg PO 0800,2200 Qty: 4 0RF Primary Care Provider: Maricruz Ace Referrals: Maricruz Ace MD [Primary Care Provider] - Print Language: French
[2024-03-02 15:21] VITALS: BP 144/72; PULSE 81; RESP 16; O2SAT 98
--- NOTE | 2024-03-02 15:37 | CT_ITS ---
STUDY: CT ABDOMEN AND PELVIS WITHOUT CONTRAST REASON FOR EXAM: Female, 78 years old. R hip pain RADIATION DOSAGE (If Supplied By Facility): CTDIvol = ( 15.17 ) mGy, DLP = ( 761.66 ) mGycm TECHNIQUE: Transaxial images were obtained from the dome of the diaphragm to the symphysis pubis without oral contrast, and without intravenous contrast. Sagittal and coronal images were reconstructed. Individualized dose optimization techniques were used for this CT. COMPARISON: None. FINDINGS: The visualized lung bases are unremarkable. The visualized portions of the heart are within normal limits. Small hiatal hernia is noted Normal liver. Gallbladder not visualized status post cholecystectomy. Normal spleen. Normal pancreas. Normal bilateral adrenal glands. Normal right kidney. Normal left kidney. Normal visualized stomach. Normal small intestine. Minor diverticular disease of the colon without evidence for acute diverticulitis. No evidence for acute appendicitis Atherosclerotic change of the aorta without evidence for aneurysm. Normal inferior vena cava. Normal retroperitoneum. Normal urinary bladder. Uterus not visualized status post hysterectomy Tiny fat-containing umbilical hernia Lumbar spine demonstrates degenerative change. There are degenerative changes of both hips. No acute fracture or dislocation observed CT/Abdomen/Pelvis without Cont IMPRESSION: Postop changes status post cholecystectomy and hysterectomy. Minor diverticular changes of the colon without evidence for acute diverticulitis No evidence for small bowel obstruction or other acute abnormality Electronically Signed: Joel Guerrero MD at 16:56 EDT ,
[2024-03-02 16:16] LABS: Absolute Lymphocyte Count 1.82 X10^3/uL (0.83-4.51); Absolute Neutrophil Count 11.2 X10^3/uL (2.0-7.7); Basophil# 0.03 X10^3/uL; Basophil% 0.2 % (0-1); Eosinophil# 0.12 X10^3/uL; Eosinophils% 0.8 % (0-5); Hematocrit 32.8 % (37-47); Hemoglobin 10.7 g/dL (12.0-15.0); Lymphocyte # 1.82 X10^3/ul (0.83-4.51); Lymphocyte % 12.2 % (19-41); Mean Corp Hgb Conc 32.6 g/dL (32-36); Mean Corpuscular Hgb 30.7 pg (27.0-32.0); Mean Corpuscular Volume 94.3 fL (81-99); Mean Platelet Vol. 9.6 fl (6.2-12.0); Monocyte# 1.72 X10^3/uL; Monocyte% 11.5 % (0-10); NRBC Flagged by Analyzer 0 % (0-5); Neutrophil # 11.17 X10^3/uL (2.7-7.7); Neutrophil % 74.6 % (47-70); POSITIVE DIFFERENTIAL YES; Platelet Count 231 K/mm3 (150-450); RBC Distribution Width CV 14.8 % (11.6-14.6); RBC Distribution Width SD 50.7 fl (35.1-43.9); Red Blood Count 3.48 M/mm3 (4.2-5.4)
[2024-03-02 16:22] LABS: Differential Indicated SCAN CRITERIA MET
[2024-03-02 16:29] LABS: ALB/GLOB Ratio 0.8 RATIO (0.9-2.4); AST(SGOT) 19 U/L (15-37); Alanine Aminotransfer ALT/SGPT 27 U/L (13-56); Albumin, Serum 2.3 g/dL (3.2-5.0); Alkaline Phosphatase 97 U/L (45-117); Anion Gap 6 (5-15); BUN 22 mg/dL (7-18); BUN/Creat Ratio 24.3 RATIO (10-20); Calcium,Total 7.5 mg/dL (8.5-10.1); Chloride 114 mmol/L (98-107); Creatinine, Serum 0.91 mg/dL (0.55-1.02); EST Glomerular Filtration Rate 64 mL/min (>60); Est Glom Filt Rate - Afr Amer 77 mL/min (>60); Glucose 113 mg/dL (74-106); Potassium 3.2 mmol/L (3.5-5.1); Protein, Total 5.3 g/dL (6.4-8.2); Sodium Level 141 mmol/L (136-145)
[2024-03-02 16:50] LABS: Differential Comment SCANNED
--- NOTE | 2024-03-02 16:53 | PCM.HP.STD ---
HPI - General General Date of Admission: 03/02/24 Date of Service: 03/02/24 Chief Complaint: Bilateral hip pain right greater than left/inability ambulate HPI Narrative BRIANNA DYSON, is a 78 F who presented to the emergency department at [facility] on 03/02/2020 for complaining of bilateral hip pain the right being dramatically worse than the left as well as right shoulder pain. She complains that her pain in her hip was so severe and was associated with weakness that she was unable to get up off the toilet and sat there for 2 hours. She has chronic issues with regards to pain but this was an acute change and worse in the last 24 hours. She had a recent hospitalization here for bilateral upper extremity pain and tingling/numbness at which time she was found to have a paracentral disc bulge and was injected with steroids. She was sent home with a Medrol Dosepak which has been tapering since that point in time. She stated yesterday she was a little bit tired but this morning when she woke up is when she really noted that her pain was dramatic. She has never had anything like this previously. She also complains of bilateral knee pain that is chronic and not really much worse than typical. On exam she has significant pain with palpation of bilateral hips right greater than left and mildly to the left shoulder but markedly on the right shoulder and pain with movement. She denies any fever or chills and has not had any systemic symptoms. She also did complain of some dysuria and states she does get frequent urinary tract infections. Vital signs of presentation showed temperature of 98, heart rate 95, respiratory 16, blood pressure was 152/84 and pulse ox was 96% on room air. CBC showed mild leukocytosis with a white count of 15.0 and a left shift however the patient's been on steroids and got a steroid injection. Chronic stable anemia. I obtained an ESR that was 45 and a CRP that was 81.5 which is surprising given her steroid use at home. Chemistry panel showed mild hypokalemia with a potassium of 3.2. Renal function was normal and at baseline. Liver functions were unremarkable. Hip and pelvic x-ray showed only a mild degree of joint space narrowing bilaterally. Bilateral knee x-ray showed mild to moderate degenerative arthrosis in the left knee had a small effusion however the patient had recent surgery on this. Shoulder x-ray showed calcific tendinitis with degenerative changes and CT of the abdomen pelvis showed postop changes status post cholecystectomy and hysterectomy with minor diverticular changes of the colon without evidence of acute diverticulitis and no evidence of bowel obstruction or other acute abnormality. Given her markedly elevated sed rate and CRP I am concerned that this could be polymyalgia rheumatica given her symptoms on presentation. She was given 60 mg of IV steroids in emergency department and will start 40 mg daily tomorrow and reevaluate pain and function. [facility] Medical History Rheumatoid arthritis Kidney disease GERD (gastroesophageal reflux disease) Congestive heart failure (CHF) Hypertension Bilateral hip pain Hypothyroidism Fibromyalgia Wears dentures Walker as ambulation aid Arthritis Bladder disease Fatty liver Easy bruising Back pain History of hiatal hernia Gastric reflux Former smoker CPAP (continuous positive airway pressure) dependence COPD (chronic obstructive pulmonary disease) Shortness of breath on exertion Leg cramps History of pain when walking History of edema History of echocardiogram Cardiology follow-up encounter History of CHF (congestive heart failure) Trigger finger, right middle finger Right carpal tunnel syndrome LBBB (left bundle branch block) Pulmonary hypertension Chronic fatigue Coronary artery disease involving [place] coronary artery of [place] heart without angina pectoris Chronic diastolic CHF (congestive heart failure) Stage 3b chronic kidney disease Restless leg syndrome Essential hypertension Obesity DVT (deep venous thrombosis) Diverticulosis of colon (without mention of hemorrhage) Arrhythmia Nonrheumatic aortic (valve) stenosis Anemia in stage 3b chronic kidney disease Avulsion fracture of talus Fibromyalgia Hypothyroidism Osteoporosis Home Medications ?Medication ?Instructions ?Recorded ?Last Taken ?Type pantoprazole 40 mg tablet,delayed 40 mg PO DAILY stomach 07/24/18 11/03/23 History release ropinirole 0.5 mg tablet (Requip) 1 mg PO QHS restless legs 07/24/18 11/03/23 History carvedilol 6.25 mg tablet 6.25 mg PO BID heart 02/12/22 11/04/23 History folic acid 1 mg tablet 1 mg PO DAILY 02/12/22 11/03/23 History spironolactone 50 mg tablet 50 mg PO DAILY water pill 02/12/22 11/04/23 History (Aldactone) albuterol sulfate 90 mcg/actuation 2 puff inhalation Q4H PRN 12/19/22 11/04/23 History aerosol inhaler shortness of breath or wheezing calcium 600 mg (as 1 cap PO DAILY supplement 12/19/22 11/03/23 History carbonate)-vitamin D3 12.5 mcg (500 unit) capsule cyanocobalamin (vitamin B-12) 1,000 mcg IM QMONTH supplement 12/19/22 Unknown History 1,000 mcg/mL injection kit ferrous sulfate 325 mg (65 mg 325 mg PO DAILY iron 12/19/22 11/03/23 History iron) tablet fluticasone propionate 50 1 spray intranasal DAILY allergies 12/19/22 Unknown History mcg/actuation nasal spray,suspension oxycodone-acetaminophen 5 mg-325 1 tab PO TID Pain 12/19/22 11/03/23 History mg tablet levothyroxine 200 mcg tablet 200 mcg PO MOTUWETHFRSA 07/10/23 11/03/23 History tizanidine 4 mg tablet 8 mg PO QHS muscle spasm 07/10/23 11/03/23 History fluticasone fur. 100 mcg-umeclid 1 ea inhalation DAILY breathing 10/29/23 11/03/23 History 62.5 mcg-vilant 25 mcg inhalat.powder (Trelegy Ellipta) gabapentin 100 mg capsule 100 mg PO QHS pain 10/29/23 11/02/23 History levothyroxine 200 mcg capsule 300 mcg PO ADAMES thyroid 10/29/23 11/01/23 History methylprednisolone 4 mg tablet 4 mg PO 0800,2200 2 days #4 tabs 02/23/24 Unknown Rx Allergy/AdvReac Type Severity Reaction Status Date / Time Iodinated Contrast Media Allergy Anaphylaxis Verified 03/02/24 13:23 (CONTRASTS) alendronate sodium (From AdvReac Intermediate Other Verified 03/02/24 13:23 Fosamax Plus D) cholecalciferol (vitamin D3) AdvReac Intermediate Other Verified 03/02/24 13:23 (From Fosamax Plus D) adhesive tape AdvReac Rash Verified 03/02/24 13:23 NSAIDS (Non-Steroidal AdvReac Upset Verified 03/02/24 13:23 Anti-Inflamma Stomach Family History Mother Heart disease Cancer throat/lung/stomach Father Heart disease Sister Asthma Brother Lymphoma Grandfather Colon cancer Aunt Colon cancer Uncle Colon cancer Surgical History History of cholecystectomy Hx of CABG History of cardiac catheterization History of esophagogastroduodenoscopy (EGD) History of surgical removal of meniscus of knee S/P TAVR (transcatheter aortic valve replacement) (~07/14/22) Hx of total hysterectomy with removal of both tubes and ovaries Hx of ventral hernia repair Hx laparoscopic cholecystectomy History of resection of small bowel History of lumpectomy of right breast Hx of appendectomy Social History Smoking Status: Former smoker Electronic Cigarette Use: with nicotine alcohol intake: never substance use type: does not use caffeine: Yes Type: coffee Number of servings: 5 ROS Constitutional Constitutional: Reports weakness; Denies anorexia, change in weight, chills, fatigue, fever(s), malaise, night sweats or other Eyes Eyes: Denies blurry vision, change in eye color, change in vision, discharge from eye(s), double vision, erythema, eye pain, loss of vision or other ENT HEENT: Denies abnormal hearing, dysphagia, ear pain, epistaxis, headache(s), hearing loss, nasal congestion, nasal discharge, post nasal drip, sinus pressure, sore throat or other Cardiovascular Cardiovascular: Denies chest pain, claudication, dyspnea on exertion, edema, lightheadedness, orthopnea, palpitations, paroxysmal nocturnal dyspnea, rapid heart rate, syncope or other Respiratory/Chest Respiratory/Chest: Denies cough, dyspnea, excessive phlegm production, hemoptysis, productive cough, shortness of breath at rest, shortness of breath with exertion, wheezing or other Gastrointestinal Gastrointestinal: Denies abdominal pain, coffee ground emesis, constipation, diarrhea, dyspepsia, hematemesis, hematochezia, loose stools, melena, nausea, vomiting or other Genitourinary Genitourinary: Reports burning urination and dysuria; Denies difficulty urinating, hematuria, nocturia, urinary frequency, urinary hesitancy, urinary incontinence, urinary urgency or other Musculoskeletal Musculoskeletal: Reports arthralgias and joint pain Neurologic Neurologic: Reports abnormal gait; Denies abnormal speech, confusion, disequilibrium, dizziness, focal weakness, headache(s), numbness, paresthesias, seizure-like activity, seizures, syncope, tingling, tremor(s) or other Psychiatric Psychiatric: Denies anxiety, depression, homicidal ideation, suicidal ideation or other Endocrine Endocrinology: Denies change in body appearance, cold intolerance, excessive sweating, heat intolerance, polydipsia, polyuria or other Hematologic/Lymphatic Hematologic/Lymphatic: Denies anemia, easy bleeding, easy bruising, lymphadenopathy or other Allergic/Immunologic Allergic/Immunologic: Denies rhinitis, hives, eczemia, asthma or other Vital Signs Vital Signs Vital Signs: 03/02/24 13:22 03/02/24 14:11 03/02/24 15:21 Temperature 98 F Temperature Source Temporal Pulse Rate 95 81 Respiratory Rate 16 16 Respiratory Effort Normal Respiratory Pattern Normal Blood Pressure 152/84 H 144/72 H Blood Pressure Mean 106 96 Pulse Ox 96 98 Oxygen Delivery Method Room Air Physical Exam Const alert, oriented x3, no apparent distress and well nourished; Negative for average body habitus Constitutional Narrative: Obese, elderly, white female, sitting up in bed, currently appears comfortable at rest, friend at bedside, does not appear toxic General Appearance: cooperative HEENT normocephalic, head/scalp atraumatic, hearing grossly normal bilaterally and moist oral mucous membranes HEENT Narrative: Dentures in place, Mallampati 3, no thrush Eyes PERRL, EOMs intact bilaterally and conjunctivae normal Neck no lymphadenopathy and supple Neck Narrative: Neck is short and thick, trachea midline, no thyroid enlargement Resp normal respiratory effort, no retractions, no use of accessory muscles and clear to auscultation bilaterally Auscultation: Negative for rales, rhonchi or wheezes Cardio regular rate, regular rhythm, S1 normal heart sound, S2 normal heart sound, no murmurs, no rub, no gallops and no clicks GI normal to inspection, nondistended, normoactive bowel sounds, soft to palpation and non-tender Extremity no clubbing, cyanosis or edema Extremity Narrative: Significant pain with active movement of right upper extremity and right lower extremity, mild pain with movement actively of left lower extremity and very minimal pain with movement of left upper extremity, significant pain with palpation of bilateral hips and right shoulder minimal pain with palpation of left shoulder Skin skin turgor normal, no jaundice, no petechiae and no mottling Neuro oriented x3 Neuro Narrative: Decreased ability to move right lower extremity and right upper extremity due to pain but no focal deficits noted Speech: speech normal Psych affect normal Psych Narrative: Very pleasant, interacts appropriately Results Lab / Micro Data 03/02/24 16:02 03/02/24 16:02 Labs: Laboratory Results - last 24 hr 03/02/24 16:02: WBC 15.0 H, RBC 3.48 L, Hgb 10.7 L, Hct 32.8 L, MCV 94.3, MCH 30.7, MCHC 32.6, RDW Std Deviation 50.7 H, RDW Coeff of Loren 14.8 H, Plt Count 231, MPV 9.6, Immature Gran % (Auto) 0.700, Neut % (Auto) 74.6 H, Lymph % (Auto) 12.2 L, [place] % (Auto) 11.5 H, Eos % (Auto) 0.8, Baso % (Auto) 0.2, Absolute Neuts (auto) 11.2 H, Absolute Lymphs (auto) 1.82, Nucleated RBC % 0, Differential Comment SCANNED, Diff Path Review October, Sodium 141, Potassium 3.2 L, Chloride 114 H, Carbon Dioxide 21.0, Anion Gap 6, BUN 22 H, Creatinine 0.91, Est GFR (MDRD) Af Amer 77, Est GFR (MDRD) Non-Af 64, BUN/Creatinine Ratio 24.3 H, Glucose 113 H, Calcium 7.5 L, Total Bilirubin 0.60, AST 19, ALT 27, Alkaline Phosphatase 97, Total Protein 5.3 L, Albumin 2.3 L, Globulin 3.0, Albumin/Globulin Ratio 0.8 L Imaging Radiology Impression Hip/Pelvis X-Ray 03/02/24 15:00 IMPRESSION: Mild degree of joint space narrowing. No fracture is seen. Electronically Signed: Patricio Lozoya MD at 15:27 EDT , Knee X-Ray 03/02/24 15:00 IMPRESSION: Degenerative arthrosis. Electronically Signed: Patricio Lozoya MD at 15:29 EDT , Knee X-Ray 03/02/24 15:00 IMPRESSION: Degenerative arthrosis. Small joint effusion. Electronically Signed: Patricio Lozoya MD at 15:29 EDT , Shoulder X-Ray 03/02/24 15:00 IMPRESSION: Calcific tendinitis. Degenerative changes. Electronically Signed: Patricio Lozoya MD at 15:30 EDT , Assessment & Plan Assessment/Plan (1) Weakness: (2) Bilateral knee pain: (3) Right shoulder pain: (4) Bilateral hip pain: (5) Inability to ambulate due to ankle or foot: (6) Acute hypokalemia: (7) Leukocytosis: (8) Dysuria: PLAN: Plan Bilateral hip and shoulder pain-right greater than left -? Polymyalgia rheumatica -Patient with significantly elevated ESR and CRP and pain and the weakness she is experiencing would be explained by this -Will trial steroids with 60 mill equivalents given the emergency department and 40 mill colons daily on the floor -Patient had been on a tapering Medrol Dosepak for her cervical spine after most recent discharge -If does not clinically improve with steroids may need to consider further workup -Check CPK -Scheduled Tylenol -As needed narcotics -As needed bowel regimen -PT/OT consultation Generalized weakness/inability ambulate -Will have to see what she does with steroids -PT/OT consultation -CM/SW consultation for assistance with discharge planning -Patient may need placement depending on progress Dysuria -UA is still pending however will treat empirically as patient is symptomatic and she reports frequent UTIs -Urine culture sent -Ceftriaxone 1 g daily Acute hypokalemia -P.o. potassium replacement -Recheck in a.m. Bilateral knee pain second osteoarthritis -This sounds like it is chronic and not acutely any different than her baseline -Treatment as noted above for pain -Patient already is following up as an outpatient and had recent surgical intervention on her left knee Cervical radiculopathy -Patient states she is much improved from her recent hospitalization with regards to this -Has outpatient follow-up with Dr. Hernandez COPD -Continue as needed albuterol -Continue home Trelegy inhaler -No signs of acute exacerbation Seasonal allergies -Continue home nasal spray Restless leg syndrome -Continue home Requip Fibromyalgia -Continue home nightly tizanidine -Continue home gabapentin GERD -Continue home PPI Hypothyroidism -Continue home levothyroxine Hepatosteatosis -Ongoing outpatient follow-up -No acute issues or signs of decompensation History of tobacco abuse -Remote -Remains in remission Obesity -Complicates treatment, prognosis, outcomes -BMI 36.9 -Recommend weight loss DVT prophylaxis -Subcu Lovenox CODE STATUS -Full code Charges/Coding Visit Charges Inpatient E&M: 92583 Init Hosp L3
[2024-03-02 17:00] VITALS: BP 151/72; PULSE 88; RESP 16; O2SAT 99
[2024-03-02] MEDS: Potassium Chloride Oral Tablet 20 MEQ 40 MEQ PO (17:05)
[2024-03-02 17:24] LABS: Erythrocyte Sedimentation Rate 45 mm/hr (0-30)
[2024-03-02] MEDS: MethylPREDNISolone 125 MG/2 ML Vial 60 MG IV (18:16)
[2024-03-02 19:16] VITALS: BMI 38.9
[2024-03-02 19:24] VITALS: BP 126/54; PULSE 70; RESP 18; TEMP 36.8; O2SAT 95
[2024-03-02 19:47] VITALS: BMI 36.8
[2024-03-02 19:51] VITALS: BP 135/58; PULSE 66; RESP 17; TEMP 36.8; O2SAT 96
[2024-03-02 21:17] VITALS: BP 127/54; PULSE 61; O2SAT 96
[2024-03-02] MEDS: 0.9% Saline Lock 10 ML Syringe IV ×2 (21:30→22:46)
[2024-03-02] MEDS: Gabapentin 100 MG Capsule PO (21:31)
[2024-03-02] MEDS: Acetaminophen 500 MG Tablet 1000 MG PO (21:31)
[2024-03-02] MEDS: Pramipexole Di-HCl 0.5 MG Tablet PO (21:31)
[2024-03-02] MEDS: Carvedilol 6.25 MG Tablet PO (21:35)
[2024-03-02] MEDS: tiZANidine HCl 2 MG Tablet 8 MG PO (21:37)
[2024-03-02] MEDS: 0.9% Normal Saline (250mL Bag) 250 ML 15 ML IV (22:46)
[2024-03-02] MEDS: Ceftriaxone 1 GM/50 ML BAG IV (22:46)
[2024-03-03] VITALS (7 sets, daily range): BP systolic 82–143; BP diastolic 40–72; PULSE 45–66; RESP 16–18; TEMP 36.3–36.6; O2SAT 92–99
[2024-03-03] MEDS: Menthol/Lanolin/Calamine/Znox 113 GM Tube 1 APPLIC TOPICAL ×3 (03:10→20:33)
[2024-03-03] MEDS: Acetaminophen 500 MG Tablet 1000 MG PO ×3 (05:15→20:33)
[2024-03-03] MEDS: Levothyroxine 100 MCG Tablet 200 MCG PO (05:15)
[2024-03-03] MEDS: 0.9% Normal Saline (500mL Bag) 500 ML 999 ML IV (06:27)
[2024-03-03 06:57] LABS: Absolute Lymphocyte Count 0.84 X10^3/uL (0.83-4.51); Absolute Neutrophil Count 9.6 X10^3/uL (2.0-7.7); Basophil# 0.01 X10^3/uL; Basophil% 0.1 % (0-1); Hematocrit 30.5 % (37-47); Hemoglobin 9.7 g/dL (12.0-15.0); Lymphocyte # 0.84 X10^3/ul (0.83-4.51); Lymphocyte % 7.8 % (19-41); Mean Corp Hgb Conc 31.8 g/dL (32-36); Mean Corpuscular Hgb 30.4 pg (27.0-32.0); Mean Corpuscular Volume 95.6 fL (81-99); Mean Platelet Vol. 10.1 fl (6.2-12.0); Monocyte# 0.19 X10^3/uL; Monocyte% 1.8 % (0-10); NRBC Flagged by Analyzer 0 % (0-5); Neutrophil # 9.62 X10^3/uL (2.7-7.7); Neutrophil % 89.6 % (47-70); Platelet Count 191 K/mm3 (150-450); RBC Distribution Width CV 14.6 % (11.6-14.6); RBC Distribution Width SD 50.8 fl (35.1-43.9); Red Blood Count 3.19 M/mm3 (4.2-5.4); White Blood Count 10.7 K/mm3 (4.4-11.0)
[2024-03-03 07:41] LABS: ALB/GLOB Ratio 0.6 RATIO (0.9-2.4); AST(SGOT) 14 U/L (15-37); Alanine Aminotransfer ALT/SGPT 27 U/L (13-56); Albumin, Serum 2.4 g/dL (3.2-5.0); Alkaline Phosphatase 106 U/L (45-117); Anion Gap 5 (5-15); BUN 33 mg/dL (7-18); BUN/Creat Ratio 29.7 RATIO (10-20); CPK Total, Creatine Kinase 73 U/L (26-192); Calcium,Total 9.1 mg/dL (8.5-10.1); Chloride 108 mmol/L (98-107); Creatinine, Serum 1.11 mg/dL (0.55-1.02); EST Glomerular Filtration Rate 51 mL/min (>60); Est Glom Filt Rate - Afr Amer 61 mL/min (>60); Estimated Creatinine Clearance 42.96 ml/min; Globulin 3.7 g/dL (2.2-4.2); Glucose 186 mg/dL (74-106); Magnesium 1.9 mg/dL (1.6-2.6); Potassium 4.8 mmol/L (3.5-5.1); Protein, Total 6.1 g/dL (6.4-8.2); Sodium Level 137 mmol/L (136-145)
[2024-03-03] MEDS: Ferrous Sulfate 325 MG Tablet PO (07:46)
[2024-03-03] MEDS: predniSONE 20 MG Tablet 40 MG PO (07:46)
[2024-03-03] MEDS: Folic Acid 1 MG Tablet PO (07:47)
[2024-03-03] MEDS: Pantoprazole Sodium 40 MG Tablet PO (07:47)
[2024-03-03] MEDS: Enoxaparin 40 MG/0.4 ML Syringe SC (07:47)
[2024-03-03] MEDS: FLU VACCINE **HIGH DOSE** TV 24-25 180 MCG/0.5 ML SYRINGE IM (07:52)
--- NOTE | 2024-03-03 09:15 | PCM.PN.HOSP ---
Reason for Visit Reason for Visit: Diagnoses Elevated white blood cell count, unspecified (03/02/24) Hypokalemia (03/02/24) Pain in right shoulder (03/02/24) Pain in right hip (03/02/24) Pain in left hip (03/02/24) Pain in right knee (03/02/24) Pain in left knee (03/02/24) Difficulty in walking, not elsewhere classified (03/02/24) Dysuria (03/02/24) Weakness (03/02/24) Objective Data Objective Data Vital Signs: Vital Signs Temp Pulse Resp BP Pulse Ox O2 Del Method 97.4 F L 46 L 16 92/52 L 98 Room Air 03/03/24 08:43 03/03/24 08:43 03/03/24 08:43 03/03/24 08:43 03/03/24 08:43 03/03/24 08:43 Oxygen Delivery Method Room Air Weight: 195 lb 5.273 oz Body Mass Index (BMI) 36.8 Intake & Output: Intake and Output for Last 24 Hours 03/01/24 03/02/24 03/03/24 23:59 23:59 23:59 Intake Total 51.25 / 51.25 700 / 700 Output Total 200 / 200 Balance 51.25 / -148.75 500 / 500 Lab / Micro Data 03/03/24 06:45 03/03/24 06:45 Labs: Laboratory Results - last 24 hr 03/02/24 16:02: WBC 15.0 H, RBC 3.48 L, Hgb 10.7 L, Hct 32.8 L, MCV 94.3, MCH 30.7, MCHC 32.6, RDW Std Deviation 50.7 H, RDW Coeff of Loren 14.8 H, Plt Count 231, MPV 9.6, Immature Gran % (Auto) 0.700, Neut % (Auto) 74.6 H, Lymph % (Auto) 12.2 L, [place] % (Auto) 11.5 H, Eos % (Auto) 0.8, Baso % (Auto) 0.2, Absolute Neuts (auto) 11.2 H, Absolute Lymphs (auto) 1.82, Nucleated RBC % 0, Differential Comment SCANNED, Diff Path Review October, ESR 45 H, Sodium 141, Potassium 3.2 L, Chloride 114 H, Carbon Dioxide 21.0, Anion Gap 6, BUN 22 H, Creatinine 0.91, Est GFR (MDRD) Af Amer 77, Est GFR (MDRD) Non-Af 64, BUN/Creatinine Ratio 24.3 H, Glucose 113 H, Calcium 7.5 L, Total Bilirubin 0.60, AST 19, ALT 27, Alkaline Phosphatase 97, C-React Prot Ext Range 81.50 H, Total Protein 5.3 L, Albumin 2.3 L, Globulin 3.0, Albumin/Globulin Ratio 0.8 L 03/03/24 06:45: WBC 10.7, RBC 3.19 L, Hgb 9.7 L, Hct 30.5 L, MCV 95.6, MCH 30.4, MCHC 31.8 L, RDW Std Deviation 50.8 H, RDW Coeff of Loren 14.6, Plt Count 191, MPV 10.1, Immature Gran % (Auto) 0.700, Neut % (Auto) 89.6 H, Lymph % (Auto) 7.8 L, [place] % (Auto) 1.8, Eos % (Auto) 0.0, Baso % (Auto) 0.1, Absolute Neuts (auto) 9.6 H, Absolute Lymphs (auto) 0.84, Nucleated RBC % 0, Sodium 137, Potassium 4.8, Chloride 108 H, Carbon Dioxide 24.0, Anion Gap 5, BUN 33 H, Creatinine 1.11 H, Estim Creat Clear Calc 42.96, Est GFR (MDRD) Af Amer 61, Est GFR (MDRD) Non-Af 51 L, BUN/Creatinine Ratio 29.7 H, Glucose 186 H, Calcium 9.1, Magnesium 1.9, Total Bilirubin 0.50, AST 14 L, ALT 27, Alkaline Phosphatase 106, Total Creatine Kinase 73, Total Protein 6.1 L, Albumin 2.4 L, Globulin 3.7, Albumin/Globulin Ratio 0.6 L Radiography Diagnostic Testing: Radiology Impression Hip/Pelvis X-Ray 03/02/24 15:00 IMPRESSION: Mild degree of joint space narrowing. No fracture is seen. Electronically Signed: Patricio Lozoya MD at 15:27 EDT , Knee X-Ray 03/02/24 15:00 IMPRESSION: Degenerative arthrosis. Electronically Signed: Patricio Lozoya MD at 15:29 EDT , Knee X-Ray 03/02/24 15:00 IMPRESSION: Degenerative arthrosis. Small joint effusion. Electronically Signed: Patricio Lozoya MD at 15:29 EDT , Shoulder X-Ray 03/02/24 15:00 IMPRESSION: Calcific tendinitis. Degenerative changes. Electronically Signed: Patricio Lozoya MD at 15:30 EDT , Abdomen/Pelvis CT 03/02/24 15:37 IMPRESSION: Postop changes status post cholecystectomy and hysterectomy. Minor diverticular changes of the colon without evidence for acute diverticulitis No evidence for small bowel obstruction or other acute abnormality Electronically Signed: Joel Guerrero MD at 16:56 EDT Reading Location ID and State: [facility] / [place] Tel , Service support , Physical Exam Narrative Patient admitted with severe right shoulder and right hip pain. She has chronic right shoulder pain due to rotator cuff disorder. She did not had fall. Physical exam General: Alert, Oriented x3, Cooperative HEENT: Atraumatic, PERRLA, EOMI, Normocephalic Oral: No Gingival or Mucosal Lesions/ Ulcerations Neck: Supple, No JVD, Negative Carotid Bruits Chest wall/Lungs: Air entry diminished in bilateral lung bases. No crepitation/rhonchi Cardiovascular: Regular rate, Regular Rhythm, Normal S1, Normal S2, Abdomen: Bowel Sounds Present, Soft, Non Tender, Non-Distended : No dysuria. No renal angle tenderness. No suprapubic tenderness. Extremities: No edema, Capillary Refill Less than 3 Seconds Skin: No rashes, No breakdown Musculoskeletal: No Tenderness to Palpation of Joints or Extremities Neurological: Cranial nerves II-XII grossly intact, DTR 2+/4. No acute focal neurological deficit. Psych/Mental Status: Normal Affect, Appropriate. Assessment & Plan Assessment/Plan (1) Weakness: (2) Bilateral hip pain: (3) Acute hypokalemia: (4) Dysuria: PLAN: Plan Bilateral hip and shoulder pain-right greater than left, she has chronic right shoulder pain from rotator cuff disorder. She got to spontaneously right hip pain without fall or major injury. Unclear diagnosis. Her right shoulder is tender around supraspinatus Significantly elevated ESR 45 and CRP 81 on prednisone -Patient had been on a tapering Medrol Dosepak for her cervical spine after most recent discharge -If does not clinically improve with steroids may need to consider further workup -UA abnormal LE 100, WBC 5-10 cells patient does not have dysuria. Generalized weakness/inability ambulate -Patient had low blood pressure in the morning but recheck was systolic 146. Control therefore was decreased in the morning. -PT/OT consultation -CM/SW consultation for assistance with discharge planning -Patient may need placement depending on progress Dysuria -UA is still pending however will treat empirically as patient is symptomatic and she reports frequent UTIs -Urine culture sent -Ceftriaxone 1 g daily Acute hypokalemia -P.o. potassium replacement -Repeat potassium 4.8. Hypokalemia corrected. Bilateral knee pain second osteoarthritis -This sounds like it is chronic and not acutely any different than her baseline -Treatment as noted above for pain -Patient already is following up as an outpatient and had recent surgical intervention on her left knee Cervical radiculopathy -Patient states she is much improved from her recent hospitalization with regards to this -Has outpatient follow-up with Dr. Hernandez COPD -Continue as needed albuterol -Continue home Trelegy inhaler -No signs of acute exacerbation Seasonal allergies -Continue home nasal spray Restless leg syndrome -Continue home Requip Fibromyalgia -Continue home nightly tizanidine -Continue home gabapentin GERD -Continue home PPI Hypothyroidism -Continue home levothyroxine Obesity -Complicates treatment, prognosis, outcomes -BMI 36.9 -Recommend weight loss DVT prophylaxis -Subcu Lovenox CODE STATUS -Full code Charges/Coding Visit Charges Inpatient E&M: 55583 Subs Hosp L2
[2024-03-03] MEDS: Ceftriaxone 1 GM/50 ML BAG IV (09:41)
--- NOTE | 2024-03-03 10:18 | CASEMGMT ---
ANDIE PAUL Assessment: Face to Face with pt for initial transition planning/care coordination assessment. ANDIE PAUL introduced self and role at [facility], pt voices understanding and consents to assessment. Pt is A&O x4 and answers all questions appropriately at this time. Pt sitting up in bed in no distress. Care providers, pharmacy, and demographics verified/updated. Admitting Dx: Bilat hip pain and inability to ambulate Strata Score: 3 PCP:Malka Specialists: Basali, pain mgmt; Masci, onc Preferred Pharmacy: [facility], [place] Insurance: [facility] MCR Dual Complete, [facility] Community Plan [employer]SEL[employer] Prescription Benefit: yes LNOK: Dionne Barr, uday Living Arrangements: Pt lives alone in a single story home with no steps to enter. Pt reports up until this episode she was I in ADLs and back to her baseline from previous hospitalization. Pt denies concerns at home. Transportation: Pt drives self to medical appts and denies concerns with transportation. DME:rollator, cane, shower chair HHC/SNF: Pt is active with an aide who comes twice a week and does shopping and laundry for pt. The company recently changed and pt cannot recall the name of the agency this aide is from. Pt is also active with [facility] for SN, PT and OT that was set up from last hospital stay. Pt states no concerns with going home at time of dc. Pt has not been oob at this time yet. Pt states she wants to go back home and continue with her aide and HHC. Pt denies need for list of other HHC options. Pt states her family wants her to move in with her son who lives in [facility]. Pt denies need for this. Pt aware that therapy will work with her and they will make recommendations on if she is safe to return home. Pt states no further concerns/needs. CM to follow. Advised pt to ask CM if any further question/concerns/needs arise, voices understanding. Pt Goal: Home with aide services and HHC resuming. Plan: TBD pending therapy and course of hospitalization Message sent to [facility] to make aware pt is hospitalized via [facility]. Felton CHAVES CM
[2024-03-03] MEDS: tiZANidine HCl 2 MG Tablet 4 MG PO ×2 (12:44→20:41)
[2024-03-03] MEDS: oxyCODONE 5 MG Tablet PO (13:56)
[2024-03-03] MEDS: 0.9% Normal Saline (250mL Bag) 250 ML 15 ML IV (13:56)
[2024-03-03 15:08] LABS: Pathologist Review Reviewed
[2024-03-03 15:47] LABS: Mucous, Urine 0 SEEN /hpf (<or=2+)
[2024-03-03 15:49] LABS: Color, Urine Yellow (Yellow); Glucose, Dipstick Normal (Normal); Ketone-Dipstick Negative (Negative); Leukocyte Esterase-Dipstick 100 /ul (Negative); Nitrite-Dipstick Negative (Negative); Occult Blood-Urine Negative /ul (Negative); Protein-Dipstick Negative (Negative); Urine Bilirubin Dipstick Negative (Negative); Urine Clarity Clear (Clear); Urine Urobilinogen Normal (Normal)
[2024-03-03 15:56] LABS: White Blood Cells 5-10 SEEN /hpf (0-5)
[2024-03-03 15:57] LABS: Bacteria RARE /hpf (None Seen); Red Blood Cells-Urine 0-5 SEEN /hpf (0-5); Squamous Epithelial Cells - UA 5-10 SEEN /hpf (5-10)
[2024-03-03 16:22] LABS: Phosphorus 3.5 mg/dL (2.5-4.9)
[2024-03-03] MEDS: Gabapentin 100 MG Capsule PO (20:32)
[2024-03-03] MEDS: Carvedilol 3.125 MG TABLET PO (20:32)
[2024-03-03] MEDS: Pramipexole Di-HCl 0.5 MG Tablet PO (20:33)
[2024-03-04] VITALS (7 sets, daily range): BP systolic 102–164; BP diastolic 45–69; PULSE 52–65; RESP 16–18; TEMP 36.4–36.7; O2SAT 94–98
[2024-03-04] MEDS: 0.9% Normal Saline (250mL Bag) 250 ML 15 ML IV (03:26)
[2024-03-04] MEDS: Levothyroxine 100 MCG Tablet 200 MCG PO (05:18)
[2024-03-04] MEDS: tiZANidine HCl 2 MG Tablet 4 MG PO ×3 (05:18→19:45)
[2024-03-04] MEDS: Acetaminophen 500 MG Tablet 1000 MG PO ×3 (05:18→19:44)
[2024-03-04] MEDS: Spironolactone 25 MG Tablet PO ×3 (07:45→19:47)
[2024-03-04] MEDS: Folic Acid 1 MG Tablet PO (07:46)
[2024-03-04] MEDS: Ferrous Sulfate 325 MG Tablet PO (07:46)
[2024-03-04] MEDS: predniSONE 20 MG Tablet 40 MG PO (07:47)
[2024-03-04] MEDS: Menthol/Lanolin/Calamine/Znox 113 GM Tube 1 APPLIC TOPICAL ×2 (07:47→19:48)
[2024-03-04] MEDS: Carvedilol 3.125 MG TABLET PO ×2 (07:48→19:45)
[2024-03-04 09:29] LABS: Absolute Lymphocyte Count 1.47 X10^3/uL (0.83-4.51); Basophil# 0.01 X10^3/uL; Basophil% 0.1 % (0-1); Eosinophil# 0.01 X10^3/uL; Eosinophils% 0.1 % (0-5); Hematocrit 30.3 % (37-47); Hemoglobin 9.7 g/dL (12.0-15.0); Lymphocyte # 1.47 X10^3/ul (0.83-4.51); Mean Corpuscular Hgb 30.5 pg (27.0-32.0); Mean Corpuscular Volume 95.3 fL (81-99); Mean Platelet Vol. 10.2 fl (6.2-12.0); Monocyte# 0.82 X10^3/uL; Monocyte% 6.1 % (0-10); NRBC Flagged by Analyzer 0 % (0-5); Neutrophil # 10.95 X10^3/uL (2.7-7.7); Platelet Count 203 K/mm3 (150-450); RBC Distribution Width CV 14.9 % (11.6-14.6); RBC Distribution Width SD 52.1 fl (35.1-43.9); Red Blood Count 3.18 M/mm3 (4.2-5.4); White Blood Count 13.4 K/mm3 (4.4-11.0)
[2024-03-04] MEDS: Pantoprazole Sodium 40 MG Tablet PO (09:34)
[2024-03-04] MEDS: Ceftriaxone 1 GM/50 ML BAG IV (09:34)
[2024-03-04 09:47] LABS: Anion Gap 6 (5-15); BUN 31 mg/dL (7-18); BUN/Creat Ratio 31.3 RATIO (10-20); Calcium,Total 9.1 mg/dL (8.5-10.1); Chloride 112 mmol/L (98-107); Creatinine, Serum 0.99 mg/dL (0.55-1.02); EST Glomerular Filtration Rate 58 mL/min (>60); Est Glom Filt Rate - Afr Amer 70 mL/min (>60); Estimated Creatinine Clearance 48.17 ml/min; Glucose 121 mg/dL (74-106); Potassium 4.4 mmol/L (3.5-5.1); Sodium Level 140 mmol/L (136-145)
--- NOTE | 2024-03-04 12:34 | CASEMGMT ---
ANDIE PAUL noted HH therapy recommended. ANDIE PAUL into pt room, pt states she feels she did better with therapy today and she plans to still go home with HHC. She states she does not feel quite ready today though. Updated hospitalist. Plan will be potential dc for tomorrow. Pt states she has an ortho appt next week. She states should she have difficulties at home, she will go stay with her son until a better plan is arranged. Updated [facility] at this time. Green sheet on chart for weekend dc. ANDIE PAUL updated pt on potential plan for dc over the weekend. Pt is agreeable to this.
[2024-03-04] MEDS: oxyCODONE 5 MG Tablet PO ×2 (13:59→19:50)
--- NOTE | 2024-03-04 16:54 | PN.HOSP_ITS ---
Reason for Visit Reason for Visit: Diagnoses Elevated white blood cell count, unspecified (03/02/24) Hypokalemia (03/02/24) Pain in right shoulder (03/02/24) Pain in right hip (03/02/24) Pain in left hip (03/02/24) Pain in right knee (03/02/24) Pain in left knee (03/02/24) Difficulty in walking, not elsewhere classified (03/02/24) Dysuria (03/02/24) Weakness (03/02/24) Objective Data Objective Data Vital Signs: Vital Signs Temp Pulse Resp BP Pulse Ox O2 Del Method O2 Flow Rate 98 F 58 L 16 113/48 L 97 Room Air 99 03/04/24 15:14 03/04/24 15:14 03/04/24 15:14 03/04/24 15:14 03/04/24 15:14 03/04/24 15:14 03/03/24 11:52 Oxygen Flow Rate (L/min) 99 Oxygen Delivery Method Room Air Weight: 195 lb 5.273 oz Body Mass Index (BMI) 36.8 Intake & Output: Intake and Output for Last 24 Hours 03/02/24 03/03/24 03/04/24 23:59 23:59 23:59 Intake Total 51.25 / 51.25 1620 / 1620 552.5 / 552.5 Output Total 200 / 200 Balance 51.25 / -148.75 1420 / 1420 552.5 / 552.5 Lab / Micro Data 03/04/24 09:15 03/04/24 09:15 Labs: Laboratory Results - last 24 hr 03/04/24 09:15: WBC 13.4 H, RBC 3.18 L, Hgb 9.7 L, Hct 30.3 L, MCV 95.3, MCH 30.5, MCHC 32.0, RDW Std Deviation 52.1 H, RDW Coeff of Loren 14.9 H, Plt Count 203, MPV 10.2, Immature Gran % (Auto) 0.700, Neut % (Auto) 82.0 H, Lymph % (Auto) 11.0 L, [place] % (Auto) 6.1, Eos % (Auto) 0.1, Baso % (Auto) 0.1, Absolute Neuts (auto) 11.0 H, Absolute Lymphs (auto) 1.47, Nucleated RBC % 0, Sodium 140, Potassium 4.4, Chloride 112 H, Carbon Dioxide 22.0, Anion Gap 6, BUN 31 H, Creatinine 0.99, Estim Creat Clear Calc 48.17, Est GFR (MDRD) Af Amer 70, Est GFR (MDRD) Non-Af 58 L, BUN/Creatinine Ratio 31.3 H, Glucose 121 H, Calcium 9.1 Micro: Microbiology 03/03/24 15:37 Urine, Catheterized Urine Culture - Preliminary Mixed Gram Positive Organisms Physical Exam Narrative Seen and examined. Right shoulder pain still there but right hip pain has improved. She is able to walk few steps within the home. Pain level is better compared to yesterday. She has chronic right shoulder pain due to rotator cuff disorder. She did not had fall. Physical exam General: Alert, Oriented x3, Cooperative HEENT: Atraumatic, PERRLA, EOMI, Normocephalic Oral: No Gingival or Mucosal Lesions/ Ulcerations Neck: Supple, No JVD, Negative Carotid Bruits Chest wall/Lungs: Air entry diminished in bilateral lung bases. No crepitation/rhonchi Cardiovascular: Regular rate, Regular Rhythm, Normal S1, Normal S2, Abdomen: Bowel Sounds Present, Soft, Non Tender, Non-Distended : No dysuria. No renal angle tenderness. No suprapubic tenderness. Extremities: No edema, Capillary Refill Less than 3 Seconds Skin: No rashes, No breakdown Musculoskeletal: Mild tenderness over right hip lateral aspect. Tenderness over right rotator cuff mainly anterior and superior aspect of rotator cuff. Severe degenerative arthritis of right hip. Bilateral status post arthroscopic surgeries of the knee Neurological: Cranial nerves II-XII grossly intact, DTR 2+/4. No acute focal neurological deficit. Psych/Mental Status: Normal Affect, Appropriate. Assessment & Plan Assessment/Plan (1) Weakness: (2) Bilateral hip pain: (3) Acute hypokalemia: (4) Dysuria: PLAN: Plan Bilateral hip and shoulder pain-right greater than left, she has chronic right shoulder pain from rotator cuff disorder. She got to spontaneously right hip pain without fall or major injury. Unclear diagnosis. Her right shoulder is tender around supraspinatus Significantly elevated ESR 45 and CRP 81 on prednisone -Patient had been on a tapering Medrol Dosepak for her cervical spine after most recent discharge -If does not clinically improve with steroids may need to consider further workup -UA abnormal LE 100, WBC 5-10 cells patient does not have dysuria. 03/04: Patient feels improvement in the right hip pain. Right shoulder pain did not show much improvement. PT and OT. Patient wants to go to home but seems still has significant amount of pain and needs help for ADL and ambulation therefore addiction social worker/manager case management and therapist recommended nursing. Patient is still undecided on diet. Urine culture shows mixed gram-positive organisms suggestive of contamination. IV ceftriaxone discontinued. Will need follow-up with orthopedic surgeon as an outpatient. Generalized weakness/inability ambulate -Patient had low blood pressure in the morning but recheck was systolic 146. Control therefore was decreased in the morning. -PT/OT consultation -CM/SW consultation for assistance with discharge planning -Patient may need placement depending on progress Dysuria -UA is still pending however will treat empirically as patient is symptomatic and she reports frequent UTIs -Urine culture sent -Ceftriaxone 1 g daily Acute hypokalemia -P.o. potassium replacement -Repeat potassium 4.8. Hypokalemia corrected. Bilateral knee pain second osteoarthritis -This sounds like it is chronic and not acutely any different than her baseline -Treatment as noted above for pain -Had bilateral knee arthroscopic surgeries in the past Cervical radiculopathy -Patient states she is much improved from her recent hospitalization with regards to this -Has outpatient follow-up with Dr. Hernandez COPD -Continue as needed albuterol -Continue home Trelegy inhaler -No signs of acute exacerbation Seasonal allergies -Continue home nasal spray Restless leg syndrome -Continue home Requip Fibromyalgia -Continue home nightly tizanidine -Continue home gabapentin GERD -Continue home PPI Hypothyroidism -Continue home levothyroxine Obesity -Complicates treatment, prognosis, outcomes -BMI 36.9 -Recommend weight loss DVT prophylaxis -Subcu Lovenox CODE STATUS -Full code Charges/Coding Visit Charges Inpatient E&M: 50344 Subs Hosp L2
[2024-03-04] MEDS: Gabapentin 100 MG Capsule PO (19:44)
[2024-03-04] MEDS: Pramipexole Di-HCl 0.5 MG Tablet PO (19:47)
[2024-03-05 05:12] LABS: Absolute Lymphocyte Count 1.92 X10^3/uL (0.83-4.51); Absolute Neutrophil Count 8.6 X10^3/uL (2.0-7.7); Basophil# 0.01 X10^3/uL; Basophil% 0.1 % (0-1); Eosinophil# 0.01 X10^3/uL; Eosinophils% 0.1 % (0-5); Hematocrit 31.2 % (37-47); Hemoglobin 9.8 g/dL (12.0-15.0); Lymphocyte # 1.92 X10^3/ul (0.83-4.51); Lymphocyte % 16.5 % (19-41); Mean Corp Hgb Conc 31.4 g/dL (32-36); Mean Corpuscular Hgb 30.2 pg (27.0-32.0); Mean Corpuscular Volume 96.3 fL (81-99); Mean Platelet Vol. 10.7 fl (6.2-12.0); Monocyte# 1.02 X10^3/uL; Monocyte% 8.8 % (0-10); NRBC Flagged by Analyzer 0 % (0-5); Neutrophil # 8.59 X10^3/uL (2.7-7.7); Platelet Count 230 K/mm3 (150-450); RBC Distribution Width CV 15.2 % (11.6-14.6); RBC Distribution Width SD 53.8 fl (35.1-43.9); Red Blood Count 3.24 M/mm3 (4.2-5.4); White Blood Count 11.6 K/mm3 (4.4-11.0)
[2024-03-05] MEDS: Spironolactone 25 MG Tablet PO ×3 (05:32→20:50)
[2024-03-05] MEDS: Levothyroxine 100 MCG Tablet 200 MCG PO (05:32)
[2024-03-05] MEDS: Acetaminophen 500 MG Tablet 1000 MG PO ×3 (05:33→20:51)
[2024-03-05] MEDS: tiZANidine HCl 2 MG Tablet 4 MG PO ×3 (05:33→20:50)
[2024-03-05 05:42] LABS: Anion Gap 5 (5-15); BUN 26 mg/dL (7-18); BUN/Creat Ratio 30.8 RATIO (10-20); Calcium,Total 9.6 mg/dL (8.5-10.1); Chloride 111 mmol/L (98-107); Creatinine, Serum 0.84 mg/dL (0.55-1.02); EST Glomerular Filtration Rate 70 mL/min (>60); Est Glom Filt Rate - Afr Amer 84 mL/min (>60); Estimated Creatinine Clearance 56.77 ml/min; Glucose 105 mg/dL (74-106); Potassium 4.2 mmol/L (3.5-5.1); Sodium Level 141 mmol/L (136-145)
[2024-03-05 07:12] VITALS: O2SAT 95
[2024-03-05 08:00] VITALS: BP 144/62; PULSE 53; RESP 18; TEMP 36.6; O2SAT 95
[2024-03-05] MEDS: Carvedilol 3.125 MG TABLET PO ×2 (08:00→20:51)
[2024-03-05] MEDS: Ferrous Sulfate 325 MG Tablet PO (08:01)
[2024-03-05] MEDS: Menthol/Lanolin/Calamine/Znox 113 GM Tube 1 APPLIC TOPICAL ×2 (08:01→20:57)
[2024-03-05] MEDS: Folic Acid 1 MG Tablet PO (08:01)
[2024-03-05] MEDS: predniSONE 20 MG Tablet 40 MG PO (08:01)
[2024-03-05] MEDS: Pantoprazole Sodium 40 MG Tablet PO (08:01)
--- NOTE | 2024-03-05 11:18 | PCM.PN.HOSP ---
Subjective Subjective Doing well, no issues over Objective Data Objective Data Vital Signs: Vital Signs Temp Pulse Resp BP Pulse Ox O2 Del Method O2 Flow Rate 98 F 53 L 18 144/62 H 95 Room Air 99 03/05/24 08:00 03/05/24 08:00 03/05/24 08:00 03/05/24 08:00 03/05/24 08:00 03/05/24 08:00 03/03/24 11:52 Oxygen Flow Rate (L/min) 99 Oxygen Delivery Method Room Air Weight: 195 lb 5.273 oz Body Mass Index (BMI) 36.8 Intake & Output: Intake and Output for Last 24 Hours 03/04/24 03/05/24 03/06/24 03:59 03:59 03:59 Intake Total 1822.5 / 1822.5 1050 / 1050 Balance 1822.5 / 1822.5 1050 / 1050 Lab / Micro Data 03/05/24 04:10 03/05/24 04:10 Labs: Laboratory Results - last 24 hr 03/05/24 04:10: WBC 11.6 H, RBC 3.24 L, Hgb 9.8 L, Hct 31.2 L, MCV 96.3, MCH 30.2, MCHC 31.4 L, RDW Std Deviation 53.8 H, RDW Coeff of Loren 15.2 H, Plt Count 230, MPV 10.7, Immature Gran % (Auto) 0.500, Neut % (Auto) 74.0 H, Lymph % (Auto) 16.5 L, [place] % (Auto) 8.8, Eos % (Auto) 0.1, Baso % (Auto) 0.1, Absolute Neuts (auto) 8.6 H, Absolute Lymphs (auto) 1.92, Nucleated RBC % 0, Sodium 141, Potassium 4.2, Chloride 111 H, Carbon Dioxide 25.0, Anion Gap 5, BUN 26 H, Creatinine 0.84, Estim Creat Clear Calc 56.77, Est GFR (MDRD) Af Amer 84, Est GFR (MDRD) Non-Af 70, BUN/Creatinine Ratio 30.8 H, Glucose 105, Calcium 9.6 Micro: Microbiology 03/03/24 15:37 Urine, Catheterized Urine Culture - Preliminary Mixed Gram Positive Organisms Physical Exam Narrative General: Alert, Oriented x3, Cooperative, No apparent distress HEENT: Atraumatic, PERRLA, EOMI, Normocephalic Oral: Moist Mucosa Neck: Supple, No JVD Lungs: Diminished, Normal air movement, No rhonchi, No wheeze, No rales Cardiovascular: Regular rate, Regular Rhythm, Normal S1, Normal S2, No murmurs Abdomen: Soft, Non Tender, Non-Distended, No Hepato-splenomegaly Extremities: No edema, Capillary Refill Less than 3 Seconds Skin: No rashes, No breakdown Musculoskeletal: Slight right hip tenderness to palpation Neurological: No focal neurological deficits, Motor Exam 5/5 strength throughout, Sensory exam intact to light touch and pain Psych/Mental Status: Normal Affect, Appropriate Assessment & Plan Assessment/Plan (1) Weakness: (2) Bilateral hip pain: (3) Acute hypokalemia: (4) Dysuria: PLAN: Plan Bilateral hip and shoulder pain-right greater than left, she has chronic right shoulder pain from rotator cuff disorder. She got to spontaneously right hip pain without fall or major injury. Unclear diagnosis. Her right shoulder is tender around supraspinatus Significantly elevated ESR 45 and CRP 81 on prednisone -Patient had been on a tapering Medrol Dosepak for her cervical spine after most recent discharge -If does not clinically improve with steroids may need to consider further workup -UA abnormal LE 100, WBC 5-10 cells patient does not have dysuria. 03/04: Patient feels improvement in the right hip pain. Right shoulder pain did not show much improvement. PT and OT. Patient wants to go to home but seems still has significant amount of pain and needs help for ADL and ambulation therefore social insurance adviser/director case and therapist recommended nursing. Patient is still undecided on diet. Urine culture shows mixed gram-positive organisms suggestive of contamination. IV ceftriaxone discontinued. Will need follow-up with orthopedic surgeon as an outpatient. 03/05/2024: Pain appears to be improving with steroids, will continue with PT and OT Generalized weakness/inability ambulate -Patient had low blood pressure in the morning but recheck was systolic 146. Control therefore was decreased in the morning. -PT/OT consultation -CM/SW consultation for assistance with discharge planning -Patient may need placement depending on progress Dysuria -UA is still pending however will treat empirically as patient is symptomatic and she reports frequent UTIs -Urine culture sent -Ceftriaxone 1 g daily 03/05/2024: Urine culture with mixed organisms, Rocephin discontinued Acute hypokalemia -P.o. potassium replacement -Repeat potassium 4.8. Hypokalemia corrected. Bilateral knee pain second osteoarthritis -This sounds like it is chronic and not acutely any different than her baseline -Treatment as noted above for pain -Had bilateral knee arthroscopic surgeries in the past Cervical radiculopathy -Patient states she is much improved from her recent hospitalization with regards to this -Has outpatient follow-up with Dr. Hernandez COPD -Continue as needed albuterol -Continue home Trelegy inhaler -No signs of acute exacerbation Seasonal allergies -Continue home nasal spray Restless leg syndrome -Continue home Requip Fibromyalgia -Continue home nightly tizanidine -Continue home gabapentin GERD -Continue home PPI Hypothyroidism -Continue home levothyroxine Obesity -Complicates treatment, prognosis, outcomes -BMI 36.9 -Recommend weight loss DVT: Lovenox Charges/Coding Visit Charges Inpatient E&M: 29867 Subs Hosp L2
--- NOTE | 2024-03-05 12:05 | CASEMGMT ---
Social Work Pt asked RN for MONICA to see pt. SW met w/pt, she would like a walker, has a rollator but wants a smaller walker. MONICA let CM know. LUIGI Baldwin
[2024-03-05 14:30] VITALS: BP 177/73; PULSE 58; RESP 20; TEMP 36.6; O2SAT 94
[2024-03-05 16:15] VITALS: BP 148/68; PULSE 51; RESP 18; TEMP 36.6; O2SAT 95
[2024-03-05] MEDS: Pramipexole Di-HCl 0.5 MG Tablet PO (20:52)
[2024-03-05] MEDS: Gabapentin 100 MG Capsule PO (20:57)
[2024-03-05] MEDS: oxyCODONE 5 MG Tablet PO (20:57)
[2024-03-05 21:09] VITALS: BP 181/66; PULSE 70; RESP 18; TEMP 36.8; O2SAT 98
[2024-03-06 03:00] VITALS: BP 149/58; PULSE 58; RESP 18; TEMP 37; O2SAT 97
[2024-03-06] MEDS: Acetaminophen 500 MG Tablet 1000 MG PO (05:34)
[2024-03-06] MEDS: Levothyroxine 150 MCG Tablet 300 MCG PO (05:34)
[2024-03-06] MEDS: Spironolactone 25 MG Tablet PO (05:35)
[2024-03-06] MEDS: tiZANidine HCl 2 MG Tablet 4 MG PO (05:35)
[2024-03-06 07:54] VITALS: O2SAT 96
[2024-03-06 08:17] VITALS: BP 172/47; PULSE 61; RESP 18; TEMP 36.6; O2SAT 98
[2024-03-06] MEDS: 0.9% Saline Lock 10 ML Syringe IV ×2 (08:27→12:21)
[2024-03-06] MEDS: Ferrous Sulfate 325 MG Tablet PO (08:28)
[2024-03-06] MEDS: Folic Acid 1 MG Tablet PO (08:28)
[2024-03-06] MEDS: predniSONE 20 MG Tablet 40 MG PO (08:28)
[2024-03-06] MEDS: Carvedilol 6.25 MG Tablet PO (08:28)
[2024-03-06 08:59] LABS: Erythrocyte Sedimentation Rate 37 mm/hr (0-30)
--- NOTE | 2024-03-06 10:03 | DCINST_ITS ---
Discharge Instructions Diet Discharge Diet: Low fat / Low cholesterol Activity Discharge Activity: Return to Normal Activity Dressing / Incision Call your doctor if you observe: Fever of 101 or Higher, Shortness of breath, Dizziness, Fainting spells, Swelling in the ankles, Chest pain and Increased palpitations (irregular heartbeat) Follow Up Care Test Results: Test results from this visit will be discussed in further detail at your follow- up appointment, if applicable. Discharge Plan Admission Admit Date/Time: 03/02/24 17:47 Attending Provider: Conner Moreno Primary Care Provider: Maricruz Ace Consulting Providers: Luciana Wagoner; Tyler Gallagher Instructions Additional Instructions / Restrictions: Follow-up with your PCP in 3 to 5 days to monitor your steroid use and referral for rheumatology and evaluation for the possibility of polymyalgia rheumatica Discharge Orders/Prescriptions Prescriptions: New prednisone 20 mg Tablet 20 mg PO BREAKFAST 30 Days Qty: 30 0RF Continued fluticasone propionate 50 mcg/actuation spray,suspension 1 spray intranasal DAILY Patient Comments: Use 1 [place] in each nostril once daily. albuterol sulfate 90 mcg/actuation HFA aerosol inhaler 2 puff inhalation Q4H PRN (Reason: shortness of breath or wheezing) Patient Comments: Inhale 2 Puffs as instructed every 4 hours as needed. cyanocobalamin (vitamin B-12) 1,000 mcg/mL kit 1,000 mcg IM QMONTH calcium carbonate-vitamin D3 600 mg-12.5 mcg (500 unit) capsule 1 cap PO DAILY ferrous sulfate 325 mg (65 mg iron) tablet 325 mg PO DAILY oxycodone-acetaminophen 5-325 mg tablet 1 tab PO TID pantoprazole 40 MG tablet 40 mg PO DAILY ropinirole [Requip] 0.5 MG tablet 1 mg PO QHS carvedilol 6.25 mg tablet 6.25 mg PO BID Patient Comments: TAKE 1 TABLET BY MOUTH TWICE DAILY folic acid 1 mg tablet 1 mg PO DAILY Patient Comments: TAKE 1 TABLET BY MOUTH EVERY DAY spironolactone [Aldactone] 50 mg tablet 50 mg PO DAILY Patient Comments: Take 1 tablet by mouth once daily. tizanidine 4 mg tablet 8 mg PO QHS Patient Comments: TAKE 2 TABLETS BY MOUTH EVERY NIGHT AT BEDTIME levothyroxine 200 mcg tablet 200 mcg PO MOTUWETHFRSA Patient Comments: Take 1 tablet by mouth once daily. Except on Thursday take 1 and a half tablet. Rx Instructions: 200 mcg orally; Take 1 tablet by mouth once daily. Except on Thursday take 1 and a half tablet. levothyroxine 200 mcg capsule 300 mcg PO ADAMES Trelegy Ellipta 100-62.5-25 mcg blister with device 1 ea inhalation DAILY gabapentin 100 mg capsule 100 mg PO QHS Discontinued methylprednisolone 4 mg tablet 4 mg PO 0800,2200 Qty: 4 0RF Referrals / Follow Up: Maricruz Ace MD [Primary Care Provider] - Within 1 Week Disposition Disposition (needs filled in before D/C Order can be placed): Home, Self Care
--- NOTE | 2024-03-06 10:41 | PCA ---
Faxed discharge orders to [facility], and call placed.
[2024-03-06] MEDS: Pantoprazole Sodium 40 MG Tablet PO (11:16)
[2024-03-06 12:11] VITALS: BP 179/69; PULSE 60; RESP 18; TEMP 36.7; O2SAT 96
--- NOTE | 2024-03-06 12:27 | PCM.DC.SUM ---
Providers Date of Admission: 03/02/24 Primary Care Physician: Dr. Maricruz Ace MD Reason For Visit: B HIP PAIN AND INABILITY TO AMBULATE Diagnosis Discharge Diagnosis (1) Weakness: Status: Acute Code(s): R53.1 - Weakness (2) Bilateral hip pain: Status: Acute Code(s): M25.551 - Pain in right hip; M25.552 - Pain in left hip (3) Acute hypokalemia: Status: Acute Code(s): E87.6 - Hypokalemia (4) Dysuria: Status: Acute Code(s): R30.0 - Dysuria Medications at Discharge Home Medications pantoprazole 40 mg tablet,delayed release 40 mg PO DAILY stomach 07/24/18 ropinirole 0.5 mg tablet (Requip) 1 mg PO QHS restless legs 07/24/18 carvedilol 6.25 mg tablet 6.25 mg PO BID heart 02/12/22 folic acid 1 mg tablet 1 mg PO DAILY 02/12/22 spironolactone 50 mg tablet (Aldactone) 50 mg PO DAILY water pill 02/12/22 albuterol sulfate 90 mcg/actuation aerosol inhaler 2 puff inhalation Q4H PRN shortness of breath or wheezing 12/19/22 calcium 600 mg (as carbonate)-vitamin D3 12.5 mcg (500 unit) capsule 1 cap PO DAILY supplement 12/19/22 cyanocobalamin (vitamin B-12) 1,000 mcg/mL injection kit 1,000 mcg IM QMONTH supplement 12/19/22 ferrous sulfate 325 mg (65 mg iron) tablet 325 mg PO DAILY iron 12/19/22 fluticasone propionate 50 mcg/actuation nasal spray,suspension 1 spray intranasal DAILY allergies 12/19/22 oxycodone-acetaminophen 5 mg-325 mg tablet 1 tab PO TID Pain 12/19/22 levothyroxine 200 mcg tablet 200 mcg PO MOTUWETHFRSA 07/10/23 tizanidine 4 mg tablet 8 mg PO QHS muscle spasm 07/10/23 fluticasone fur. 100 mcg-umeclid 62.5 mcg-vilant 25 mcg inhalat.powder (Trelegy Ellipta) 1 ea inhalation DAILY breathing 10/29/23 gabapentin 100 mg capsule 100 mg PO QHS pain 10/29/23 levothyroxine 200 mcg capsule 300 mcg PO ADAMES thyroid 10/29/23 prednisone 20 mg tablet 20 mg PO BREAKFAST 30 days #30 tabs 03/06/24 Hospital Course Operations None Procedures None Summary of Care Provided Minutes Spent on Discharge: 34 Hospital Course: Per HPI: BRIANNA DYSON, is a 78 F who presented to the emergency department at [facility] on 03/02/2020 for complaining of bilateral hip pain the right being dramatically worse than the left as well as right shoulder pain. She complains that her pain in her hip was so severe and was associated with weakness that she was unable to get up off the toilet and sat there for 2 hours. She has chronic issues with regards to pain but this was an acute change and worse in the last 24 hours. She had a recent hospitalization here for bilateral upper extremity pain and tingling/numbness at which time she was found to have a paracentral disc bulge and was injected with steroids. She was sent home with a Medrol Dosepak which has been tapering since that point in time. She stated yesterday she was a little bit tired but this morning when she woke up is when she really noted that her pain was dramatic. She has never had anything like this previously. She also complains of bilateral knee pain that is chronic and not really much worse than typical. On exam she has significant pain with palpation of bilateral hips right greater than left and mildly to the left shoulder but markedly on the right shoulder and pain with movement. She denies any fever or chills and has not had any systemic symptoms. She also did complain of some dysuria and states she does get frequent urinary tract infections. Vital signs of presentation showed temperature of 98, heart rate 95, respiratory 16, blood pressure was 152/84 and pulse ox was 96% on room air. CBC showed mild leukocytosis with a white count of 15.0 and a left shift however the patient's been on steroids and got a steroid injection. Chronic stable anemia. I obtained an ESR that was 45 and a CRP that was 81.5 which is surprising given her steroid use at home. Chemistry panel showed mild hypokalemia with a potassium of 3.2. Renal function was normal and at baseline. Liver functions were unremarkable. Hip and pelvic x-ray showed only a mild degree of joint space narrowing bilaterally. Bilateral knee x-ray showed mild to moderate degenerative arthrosis in the left knee had a small effusion however the patient had recent surgery on this. Shoulder x-ray showed calcific tendinitis with degenerative changes and CT of the abdomen pelvis showed postop changes status post cholecystectomy and hysterectomy with minor diverticular changes of the colon without evidence of acute diverticulitis and no evidence of bowel obstruction or other acute abnormality. Given her markedly elevated sed rate and CRP I am concerned that this could be polymyalgia rheumatica given her symptoms on presentation. She was given 60 mg of IV steroids in emergency department and will start 40 mg daily tomorrow and reevaluate pain and function. Hospital course: Bilateral hip and shoulder pain-right greater than left, she has chronic right shoulder pain from rotator cuff disorder. She got to spontaneously right hip pain without fall or major injury. Unclear diagnosis. Her right shoulder is tender around supraspinatus Significantly elevated ESR 45 and CRP 81 on prednisone -Patient had been on a tapering Medrol Dosepak for her cervical spine after most recent discharge -If does not clinically improve with steroids may need to consider further workup -UA abnormal LE 100, WBC 5-10 cells patient does not have dysuria. 03/04: Patient feels improvement in the right hip pain. Right shoulder pain did not show much improvement. PT and OT. Patient wants to go to home but seems still has significant amount of pain and needs help for ADL and ambulation therefore social worker delinquency prevention/caseworker intake and therapist recommended nursing. Patient is still undecided on diet. Urine culture shows mixed gram-positive organisms suggestive of contamination. IV ceftriaxone discontinued. Will need follow-up with orthopedic surgeon as an outpatient. 03/05/2024: Pain appears to be improving with steroids, will continue with PT and OT 03/06/2024: She has had significant improvement with steroids and this was decreased from 40 mg to 20 mg of prednisone daily on discharge. There is concern for polymyalgia rheumatica given her bilateral shoulder pain and muscle weakness as well as her lower extremity pain and muscle weakness. I do recommend that she follow-up with outpatient rheumatology she does have a history of rheumatoid arthritis that she says it was mild. ESR and CRP are still elevated but significantly improved from admission. I discussed with her the plan for discharge today she expressed understanding the risk benefits of going home and would like to go home today. She was having some elevated blood pressures with the prednisone so her Coreg was increased back to her home dose of 6.25 mg p.o. twice daily Generalized weakness/inability ambulate -Patient had low blood pressure in the morning but recheck was systolic 146. Control therefore was decreased in the morning. -PT/OT consultation -CM/SW consultation for assistance with discharge planning -Patient may need placement depending on progress Dysuria -UA is still pending however will treat empirically as patient is symptomatic and she reports frequent UTIs -Urine culture sent -Ceftriaxone 1 g daily 03/05/2024: Urine culture with mixed organisms, Rocephin discontinued Acute hypokalemia -P.o. potassium replacement -Repeat potassium 4.8. Hypokalemia corrected. Bilateral knee pain second osteoarthritis -This sounds like it is chronic and not acutely any different than her baseline -Treatment as noted above for pain -Had bilateral knee arthroscopic surgeries in the past Cervical radiculopathy -Patient states she is much improved from her recent hospitalization with regards to this -Has outpatient follow-up with Dr. Hernandez COPD -Continue as needed albuterol -Continue home Trelegy inhaler -No signs of acute exacerbation Seasonal allergies -Continue home nasal spray Restless leg syndrome -Continue home Requip Fibromyalgia -Continue home nightly tizanidine -Continue home gabapentin GERD -Continue home PPI Hypothyroidism -Continue home levothyroxine Obesity -Complicates treatment, prognosis, outcomes -BMI 36.9 -Recommend weight loss DVT: Lovenox Physical Exam Narrative General: Alert, Oriented x3, Cooperative, No apparent distress HEENT: Atraumatic, PERRLA, EOMI, Normocephalic Oral: Moist Mucosa Neck: Supple, No JVD Lungs: Diminished, Normal air movement, No rhonchi, No wheeze, No rales Cardiovascular: Regular rate, Regular Rhythm, Normal S1, Normal S2, No murmurs Abdomen: Soft, Non Tender, Non-Distended, No Hepato-splenomegaly Extremities: No edema, Capillary Refill Less than 3 Seconds Skin: No rashes, No breakdown Musculoskeletal: Slight right hip tenderness to palpation Neurological: No focal neurological deficits, Motor Exam 5/5 strength throughout, Sensory exam intact to light touch and pain Psych/Mental Status: Normal Affect, Appropriate Weight / BMI Weight Weight: 195 lb 5.273 oz Body Mass Index (BMI) 36.8 ABG / Lab / Microbiology Data 03/05/24 04:10 03/05/24 04:10 Laboratory: Laboratory Results - last 24 hr 03/06/24 08:35: ESR 37 H, C-React Prot Ext Range 17.30 H Microbiology: Microbiology 03/03/24 15:37 Urine, Catheterized Urine Culture - Preliminary Staphylococcus simulans Enterococcus faecium Yeast Like Organism D/C Instructions Discharge Diet: Low fat / Low cholesterol Call your doctor if you observe: Fever of 101 or Higher, Shortness of breath, Dizziness, Fainting spells, Swelling in the ankles, Chest pain and Increased palpitations (irregular heartbeat) Meaningful Use Info Meaningful Use Meaningful Use Diagnoses (Choose all that apply): None applicable Ischemic Stroke Statin Dosing Therapy Reference: STATIN DOSE THERAPY REFERENCE: * Patients > 75 years receive moderate or high dose statin therapy. * Patients 75 years or YOUNGER should receive HIGH intensity statin dose unless contraindicated. You will be required to document reason for non-treatment if statin daily dose does not meet guidelines. HIGH DOSE STATIN THERAPY DAILY Atorvastatin > than or = to 40 mg Rosuvastatin > than or = to 20 mg Amlodipine + Atorvastatin > than or = to 2.5/40 mg Ezetimibe + Simvastatin 10/80 mg Simvastatin 80mg Discharge Plan Admission Admit Date/Time: 03/02/24 17:47 Attending Provider: Conner Moreno Primary Care Provider: Maricruz Ace Consulting Providers: Luciana Wagoner; Tyler Gallagher Instructions Additional Instructions / Restrictions: Follow-up with your PCP in 3 to 5 days to monitor your steroid use and referral for rheumatology and evaluation for the possibility of polymyalgia rheumatica Discharge Orders/Prescriptions Prescriptions: New prednisone 20 mg Tablet 20 mg PO BREAKFAST 30 Days Qty: 30 0RF Continued fluticasone propionate 50 mcg/actuation spray,suspension 1 spray intranasal DAILY Patient Comments: Use 1 [place] in each nostril once daily. albuterol sulfate 90 mcg/actuation HFA aerosol inhaler 2 puff inhalation Q4H PRN (Reason: shortness of breath or wheezing) Patient Comments: Inhale 2 Puffs as instructed every 4 hours as needed. cyanocobalamin (vitamin B-12) 1,000 mcg/mL kit 1,000 mcg IM QMONTH calcium carbonate-vitamin D3 600 mg-12.5 mcg (500 unit) capsule 1 cap PO DAILY ferrous sulfate 325 mg (65 mg iron) tablet 325 mg PO DAILY oxycodone-acetaminophen 5-325 mg tablet 1 tab PO TID pantoprazole 40 MG tablet 40 mg PO DAILY ropinirole [Requip] 0.5 MG tablet 1 mg PO QHS carvedilol 6.25 mg tablet 6.25 mg PO BID Patient Comments: TAKE 1 TABLET BY MOUTH TWICE DAILY folic acid 1 mg tablet 1 mg PO DAILY Patient Comments: TAKE 1 TABLET BY MOUTH EVERY DAY spironolactone [Aldactone] 50 mg tablet 50 mg PO DAILY Patient Comments: Take 1 tablet by mouth once daily. tizanidine 4 mg tablet 8 mg PO QHS Patient Comments: TAKE 2 TABLETS BY MOUTH EVERY NIGHT AT BEDTIME levothyroxine 200 mcg tablet 200 mcg PO MOTUWETHFRSA Patient Comments: Take 1 tablet by mouth once daily. Except on Thursday take 1 and a half tablet. Rx Instructions: 200 mcg orally; Take 1 tablet by mouth once daily. Except on Thursday take 1 and a half tablet. levothyroxine 200 mcg capsule 300 mcg PO ADAMES Trelegy Ellipta 100-62.5-25 mcg blister with device 1 ea inhalation DAILY gabapentin 100 mg capsule 100 mg PO QHS Discontinued methylprednisolone 4 mg tablet 4 mg PO 0800,2200 Qty: 4 0RF Referrals / Follow Up: Maricruz Ace MD [Primary Care Provider] - Within 1 Week Disposition Disposition (needs filled in before D/C Order can be placed): Home, Self Care Charges/Coding Visit Charges Inpatient E&M: 68435 Disch Hosp >30min
== END 2024-03-06 14:44 | disposition home or self-care (01) | DRG 547 ==
LOC: ED 17:09 → MS3 18:51
PROVIDERS: Internal Medicine; Admitting Provider Internal Medicine; Emergency Provider Emergency Medicine; PCP Internal Medicine; Visit Provider Family Medicine
DX: M35.3 Polymyalgia rheumatica (principal); D63.1 Anemia in chronic kidney disease; J44.9 Chronic obstructive pulmonary disease, unspecified; N18.32 Chronic kidney disease, stage 3b; E03.9 Hypothyroidism, unspecified; G25.81 Restless legs syndrome; I12.9 Hypertensive chronic kidney disease with stage 1 through stage 4 chronic kidney disease, or unspecified chronic kidney disease; E66.9 Obesity, unspecified; E87.6 Hypokalemia; M75.31 Calcific tendinitis of right shoulder; M17.0 Bilateral primary osteoarthritis of knee; M54.12 Radiculopathy, cervical region; K21.9 Gastro-esophageal reflux disease without esophagitis; I25.10 Atherosclerotic heart disease of native coronary artery without angina pectoris; K57.30 Diverticulosis of large intestine without perforation or abscess without bleeding; J30.2 Other seasonal allergic rhinitis; M25.511 Pain in right shoulder; R26.2 Difficulty in walking, not elsewhere classified; M79.7 Fibromyalgia; Z79.890 Hormone replacement therapy; Z68.36 Body mass index [BMI] 36.0-36.9, adult; Z79.1 Long term (current) use of non-steroidal anti-inflammatories (NSAID); Z79.51 Long term (current) use of inhaled steroids; Z87.891 Personal history of nicotine dependence; Z80.0 Family history of malignant neoplasm of digestive organs; Z87.440 Personal history of urinary (tract) infections
CPT/HCPCS: 73030; 73502; 73560; 74176; 80048; 80053; 81001; 82550; 83735; 84100; 85025; 85652; 86140; 87077; 87086; 87088; 87186; 90662; 94668; 97162; 97166; 97530; 97535; 99284; 99406; J7040; J7050; A4216

== ENCOUNTER 2024-05-12 17:47 | Emergency (ER) | payer MEDICARE, MEDICAID, SELFPAY ==
[2023-11-04 10:45] VITALS: BMI 41.3
[2024-05-12 17:50] VITALS: BP 128/96; PULSE 146; RESP 18; TEMP 36.7; O2SAT 96; BMI 38.3
[2024-05-12 17:58] VITALS: O2SAT 95
--- NOTE | 2024-05-12 18:03 | ED.RN ---
PT EXPERIENCED DIZZINESS TODAY. HAD A SYNCOPAL EPISODE PER EMS. PT DENIES BLACKING OUT OR HITTING HER HEAD. SHE HAS BEEN OFF ANTICOAGS FOR 5+ MONTHS. PT HAS HX OF ROTATOR CUFF PAIN/INJURY AND HER RIGHT SHOULDER TO THE BRUNT OF HER FALL. HX OF AFIB WITH RVR. PTS HR 129.
--- NOTE | 2024-05-12 18:12 | ED.VIS.FALL ---
HPI HPI - Fall History of Present Illness Chief Complaint: Fall PFSH PFSH Medical History Rheumatoid arthritis Kidney disease GERD (gastroesophageal reflux disease) Congestive heart failure (CHF) Hypertension Bilateral hip pain Hypothyroidism Fibromyalgia Wears dentures Walker as ambulation aid Arthritis Bladder disease Fatty liver Easy bruising Back pain History of hiatal hernia Gastric reflux Former smoker CPAP (continuous positive airway pressure) dependence COPD (chronic obstructive pulmonary disease) Shortness of breath on exertion Leg cramps History of pain when walking History of edema History of echocardiogram Cardiology follow-up encounter History of CHF (congestive heart failure) Trigger finger, right middle finger Right carpal tunnel syndrome LBBB (left bundle branch block) Pulmonary hypertension Chronic fatigue Coronary artery disease involving nikolski coronary artery of nikolski heart without angina pectoris Chronic diastolic CHF (congestive heart failure) Stage 3b chronic kidney disease Restless leg syndrome Essential hypertension Obesity DVT (deep venous thrombosis) Diverticulosis of colon (without mention of hemorrhage) Arrhythmia Nonrheumatic aortic (valve) stenosis Anemia in stage 3b chronic kidney disease Avulsion fracture of talus Fibromyalgia Hypothyroidism Osteoporosis Home Medications ?Medication ?Instructions ?Recorded ?Last Taken ?Type pantoprazole 40 mg tablet,delayed 40 mg PO DAILY stomach 07/24/18 11/03/23 History release ropinirole 0.5 mg tablet (Requip) 1 mg PO QHS restless legs 07/24/18 11/03/23 History carvedilol 6.25 mg tablet 6.25 mg PO BID heart 02/12/22 11/04/23 History folic acid 1 mg tablet 1 mg PO DAILY 02/12/22 11/03/23 History spironolactone 50 mg tablet 50 mg PO DAILY water pill 02/12/22 11/04/23 History (Aldactone) albuterol sulfate 90 mcg/actuation 2 puff inhalation Q4H PRN 12/19/22 11/04/23 History aerosol inhaler shortness of breath or wheezing calcium 600 mg (as 1 cap PO DAILY supplement 12/19/22 11/03/23 History carbonate)-vitamin D3 12.5 mcg (500 unit) capsule cyanocobalamin (vitamin B-12) 1,000 mcg IM QMONTH supplement 12/19/22 Unknown History 1,000 mcg/mL injection kit ferrous sulfate 325 mg (65 mg 325 mg PO DAILY iron 12/19/22 11/03/23 History iron) tablet fluticasone propionate 50 1 spray intranasal DAILY allergies 12/19/22 Unknown History mcg/actuation nasal spray,suspension oxycodone-acetaminophen 5 mg-325 1 tab PO TID Pain 12/19/22 11/03/23 History mg tablet levothyroxine 200 mcg tablet 200 mcg PO MOTUWETHFRSA 07/10/23 11/03/23 History tizanidine 4 mg tablet 8 mg PO QHS muscle spasm 07/10/23 11/03/23 History fluticasone fur. 100 mcg-umeclid 1 ea inhalation DAILY breathing 10/29/23 11/03/23 History 62.5 mcg-vilant 25 mcg inhalat.powder (Trelegy Ellipta) gabapentin 100 mg capsule 100 mg PO QHS pain 10/29/23 11/02/23 History levothyroxine 200 mcg capsule 300 mcg PO ADAMES thyroid 10/29/23 11/01/23 History prednisone 20 mg tablet 20 mg PO BREAKFAST 30 days #30 tabs 03/06/24 Unknown Rx Allergy/AdvReac Type Severity Reaction Status Date / Time Iodinated Contrast Media Allergy Anaphylaxis Verified 05/12/24 18:05 (CONTRASTS) alendronate sodium (From AdvReac Intermediate Other Verified 05/12/24 18:05 Fosamax Plus D) cholecalciferol (vitamin D3) AdvReac Intermediate Other Verified 05/12/24 18:05 (From Fosamax Plus D) adhesive tape AdvReac Rash Verified 05/12/24 18:05 NSAIDS (Non-Steroidal AdvReac Upset Verified 05/12/24 18:05 Anti-Inflamma Stomach Family History Mother Heart disease Cancer throat/lung/stomach Father Heart disease Sister Asthma Brother Lymphoma Grandfather Colon cancer Aunt Colon cancer Uncle Colon cancer Surgical History History of cholecystectomy Hx of CABG History of cardiac catheterization History of esophagogastroduodenoscopy (EGD) History of surgical removal of meniscus of knee S/P TAVR (transcatheter aortic valve replacement) (~07/14/22) Hx of total hysterectomy with removal of both tubes and ovaries Hx of ventral hernia repair Hx laparoscopic cholecystectomy History of resection of small bowel History of lumpectomy of right breast Hx of appendectomy Social History Smoking Status: Former smoker Electronic Cigarette Use: with nicotine alcohol intake: never substance use type: does not use caffeine: Yes Type: coffee Number of servings: 5 EXAM Physical Exam Const Vital Signs: 05/12/24 17:50 05/12/24 17:58 05/12/24 17:58 Temperature 98.0 F Temperature Source Oral Pulse Rate 146 H Respiratory Rate 18 Respiratory Effort Normal Normal Respiratory Depth Normal Respiratory Pattern Normal Normal Blood Pressure 128/96 H Blood Pressure Mean 106 Pulse Ox 96 95 Oxygen Delivery Method Room Air Room Air 05/12/24 18:48 05/12/24 18:55 05/12/24 19:00 Temperature Temperature Source Pulse Rate 149 H 89 Respiratory Rate 18 19 H Respiratory Effort Respiratory Depth Respiratory Pattern Blood Pressure 159/106 H 144/78 H Blood Pressure Mean 123 100 Pulse Ox 97 97 Oxygen Delivery Method Room Air Room Air Room Air 05/12/24 21:00 Temperature Temperature Source Pulse Rate 81 Respiratory Rate 21 H Respiratory Effort Respiratory Depth Respiratory Pattern Blood Pressure 101/80 Blood Pressure Mean 87 Pulse Ox 97 Oxygen Delivery Method Room Air MDM MDM MDM Narrative Medical decision making narrative: HISTORY OF PRESENT ILLNESS: 78-year-old female presents with near syncope syncope. She states she felt short of breath. She is not actually pass out she lowered self to the floor. She had no injuries. She not hit her head or lose consciousness. She denies any chest pain. Denies any bleeding diathesis. Notes history of PE in the past. Per EMS patient fall due to single episode. Notes history of A-fib not heart rate 141. Notes blood glucose of 269 REVIEW OF SYSTEMS: Pertinent positives: Near syncope Pertinent negatives: Chest pain, abdominal pain PHYSICAL EXAM: Nursing triage notes reviewed, Vital signs reviewed Constitutional: please see mdm HENT: MMM Eyes: Pupils equal round and reactive to light, Extraocular muscles intact Neck: No stridor, no JVD, full neck ROM Lungs: Clear to auscultation, No wheezing or rales. No increased work of breathing, no conversational dyspnea, no accessory muscle use, no nasal flaring. No respiratory distress noted Heart: Regular rate and rhythm, No murmurs, No rubs and No gallops, 2+ distal pulses (radial, femoral, posterior tibial) in all extremities Abdomen: Soft, there is no tenderness, rigidity, rebound or guarding, no obvious peritoneal signs, no palpable pulsatile abdominal masses, no auscultated abdominal bruit : No CVAT Extremities: No edema Neuro: No new focal neurological deficits, cranial nerves II through XII intact, 5/5 strength in all present extremities. Intact sensation to light touch in all present extremities, 2+ reflexes bilateral patella tendons. Skin: No rash or lesions noted MEDICAL DECISION MAKING: Chief Complaint: Syncope External records reviewed: med reviewed no anticoagulants Factors affecting care: History of CAD, history of DVT, status post TAVR, CHF, Social determinants of health: none History obtained from others: none Consults: none MDM Narrative: Patient was initially tachycardic in rate 146, otherwise afebrile and nontoxic-appearing hemodynamically stable. Exam with a fast irregular rate consistent with A-fib. I considered the following differential diagnosis: ACS, arrhythmia, PE, electrolyte disturbance, pneumonia ALL IMAGES (IF OBTAINED) HAVE BEEN PERSONALLY REVIEWED AND INTERPRETED BY MYSELF. Initial EKG with A-fib with RVR rate 142, left axis deviation, QT interval 418, no obvious STEMI Repeat EKG after metoprolol showed rate controlled A-fib at a rate of 100, left ax deviation, otherwise normal intervals, no obvious STEMI Third EKG showed conversion to normal sinus rhythm with a rate of 73, normal intervals, no STEMI D-dimer was elevated consistent with increased clot breakdown concerning for PE given the patient for shortness of breath and history of PE not on anticoagulation. Discussed the patient risk and benefits of pulmonary embolism versus contrast-induced anaphylaxis. Patient agreed that is important to rule out a pulm embolism and accepts risk of contrast-induced anaphylaxis. She was pretreated with Benadryl and Solu-Medrol per protocol high-sensitivity troponin is negative, no evidence of myocardial ischemiax2 I have personally reviewed the patient's chest x-ray. Chest x-ray is unremarkable for pulmonary edema, pneumothorax, pneumonia or focal cardiopulmonary abnormality. CBC with leukocytosis suggestive of system information, mild anemia has improved to baseline, no thrombocytopenia BMP without evidence of significant electrolyte abnormalities, no anion gap, no acute kidney injury. BNP elevated consistent with increased ventricular stretch likely secondary to A-fib. No clinical exam evidence of heart failure. CT of the chest showed no evidence of PE or heart failure The synthesis of the patient's history, physical exam, labs images suggest likely A-fib induced near syncope and shortness of breath. A-fib converted after metoprolol. Third EKG showed normal sinus rhythm. Patient noted complete symptomatic improvement. Vitals are stable she is appropriate for discharge home. Encouraged close outpatient cardiology follow-up. Strict return precautions were discussedc. The patient and/or family, caregivers express understanding. The patient and/or family, caregivers agrees with the plan. Shared decision making: I will have a discussion with the patient and or visitors regarding risk/benefits of further testing or admission. They will be made aware of of the risk/benefits inherent in this decision they will be given the opportunity to voice understanding. Total critical care time today provided was at least 0 minutes. This excludes separately billable procedures. Critical care time (if documented) is secondary to the patient having high probability of clinically significant/life threatening deterioration in the patient's condition which required my urgent intervention. Impression: 1. Near syncope 2. A-fib with RVR 3. Shortness of breath Dispo: discharge This note was generated with [employer] / [employer] dictation software. It may contain incorrect words, spelling, and punctuation that were not noted in review of the chart prior to signing. Lab Data Labs: Laboratory Results - last 24 hr 05/12/24 05/12/24 17:53 20:56 WBC 12.7 H RBC 3.90 L Hgb 11.8 L Hct 36.9 L MCV 94.6 MCH 30.3 MCHC 32.0 RDW Std Deviation 53.5 H RDW Coeff of Loren 15.5 H Plt Count 274 MPV 11.0 Immature Gran % (Auto) 0.800 Neut % (Auto) 78.1 H Lymph % (Auto) 12.6 L Baker % (Auto) 8.2 Eos % (Auto) 0.0 Baso % (Auto) 0.3 Absolute Neuts (auto) 9.9 H Absolute Lymphs (auto) 1.61 Nucleated RBC % 0 D-Dimer Quant (PE/DVT) 4.40 H* Sodium 140 Potassium 4.1 Chloride 107 Carbon Dioxide 25.0 Anion Gap 8 BUN 29 H Creatinine 1.15 H Estim Creat Clear Calc 42.35 Est GFR (MDRD) Af Amer 59 L Est GFR (MDRD) Non-Af 49 L BUN/Creatinine Ratio 25.2 H Glucose 221 H Calcium 9.5 Troponin I High Sens 19 24 B-Natriuretic Peptide 170.1 H Radiography Diagnostic Testing: Clinical Impression(s) from Imaging Studies Chest X-Ray 05/12/24 18:50 IMPRESSION: Right IJ catheter in the SVC. No pneumothorax. No acute disease. Electronically Signed: Gerber Spangler MD at 20:30 EST Reading Location ID and State: [address] [place] [address] Tel , Service support , Chest CTA 05/12/24 20:07 IMPRESSION: TAVR. No acute disease. Coronary artery disease and cardiomegaly. Electronically Signed: Gerber Spangler MD at 21:50 EST Reading Location ID and State: [facility] / [place] Tel , Service support , Discharge Plan Triage Chief Complaint: Fall Other Complaint: Syncope ED Provider: Gigi Crisostomo Dx/Rx/DC Orders Prescriptions: No Action fluticasone propionate 50 mcg/actuation spray,suspension 1 spray intranasal DAILY Patient Comments: Use 1 Crandall in each nostril once daily. albuterol sulfate 90 mcg/actuation HFA aerosol inhaler 2 puff inhalation Q4H PRN (Reason: shortness of breath or wheezing) Patient Comments: Inhale 2 Puffs as instructed every 4 hours as needed. cyanocobalamin (vitamin B-12) 1,000 mcg/mL kit 1,000 mcg IM QMONTH calcium carbonate-vitamin D3 600 mg-12.5 mcg (500 unit) capsule 1 cap PO DAILY ferrous sulfate 325 mg (65 mg iron) tablet 325 mg PO DAILY oxycodone-acetaminophen 5-325 mg tablet 1 tab PO TID pantoprazole 40 MG tablet 40 mg PO DAILY ropinirole [Requip] 0.5 MG tablet 1 mg PO QHS carvedilol 6.25 mg tablet 6.25 mg PO BID Patient Comments: TAKE 1 TABLET BY MOUTH TWICE DAILY folic acid 1 mg tablet 1 mg PO DAILY Patient Comments: TAKE 1 TABLET BY MOUTH EVERY DAY spironolactone [Aldactone] 50 mg tablet 50 mg PO DAILY Patient Comments: Take 1 tablet by mouth once daily. tizanidine 4 mg tablet 8 mg PO QHS Patient Comments: TAKE 2 TABLETS BY MOUTH EVERY NIGHT AT BEDTIME levothyroxine 200 mcg tablet 200 mcg PO MOTUWETHFRSA Patient Comments: Take 1 tablet by mouth once daily. Except on Thursday take 1 and a half tablet. Rx Instructions: 200 mcg orally; Take 1 tablet by mouth once daily. Except on Thursday take 1 and a half tablet. levothyroxine 200 mcg capsule 300 mcg PO ADAMES Trelegy Ellipta 100-62.5-25 mcg blister with device 1 ea inhalation DAILY gabapentin 100 mg capsule 100 mg PO QHS prednisone 20 mg Tablet 20 mg PO BREAKFAST 30 Days Qty: 30 0RF Primary Care Provider: Maricruz Ace Referrals: Maricruz Ace MD [Primary Care Provider] - Print Language: Slovak
--- NOTE | 2024-05-12 18:50 | RAD_ITS ---
STUDY: X-RAY CHEST REASON FOR EXAM: Female, 78 years old. chest pain TECHNIQUE: Single frontal view of the chest. COMPARISON: CT chest August 21, 2020. August 29, 2016 chest x-ray FINDINGS: Right IJ catheter terminates in the superior vena cava. Endovascular stent valve. No pneumothorax. The lungs are clear and expanded. There is no demonstrated pleural abnormality. Elevated right hemidiaphragm. Normal size heart. Normal mediastinum and eliecer. Normal visualized pulmonary arteries. Normal visualized aortic arch and descending thoracic aorta. Normal visualized thoracic spine. Normal visualized ribs, clavicles, and shoulders. There is no demonstrated abnormality of the visualized soft tissue structures of the upper abdomen. RAD/Chest 1 View (Portable) IMPRESSION: Right IJ catheter in the SVC. No pneumothorax. No acute disease. Electronically Signed: Gerber Spangler MD at 20:30 EST ,
[2024-05-12 18:55] VITALS: BP 159/106; PULSE 149; RESP 18; O2SAT 97
[2024-05-12 18:55] LABS: Absolute Lymphocyte Count 1.61 X10^3/uL (0.83-4.51); Absolute Neutrophil Count 9.9 X10^3/uL (2.0-7.7); Basophil# 0.04 X10^3/uL; Basophil% 0.3 % (0-1); Hematocrit 36.9 % (37-47); Hemoglobin 11.8 g/dL (12.0-15.0); Lymphocyte # 1.61 X10^3/ul (0.83-4.51); Lymphocyte % 12.6 % (19-41); Mean Corpuscular Hgb 30.3 pg (27.0-32.0); Mean Corpuscular Volume 94.6 fL (81-99); Monocyte# 1.05 X10^3/uL; Monocyte% 8.2 % (0-10); NRBC Flagged by Analyzer 0 % (0-5); Neutrophil # 9.93 X10^3/uL (2.7-7.7); Neutrophil % 78.1 % (47-70); Platelet Count 274 K/mm3 (150-450); RBC Distribution Width CV 15.5 % (11.6-14.6); RBC Distribution Width SD 53.5 fl (35.1-43.9); White Blood Count 12.7 K/mm3 (4.4-11.0)
[2024-05-12] MEDS: Metoprolol Tartrate 5 MG/5 ML Vial IV (18:55)
[2024-05-12 19:00] VITALS: BP 144/78; PULSE 89; RESP 19; O2SAT 97
[2024-05-12 19:19] LABS: Anion Gap 8 (5-15); BUN 29 mg/dL (7-18); BUN/Creat Ratio 25.2 RATIO (10-20); Calcium,Total 9.5 mg/dL (8.5-10.1); Chloride 107 mmol/L (98-107); Creatinine, Serum 1.15 mg/dL (0.55-1.02); EST Glomerular Filtration Rate 49 mL/min (>60); Est Glom Filt Rate - Afr Amer 59 mL/min (>60); Estimated Creatinine Clearance 42.35 ml/min; Glucose 221 mg/dL (74-106); Potassium 4.1 mmol/L (3.5-5.1); Sodium Level 140 mmol/L (136-145); Troponin-I HS (w/2H Reflex) 19 pg/mL (3.0-54.0)
[2024-05-12 19:32] LABS: BNP,B-Type NATRIURETIC PEPTIDE 170.1 pg/mL (0-100)
--- NOTE | 2024-05-12 20:07 | CT_ITS ---
STUDY: CTA CHEST REASON FOR EXAM: Female, 78 years old. syncope, r/o PE RADIATION DOSAGE (If Supplied By Facility): CTDIvol = ( 22.13 ) mGy, DLP = ( 516.25 ) mGycm TECHNIQUE: The examination was performed with the intravenous administration of IV 100mL Isovue-370. Post-processing of the angiographic images was performed, with multiplanar reformation and 3D reconstruction. Individualized dose optimization techniques were used for this CT. The protocol utilizes one or more of the following dose reduction techniques: automated exposure control, adjustment of mA and/or kV according to patient size,and/or use of iterative reconstruction technique. COMPARISON: Chest x-ray May 04, 2024. CT chest August 21, 2020. FINDINGS: Normal enhancement of the main pulmonary artery and right and left pulmonary arteries. Normal enhancement of the bilateral peripheral pulmonary arteries. There is no demonstrated pulmonary embolism. Normal thoracic aorta and visualized great vessels. There is no demonstrated aortic dissection. Cardiomegaly. TAVR proximal aorta. Calcific coronary artery disease. Normal mediastinum. Normal hilar regions. Normal visualized trachea and bronchi. The lungs are well expanded. Normal pulmonary parenchyma. Normal pleura. Normal chest wall structures. Port-A-Cath right chest wall terminating in the superior vena cava. Normal osseous structures. Normal visualized upper abdomen. CT/CTA Chest W/WO Contrast IMPRESSION: TAVR. No acute disease. Coronary artery disease and cardiomegaly. Electronically Signed: Gerber Spangler MD at 21:50 EST ,
[2024-05-12] MEDS: DiphenhydrAMINE 50 MG/ML Syringe IV (20:25)
[2024-05-12 20:48] LABS: Reflex Troponin-HS? (from REC) Y
[2024-05-12 21:00] VITALS: BP 101/80; PULSE 81; RESP 21; O2SAT 97
[2024-05-12 21:36] LABS: Troponin-I HS 24 pg/mL (3.0-54.0)
[2024-05-12 22:46] VITALS: BP 136/82; PULSE 85; RESP 16; TEMP 36.6; O2SAT 97
== END 2024-05-12 22:47 | disposition home or self-care (01) ==
PROVIDERS: Emergency Provider Emergency Medicine; PCP Internal Medicine; Referring Provider Emergency Medicine; Visit Provider Emergency Medicine
DX: R55 Syncope and collapse (principal); I13.0 Hypertensive heart and chronic kidney disease with heart failure and stage 1 through stage 4 chronic kidney disease, or unspecified chronic kidney disease; I50.32 Chronic diastolic (congestive) heart failure; J44.9 Chronic obstructive pulmonary disease, unspecified; I48.91 Unspecified atrial fibrillation; N18.32 Chronic kidney disease, stage 3b; Z95.2 Presence of prosthetic heart valve; Z86.718 Personal history of other venous thrombosis and embolism; Z90.710 Acquired absence of both cervix and uterus; I25.10 Atherosclerotic heart disease of native coronary artery without angina pectoris; Z87.891 Personal history of nicotine dependence; G25.81 Restless legs syndrome; K21.9 Gastro-esophageal reflux disease without esophagitis; Z79.899 Other long term (current) drug therapy; Z79.51 Long term (current) use of inhaled steroids; Z79.890 Hormone replacement therapy; E03.9 Hypothyroidism, unspecified; Z90.49 Acquired absence of other specified parts of digestive tract; Z95.1 Presence of aortocoronary bypass graft; R06.02 Shortness of breath
CPT/HCPCS: 71045; 71275; 80048; 83880; 84484; 85025; 85379; 93005; 96374; 96375; 99285; Q9967; A4216

== ENCOUNTER → 2024-06-27 | Outpatient (CLI) | payer MEDICARE, MEDICAID, SELFPAY ==
[2023-11-04 10:45] VITALS: BMI 41.3
--- NOTE | 2024-06-27 17:00 | RAD_ITS ---
STUDY: X-RAY - LUMBAR SPINE REASON FOR EXAM: Female, 78 years old. BACK PAIN,DDD TECHNIQUE: 2 view(s) of the lumbar spine were obtained. COMPARISON: None FINDINGS: Normal lumbar lordosis. There is no substantial scoliosis. There is a normal alignment of the vertebrae. There is generalized demineralization of the vertebral bodies. There is multi-level degenerative disc disease with multi-level disc space narrowing. There is no demonstrated fracture. There is atherosclerotic calcification of the abdominal aorta without a demonstrated aneurysm. RAD/Lumbar Spine 2 or 3 Views IMPRESSION: No acute abnormalities. Demineralization and degenerative disc disease. Electronically Signed: Ole Naranjo MD at 22:38 EST ,
--- NOTE | 2024-06-27 17:00 | RAD_ITS ---
STUDY: X-RAY - THORACIC SPINE REASON FOR EXAM: Female, 78 years old. BACK PAIN, DDD TECHNIQUE: 3 view(s) of the thoracic spine were obtained. COMPARISON: Thoracic spine x-ray dated May 16, 2021 FINDINGS: Normal kyphosis of the thoracic spine. Mild levoscoliosis is present. Mild to moderate asymmetric disc space narrowing with endplate spurring and degenerative changes. Chronic compression deformity is present at T8 with 60% loss of height and sclerosis. No acute fractures seen. No aggressive abnormalities are seen. The soft tissue structures are unremarkable. Right chest port and catheter noted. RAD/Thoracic Spine 2 Views IMPRESSION: Chronic compression deformity of T8 Electronically Signed: Shaquille Simms MD at 10:48 EST ,
== END | disposition home or self-care (01) ==
LOC: RAD 16:54
PROVIDERS: PCP Internal Medicine; Referring Provider Anesthesiology Pain Medicine; Visit Provider Anesthesiology Pain Medicine
DX: M54.9 Dorsalgia, unspecified (principal)

== ENCOUNTER → 2024-11-30 | Outpatient (CLI) | payer MEDICARE, MEDICAID, SELFPAY ==
[2023-11-04 10:45] VITALS: BMI 41.3
--- NOTE | 2024-11-30 06:35 | ECHOD_ITS ---
Reason For Study Reason For Study: DYSPNEA/SOB Procedure This was a 2D Doppler, Color Flow transthoracic echocardiogram. Exam performed in department. Left Ventricle Normal LV size. Left ventricular systolic function is normal. The left ventricular ejection fraction is 70 %. No regional wall motion abnormalities noted. Right Ventricle Normal RV size. Normal systolic function. Atria Normal left atrium. Normal right atrium. Mitral Valve There is moderate to severe mitral annular calcification. Aortic Valve Peak aortic valve gradient 19 mmHg. Mean aortic valve gradient 9 mmHg. Bioprosthetic aortic valve. Pulmonic Valve Normal pulmonic valve. Great Vessels Normal aortic root. The pulmonary artery is normal size. Inferior vena cava collapse with respiration. Pericardium/Pleural No pericardial effusion. MMode/2D Measurements & Calculations LVIDd: 5.2 cm IVSd: 0.99 cm LVOT diam: 1.7 cm LVIDs: 3.3 cm LVPWd: 1.0 cm LVOT area: 2.3 cm2 FS: 36.5 % LAV(MOD-bp): 63.7 ml LVAd ap4: 27.6 cm2 SV(MOD-sp4): 62.3 ml LAV(MOD-bp) Indexed: 35.2 ml/m2 LVLd ap4: 7.4 cm SI(MOD-sp4): 34.5 ml/m2 LAV(MOD-sp2): 61.4 ml EDV(MOD-sp4): 86.1 ml LAV(MOD-sp4): 61.8 ml EDV(sp4-el): 87.8 ml LVAs ap4: 12.3 cm2 LVLs ap4: 5.7 cm ESV(MOD-sp4): 23.7 ml ESV(sp4-el): 22.7 ml EF(MOD-sp4): 72.4 % EF(sp4-el): 74.1 % SV(sp4-el): 65.0 ml LA dimension(2D): 5.3 cm LA A4 area: 20.7 cm2 RA A4 area: 11.0 cm2 TAPSE: 2.2 cm Time Measurements MV dec time: 0.17 sec Doppler Measurements & Calculations MV E max lazaro: 134.2 cm/sec Lat Peak E' Lazaro: 5.3 cm/sec Med Peak E' Lazaro: 6.7 cm/sec MV A max lazaro: 95.6 cm/sec E/E' lat: 25.5 E/E' med: 20.1 MV E/A: 1.4 MV V2 max: 146.7 cm/sec MV P1/2t max lazaro: 141.5 cm/sec Ao V2 max: 221.5 cm/sec MV max P.6 mmHg MV P1/2t: 57.7 msec Ao max P.0 mmHg MV V2 mean: 55.7 cm/sec Ao V2 mean: 140.7 cm/sec MV mean P.8 mmHg MV dec slope: 718.8 cm/sec2 Ao mean P.1 mmHg MV V2 VTI: 49.9 cm MVA(P1/2t): 3.8 cm2 Ao V2 VTI: 50.3 cm AV (velocity ratio): 0.63 MVA(VTI): 1.5 cm2 NISH(I,D): 1.5 cm2 NISH(V,D): 1.2 cm2 AI max lazaro: 381.3 cm/sec LV V1 max: 111.8 cm/sec SV(LVOT): 74.7 ml AI max P.2 mmHg LV V1 max P.0 mmHg AI dec slope: 123.3 cm/sec2 LV V1 mean P.3 mmHg AI P1/2t: 905.7 msec LV V1 mean: 86.2 cm/sec LV V1 VTI: 31.9 cm PA V2 max: 113.7 cm/sec TR max lazaro: 277.5 cm/sec PA V2 mean: 80.5 cm/sec TR max P.8 mmHg ECHO/Echo Complete Interpretation Summary Normal LV size. Left ventricular systolic function is normal. The left ventricular ejection fraction is 70 %. Bioprosthetic aortic valve. Mean aortic valve gradient 9 mmHg. Ordering Physician: Loraine Negrete Referring Physician: Maricruz Ace Performed By: Carolee Marrufo RDCS, RVT
--- NOTE | 2024-11-30 14:51 | VDLE_ITS ---
Reason For Study Reason For Study: SWELLING RIGHT LEFT GSV is normal. GSV is normal. CFV is compressible, spontaneous, phasic, competent CFV is compressible, spontaneous, phasic, competent, and demonstrates normal augmentation. and demonstrates normal augmentation. FV is compressible, spontaneous, phasic, competent FV is compressible, spontaneous, phasic, competent and demonstrates normal augmentation. and demonstrates normal augmentation. POP V is compressible, spontaneous, phasic, competent POP V is compressible, spontaneous, phasic, competent and demonstrates normal augmentation. and demonstrates normal augmentation. T/P Trunk is compressible. T/P Trunk is compressible. PTV is compressible. PTV is compressible. RT PerV is compressible. LT PerV is compressible. Procedure This is a venous duplex using B-mode, color flow and spectral Doppler. Exam performed in department. The study was technically difficult. PT had difficulty tolerating probe pressure; legs are very sensitive to touch/pressure. A preliminary report was called and/or faxed to Loraine EVANS @[phone] @ 15:15. VL/Venous Duplex US - Jeet Extrem Interpretation Summary Deep veins of the lower extremities are bilaterally patent and compressible seg mentally. There is no evidence of deep vein thrombosis on either side. Valvular competence appears intact within the p roximal deep venous systems bilaterally. The great saphenous veins appear bilaterally patent and compressible segmentall y. Ordering Physician: Loraine Negrete Referring Physician: Maricruz Ace Performed By: Carolee Marrufo, EVERARDO, RVT
== END | disposition home or self-care (01) ==
PROVIDERS: PCP Internal Medicine; Referring Provider Physician Assistant Medical; Visit Provider Physician Assistant Medical
DX: R06.02 Shortness of breath (principal); Z95.2 Presence of prosthetic heart valve; I70.92 Chronic total occlusion of artery of the extremities; R22.43 Localized swelling, mass and lump, lower limb, bilateral
CPT/HCPCS: 93306; 93970